=== PATIENT | female | born 1950 | race Caucasian/White ===

== ENCOUNTER 2017-09-28 08:00 | Day surgery (SDC) | payer OTHER ==
--- OUTSIDE RECORDS SUMMARY | 2017-09-28 08:06 | XMS REPORT ---
:1950 Author Organization eClinicalWorks Care Team Providers Name Role Phone Trell Stratton Provider Role Unavailable Allergies, Adverse Reactions, Alerts Substance Reaction Event Type codeine Info Not Available Drug Allergy Problems Problem Type Condition Code Onset Dates Condition Status Assessment Depression with anxiety F41.8 Active Assessment Chronic obstructive pulmonary J44.9 Active disease, unspecified COPD type Assessment Tremor of both hands R25.1 Active Problem GERD without esophagitis K21.9 Active Problem Tremor of both hands R25.1 Active Problem Depression with anxiety F41.8 Active Problem Former heavy tobacco smoker Z87.891 Active Assessment Encounter for preventative adult Z00.01 Active health care exam with abnormal findings Problem Chronic obstructive pulmonary J44.9 Active disease, unspecified COPD type Problem Migraine without aura and without G43.009 Active status migrainosus, not intractable Assessment Encounter for screening for other Z11.59 Active viral diseases Assessment Colon cancer screening Z12.11 Active Assessment Former heavy tobacco smoker Z87.891 Active Assessment Encounter for screening mammogram Z12.31 Active for breast cancer Assessment Migraine without aura and without G43.009 Active status migrainosus, not intractable Assessment Screening for osteoporosis Z13.820 Active Assessment GERD without esophagitis K21.9 Active Medications Medication Code Code Instructions Start End Status Dosage System Date Date Omeprazole [facility] 99902735863 20 MG Orally Active 1 capsule Once a day Proventil HFA [facility] 47275912382 108 (90 Base) Active 2 puffs as MCG/ACT needed Inhalation every 6 hrs Bevespi ND 11557663817 9-4.8 MCG/ACT Active 2 puffs Aerosphere Inhalation Twice a day Remeron [facility] 47697676056 30 MG Orally Active 1 tablet Once a day at bedtime Albuterol ND 97323380726 (2.5 MG/3ML) Active 3 ml as Sulfate 0.083% needed Inhalation Three times a day Results No Known Results Summary Purpose eClinicalWorks Submission
--- OUTSIDE RECORDS SUMMARY | 2017-09-28 08:07 | XMS REPORT ---
:1950 Author Organization eClinicalWorks Care Team Providers Name Role Phone Giancarlo Juan Provider Role Unavailable Allergies, Adverse Reactions, Alerts Substance Reaction Event Type codeine Info Not Available Drug Allergy Problems Problem Type Condition Code Onset Dates Condition Status Assessment LUQ abdominal pain R10.12 Active Assessment Encounter for screening colonoscopy Z12.11 Active Assessment Epigastric abdominal pain R10.13 Active Problem GERD without esophagitis K21.9 Active Problem Tremor of both hands R25.1 Active Problem Depression with anxiety F41.8 Active Problem Former heavy tobacco smoker Z87.891 Active Problem Abnormal mammogram of left breast R92.8 Active Problem Chronic obstructive pulmonary J44.9 Active disease, unspecified COPD type Problem Migraine without aura and without G43.009 Active status migrainosus, not intractable Medications Medication Code Code Instructions Start End Status Dosage System Date Date Remeron [facility] 72552580456 30 MG Orally Active 1 tablet Once a day at bedtime Omeprazole [facility] 49125933922 20 MG Orally Active 1 capsule Once a day Albuterol [facility] 27584525717 (2.5 MG/3ML) Active 3 ml as Sulfate 0.083% needed Inhalation Three times a day Proventil HFA [facility] 40705230924 108 (90 Base) Active 2 puffs as MCG/ACT needed Inhalation every 6 hrs Bevespi [facility] 30017516729 9-4.8 MCG/ACT Active 2 puffs Aerosphere Inhalation Twice a day Results No Known Results Summary Purpose eClinicalWorks Submission
[2017-09-28] MEDS ORDERED: Ringers Lactate 1,000 ML IV ONE (08:08)
[2017-09-28] MEDS ORDERED: PROPOFOL 200 MG/20 ML VIAL IV ONE ×2 (09:11)
[2017-09-28] MEDS ORDERED: LIDOCAINE 1% MPF 5 ML VIAL ONE (09:11)
[2017-09-28] MEDS ORDERED: EPINEPHRINE 1 MG/ML VIAL IV ONE (09:20)
--- NOTE | 2017-09-28 10:04 | ENDO RPT ---
[address], [address] EGD PROCEDURE REPORT EXAM DATE: 09/28/2017 PATIENT NAME: Yehuda Love MR#: [id number] BIRTHDATE: 1950 ATTENDING: Juan Mondragon DR STATUS: outpatient WAITER/WAITRESS: Leighton Correa and Mindy Hernandez RN INDICATIONS: The patient is a 66 yr old Female here for an EGD due to mid epigastric abdominal pain and GERD PROCEDURE PERFORMED: EGD with biopsy for H. pylori and EGD for control of bleeding MEDICATIONS: Per Anesthesia. TOPICAL ANESTHETIC: none CONSENT: The patient understands the risks and benefits of the procedure and understands that these risks include, but are not limited to: sedation, allergic reaction, infection, perforation and/or bleeding. Alternative means of evaluation and treatment include, among others: physical exam, x-rays, and/or surgical intervention. The patient elects to proceed with this endoscopic procedure. DESCRIPTION OF PROCEDURE: During intra-op preparation period all mechanical medical equipment was checked for proper function. Hand hygiene and appropriate measures for infection prevention was taken. Procedure, possible complications, and alternatives including but not limited to the possibility of bleeding, perforation, tear, infection, sepsis, need for surgery, need for blood transfusion, and anesthesia related complications were explained to the patient. After the risks, benefits and alternatives of the procedure were thoroughly explained, Informed consent was verified, confirmed and timeout was successfully executed by the treatment team. The patient was placed in the left lateral position. The patient was anesthetized with topical anesthesia. Through the anesthetized oropharyngeal area, the scope was passed without any difficulty. The [id number] ([id number]) endoscope was introduced through the mouth and advanced to the second portion of the duodenum. Retroflexed views revealed a moderate sized hiatal hernia. The gastroscope was then slowly withdrawn and removed. Duodenitis was found in the bulb and descending duodenum. With standard forceps, a biopsy was obtained and sent to pathology. A sessile polyp was found in the bulb of the duodenum. It is likely benign, friable appearing Polyp which was snared. Polyp was retrieved and sent to pathology. A sessile polyp was found in the gastroesophageal junction. It appeared friable, hyperemic, and round. It was removed with cold forceps and sent to pathology. After removal Epinepherine Injection 1cc was used on the polypectomy site at the GEJ. Severe gastritis was found in the body and the antrum of the stomach. Hemorrhagic streaking was noted. A biopsy for H. pylori was taken. Multiple biopsies were obtained and sent to pathology. ADVERSE EVENTS: There were no complications. IMPRESSIONS: 1. Duodenitis was found in the bulb and descending duodenum 2. A sessile polyp was found in the bulb of the duodenum 3. A sessile polyp was found in the gastroesophageal junction 4. Severe gastritis was found in the body and the antrum of the stomach RECOMMENDATIONS: 1. acid suppression therapy 2. anti-reflux regimen 3. await biopsy results 4. follow-up: office 2 week(s) 5. avoid NSAIDS 6. follow-up of helicobacter pylori status, treat if indicated REPEAT EXAM: Return in 6 month(s) for EGD. Pending Biosies Juan Mondragon DR eSigned: Juan Mondragon DR 09/28/2017 10:04 AM cc: CPT CODES: ICD9 CODES: PATIENT NAME: Yehuda Love MR#: [id number]
--- NOTE | 2017-09-28 10:07 | ENDO RPT ---
[address], [address] COLONOSCOPY PROCEDURE REPORT EXAM DATE: 09/28/2017 PATIENT NAME: Yehuda Love MR #: [id number] BIRTHDATE: 1950 ATTENDING: Juan Mondragon DR STATUS: outpatient NUCLEAR CARDIOLOGY TECHNOLOGIST: Leighton Correa and Mindy Hernandez RN INDICATIONS: The patient is a 66 yr old Female here for a colonoscopy due to colon cancer screening PROCEDURE PERFORMED: Colonoscopy with biopsy - cold polypectomy MEDICATIONS: Per Anesthesia. ESTIMATED BLOOD LOSS: None CONSENT: The patient understands the risks and benefits of the procedure and understands that these risks include, but are not limited to: sedation, allergic reaction, infection, perforation and/or bleeding. Alternative means of evaluation and treatment include, among others: physical exam, x-rays, and/or surgical intervention. The patient elects to proceed with this endoscopic procedure. DESCRIPTION OF PROCEDURE: During intra-op preparation period all mechanical medical equipment was checked for proper function. Hand hygiene and appropriate measures for infection prevention was taken. Procedure, possible complications, alternatives including, but not limited to possibility of bleeding, perforation, tear, infection, sepsis, need for surgery, need for blood transfusion, were explained to the patient. After the risks, benefits and alternatives of the procedure were thoroughly explained, Informed consent was verified, confirmed and timeout was successfully executed by the treatment team. The patient was placed in the left lateral position. A digital rectal exam was performed and revealed no abnormalities of the rectum. After appropriate level of anesthesia, the scope was passed. The [id number] ([id number]) endoscope was introduced through the anus and advanced to the cecum, which was identified by the appendix. The quality of the prep was fair. The instrument was then slowly withdrawn as the colon was fully examined. Scope withdrawal time was 12 minutes. COLON FINDINGS: A small smooth semi-pedunculated polyp with a friable surface was found at the hepatic flexure. A polypectomy was performed with cold forceps. The resection was complete, the polyp tissue was completely retrieved and sent to histology. The colon mucosa was otherwise normal. Retroflexed views revealed no abnormalities. The scope was then completely withdrawn from the patient and the procedure terminated. ADVERSE EVENTS: There were no complications. IMPRESSIONS: 1. Small semi-pedunculated polyp was found at the hepatic flexure; polypectomy was performed with cold forceps 2. The colon mucosa was otherwise normal RECOMMENDATIONS: 1. avoid NSAIDS for 2 weeks 2. await biopsy results 3. fiber rich diet 4. follow-up: office 2 week(s) 5. increase dietary water RECALL: Return in 5 year(s) for Colonoscopy, pending biopsy results. Juan Mondragon DR eSigned: Juan Mondragon DR 09/28/2017 10:07 AM cc: CPT CODES: ICD9 CODES: PATIENT NAME: Yehuda Love MR#: [id number]
[2017-09-28] MEDS ORDERED: EPINEPHRINE/PF 1 MG/ML AMP ONE (10:20)
[2017-09-28] MEDS ORDERED: PROMETHAZINE 25 MG/ML VIAL ONE (10:36)
== END 2017-09-28 11:05 | disposition home or self-care (01) ==
LOC: OR 08:00
PROVIDERS: ATTEND Surgery
PROC: 0DB68ZX Excision of Stomach, Via Natural or Artificial Opening Endoscopic, Diagnostic (ICD-10-PCS; 2017-09-28)
PROC: 0DB98ZX Excision of Duodenum, Via Natural or Artificial Opening Endoscopic, Diagnostic (ICD-10-PCS; 2017-09-28)
PROC: 0W3P8ZZ Control Bleeding in Gastrointestinal Tract, Via Natural or Artificial Opening Endoscopic (ICD-10-PCS; 2017-09-28)
PROC: 0DBL8ZX Excision of Transverse Colon, Via Natural or Artificial Opening Endoscopic, Diagnostic (ICD-10-PCS; principal; 2017-09-28 09:15)
PROC: 0DB48ZX Excision of Esophagogastric Junction, Via Natural or Artificial Opening Endoscopic, Diagnostic (ICD-10-PCS; 2017-09-28 09:15)
DX: Z12.11 Encounter for screening for malignant neoplasm of colon (principal); K63.5 Polyp of colon; K29.80 Duodenitis without bleeding; K31.7 Polyp of stomach and duodenum; K29.60 Other gastritis without bleeding; J44.9 Chronic obstructive pulmonary disease, unspecified; F41.8 Other specified anxiety disorders; Z87.891 Personal history of nicotine dependence; K21.9 Gastro-esophageal reflux disease without esophagitis
CPT/HCPCS: 88305; 88312; J0171; J2550

== ENCOUNTER 2017-10-09 13:42 | Emergency (ER) | payer OTHER ==
--- OUTSIDE RECORDS SUMMARY | 2017-10-09 13:44 | XMS REPORT ---
[...] End Status Dosage System Date Date Remeron [facility] 49643874113 30 MG Orally Active 1 tablet Once a day at bedtime Omeprazole [facility] 48584562106 20 MG Orally Active 1 capsule Once a day Albuterol [facility] 39348446080 (2.5 MG/3ML) Active 3 ml as Sulfate 0.083% needed Inhalation Three times a day Proventil HFA [facility] 72812833283 108 (90 Base) Active 2 puffs as MCG/ACT needed Inhalation every 6 hrs Bevespi [facility] 17867935730 9-4.8 MCG/ACT Active 2 puffs Aerosphere Inhalation Twice a day Results No Known Results Summary Purpose eClinicalWorks Submission
--- OUTSIDE RECORDS SUMMARY | 2017-10-09 13:44 | XMS REPORT ---
:1950 Author Organization eClinicalWorks Care Team Providers Name Role Phone Juan Mondragon Provider Role Unavailable Allergies No Known Allergies Problems Problem Type Condition Code Onset Dates Condition Status Problem GERD without esophagitis K21.9 Active Problem Tremor of both hands R25.1 Active Problem Depression with anxiety F41.8 Active Problem Former heavy tobacco smoker Z87.891 Active Problem Abnormal mammogram of left breast R92.8 Active Problem Chronic obstructive pulmonary J44.9 Active disease, unspecified COPD type Problem Migraine without aura and without G43.009 Active status migrainosus, not intractable Medications Medication Code System Code Instructions Start Date End Date Status Dosage Zofran [facility] 28335454153 4 MG Orally every October 01, Active 1 tablet 8 hrs as needed 2017 Results No Known Results Summary Purpose eClinicalWorks Submission
--- OUTSIDE RECORDS SUMMARY | 2017-10-09 13:44 | XMS REPORT ---
[...] End Status Dosage System Date Date Omeprazole [facility] 13345900014 20 MG Orally Active 1 capsule Once a day Proventil HFA [facility] 10522005975 108 (90 Base) Active 2 puffs as MCG/ACT needed Inhalation every 6 hrs Bevespi ND 04824511354 9-4.8 MCG/ACT Active 2 puffs Aerosphere Inhalation Twice a day Remeron [facility] 09551554460 30 MG Orally Active 1 tablet Once a day at bedtime Albuterol ND 60364574913 (2.5 MG/3ML) Active 3 ml as Sulfate 0.083% needed Inhalation Three times a day Results No Known Results Summary Purpose eClinicalWorks Submission
--- OUTSIDE RECORDS SUMMARY | 2017-10-09 13:44 | XMS REPORT ---
[...] Medications Medication Code System Code Instructions Start End Date Status Dosage Date Omeprazole [facility] 84010398659 20 MG Orally bid October 01, Active 1 2017 Results No Known Results Summary Purpose eClinicalWorks Submission
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
[2017-10-09] MEDS ORDERED: HYDROCODONE/APAP 5/325 MG TAB ONE (15:27)
== END 2017-10-09 15:53 | disposition home or self-care (01) ==
LOC: ER 13:42
DX: S13.4XXA Sprain of ligaments of cervical spine, initial encounter (principal); S30.1XXA Contusion of abdominal wall, initial encounter; V49.49XA Driver injured in collision with other motor vehicles in traffic accident, initial encounter; Z88.5 Allergy status to narcotic agent; Z72.0 Tobacco use
CPT/HCPCS: 70450; 71260; 72125; 74177; 99285; Q9967

== ENCOUNTER 2019-01-15 08:43 | Day surgery (SDC) | payer OTHER ==
--- OUTSIDE RECORDS SUMMARY | 2019-01-15 09:00 | XMS REPORT | Continuity of Care Document ---
:1950 Author Organization [employer] Care Team Providers Name Role Phone [employer] Unavailable Unavailable Problems Problem Status Onset Classification Date Comments Source Date Reported Pain due to 12/17/2018 Ortho internal 019 and Spine orthopedic prosthetic devices, implants and grafts, initial encounter POST-TRAUMATIC Active [facility] ARTHRITIS, RIGHT 019 [place] [facility] Appendicitis Resolved Problem 10/08/2018 [facility] AVN of femur Active Problem 10/08/2018 [facility] COPD (Confirmed) Active Problem 10/08/2018 [facility] Concussion Resolved Problem 10/08/2018 [facility] Depression Active Problem 10/08/2018 [facility] Diabetes mellitus Active Problem 10/08/2018 Automatically [facility] type 21 added by Neuro Discern Expert with order of Add Problem Diabetes Type II on January 08, 2018 16:39:11 CDT with order ID: [id number] entered by Venus Valentine. 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/2018 [facility] osteoarthritis Neuro Osteopenia after Active Problem 10/08/2018 [facility] menopause Neuro Emphysema/COPD Active Problem 10/08/2018 [facility] Ruptured spleen Resolved Problem 10/08/2018 [facility] Other 12/17/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, and Spine right femur Acute 12/17/2018 Ortho posthemorrhagic and Spine anemia Unilateral 12/17/2018 Ortho post-traumatic and Spine osteoarthritis, right hip Type 2 diabetes 12/17/2018 Ortho mellitus without and Spine complications Chronic 12/17/2018 Ortho obstructive and Spine pulmonary disease, unspecified Age-related 12/17/2018 Ortho osteoporosis and Spine without current pathological fracture Hyperlipidemia, 12/17/2018 Ortho unspecified and Spine Major depressive 12/17/2018 Ortho disorder, single and Spine episode, unspecified Gastro-esophageal 12/17/2018 Ortho reflux disease and Spine without esophagitis Essential tremor 12/17/2018 [facility] FDC 12/17/2018 Ortho (current) use of and Spine aspirin Appendicitis Resolved Problem 12/17/2018 [facility] (disorder) Neuro, Ortho and Spine Avascular necrosis Active Problem 12/17/2018 [facility] of bone (disorder) Neuro, Ortho and Spine Chronic Active Problem 12/17/2018 [facility] obstructive lung Neuro, disease (disorder) Ortho and Spine Concussion injury Resolved Problem 12/17/2018 [facility] of body structure Neuro, (disorder) Ortho and Spine Depressive Active Problem 12/17/2018 [facility] disorder Neuro, (disorder) Ortho and Spine Diabetes mellitus Active Problem 12/17/2018 Automatically [facility] type 2 (disorder) added by Neuro, Discern Expert Ortho and with order of Spine Add Problem Diabetes Type II on January 08, 2018 16:39:11 CDT with order ID: [id number] entered by Venus Valentine. Diarrhea (finding) Active Problem 12/17/2018 [facility], Ortho and Spine Essential tremor Active Problem 12/17/2018 [facility] (disorder) Neuro, Ortho and Spine Gallbladder pain Resolved Problem 12/17/2018 [facility] (finding) Neuro, Ortho and Spine Gastric ulcer Active Problem 12/17/2018 [facility] (disorder) Neuro, Ortho and Spine Gastroesophageal Active Problem 12/17/2018 [facility] reflux disease Neuro, (disorder) Ortho and Spine Hyperlipidemia Active Problem 12/17/2018 [facility] (disorder) Neuro, Ortho and Spine Migraine Active Problem 12/17/2018 [facility] (disorder) Neuro, Ortho and Spine Neck pain Active Problem 12/17/2018 [facility] (finding) Neuro, Ortho and Spine Poor short-term Active Problem 12/17/2018 [facility] memory (finding) Neuro, Ortho and Spine Post traumatic Active Problem 12/17/2018 [facility] osteoarthritis Neuro, (disorder) Ortho and Spine Postmenopausal Active Problem 12/17/2018 [facility] osteopenia Neuro, Ortho and Spine Pulmonary Active Problem 12/17/2018 [facility] emphysema Neuro, (disorder) Ortho and Spine Rupture of spleen Resolved Problem 12/17/2018 [facility] (disorder) Neuro, Ortho and Spine Medications Medication Details Route Status Patient Ordering Order Source Instructions Provider Date Alendronate 70 mg, 1 tab, No Longer Ortho Route: PO, Drug Active 2018 and form: TAB, QSun, Spine Dosing Weight 56.091, kg, Start date: 06/02/18 9:00:00 LEAD ORACLE DEVELOPER, Duration: 30 day, Stop date: 06/30/18 9:00:00 CSTNotes: Non-Formulary Drug Reserved for use in Post-Acute retirement care settings ONLY Give 30 min before breakfast w/6oz water. Sit upright for 30 min after dose. "Do Not Crush" tramadol 50 mg=1 tab, PO, No Longer Ortho hydrochloride 50 Q6H, PRN Pain, X Active 2018 and MG Oral Tablet 10 day, # 40 Spine tab, 0 Refill(s), given to patient Sulfamethoxazole 1 tab, PO, BID, No Longer Ortho 800 MG / X 14 day, # 28 Active 2019 and Trimethoprim 160 tab, 0 Spine MG Oral Tablet Refill(s), other [Bactrim] celecoxib 200 MG 200 mg=1 cap, Active Ortho Oral Capsule PO, BID, # 60 2019 and [Celebrex] cap, 0 Spine Refill(s), other Aspirin 81 MG 81 mg=1 tab, PO, Active Ortho Chewable Tablet BID, # 56 tab, 0 2019 and Refill(s), other Spine Sulfamethoxazole 1 tab, Route: No Longer Ortho 800 MG / PO, Drug Form: Active 2018 and Trimethoprim 160 TAB, Dosing Spine MG Oral Tablet Weight 56.091, [Bactrim] kg, [id number], Start date: 05/29/18 9:00:00 LEAD ORACLE DEVELOPER, Duration: 30 day, Stop date: 06/27/18 21:00:00 CSTNotes: One DS tablet=trimethop rim 160mg + sulfamethoxazole 800 mg Dose based on trimethoprim component On empty stomach with a glass of water. (Same As: Bactrim DS, Septra DS) Ondansetron 4 mg, 2 mL, No Longer Ortho Route: IVP, Drug Active 2018 and form: INJ, Q8H, Spine Dosing Weight 56.091, kg, PRN Nausea, Start date: 05/28/18 21:24:00 LEAD ORACLE DEVELOPER, Duration: 30 day, Stop date: 06/27/18 21:23:00 CSTNotes: (Same as: Zofran) MEDICATION WASTE Product Size: 4 mg Product Wasted: ___ mg 200 ACTUAT 2 puff, Route: No Longer Ortho Albuterol 0.09 INHALATION, Drug Active 2018 and MG/ACTUAT Metered Form: AERO/A, Spine Dose Inhaler Dosing Weight [Proventil] 56.091, kg, RBID, Start date: 05/28/18 20:00:00 LEAD ORACLE DEVELOPER, Duration: 30 day, Stop date: 06/27/18 8:00:00 CSTNotes: Albuterol 90 microgram/inh 8gm HFA WASTE: Aerosol - Return to Pharmacy Same as: Alexandria Lozano Dexamethasone 10 mg, 1 mL, Inactive Ortho Route: IVP, Drug 2018 and form: INJ, ONCE, Spine Dosing Weight 56.091, kg, Start date: 05/28/18 11:00:00 LEAD [employer]ACLE DEVELOPER, Stop date: 05/28/18 11:00:00 CSTNotes: MEDICATION WASTE Product Size: 10 mg Product Wasted: ___ mg Benadryl 25 mg, 1 cap, Inactive Ortho Route: PO, Drug 2018 and form: CAP, ONCE, Spine Dosing Weight 56.091, kg, PRN Nasal Congestion, Start date: 05/28/18 10:55:00 CSTNotes: (Same as: Benadryl) Zofran 4 mg, 1 tab, Inactive Ortho Route: PO, Drug 2018 and form: TABDIS, Spine Q8H, Dosing Weight 56.091, kg, Start date: 05/28/18 0:00:00 LEAD ORACLE DEVELOPER, Duration: 3 doses or times, Stop date: 05/28/18 16:00:00 CSTNotes: (Same as: Zofran ODT) Remeron 30 mg, 2 tab, No Longer Ortho Route: PO, Drug Active 2018 and form: TAB, Spine Bedtime, Dosing Weight 56.091, kg, Start date: 05/27/18 21:00:00 LEAD ORACLE DEVELOPER, Duration: 30 day, Stop date: 06/25/18 21:00:00 CSTNotes: (Same as:Remeron) Bevespi Aerosphere Bevespi No Longer Ortho 9 mcg-4.8 mcg/inh Aerosphere 9 Active 2019 and inhalation aerosol mcg-4.8 mcg/inh Spine inhalation aerosol, 2 puff, Route: INHALATION, RBID, 05/27/18 20:00:00 LEAD ORACLE DEVELOPER, Duration: 30 day, Stop date: 06/26/18 8:00:00 LEAD ORACLE DEVELOPER 200 ACTUAT 180 microgram, No Longer Ortho Albuterol 0.09 Route: Active 2019 and MG/ACTUAT Metered INHALATION, Drug Spine Dose Inhaler Form: AERO/A, [Proventil] Dosing Weight 56.091, kg, RQID, Start date: 05/27/18 19:00:00 LEAD ORACLE DEVELOPER, Duration: 30 day, Stop date: 06/26/18 15:00:00 CSTNotes: Albuterol 90 microgram/inh 8gm HFA WASTE: Aerosol - Return to Pharmacy Same as: Alexandria Lozano Tranexamic Acid 1,950 mg, 3 tab, Inactive Ortho Route: PO, Drug 2018 and form: TAB, ONCE, Spine Dosing Weight 56.091, kg, Start date: 05/27/18 18:25:00 LEAD ORACLE DEVELOPER, Stop date: 05/27/18 18:25:00 CSTNotes: (Same as: Lysteda) Omeprazole 20 mg Omeprazole 20 mg No Longer Ortho tab tab, 1 tab, Drug Active 2018 and form: MISC, Spine Route: PO, QPM, 05/27/18 18:00:00 LEAD ORACLE DEVELOPER, Duration: 30 day, Stop date: 06/25/18 18:00:00 LEAD [employer]ACLE DEVELOPER Simvastatin 20 mg, 1 tab, No Longer Ortho Route: PO, Drug Active 2018 and form: TAB, QPM, Spine Dosing Weight 56.091, kg, Start date: 05/27/18 18:00:00 LEAD ORACLE DEVELOPER, Duration: 30 day, Stop date: 06/26/18 17:00:00 CSTNotes: (Same as: Zocor) Omeprazole 10 mg, 5 mL, Inactive Ortho Route: PO, Drug 2019 and form: SUSP, QPM, Spine Dosing Weight 56.091, kg, Start date: 05/27/18 18:00:00 LEAD ORACLE DEVELOPER, Duration: 30 day, Stop date: 06/26/18 17:00:00 CSTNotes: Take 1 hour before or 2 hours after meal; Non-Formulary Drug (Same as: Prilosec) Refrigerate Compounded Product - formulation not commercially available gabapentin 400 MG 400 mg, 1 cap, Inactive Ortho Oral Capsule Route: PO, Drug 2019 and form: CAP, TID, Spine Dosing Weight 56.091, kg, Start date: 05/27/18 17:00:00 LEAD [employer]ACLE DEVELOPER, Duration: 30 day, Stop date: 06/26/18 13:00:00 CSTNotes: (Same as: Neurontin) docusate sodium 100 mg, 1 cap, No Longer Ortho Route: PO, Drug Active 2018 and form: CAP, BID, Spine Dosing Weight 56.091, kg, Start date: 05/27/18 17:00:00 LEAD [employer]ACLE DEVELOPER, Duration: 30 day, Stop date: 06/26/18 9:00:00 CSTNotes: (Same as: Colace) (Do Not Crush) Celebrex 200 mg, 1 cap, No Longer Ortho Route: PO, Drug Active 2018 and form: CAP, BID, Spine Dosing Weight 56.091, kg, Start date: 05/27/18 17:00:00 LEAD ORACLE DEVELOPER, Duration: 30 day, Stop date: 06/26/18 9:00:00 CSTNotes: NSAID. Please check indication. Not for seizure. (Same As: CeleBREX) Cefazolin 2 gm, 100 mL, No Longer Ortho Route: IVPB, Active 2019 and Drug form: INJ, Spine ABXQ6H, Dosing Weight 55.455, kg, Start date: 05/27/18 17:00:00 LEAD ORACLE DEVELOPER, Duration: 6 doses or times, Stop date: 05/28/18 23:00:00 LEAD ORACLE DEVELOPER, ABX Indication: Surgical ProphylaxisNotes : Same as: Ancef Aspirin 325 MG 325 mg, 1 tab, No Longer Ortho Enteric Coated Route: PO, Drug Active 2018 and Tablet form: ECTAB, Spine BID, Dosing Weight 56.091, kg, Start date: 05/27/18 17:00:00 LEAD ORACLE DEVELOPER, Duration: 30 day, Stop date: 06/26/18 9:00:00 CSTNotes: (Do Not Crush) Do not crush or chew. gabapentin 300 MG 300 mg, 1 cap, No Longer Ortho Oral Capsule Route: PO, Drug Active 2018 and form: CAP, Q8H, Spine Dosing Weight 55.455, kg, (CrCl > 60 ml/min), Start date: 05/27/18 16:00:00 LEAD ORACLE DEVELOPER, Duration: 30 day, Stop date: 06/26/18 8:00:00 CSTNotes: (Same as: Neurontin) glycopyrrolate Route: IV, Drug Inactive Ortho (ANES) form: INJ, ONCE, 2018 and Stop date: Spine 05/27/18 12:30:00 LEAD ORACLE DEVELOPER neostigmine (ANES) Route: IV, Drug Inactive Ortho form: INJ, ONCE, 2018 and Stop date: Spine 05/27/18 12:30:00 LEAD ORACLE DEVELOPER tramadol 100 mg, 2 tab, No Longer Ortho hydrochloride 50 Route: PO, Drug Active 2018 and MG Oral Tablet form: TAB, Q6H, Spine Dosing Weight 56.091, kg, PRN Pain Score 7-10, Start date: 05/27/18 12:25:00 LEAD ORACLE DEVELOPER, Duration: 30 day, Stop date: 06/26/18 12:24:00 CSTNotes: Not to exceed 400mg/day. (Same As: Ultram) Diphenhydramine 50 mg, 2 cap, No Longer Ortho Route: PO, Drug Active 2018 and form: CAP, TID, Spine Dosing Weight 56.091, kg, PRN Itching, Start date: 05/27/18 12:25:00 LEAD [employer]ACLE DEVELOPER, Duration: 30 day, Stop date: 06/26/18 12:24:00 CSTNotes: (Same as: Benadryl) Morphine 4 mg, 0.4 mL, No Longer Ortho Route: IVP, Drug Active 2018 and form: INJ, Q4H, Spine Dosing Weight 56.091, kg, PRN Pain Score 7-10, Start date: 05/27/18 12:25:00 LEAD ORACLE DEVELOPER, Duration: 30 day, Stop date: 06/26/18 12:24:00 CSTNotes: (Same as:MORPhine Sulfate) Melatonin 3 mg, 1 tab, No Longer Ortho Route: PO, Drug Active 2018 and form: TAB, Spine Bedtime, Dosing Weight 56.091, kg, PRN Sleep, Start date: 05/27/18 12:25:00 LEAD ORACLE DEVELOPER, Duration: 30 day, Stop date: 06/26/18 12:24:00 CSTNotes: (Same as: Melatonin) POLYETHYLENE 17 gm, 1 pkt, No Longer Ortho GLYCOL 3350 Route: PO, Drug Active 2018 and form: PWDR, Spine ONCE, Dosing Weight 56.091, kg, PRN Constipation, Start date: 05/27/18 12:25:00 CSTNotes: Dissolve in 8 oz of water or juice. (Same as: Miralax) Dulcolax Laxative 5 mg, 1 tab, No Longer Ortho Route: PO, Drug Active 2018 and form: ECTAB, Spine ONCE, Dosing Weight 56.091, kg, PRN Constipation, Start date: 05/27/18 12:25:00 CSTNotes: (Same As: Dulcolax, Correctol) (Do Not Crush) "Do Not Crush" Tylenol 650 mg, 2 tab, No Longer Ortho Route: PO, Drug Active 2018 and form: TAB, Q6H, Spine Dosing Weight 56.091, kg, PRN Pain Score 1-3, Start date: 05/27/18 12:25:00 LEAD ORACLE DEVELOPER, Duration: 30 day, Stop date: 06/26/18 12:24:00 CSTNotes: Do not exceed 4 gm/day. (Same as: Tylenol) Famotidine 20 mg, 1 tab, No Longer Ortho Route: PO, Drug Active 2018 and form: TAB, BID, Spine Dosing Weight 56.091, kg, PRN Indigestion, Start date: 05/27/18 12:25:00 LEAD ORACLE DEVELOPER, Duration: 30 day, Stop date: 06/26/18 12:24:00 CSTNotes: (Same as: Pepcid) NS 1,000 mL 1,000 mL, Rate: No Longer Ortho 85 ml/hr, Infuse Active 2019 and over: 11.8 hr, Spine Route: IV, Dosing Weight 56.091 kg, Total Volume: 1,000, Start date: 05/27/18 12:25:00 LEAD ORACLE DEVELOPER, Duration: 30 day, Stop date: 06/26/18 12:24:00 LEAD ORACLE DEVELOPER, 1.58, m2 ondansetron (ANES) Route: IV, Drug Inactive Ortho form: INJ, ONCE, 2018 and Stop date: Spine 05/27/18 12:17:00 LEAD [employer]ACLE DEVELOPER phenylephrine Route: IV, Drug Inactive Ortho (ANES) form: INJ, ONCE, 2018 and Stop date: Spine 05/27/18 11:07:00 LEAD ORACLE DEVELOPER 72 HR Scopolamine 1 patch, Route: Inactive Ortho 0.0139 MG/HR TOP, Drug Form: 2019 and Transdermal Patch ERFILM, Dosing Spine Weight 56.091, kg, PRE OP, Start date: 05/27/18 11:00:00 LEAD ORACLE DEVELOPER, Duration: 30 day, Stop date: 06/26/18 10:59:00 LEAD ORACLE DEVELOPER dexamethasone Route: IV, Drug Inactive Ortho (ANES) form: INJ, ONCE, 2018 and Stop date: Spine 05/27/18 10:57:00 LEAD ORACLE DEVELOPER rocuronium (ANES) Route: IV, Drug Inactive Ortho form: INJ, ONCE, 2018 and Stop date: Spine 05/27/18 10:52:00 LEAD ORACLE DEVELOPER fentaNYL (ANES) Route: IV, Drug Inactive 05/27/ Ortho form: INJ, ONCE, 2018 and Stop date: Spine 05/27/18 10:52:00 LEAD ORACLE DEVELOPER propofol (ANES) Route: IV, Drug Inactive 05/27/ Ortho form: INJ, ONCE, 2018 and Stop date: Spine 05/27/18 10:52:00 LEAD ORACLE DEVELOPER lidocaine (ANES) Route: IV, Drug Inactive Ortho form: INJ, ONCE, 2018 and Stop date: Spine 05/27/18 10:52:00 LEAD ORACLE DEVELOPER midazolam (ANES) Route: IV, Drug Inactive Ortho form: SOLN, 2019 and ONCE, Stop date: Spine 05/27/18 10:52:00 LEAD ORACLE DEVELOPER ceFAZolin (ANES) Route: IV, Drug Inactive Ortho form: INJ, ONCE, 2019 and Stop date: Spine 05/27/18 10:52:00 LEAD ORACLE DEVELOPER Ondansetron 4 mg, 2 mL, Inactive Ortho Route: IVP, Drug 2019 and form: INJ, ONCE, Spine Dosing Weight 56.091, kg, PRN Nausea & Vomiting, Start date: 05/27/18 10:30:00 CSTNotes: (Same as: Zofran) MEDICATION WASTE Product Size: 4 mg Product Wasted: ___ mg Hydromorphone 0.5 mg, 0.25 mL, Inactive Ortho Route: IVP, Drug 2018 and form: INJ, Spine Q5Min, Dosing Weight 56.091, kg, PRN Pain Score 7-10, Start date: 05/27/18 10:30:00 LEAD ORACLE DEVELOPER, Duration: 4 doses or times, Stop date: 05/27/18 18:29:00 CSTNotes: Same as Dilaudid Naloxone 0.4 mg, 1 mL, Inactive Ortho Route: IVP, Drug 2018 and form: INJ, Spine Q2MIN, Dosing Weight 56.091, kg, PRN Narcotic Reversal, Start date: 05/27/18 10:30:00 LEAD ORACLE DEVELOPER, Duration: 8 doses or times, Stop date: 05/27/18 18:29:00 CSTNotes: Same as Narcan Flumazenil 0.2 mg, 2 mL, Inactive Ortho Route: IVP, Drug 2018 and form: INJ, PRN, Spine Dosing Weight 56.091, kg, PRN Benzodiazepine Reversal, Initial dose, Start date: 05/27/18 10:30:00 LEAD ORACLE DEVELOPER, Duration: 8 hr, Stop date: 05/27/18 18:29:00 CSTNotes: (Same as: Romazicon) Morphine 2 mg, 0.2 mL, Inactive Ortho Route: IVP, Drug 2018 and form: INJ, Spine Q5Min, Dosing Weight 56.091, kg, PRN Pain Score 4-6, Start date: 05/27/18 10:30:00 LEAD ORACLE DEVELOPER, Duration: 5 doses or times, Stop date: 05/27/18 18:29:00 CSTNotes: (Same as:MORPhine Sulfate) Lactated Ringers Route: IV, Total Inactive Ortho Injection IV Volume: 1,000, 2019 and (ANES) 1000 mL Start date: Spine 05/27/18 10:02:00 LEAD ORACLE DEVELOPER, Stop date: 05/27/18 11:02:00 LEAD ORACLE DEVELOPER Glucagon 1 mg, Route: IM, No Longer Ortho Drug form: Active 2019 and PDR/INJ, PRN, Spine Dosing Weight 56.091, kg, PRN Blood Glucose Results, Start date: 05/27/18 8:05:00 LEAD ORACLE DEVELOPER, Duration: 30 day, Stop date: 06/26/18 8:04:00 LEAD ORACLE DEVELOPER Dextrose 50% 25 gm, 50 mL, No Longer Ortho Syringe Route: IVP, Drug Active 2018 and Form: INJ, Spine Dosing Weight 56.091, kg, PRN, PRN Blood Glucose Results, Start date: 05/27/18 8:05:00 LEAD ORACLE DEVELOPER, Duration: 30 day, Stop date: 06/26/18 8:04:00 LEAD ORACLE DEVELOPER Insulin Lispro 3 unit, 0.03 mL, No Longer Ortho Route: SUB-Q, Active 2018 and Drug form: SOLN, Spine TID-Before Meals, Dosing Weight 56.091, kg, PRN Blood Glucose Results, Start date: 05/27/18 8:05:00 LEAD ORACLE DEVELOPER, Duration: 30 day, Stop date: 06/26/18 8:04:00 CSTNotes: (Same as: Humalog ) Roll in palms of hands gently; Do not shake `vigorously. "Single Patient Use Only " WASTE: F/P - Black; E - Municipal Trash Bin Stable for 28 days at room temperature. Expires in days from Da te Cefazolin 2 gm, 50 mL, Inactive Ortho Route: IVPB, 2019 and Drug form: INJ, Spine ONCALL, Dosing Weight 56.091, kg, Start date: 05/27/18 7:00:00 LEAD ORACLE DEVELOPER, Duration: 1 doses or times, Stop date: 05/27/18 18:00:00 LEAD ORACLE DEVELOPER, ABX Indication: Surgical Prophylaxis gabapentin 300 mg, Route: Inactive Ortho PO, ONCALL, 2019 and Dosing Weight Spine 56.091, kg, Start date: 05/27/18 7:00:00 LEAD ORACLE DEVELOPER, Duration: 30 day, Stop date: 06/26/18 6:59:00 LEAD ORACLE DEVELOPER celecoxib 400 mg, 2 cap, Inactive Ortho Route: PO, Drug 2019 and form: CAP, Spine ONCALL, Dosing Weight 56.091, kg, (for CrCl > 90 mL/min), Start date: 05/27/18 7:00:00 LEAD ORACLE DEVELOPER, Stop date: 05/27/18 18:00:00 CSTNotes: NSAID. Please check indication. Not for seizure. (Same As: CeleBREX) ropivacaine 100 mL, Route: No Longer Ortho InFILtration(loc Active 2019 and al), Drug Form: Spine INJ, Dosing Weight 56.091, kg, ONCALL, Start date: 05/27/18 7:00:00 LEAD ORACLE DEVELOPER, Stop date: 05/27/18 18:00:00 CSTNotes: NOT FOR IV use Each mL contains: Ropivacaine 2.46 mg, Epinephrine 0.005 mg, Clonidine 0.0008 mg and Ketorolac 0.3 mg in Sodium Chloride Tranexamic Acid 1.95 gm, 3 tab, Inactive Ortho Route: PO, Drug 2019 and form: TAB, ONCE, Spine Dosing Weight 56.091, kg, Start date: 05/27/18 6:44:00 LEAD ORACLE DEVELOPER, Stop date: 05/27/18 6:44:00 CSTNotes: (Same as: Lysteda) Zofran ODT 4 mg, 1 tab, Inactive Ortho Route: PO, Drug 2019 and form: TABDIS, Spine ONCE, Dosing Weight 56.091, kg, Start date: 05/27/18 6:44:00 LEAD ORACLE DEVELOPER, Stop date: 05/27/18 6:44:00 CSTNotes: (Same as: Zofran ODT) Dexamethasone 10 mg, 1 mL, Inactive Ortho Route: IVP, Drug 2019 and form: SOLN, Spine ONCE, Dosing Weight 56.091, kg, Start date: 05/27/18 6:44:00 LEAD ORACLE DEVELOPER, Stop date: 05/27/18 6:44:00 CSTNotes: dexamethasone 10 mg/1 ml VL INJ PF MEDICATION WASTE Product Size: 10 mg Product Wasted: ___ mg ropivacaine 100 mL, Route: Inactive Ortho InFILtration(loc 2019 and al), Drug Form: Spine INJ, ONCALL, Start date: 05/27/18 6:00:00 LEAD ORACLE DEVELOPER, Stop date: 05/27/18 13:00:00 CSTNotes: NOT FOR IV use Each mL contains: Ropivacaine 2.46 mg, Epinephrine 0.005 mg, Clonidine 0.0008 mg and Ketorolac 0.3 mg in Sodium Chloride polymyxin B 125,000 unit, No Longer Ortho sulfate + Sodium Route: IRRIG, Active 2018 and Chloride 0.9% IV ONCALL, Start Spine 250 mL date: 05/27/18 6:00:00 LEAD ORACLE DEVELOPER, Duration: 1 doses or times, Stop date: 05/27/18 13:00:00 LEAD ORACLE DEVELOPER, ABX Indication: Surgical ProphylaxisNotes : (Same as: Polymyxin B Sulfate) vancomycin + 500 mg, Route: No Longer Ortho Sodium Chloride IRRIG, ONCALL, Active 2018 and 0.9% IV 250 mL Start date: Spine 05/27/18 6:00:00 LEAD ORACLE DEVELOPER, Duration: 1 doses or times, Stop date: 05/27/18 13:00:00 LEAD ORACLE DEVELOPER, ABX Indication: Surgical ProphylaxisNotes : TIME CRITICAL MEDICATION (Same As: Vancocin) For adult patients only: Round to nearest 250 mg per Medical Staff approval Home Medication OTC ESTROGEN & No Longer Ortho MULTIPLE Active 2019 and VITIAMN, Spine Refill(s) 0 tramadol 50 mg=1 tab, PO, No Longer Ortho hydrochloride 50 Q6H, PRN Pain, # Active 2019 and MG Oral Tablet 40 tab, 0 Spine Refill(s) Alendronic acid 70 70 mg=1 tab, PO, Active Ortho MG Oral Tablet QSun, # 4 tab, 0 2019 and Refill(s) Spine omeprazole 10 mg 10 mg=1 cap, PO, Active Ortho oral delayed QPM, TAKES AT 2019 and release capsule 1800, # 30 cap, Spine 0 Refill(s) simvastatin 20 mg 20 mg=1 tab, PO, Active Ortho oral tablet QPM, TAKES AT 2019 and 1800, # 30 tab, Spine 1 Refill(s) gabapentin 400 MG 400 mg=1 cap, Active 05/15/ [facility] Oral Capsule PO, TID, # 90 2019 Neuro cap, 4 Refill(s), Pharmacy: [facility]/pharmacy #[id number] Allergies, Adverse Reactions, Alerts Substance Category Reaction Severity Reaction Status Date Comments Source type Reported codeine Assertion Drug Active sulfate allergy Ortho and Spine Immunizations Immunization Date Given Site Status Last Updated Comments Source Hx influenza 05/17/2018 completed Jorge Admin Note: [facility] vaccine-unspecifi REC'D Neuro, ed<sup>1</sup> 03/2018 Ortho and Spine zoster vaccine, 05/17/2018 completed Jorge Admin Note: [facility]ischer inactivated<sup>2 REC'D AT AGE Neuro, </sup> 67 PER PT Ortho and Spine Results Order Name Results Value Reference Date Interpretation Comments Source Range HEMATOLOGY Hgb 10.8 12.0 - 05/29 [facility] 16.0 /2019 [facility] Spine HEMATOLOGY Hct 32.3 36.0 - 05/29 [facility] 48.0 /2019 [facility] and Spine ELECTROLYTES AGAP 12.0 10.0 - 05/28 [facility] 20.0 /2019 Ortho and Spine ELECTROLYTES eGFR 69 05/28 Result Comment: The Ortho eGFR is and calculated Spine using the CKD-EPI formula. In most young, healthy individuals the eGFR will be >90 mL/min/1.73m2 . The eGFR declines with age. An eGFR of 60-89 may be normal in some populations, particularly the elderly, for whom the CKD-EPI formula has not been extensively validated. Use of the eGFR is not recommended in the following populations:< br/>
Zuleyma viduals with unstable creatinine concentration s, including patients and those with serious co-morbid conditions.<b r/>
Patie nts with extremes in muscle mass or diet.

The data above are obtained from the National Kid[employer] Disease Education Program (NKDEP) which additionally recommends that when the eGFR is used in patients with extremes of body mass index for purposes of drug dosing, the eGFR should be multiplied by the estimated BMI. ELECTROLYTES Sodium Lvl 142 135 - 145 05/28 Ortho and Spine ELECTROLYTES Potassium Lvl 4.0 3.5 - 5.1 05/28 Ortho and Spine ELECTROLYTES Creatinine 0.88 0.50 - 05/28 [facility] Lvl 1.40 /2018 Ortho and Spine ELECTROLYTES Glucose Lvl 129 70 - 99 05/28 Ortho and Spine ELECTROLYTES BUN 17 7 - 22 05/28 Ortho and Spine ELECTROLYTES Calcium Lvl 9.0 8.5 - 10.5 05/28 Ortho and Spine ELECTROLYTES Chloride Lvl 106 95 - 109 05/28 Ortho and Spine ELECTROLYTES CO2 28 24 - 32 05/28 Ortho and Spine HEMATOLOGY Hgb 11.2 12.0 - 05/28 16.0 Ortho and Spine HEMATOLOGY Hct 33.3 36.0 - 05/28 48.0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
--- OUTSIDE RECORDS SUMMARY | 2019-01-15 09:01 | XMS REPORT ---
:1950 Author Organization [employer] Care Team Providers Name Role Phone Viral Trell Provider Role Unavailable Allergies No Known Allergies Problems Problem Type Condition Code Onset Dates Condition Status Problem GERD without esophagitis K21.9 Active Problem Chronic obstructive pulmonary J44.9 Active disease, unspecified COPD type Problem Migraine without aura and without G43.009 Active status migrainosus, not intractable Problem Abnormal mammogram of left breast R92.8 Active Problem Tremor of both hands R25.1 Active Problem Mixed hyperlipidemia E78.2 Active Problem Pulmonary nodule R91.1 Active Problem Gastro-esophageal reflux disease K21.9 Active without esophagitis Problem Former heavy tobacco smoker Z87.891 Active Problem Depression with anxiety F41.8 Active Problem Controlled type 2 diabetes mellitus E11.9 Active without complication, without long-term current use of insulin Problem Osteoporosis, unspecified M81.0 Active osteoporosis type, unspecified pathological fracture presence Medications No Known Medications Results No Known Results Summary Purpose I.PredictusinicalShoobs Submission
[2019-01-15 09:09] LABS: Absolute Lymphocytes (CBC) 1.6 K/uL (0.7-4.9); Basophils % 0.7 % (0-1.3); Hematocrit 42.6 % (36.0-45.0); Lymphocytes % 23.8 % (15.3-44.8); MPV 9.1 fL (7.6-11.3); RBC Red Blood Cell Count 4.71 M/uL (3.86-4.86)
[2019-01-15 09:28] LABS: Potassium 4.3 mmol/L (3.5-5.1)
[2019-01-15] MEDS ORDERED: NA CHLORIDE 0.9% 1,000 ML ONE ×2 (09:44→11:23)
[2019-01-15] MEDS ORDERED: CEFOXITIN 1 GM/10 ML SYR ONE (09:45)
[2019-01-15] MEDS ORDERED: PROPOFOL 200 MG/20 ML VIAL IV ONE (09:55)
[2019-01-15] MEDS ORDERED: FENTANYL CITR 100 MCG/2 ML ONE (09:55)
[2019-01-15] MEDS ORDERED: dexAMETHasone 4 MG/ML VIAL ONE (09:56)
[2019-01-15] MEDS ORDERED: ONDANSETRON 4 MG/2 ML VIAL ONE (09:56)
[2019-01-15] MEDS ORDERED: MIDAZOLAM HCL 2 MG/2 ML INJ ONE (09:56)
[2019-01-15] MEDS ORDERED: ROCURONIUM 50 MG/5 ML VIAL IV ONE (09:56)
[2019-01-15] MEDS ORDERED: LIDOCAINE 2% MPF 5 ML VIAL ONE (10:02)
--- NOTE | 2019-01-15 10:08 | EKG ---
Test Date: 2019-01-15 Test Time: 08:32:30 Personal Care Service Provider: GASPER MEASUREMENT RESULTS: Intervals: Rate: 83 OH: 140 QRSD: 78 QT: 372 QTc: 437 Gable: P: 76 OH: 140 QRS: 74 T: 73 INTERPRETIVE STATEMENTS: Normal sinus rhythm Possible Left atrial enlargement Borderline ECG Compared to ECG 02/29/2016 13:15:04 Sinus tachycardia no longer present Electronically Signed On 01-15-19 10:07:12 CDT by Sander Ruiz
[2019-01-15] MEDS ORDERED: NEOSTIGMINE 1 MG/ML -10 ML VIAL ONE (11:38)
[2019-01-15] MEDS ORDERED: GLYCOPYRROLATE 0.2 MG/ML SYR ONE (11:38)
[2019-01-15] MEDS ORDERED: SODIUM CHLORIDE 0.9% 10ML INJ IV PRN (11:42)
--- NOTE | 2019-01-15 11:43 | P.BOP ---
Preoperative diagnosis: upper abd pain Postoperative diagnosis: extensive intraabdominal adhesions Primary procedure: Diagnostic laparoscopy Secondary procedure: Laparoscopic extensive lysis of adhesions Auto Painter Helper: Rosette Monique) Estimated blood loss: <20cc Findings: see dictation Anesthesia: General Complications: None Transferred to: Recovery Room Condition: Good
[2019-01-15] MEDS: NA CHLORIDE 0.9% 1,000 ML IV SCH (12:00)
[2019-01-15] MEDS: HYDROMORPHONE HCL 2 MG/ML inj ONE ×3 (12:12→12:28)
[2019-01-15 15:16] VITALS: BMI 23.8
[2019-01-15] MEDS: CEFOXITIN/SWI 1gm 1 GM/10 ML SYR IV SCH ×2 (16:26→21:10)
[2019-01-15] MEDS: MEPERIDINE HCL 50 MG/ML IV PRN ×2 (17:35→21:59)
[2019-01-15] MEDS: ONDANSETRON 4 MG/2 ML VIAL IV PRN (18:08)
[2019-01-15] MEDS ORDERED: MIRTAZAPINE 15 MG TAB PO SCH (21:00)
[2019-01-15 22:47] VITALS: O2SAT 94
[2019-01-16] MEDS: ONDANSETRON 4 MG/2 ML VIAL IV PRN ×2 (00:30→06:21)
[2019-01-16] MEDS: MEPERIDINE HCL 50 MG/ML IV PRN ×2 (02:41→06:21)
[2019-01-16] MEDS: NA CHLORIDE 0.9% 1,000 ML IV SCH (03:35)
[2019-01-16] MEDS: CEFOXITIN/SWI 1gm 1 GM/10 ML SYR IV SCH (03:35)
[2019-01-16 04:27] LABS: Absolute Lymphocytes (CBC) 1.7 K/uL (0.7-4.9); Basophils % 0.3 % (0-1.3); Hematocrit 35.6 % (36.0-45.0); Lymphocytes % 17.9 % (15.3-44.8); MPV 9.2 fL (7.6-11.3); RBC Red Blood Cell Count 3.93 M/uL (3.86-4.86)
[2019-01-16 04:43] LABS: Potassium 4.3 mmol/L (3.5-5.1)
[2019-01-16 08:51] VITALS: BP 103/57; TEMP 98
[2019-01-16] MEDS ORDERED: PANTOPRAZOLE 40 MG INJ IVP SCH (09:00)
--- NOTE | 2019-01-16 10:19 | P.DS ---
Discharge Date: 01/16/19 Disposition: ROUTINE DISCHARGE Discharge Condition: GOOD Hospital Course: unremarkable Vital Signs/Physical Exam: Temp Pulse Resp BP Pulse Ox 98 F 78 18 103/57 L 91 01/16/19 08:00 01/16/19 08:00 01/16/19 08:00 01/16/19 08:00 01/16/19 08:00 General: Alert, In no apparent distress, Oriented x3, Cooperative HEENT: PERRLA, EOMI Neck: Supple Cardiovascular: No edema Gastrointestinal: Soft and benign Musculoskeletal: No erythema, No tenderness, No warmth Integumentary: No rashes, No breakdown, No erythema, No warmth, No cyanosis Neurological: Normal speech Laboratory Data at Discharge: WBC 9.8 K/uL (4.3-10.9) D 01/16/19 04:07 Hgb 12.0 g/dL (12.0-15.0) D 01/16/19 04:07 Hct 35.6 % (36.0-45.0) L D 01/16/19 04:07 Plt Count 176 K/uL (152-406) 01/16/19 04:07 Sodium 141 mmol/L (136-145) 01/16/19 04:07 Potassium 4.3 mmol/L (3.5-5.1) 01/16/19 04:07 BUN 11 mg/dL (7-18) 01/16/19 04:07 Creatinine 0.79 mg/dL (0.55-1.3) 01/16/19 04:07 Glucose 97 mg/dL (74-106) 01/16/19 04:07 Home Medications: Mirtazapine [Remeron] 30 mg PO DAILY 09/28/17 Albuterol Sulfate [Ventolin Hfa] 2 puff IH BID 01/15/19 Buspirone HCl 15 mg PO BID 01/15/19 Ca/D3/Mag Ox/Zinc/Product Support Representative/Homer/Bor [Calcium 600+D3 Plus Caplet] 1 each PO DAILY 08/30 Cholecalciferol (Vitamin D3) [Vitamin D3] 1,000 unit PO DAILY 01/15/19 Gabapentin [Neurontin] 400 mg PO TID 01/15/19 Glycopyrrolate/Formoterol Fum [Bevespi Aerosphere Inhaler] 2 puff IH BID Metformin HCl [Glucophage] 500 mg PO BIDWM 01/15/19 Multivitamin/Iron/Folic Acid [Centrum Adults Tablet] 1 each PO DAILY 01/15/19 Cleves-3 Fatty Acids [Cleves-3] 1,000 mg PO DAILY 01/15/19 Omeprazole 20 mg PO DAILY 01/15/19 Simvastatin 20 mg PO DAILY 01/15/19 Ondansetron HCl [Zofran] 4 mg PO Q6H PRN #10 tablet 01/16/19 Sulfamethoxazole/Trimethoprim [Bactrim Ds Tablet] 1 each PO BID #10 tablet 01/16 Tramadol HCl/Acetaminophen [Ultracet Tablet] 1 each PO Q4H PRN #30 tablet New Medications: Ondansetron HCl [Zofran] 4 mg PO Q6H PRN #10 tablet PRN Reason: Nausea / Vomiting Sulfamethoxazole/Trimethoprim [Bactrim Ds Tablet] 1 each PO BID #10 tablet Tramadol HCl/Acetaminophen [Ultracet Tablet] 1 each PO Q4H PRN #30 tablet PRN Reason: Pain Scale 5-7 (Moderate) Patient Discharge Instructions: Keep area dry for 24h then may shower. Keep sterile strips intact. Diet: AHA Activity: No lifting more than 10 lbs Followup: Felipe Borja MD [ACTIVE - CAN ADMIT] - 1 Week
== END 2019-01-16 11:44 | disposition home or self-care (01) ==
LOC: OR 08:43 → 4TH 12:15 → OR 01-16 11:44
PROVIDERS: ATTEND Surgery
PROC: 0DNW4ZZ Release Peritoneum, Percutaneous Endoscopic Approach (ICD-10-PCS; principal; 2019-01-15 12:00)
DX: K66.0 Peritoneal adhesions (postprocedural) (postinfection) (principal); E11.9 Type 2 diabetes mellitus without complications; J44.9 Chronic obstructive pulmonary disease, unspecified; K21.9 Gastro-esophageal reflux disease without esophagitis; E78.5 Hyperlipidemia, unspecified; Z88.6 Allergy status to analgesic agent; Z87.891 Personal history of nicotine dependence; Z80.3 Family history of malignant neoplasm of breast; Z80.1 Family history of malignant neoplasm of trachea, bronchus and lung; Z83.3 Family history of diabetes mellitus
CPT/HCPCS: 49329; 93005; 85025 ×2; 80048 ×2; 36415; 82962 ×2; 97116; 97161; J2704; J2710; C9113; J2250; J1170; J3010; J2175 ×4; J7030 ×4; J2405 ×4

== ENCOUNTER 2020-01-07 08:29 | Day surgery (SDC) | payer OTHER ==
[2020-01-07] MEDS ORDERED: NA CHLORIDE 0.9% 1,000 ML ONE ×2 (09:19→11:44)
--- OUTSIDE RECORDS SUMMARY | 2020-01-07 09:41 | XMS REPORT | Summary of Care ---
:1950 Author Organization [facility] [place] Address [address] [place] [address]- phone Encounter HQ Heaven_radhika(RADHA) [id number] Date(s): 11/26/19 - 11/26/19 [facility] [address] [place], [place] [address]- [phone] Discharge Disposition: Home or Self Care Attending Physician: Donald Valentine MD Referring Physician: Donald Valentine MD Vital Signs No data available for this section Problem List Condition Effective Dates Status Health Status Informant Appendicitis(Confirmed) Resolved AVN of femur(Confirmed) Active COPD (chronic obstructive pulmonary Active disease)(Confirmed) Concussion(Confirmed) Resolved Depression(Confirmed) Active Diabetes mellitus type 2(Confirmed)1 Active Diarrheal stools(Confirmed) Resolved Essential tremor(Confirmed) Active Gallbladder attack(Confirmed) Resolved Gastric ulcer(Confirmed) Active GERD (gastroesophageal reflux Active disease)(Confirmed) Hyperlipidemia(Confirmed) Active Migraines(Confirmed) Active Neck pain(Confirmed) Active Poor short-term memory(Confirmed) Active Post-traumatic Active osteoarthritis(Confirmed) Osteopenia after Active menopause(Confirmed) Emphysema/COPD(Confirmed) Active Ruptured spleen(Confirmed) Resolved 1Automatically added by Discern Expert with order of Add Problem Diabetes Type II on January 08, 2018 16:39:11 CDT with order ID: [id number] entered by Donald Valentine. Allergies, Adverse Reactions, Alerts Substance Reaction Severity Status codeine sulfate Active Medications gabapentin 600 mg oral tablet = 1 tab, PO, Daily, # 30 tab, 1 Refill(s), Pharmacy: [facility], 154.94, cm, 10/15/19 9:33:00 CDT, Height, 60, kg, 10/15/19 9:33:00 CDT, Weight Start Date: 11/26/19 Stop Date: 01/25/20 Status: Orderedprimidone 50 mg oral tablet 50 mg = 1 tab, PO, BID, # 60 tab, 3 Refill(s), Pharmacy: [facility], 154.94, cm, 10/15/19 9:33:00 CDT, Height, 60, kg, 10/15/19 9:33:00 CDT, Weight Start Date: 11/26/19 Stop Date: 03/25/20 Status: Ordered Results No data available for this section Immunizations Given and Recorded Vaccine Date Status Refusal Reason Hx influenza vaccine-unspecified1 05/17/18 Given zoster vaccine, inactivated2 05/17/18 Given 1Admin Note: REC'D [id number] Note: REC'D AT AGE 67 PER PT Procedures Procedure Date Related Diagnosis Body Site Status Tonsillectomy 1967 Completed Appendix operation Completed Gallbladder operation Comple neptali Lung operation Completed ORIF - Open reduction and internal Completed fixation of fracture Tubal ligation Completed Vaginal hysterectomy Complet ed Social History Social History Type Response Alcohol Never Exercise Exercise duration: 0. Substance Abuse Use: None. Smoking Status Current some day smoker; Typ e: Cigarettes; Previous treatment: None; Ready to change: No; Concerns about tobacco use in household: Yes; Exposure to Tobacco Smoke None; Cigarette Smoking Last 365 Days Yes; Reg Smoking Cessation Counseling Yes entered on: 11/26/19 Assessment and Plan No data available for this section
--- OUTSIDE RECORDS SUMMARY | 2020-01-07 09:41 | XMS REPORT | Summary of Care ---
:1950 Author Organization [facility] [place] Address [address] [place] [address]- phone Encounter HQ Heaven_radhika(FIN) [id number] Date(s): 11/26/19 - 11/26/19 [facility] [address] [place], [place] [address]- [phone] Attending Physician: Donald Valentine MD Referring Physician: [...] 08, 2018 16:39:11 CDT with order ID: [id number] entered by Donald Valentine. Allergies, Adverse Reactions, Alerts Substance Reaction Severity Status codeine sulfate Active Medications No data available for this section Results No data available for this section Immunizations Given and Recorded Vaccine Date Status Refusal Reason Hx influenza vaccine-unspecified1 05/17/18 Given zoster vaccine, inactivated2 05/17/18 Given 1Admin Note: REC'D [id number] Note: REC'D AT AGE 67 PER PT [...]
--- OUTSIDE RECORDS SUMMARY | 2020-01-07 09:41 | XMS REPORT | Continuity of Care Document ---
:1950 Author Organization [employer] Care Team Providers Name Role Phone [employer] Unavailable Un available Problems Problem Status Onset Classification Date Comments Sourc e Date Reported Pain due to 12/17/2018 MH Orth o internal 019 and Spine orthopedic prosthetic devices, implants and grafts, initial encounter POST-TRAUMATIC Active Memor ial ARTHRITIS, RIGHT 019 Her jensen HIP AVAS Appendicitis Resolved Problem 11/29/2019 Mische r (disorder) Neuro,[facility] Ortho and Spine Avascular necrosis Active Problem 11/29/2019 Mischer of bone (disorder) N euro,MH Ortho [facility] Spine Chronic Active Problem 11/29/2019 Mischer obstructive lung Acacia ro,MH disease (disorder) O rtho and Spine Concussion injury Resolved Problem 11/29/2019 M ischer of body structure GILMER Garcia (disorder) Ortho and Spine Depressive Active Problem 11/29/2019 Mischer disorder Neuro,MH (disorder) Ortho and Spine Diabetes mellitus Active Problem 11/29/2019 Automatical ly Mischer type 2 (disorder) added by GILMER Garcia Discern Expert Ortho and with order of Spine Add Problem Diabetes Type II on January 08, 2018 16:39:11 CDT with order ID: [id number] entered by Venus Valentine. Diarrhea (finding) Resolved Problem 11/29/2019 Mischer Neuro,[facility] Essential tremor Active Problem 11/29/2019 Mi graciela (disorder) Neuro,[facility] Gallbladder pain Resolved Problem 11/29/2019 Mi graciela (finding) Neuro,[facility] Gastric ulcer Active Problem 11/29/2019 Misch er (disorder) Neuro,MH [facility] Spine Gastroesophageal Active Problem 11/29/2019 Mi graciela reflux disease Neuro ,MH (disorder) Ortho and Spine Hyperlipidemia Active Problem 11/29/2019 Misc her (disorder) Neuro,MH [facility] Spine Migraine Active Problem 11/29/2019 Mischer (disorder) Neuro,MH [facility] Spine Neck pain Active Problem 11/29/2019 Mischer (finding) Neuro,MH [facility] Sp[facility] Poor short-term Active Problem 11/29/2019 Mis gonsalo memory (finding) Acacia ro,MH Ortho and Spine 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/29/2019 Misc her osteoarthritis Neuro ,MH (disorder) Ortho and Spine Postmenopausal Active Problem 11/29/2019 Misc her osteopenia Neuro,MH [facility] Sp[facility] Pulmonary Active Problem 11/29/2019 Mischer emphysema Neuro,MH (disorder) Ortho and Spine Rupture of spleen Resolved Problem 11/29/2019 M ischer (disorder) Neuro,MH Ortho and Spine Other 12/17/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, and S pine right femur Acute 12/17/2018 MH Ortho posthemorrhagic and Spine anemia Unilateral 12/17/2018 MH Ortho post-traumatic and S pine osteoarthritis, right hip Type 2 diabetes 12/17/2018 MH Ortho mellitus without and Spine complications Chronic 12/17/2018 MH Ortho obstructive and Spin e pulmonary disease, unspecified Age-related 12/17/2018 MH Orth o osteoporosis and Spi ne without current pathological fracture Hyperlipidemia, 12/17/2018 MH Ortho unspecified and Spin e Major depressive 12/17/2018 Ortho disorder, single and Spine episode, unspecified Gastro-esophageal 12/17/2018 M H Ortho reflux disease and S pine without esophagitis Essential tremor 12/17/2018 MH Ortho and Spine 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 12/17/2018 Ortho (current) use of and Spine aspirin Medications Medication Details Route Status Patient Ordering Order Source Instructions Provider Date gabapentin 600 MG = 1 tab, PO, Active ischer Oral Tablet Daily, # 30 tab, 2019 Acacia ro 1 Refill(s), Pharmacy: [id number], 154.94, cm, 10/15/19 9:33:00 CDT, Height, 60, kg, 10/15/19 9:33:00 CDT, Weight primidone 50 mg 50 mg = 1 tab, Active ischer oral tablet PO, BID, # 60 2019 Neuro tab, 3 Refill(s), Pharmacy: [facility], 154.94, cm, 10/15/19 9:33:00 CDT, Height, 60, kg, 10/15/19 9:33:00 CDT, Weight gabapentin 600 MG = 1 tab, PO, BID, Active 3/ Mischer Oral Tablet # 60 tab, 1 2019 Neuro Refill(s), Pharmacy: [facility] primidone 50 mg 50 mg = 1 tab, Active 10/14/ M ischer oral tablet PO, Bedtime, # 30 2019 Ne uro tab, 3 Refill(s), Pharmacy: [facility] lisinopril 2.5 mg 0 Refill(s) Active graciela oral tablet 2020 Neuro gabapentin 600 MG = 1 tab, PO, TID, No Longer / Mischer Oral Tablet # 90 tab, 1 Active 2019 Neuro Refill(s), Pharmacy: [facility] gabapentin 600 MG 600 mg = 1 tab, Active 06/11/ Mischer Oral Tablet PO, TID, # 90 2019 Neuro tab, 2 Refill(s), Pharmacy: [facility] gabapentin 600 MG 600 mg = 1 tab, Active 03/26/ Mischer Oral Tablet PO, TID, # 90 2019 Neuro tab, 2 Refill(s), Pharmacy: [facility] gabapentin 600 MG 600 mg = 1 tab, Inactive 03/26 / Mischer Oral Tablet PO, TID, X 30 2018 Neuro day, # 90 tab, 3 Refill(s), Pharmacy: [facility]/pharmacy #[id number] Alendronate Notes: No Longer Ortho Non-Formulary Active 2019 and Drug Reserved Spine for use in Post-Acute longterm care settings ONLY Give 30 min before breakfast w/6oz water. Sit upright for 30 min after dose. "Do Not Crush" tramadol 50 mg = 1 tab, No Longer Ort ho hydrochloride 50 PO, Q6H, PRN Active 2019 an d MG Oral Tablet Pain, X 10 day, # Spine 40 tab, 0 Refill(s), given to patient Sulfamethoxazole 1 tab, PO, BID, X No Longer Ortho 800 MG / 14 day, # 28 tab, Active 2019 and Trimethoprim 160 0 Refill(s), Sp ine MG Oral Tablet other [Bactrim] celecoxib 200 MG 200 mg = 1 cap, Active Ortho Oral Capsule PO, BID, # 60 2019 and [Celebrex] cap, 0 Refill(s), Spi ne other Aspirin 81 MG 81 mg = 1 tab, Active Ortho Chewable Tablet PO, BID, # 56 2019 an d tab, 0 Refill(s), Spine other Sulfamethoxazole Notes: One DS No Longer Ortho 800 MG / tablet = Active 2019 and Trimethoprim 160 trimethoprim Sp ine MG Oral Tablet 160mg + [Bactrim] sulfamethoxazole 800 mg Dose based on trimethoprim component On empty stomach with a glass of water. (Same As: Bactrim DS, Septra DS) Ondansetron Notes: (Same as: No Longer H Ortho Zofran) Active 2019 and MEDICATION WASTE Spine Product Size: 4 mg Product Wasted: ___ mg 200 ACTUAT Notes: Albuterol No Longer Ortho Albuterol 0.09 90 microgram/inh Active 2018 and MG/ACTUAT Metered 8gm HFA WASTE: Spine Dose Inhaler Aerosol - Return [Proventil] to Pharmacy Same as: Marta Proventil Dexamethasone Notes: Inactive Ort ho MEDICATION WASTE 2019 and Product Size: Spine 10 mg Product Wasted: ___ mg Benadryl Notes: (Same as: Inactive Or tho Benadryl) 2018 and Spine Zofran Notes: (Same as: Inactive Ort ho Zofran ODT) 2018 and Spine Remeron Notes: (Same No Longer Ortho as:Remeron) Active 2018 and Spine Bevespi Bevespi No Longer Ortho Aerosphere 9 Aerosphere 9 Active 2018 and mcg-4.8 mcg/inh mcg-4.8 mcg/inh Spine inhalation inhalation aerosol aerosol, 2 puff, Route: INHALATION, RBID, 05/27/18 20:00:00 ENTRY LEVEL BUSINESS ANALYST, Duration: 30 day, Stop date: 06/26/18 8:00:00 ENTRY LEVEL BUSINESS ANALYST 200 ACTUAT Notes: Albuterol No Longer Ortho Albuterol 0.09 90 microgram/inh Active 2018 and MG/ACTUAT Metered 8gm HFA WASTE: Spine Dose Inhaler Aerosol - Return [Proventil] to Pharmacy Same as: Ventbentley, Proventil Tranexamic Acid Notes: (Same as: Inactive Ortho Lysteda) 2019 and Spine Omeprazole 20 mg Omeprazole 20 mg No Longer 05/14 Ortho tab tab, 1 tab, Drug Active 2019 and form: MISC, Spine Route: PO, QPM, 05/27/18 18:00:00 ENTRY LEVEL BUSINESS ANALYST, Duration: 30 day, Stop date: 06/25/18 18:00:00 ENTRY LEVEL BUSINESS ANALYST Simvastatin Notes: (Same as: No Longer 05/28/ H Ortho Zocor) Active 2019 and Spine Omeprazole Notes: Take 1 Inactive Ort ho hour before or 2 2018 and hours after meal; Spine Non-Formulary Drug (Same as: Prilosec) Refrigerate Compounded Product - formulation not commercially available gabapentin 400 MG Notes: (Same as: Inactive 05/14 Ortho Oral Capsule Neurontin) 2019 and Spine docusate sodium Notes: (Same as: No Longer 05/27 Ortho Colace) (Do Not Active 2018 and Crush) Spine Celebrex Notes: NSAID. No Longer Orth o Please check Active 2019 and indication. Not Spine for seizure. (Same As: CeleBREX) Cefazolin Notes: Same as: No Longer O rtho Ancef Active 2018 and Spine Aspirin 325 MG Notes: (Do Not No Longer Ortho Enteric Coated Crush) Do not Active 2019 an d Tablet crush or chew. Spine gabapentin 300 MG Notes: (Same as: No Longer Ortho Oral Capsule Neurontin) Active 2018 and Spine glycopyrrolate Route: IV, Drug Inactive Ortho (ANES) form: INJ, ONCE, 2019 and Stop date: Spine 05/27/18 12:30:00 ENTRY LEVEL BUSINESS ANALYST neostigmine Route: IV, Drug Inactive Ortho (ANES) form: INJ, ONCE, 2018 and Stop date: Spine 05/27/18 12:30:00 ENTRY LEVEL BUSINESS ANALYST tramadol Notes: Not to No Longer Orth o hydrochloride 50 exceed 400mg/day. Active 2018 and MG Oral Tablet (Same As: Ultram) Spine Diphenhydramine Notes: (Same as: No Longer 05/27 Ortho Benadryl) Active 2018 and Spine Morphine Notes: (Same No Longer Ortho as:MORPhine Active 2019 and Sulfate) Spine Melatonin Notes: (Same as: No Longer Ortho Melatonin) Active 2019 and Spine POLYETHYLENE Notes: Dissolve No Longer Ortho GLYCOL 3350 in 8 oz of water Active 2018 and or juice. (Same Spine as: Miralax) Dulcolax Laxative Notes: (Same As: No Longer Ortho Dulcolax, Active 2018 and Correctol) (Do Spine Not Crush) "Do Not Crush" Tylenol Notes: Do not No Longer Ortho exceed 4 gm/day. Active 2019 and (Same as: Spine Tylenol) Famotidine Notes: (Same as: No Longer Ortho Pepcid) Active 2019 and Spine NS 1,000 mL 1,000 mL, Rate: No Longer Ortho 85 ml/hr, Infuse Active 2018 and over: 11.8 hr, Spine Route: IV, Dosing Weight 56.091 kg, Total Volume: 1,000, Start date: 05/27/18 12:25:00 ENTRY LEVEL BUSINESS ANALYST, Duration: 30 day, Stop date: 06/26/18 12:24:00 ENTRY LEVEL BUSINESS ANALYST, 1.58, m2 ondansetron Route: IV, Drug Inactive Ortho (ANES) form: INJ, ONCE, 2018 and Stop date: Spine 05/27/18 12:17:00 ENTRY LEVEL BUSINESS ANALYST phenylephrine Route: IV, Drug Inactive Ortho (ANES) form: INJ, ONCE, 2018 and Stop date: Spine 05/27/18 11:07:00 ENTRY LEVEL BUSINESS ANALYST 72 HR Scopolamine 1 patch, Route: Inactive 05/27 Ortho 0.0139 MG/HR TOP, Drug Form: 2019 and Transdermal Patch ERFILM, Dosing Spine Weight 56.091, kg, PRE OP, Start date: 05/27/18 11:00:00 ENTRY LEVEL BUSINESS ANALYST, Duration: 30 day, Stop date: 06/26/18 10:59:00 ENTRY LEVEL BUSINESS ANALYST dexamethasone Route: IV, Drug Inactive H Ortho (ANES) form: INJ, ONCE, 2018 and Stop date: Spine 05/27/18 10:57:00 ENTRY LEVEL BUSINESS ANALYST rocuronium (ANES) Route: IV, Drug Inactive 05/27 Ortho form: INJ, ONCE, 2018 and Stop date: Spine 05/27/18 10:52:00 ENTRY LEVEL BUSINESS ANALYST fentaNYL (ANES) Route: IV, Drug Inactive Ortho form: INJ, ONCE, 2019 and Stop date: Spine 05/27/18 10:52:00 ENTRY LEVEL BUSINESS ANALYST propofol (ANES) Route: IV, Drug Inactive Ortho form: INJ, ONCE, 2018 and Stop date: Spine 05/27/18 10:52:00 ENTRY LEVEL BUSINESS ANALYST lidocaine (ANES) Route: IV, Drug Inactive Ortho form: INJ, ONCE, 2018 and Stop date: Spine 05/27/18 10:52:00 ENTRY LEVEL BUSINESS ANALYST midazolam (ANES) Route: IV, Drug Inactive Ortho form: SOLN, ONCE, 2018 and Stop date: Spine 05/27/18 10:52:00 ENTRY LEVEL BUSINESS ANALYST ceFAZolin (ANES) Route: IV, Drug Inactive 05/27[facility] Ortho form: INJ, ONCE, 2018 and Stop date: Spine 05/27/18 10:52:00 ENTRY LEVEL BUSINESS ANALYST Ondansetron Notes: (Same as: Inactive Ortho Zofran) 2019 and MEDICATION WASTE Spine Product Size: 4 mg Product Wasted: ___ mg Hydromorphone Notes: Same as Inactive Ortho Dilaudid 2019 and Spine Naloxone Notes: Same as Inactive 05/27[facility] Orth o Narcan 2019 and Spine Flumazenil Notes: (Same as: Inactive Ortho Romazicon) 2019 and Spine Morphine Notes: (Same Inactive Ortho as:MORPhine 2019 and Sulfate) Spine Lactated Ringers Route: IV, Total Inactive 05/27 Ortho Injection IV Volume: 1,000, 2019 and (ANES) 1000 mL Start date: Spine 05/27/18 10:02:00 ENTRY LEVEL BUSINESS ANALYST, Stop date: 05/27/18 11:02:00 ENTRY LEVEL BUSINESS ANALYST Glucagon 1 mg, Route: IM, No Longer O rtho Drug form: Active 2019 and PDR/INJ, PRN, Spine Dosing Weight 56.091, kg, PRN Blood Glucose Results, Start date: 05/27/18 8:05:00 ENTRY LEVEL BUSINESS ANALYST, Duration: 30 day, Stop date: 06/26/18 8:04:00 ENTRY LEVEL BUSINESS ANALYST Dextrose 50% 25 gm, 50 mL, No Longer Ortho Syringe Route: IVP, Drug Active 2018 and Form: INJ, Dosing Spine Weight 56.091, kg, PRN, PRN Blood Glucose Results, Start date: 05/27/18 8:05:00 ENTRY LEVEL BUSINESS ANALYST, Duration: 30 day, Stop date: 06/26/18 8:04:00 ENTRY LEVEL BUSINESS ANALYST Insulin Lispro Notes: (Same as: No Longer Ortho Humalog ) Roll in Active 2019 and palms of hands Spine gently; Do not shake `vigorously. "Single Patient Use Only " WASTE: F/P - Black; E - Municipal Trash Bin Stable for 28 days at room temperature. Expires in days from Dat e Cefazolin 2 gm, 50 mL, Inactive Ortho Route: IVPB, Drug 2019 and form: INJ, Spine ONCALL, Dosing Weight 56.091, kg, Start date: 05/27/18 7:00:00 ENTRY LEVEL BUSINESS ANALYST, Duration: 1 doses or times, Stop date: 05/27/18 18:00:00 ENTRY LEVEL BUSINESS ANALYST, ABX Indication: Surgical Prophylaxis gabapentin 300 mg, Route: Inactive Or tho PO, ONCALL, 2019 and Dosing Weight Spine 56.091, kg, Start date: 05/27/18 7:00:00 ENTRY LEVEL BUSINESS ANALYST, Duration: 30 day, Stop date: 06/26/18 6:59:00 ENTRY LEVEL BUSINESS ANALYST celecoxib Notes: NSAID. Inactive Orth o Please check 2019 and indication. Not Spine for seizure. (Same As: CeleBREX) ropivacaine Notes: NOT FOR No Longer Ortho IV use Each mL Active 2018 and contains: Spine Ropivacaine 2.46 mg, Epinephrine 0.005 mg, Clonidine 0.0008 mg and Ketorolac 0.3 mg in Sodium Chloride Tranexamic Acid Notes: (Same as: Inactive Ortho Lysteda) 2018 and Spine Zofran ODT Notes: (Same as: Inactive Ortho Zofran ODT) 2018 and Spine Dexamethasone Notes: Inactive Ortho dexamethasone 2018 and mg/1 ml VL INJ PF Spine MEDICATION WASTE Product Size: 10 mg Product Wasted: ___ mg ropivacaine Notes: NOT FOR Inactive H Ortho IV use Each mL 2019 and contains: Spine Ropivacaine 2.46 mg, Epinephrine 0.005 mg, Clonidine 0.0008 mg and Ketorolac 0.3 mg in Sodium Chloride polymyxin B Notes: (Same as: No Longer H Ortho sulfate + Sodium Polymyxin B Active 2018 and Chloride 0.9% IV Sulfate) Spine 250 mL vancomycin + Notes: TIME No Longer Or tho Sodium Chloride CRITICAL Active 2018 and 0.9% IV 250 mL MEDICATION (Same Spine As: Vancocin) For adult patients only: Round to nearest 250 mg per Medical Staff approval Home Medication OTC ESTROGEN & No Longer Ortho MULTIPLE VITIAMN, Active 2018 and Refill(s) 0 Spine tramadol 50 mg = 1 tab, No Longer Ort ho hydrochloride 50 PO, Q6H, PRN Active 2018 an d MG Oral Tablet Pain, # 40 tab, 0 Spine Refill(s) Alendronic acid 70 mg = 1 tab, Active H Ortho 70 MG Oral Tablet PO, QSun, # 4 2019 and tab, 0 Refill(s) Spine omeprazole 10 mg 10 mg = 1 cap, Active Ortho oral delayed PO, QPM, TAKES AT 2019 a nd release capsule 1800, # 30 cap, 0 Spine Refill(s) simvastatin 20 mg 20 mg = 1 tab, Active Ortho oral tablet PO, QPM, TAKES AT 2019 an d 1800, # 30 tab, 1 Spine Refill(s) gabapentin 400 MG 400 mg = 1 cap, Active cher Oral Capsule PO, TID, # 90 2019 Neuro cap, 4 Refill(s), Pharmacy: [facility]/pharmacy #[id number] Allergies, Adverse Reactions, Alerts Substance Category Reaction Severity Reaction Status Date Comments S ource type Reported codeine Assertion Drug Active Mische r sulfate allergy Neuro Immunizations Immunization Date Given Site Status Last Updated Comments Violet rce Hx influenza 05/17/2018 completed Jorge Admin Note: [facility] [place] vaccine-unspecifi REC'D Ne uro, ed<sup>1</sup> 03/2018 Ortho and Spine zoster vaccine, 05/17/2018 completed Jorge Admin Note: M ischer inactivated<sup>2 REC'D AT AGE Neuro,MH </sup> 67 PER PT Ortho and Spine Results Order Name Results Value Reference Date Interpretation Comments Violet rce Range HEMATOLOGY Hgb 10.8 12.0 - 05/29 MH 16.0 Ortho and Spine HEMATOLOGY Hct 32.3 36.0 - 05/29 48.0 Ortho and Spine ELECTROLYTES AGAP 12.0 10.0 - 05/28 MH 20.0 Ortho and Spine ELECTROLYTES eGFR 69 05/28 [...] 0.88 0.50 - 05/28 MH Lvl 1.40 Ortho and Spine ELECTROLYTES Glucose Lvl 129 70 - 99 05/28 Ortho and Spine ELECTROLYTES BUN 17 7 - 22 05/28 Ortho and Spine ELECTROLYTES Calcium Lvl 9.0 8.5 - 10.5 05/28 Ortho and Spine ELECTROLYTES Chloride Lvl 106 95 - 109 05/28 Ortho and Spine ELECTROLYTES CO2 28 24 - 32 05/28 Ortho and Spine HEMATOLOGY Hgb 11.2 12.0 - 05/28 16. Ortho and Spine HEMATOLOGY Hct 33.3 36.0 - 05/28 48.0 Ortho and Spine Culture: No 05/27 Anaerobic Anaerobes Ortho Isolated and Spine Gram Stain No [...] UA Ketones Negative Negative 05/21 STOOL *NA* Ortho (05/21/18 9:45 AM) and Spine URINE AND UA Glucose Negative Negative 05/21 STOOL (05/21/18 9:45 AM) /2018 Ortho and Spine URINE AND UA Leuk [...] 0.2 0.1 - 1.0 05/21 STOOL Urobilinogen /2018 Ortho and Spine URINE AND UA pH 5.5 5.0 - 8.0 05/21 STOOL Ortho and Spine URINE AND UA Protein 30 mg/dL Negative 05/21 STOOL mg/dL /2018 Ortho and Spine URINE AND UA Spec Grav 1.025 <=1.030 05/21 STOOL Ortho and Spine URINE AND UA Bili Negative Negative 05/21 STOOL *NA* Ortho (05/21/18 9:45 AM) [...] BLOOD BANK ABO/Rh O POS 05/21 RESULTS /2018 Ortho and Spine CHEM PANEL eGFR 76 [...] Spine CHEM PANEL Creatinine 0.81 0.50 - 05/21 Lvl 1.40 /2018 Ortho and Spine CHEM PANEL Albumin Lvl 3.4 3.5 - 5.0 05/21 Ortho and Spine CHEM PANEL ALANINE 15 0 - 65 05/21 AMINO Ortho ASE and Spine CHEM PANEL ASPARTATE 16 0 - 37 05/21 TRANSAMINASE /2018 Ortho and Spine CHEM PANEL Sodium Lvl [...] CHEM PANEL AGAP 14.7 10.0 - 05/21 MH 20.0 /2018 Ortho and Spine CHEM PANEL [...] HEMATOLOGY Segs 69.6 45.0 - 05/21 75.0 /2018 Ortho and Spine HEMATOLOGY Lymphocytes 23.9 20.0 - 05/21 40.0 Ortho and Spine HEMATOLOGY Eosinophils 1.4 0.0 - 4.0 05/21 Ortho and Spine HEMATOLOGY Monocytes # 0.3 0.0 - 0.8 05/21 Ortho and Spine HEMATOLOGY Monocytes 4.5 2.0 - 12.0 05/21 Ortho and Spine HEMATOLOGY Hgb 14.6 12.0 - 05/21 16.0 Ortho and Spine HEMATOLOGY Hct 43.4 36.0 - 05/21 MH 48.0 /2019 Ortho and Spine HEMATOLOGY MCV 89.0 80.0 - 05/21 98.0 /2019 Ortho and Spine HEMATOLOGY WBC 7.7 3.7 - 10.4 05/21 Ortho and Spine HEMATOLOGY RBC 4.87 4.20 - 05/21 MH 5.40 /2019 Ortho and Spine HEMATOLOGY Platelet 218 133 - 450 05/21 Ortho and Spine HEMATOLOGY MPV 9.4 7.4 - 10.4 05/21 Ortho and Spine HEMATOLOGY MCH 30.0 27.0 - 05/21 31.0 Ortho and Spine HEMATOLOGY MCHC 33.7 32.0 - 05/21 36.0 Ortho and Spine HEMATOLOGY RDW 13.3 11.5 - 05/21 14.5 Ortho and Spine HEMATOLOGY aPTT 37.2 22.9 - 05/21 35.8 /2019 Ortho and Spine HEMATOLOGY PROTIME 11.6 12.0 - 05/21 Result 14.7 Comment: Ortho Repeated and and Verified. Spine HEMATOLOGY INR 0.86 0.85 - 05/21 1. Ortho and Spine HEMATOLOGY Sed Rate 20 0 - 20 05/21 Ortho and Spine IMMUNOLOGY C-REACTIVE 8.9 <=2.9 mg/L 05/21 PROTEIN Ortho and Spine SPECIAL Hgb A1C 5.5 <=5.6 % 05/21 CHEMISTRY Ortho and Spine Pathology Reports No Data Provided for This Section Diagnostic Reports Report Value Date Source Pelvis AP DX EXAM: XR PELVIS 1 VIEW 05/27/2018 [facility] DATE: 05/27/2018 12:25 ENTRY LEVEL BUSINESS ANALYST INDICATION: - to be done in PACU COMPARISON: None TECHNIQUE: A single AP supine radiograph of the pelvis FINDINGS: Completion of righ t total hip arthroplasty, which is in satisfactory alignment. No perihardware fracture. Right hip soft tissue gas. IMPRESSION: Satisfactory appearance of right to michelle hip arthroplasty. Consultation Notes No Data Provided for This Section Discharge Summaries No Data Provided for This Section History and Physicals No Data Provided for This Section Vital Signs Vital Sign Value Date Comments Source Systolic (mm Hg) 103 [place] [facility] [place] Diastolic (mm Hg) 58 10/15/2019 [facility] [place] Heart Rate 99 10/15/2019 [facility] [place] Respitory Rate 16 10/15/2019 [facility] [place] Height 154.94 cm 10/15/2019 [facility] [place] Weight 60 10/15/2019 [facility] [place] BMI Calculated 24.99 10/15/2019 [facility] [place] Systolic (mm Hg) 118 03/26/2019 [facility] [place] Diastolic (mm Hg) 73 03/26/2019 [facility] [place] Heart Rate 94 03/26/2019 [facility] [place] Height 157.48 cm 03/26/2019 [facility] [place] Weight 61.364 03/26/2019 [facility] [place] BMI Calculated 24.74 03/26/2019 [facility] [place] Systolic (mm Hg) 119 05/30/2018 Ortho an d Spine Diastolic (mm Hg) 66 05/30/2018 Ortho a nd Spine Respitory Rate 17 05/30/2018 Ortho and Spine Heart Rate 79 05/30/2018 Ortho and Spine Temperature Oral (F) 97.9 F 05/30/2018 MH Orth o and Spine Respitory Rate 17 05/30/2018 MH Ortho and Spine Temperature Oral (F) 98.0 F 05/30/2018 MH Orth o and Spine Systolic (mm Hg) 117 05/30/2018 MH Ortho an d Spine Diastolic (mm Hg) 78 05/30/2018 MH Ortho a nd Spine Heart Rate 77 05/30/2018 MH Ortho and Spine Respitory Rate 17 05/30/2018 MH Ortho and Spine Heart Rate 83 05/30/2018 MH Ortho and Spine Temperature Oral (F) 97.4 F 05/30/2018 MH Orth o and Spine Systolic (mm Hg) 124 05/30/2018 MH Ortho an d Spine Diastolic (mm Hg) 64 05/30/2018 MH Ortho a nd Spine BMI Calculated 22.62 05/27/2018 Ortho and Spine Height 157.48 cm 05/27/2018 MH Ortho and Spine Weight 56.091 05/27/2018 MH Ortho and Spine Height 154.94 cm 05/15/2018 [facility] [place] BMI Calculated 23.86 05/15/2018 [facility] [place] Weight 57.273 05/15/2018 [facility] [place] Systolic (mm Hg) 115 05/15/2018 [facility] [place] Diastolic (mm Hg) 95 05/15/2018 [facility] [place] Heart Rate 95 05/15/2018 [facility] [place] Respitory Rate 16 05/15/2018 [facility] [place] Encounters Location Location Encounter Encounter Reason Attending ADM DC Stat us Source Details Type Number For Provider Date Date Visit Outpatient [id number] VENUS 09/13 Active [facility] [place] Out[facility] [id number] VENUS 11/01 Active [facility] [id number] VENUS 01/08 Active [facility] [place] [facility] [id number] VENUS 02/19 Active [facility] Ambulatory [id number] Venus 02/19 02/19 [facility] [place] [facility] [place] [facility] [id number] VENUS 03/21 Active [facility] Ambulatory [id number] Venus 03/21 03/21 [facility] [place] [facility] [place] [facility] [id number] VENUS 05/15 Active [facility]NA Outpatient [id number] Venus 05/15 05/16 [facility] [place] [facility] [id number] [place] 05/27 05/30 [facility] /2018 [facility] [id number] Venus 08/21 Active [facility] Outpatient [id number] Venus 02/19 Active [facility] MNA Ambulatory [id number] Venus 02/19 02/19 [facility] [place] [facility] [place] [facility] [id number] Venus 03/26 Active [facility] MNA Outpatient [id number] Venus 03/26 03/27 [facility] [place] [facility] [id number] Venus 05/28 Active [facility] [id number] [place] 05/28 05/28 [facility] [place] [facility] [id number] Venus 07/21 Active [facility] [place] [facility] [id number] Venus 07/21 07/21 [facility] [place] [facility] [id number] Venus 10/14 Active [facility] [id number] Venus 10/14 10/15 [facility] [place] [facility] [id number] Venus 11/25 Active [facility] [id number] Venus 11/25 Active [facility] [id number] Venus 11/25 11/25 [facility] [place] [facility] [place] [facility] [id number] Venus 11/25 11/26 [facility] [place]rell /2019 [facility] [id number] Venus 02/25 Active [facility] [place] Procedures Procedure Code Date Perfomer Comments Source T[id number] [facility] Appendix operation [id number] [facility]bl[facility] [id number] [facility] Lung operation [id number] [facility] [place] [facility] ORIF - Open [id number] [facility] [place] and [facility], internal fixation Ortho a nd of fracture Spine Tubal ligation [id number] [facility] [place] [facility] Vaginal [id number] [facility] [place] [facility] Assessment and Plan Assessment and Plan Date Source Extracted from:Title: Discharge Summary 05/30/2018 [facility] Author: Alverto Ricketts MD Date: 05/30/18 Discharge Summary Admission date:05/27/18 Discharge date:05/30/18 Preoperative diagnosis: 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 Patient underwent the operative procedure of a Right conversion total hip r eplacement and removal of hardware. Stephanie ent was monitored by the internal medicine service and remained stable throughout the post operative course. Patient's H&H on the first postoperative day was 11.2/33.3. Patient's H&H on th e second post operative day was 10.3/32.2 Patient was seen by physical therapy twice daily and was ambulating well with a walker prior to discharge. ROM goals achieved. Patient was cleare d for discharge on 05/30/18 to rehab facility with delayed discharge d/t insurance and facility placement approval. Hospital course was uneventful. Diet: regular Meds: please see med reconciliation list Activity: WBAT, walker transition to cane, posterior hip pre cautions Follow up: follow up in [address] Ricketts Extracted from:Title: Progress Note Author: Linette Liz MD Date: 05/30/18 67 y/o F with DM type 2, HLD, [place] PD, depression, GERD, osteopenia, essential tremors, admitted s/p conversion of Rt ARLETH, with hardware removal. 1.Post-traumatic osteoarthritis of right hip(M16.51) 2.Right hip pain(M25.551) POD #3. MMP, PT/OT, management per surg keshawn. WBAT with posterior hip precautions. On 2 [...] cardiovascular exam(Z01.810) Type of surgery:Right hip hardware r emoval and conversion to right total hip arthroplasty, intermediate risk Surgery specificmedical issues:Diabetesmellitus type 2, h yperlipidemia Physical exam concerns: None Patient is able to perform >4METs Act ivity (stairs)with out cardiovascular symptoms Baseline EKG shows sinus rhythm with premature atrial con tractions Outpatient apparel designer:None Revised cardiac risk index scoreis 0 consistent with 0.4% risk ofmajor perioperativecardiac event Patient is considered a lowperioperat iveCardiovascular risk for intermediate risk surgery and may proceed without further preoperativeworkup. Risks and benefits of surgery discussed with patient 2.Right hip pain(M25.551) Scheduled for right hip hardware remova l andconversion to right total hip arthroplasty with Dr. Ricketts on 05/27/2018 3.Diabetes mellitus type 2(E11.9) On metforminwhich patient instructed to hold preoperatively on the morning of surgery 4.Hyperlipidemia(E78.5) On simvastatin which patient takes in the evenings 5.COPD (chronic obstructive pulmonary disease)(J44.9) On Bevespi aerosphere inhaler and as ne eded Proventil. Patient instructed to take both her [...] and decrease chanceofsurgical site infections. Have instructed stephanie ent to increase protein intakethrough di etas well as supplementwitheither boost or Ensurenutritional supplement dailyto optimize protein levels prior to surgery. Patient expressed understandingall questions answered [facility] Hospitalist Consult Please [phone] any questions Plan of Care No Data Provided for This Section Social History Social History Date Source Social History TypeResponse 05/17/2018 [facility] Substance Abuse Use: None. Exercise Exercise duration: 0. Alcohol Never Smoking Status Current some day smoker; Type: Cigarette s; Previous treatment: None; Ready to change: No; Concerns about tobacco use in household: Yes; Exposure to Tobacco Smoke None; Cigarette Smoking Last 365 Days Yes; Reg Smoking Cessation Counseling Yes entered on: 08/21/18 Social History TypeResponse 05/17/2018 [facility] Alcohol Never Exercise Exercise duration: 0. Substance Abuse Use: None. Smoking Status Current some day smoker; Type: Cigarette s; Previous treatment: None; Ready to change: No; Concerns about tobacco use in household: Yes; Exposure to Tobacco Smoke None; Cigarette Smoking Last 365 Days Yes; Reg Smoking Cessation Counseling Yes entered on: 11/26/19 Family History No Data Provided for This Section Advance Directives No Data Provided for This Section Functional Status No Data Provided for This Section
--- OUTSIDE RECORDS SUMMARY | 2020-01-07 09:43 | XMS REPORT ---
:1950 Author Organization [employer] Care Team Providers Name Role Phone Trell Stratton Provider Role Unavailable Allergies No Known Allergies Problems Problem Type Condition Code Onset Dates Condition Statu s Problem Migraine without aura and without G43.009 Active status migrainosus, not intractable Problem Former heavy tobacco smoker Z87.891 Active Problem Chronic obstructive pulmonary J44.9 Active disease, unspecified COPD type Problem Type 2 diabetes mellitus with E11.22 Active diabetic chronic kidney disease Problem Chronic kidney disease, stage 3 N18.3 Active (moderate) Problem Current moderate episode of major F32.1 Active depressive disorder without prior episode Problem Pulmonary nodule R91.1 Active Problem Osteoporosis, unspecified M81.0 Ac tive osteoporosis type, unspecified pathological fracture presence Problem Gastro-esophageal reflux disease K21.9 Active without esophagitis Problem Mixed hyperlipidemia E78.2 Active Problem Abnormal mammogram of left breast R92.8 Active Problem Tremor of both hands R25.1 Active Assessment Screening mammogram, encounter for Z12.31 Active Problem GERD without esophagitis K21.9 Act darryl Problem Depression with anxiety F41.8 Acti ve Medications No Known Medications Results No Known Results Summary Purpose eClinicalWorks Submission
--- OUTSIDE RECORDS SUMMARY | 2020-01-07 09:43 | XMS REPORT | Continuity of Care Document ---
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, RIGHT HIP AVAS Active 05/15/2018 [facility] Depression Depression Problem Active [facility] anxiety anxiety [facility] Out[facility] ent Clinics Chronic Chronic Problem Active [facility] obstructiv obstructiv Debbie kes - e e Memoria pulmonary pulmonary l disease, disease, Outpat i unspecifie unspecifie en t d COPD d COPD Clinics type type Tremor of Tremor of Problem Active [facility] both hands both hands Debbie kes - [facility] Outpati ent Clinics Gastro-eso Gastro-eso Problem Active [facility] phageal phageal [facility] - reflux reflux Memoria disease disease l without without Outpati esophagiti esophagiti en t s s Clinics Former Former Problem Active [facility] heavy heavy [facility] - tobacco tobacco [facility]oria smoker smoker l Outpati ent Clinics Migraine Migraine Problem Active [facility] without without [facility] - aura and aura and Memori a without without l status status Outpati migrainosu migrainosu en t s, not s, not Clinics intractabl intractabl e e Abnormal Abnormal Problem [facility] - of left of left Memoria breast breast l Outpati ent Clinics Pulmonary Pulmonary Problem Active [facility] nodule nodule [facility] Mixed Mixed Diagnosis Active [facility] hyperlipid hyperlipid Debbie kes - emia emia [facility] ent Clinics Osteoporos Osteoporos Problem Active [facility] is, is, [facility] - unspecifie unspecifie Me moria d d l osteoporos osteoporos Ou tpati is type, is type, ent unspecifie unspecifie Cl inics d d pathologic pathologic al al fracture fracture presence presence Chronic Chronic Diagnosis Active [facility] kidney kidney [facility] - disease, disease, Memori a stage 3 stage 3 l (moderate) (moderate) Ou tpati ent Clinics Type 2 Type [address] [facility] diabetes diabetes [facility] - mellitus mellitus Memori a with with l diabetic diabetic Outpat i chronic chronic ent kidney kidney Clinics disease disease Current Current Diagnosis Active [facility] moderate moderate [facility] - episode of episode of Me moria major major l depressive depressive Ou tpati disorder disorder ent without without Clinics prior prior episode episode Non-compli Non-compli Diagnosis Active [facility] - behavior behavior Memori a l Outpati ent Clinics Chronic Chronic Diagnosis Active [facility] nausea nausea [facility] 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, a, [facility] - unspecifie unspecifie Me moria d type d type l Outpati ent Clinics Diaphragma Diaphragma Diagnosis Active [facility] tic hernia tic hernia Debbie kes - without without Memoria obstructio obstructio l n or n or Outpati gangrene gangrene ent Clinics Other Problem 2018-12-17 Memor ia osteonecro 14:20:25 l sis, right Other Bianca nn femur osteonecro sis, right femur 12/17/2018 [facility] Acute Problem 2018-12-17 Memor ia posthemorr 14:20:25 l hagic Acute [place] anemia posthemorr hagic anemia 12/17/2018 [facility] Unilateral Problem 2018-12-17 M emoria post-traum 14:20:25 l atic Kristopher osteoarthr Unilateral itis, post-traum right hip atic osteoarthr itis, right hip 12/17/2018 [facility] Type 2 Problem 2018-12-17 Memor ia diabetes 14:20:25 l mellitus Type 2 Nabeel n without diabetes complicati mellitus ons without complicati ons 12/17/2018 [facility] Chronic Problem 2018-12-17 Cornelius marivel obstructiv 14:20:25 l e Chronic Kristopher pulmonary obstructiv disease, e unspecifie pulmonary d disease, unspecifie d 12/17/2018 [facility] Age-relate Problem 2018-12-17 M emoria d 14:20:25 l osteoporos Nabeel n is without Age-relate current d pathologic osteoporos al is without fracture current pathologic al fracture 12/17/2018 [facility] Hyperlipid Problem 2018-12-17 M emoria emia, 14:20:25 l unspecifie Nabeel n d Hyperlipid emia, unspecifie d 12/17/2018 [facility] Major Problem 2018-12-17 Memor ia depressive 14:20:25 l disorder, Major Nabeel n single depressive episode, disorder, unspecifie single d episode, unspecifie d 12/17/2018 [facility] Gastro-eso Problem 2018-12-17 M emoria phageal 14:20:25 l reflux [place] disease Gastro-eso without phageal esophagiti reflux s disease without esophagiti s 12/17/2018 [facility] Essential Problem 2018-12-17 Ia moria tremor 14:20:25 l [place] Essential tremor 12/17/2018 [facility] 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 terminal Problem 2018-12-17 Me moria (current) 14:20:25 l use of Long [place] aspirin term (current) use of aspirin 12/17/2018 [facility] Appendicit Problem Resolve 2019-11-29 Memoria is d 00:42:06 l (disorder) Nabeel n Appendicit is (disorder) Resolved Problem 11/29/2019 [facility] Concussion Problem Resolve 2019-11-29 Memoria injury of d 00:42:06 l body Kristopher structure Concussion (disorder) injury of body structure (disorder) Resolved Problem 11/29/2019 [facility] Diarrhea Problem Resolve 2019-11-29 Me moria (finding) d 00:42:06 l Diarrhea Nabeel n (finding) Resolved Problem 11/29/2019 [facility] Gallbladde Problem Resolve 2019-11-29 Memoria r pain d 00:42:06 l (finding) [place] Gallbladde r pain (finding) Resolved Problem 11/29/2019 [facility] Rupture of Problem Resolve 2019-11-29 Memoria spleen d 00:42:06 l (disorder) Rupture Her jensen of spleen (disorder) Resolved Problem 11/29/2019 [facility] Avascular Problem Active 2019-11-29 Me moria necrosis 00:42:06 l of bone [place] (disorder) Avascular necrosis of bone (disorder) Active Problem 11/29/2019 [facility] Chronic Problem Active 2019-11-29 Cornelius marivel obstructiv 00:42:06 l e lung Chronic Kristopher disease obstructiv (disorder) e lung disease (disorder) Active Problem 11/29/2019 [facility] Depressive Problem Active 2019-11-29 M emoria disorder 00:42:06 l (disorder) Nabeel n Depressive disorder (disorder) [facility] Diabetes Problem Active 2019-11-29 Mem oria mellitus 00:42:06 l type 2 Diabetes Nabeel n (disorder) mellitus type 2 (disorder) Active Problem 11/29/2019 Automatic ally added by Discern Expert with order of Add Problem Diabetes Type II on January 08, 2018 16:39:11 CDT with order ID: [id number] 5.0 entered by Donald Valentine. [facility] Essential Problem Active 2019-11-29 Me moria tremor 00:42:06 l (disorder) Nabeel n Essential tremor (disorder) Active [facility] Gastric Problem Active 2019-11-29 Cornelius marivel ulcer 00:42:06 l (disorder) Gastric Her jensen ulcer (disorder) Active [facility] Gastroesop Problem Active 2019-11-29 M emoria hageal 00:42:06 l reflux [place] disease Gastroesop (disorder) hageal reflux disease (disorder) Active Problem 11/29/2019 [facility] Hyperlipid Problem Active 2019-11-29 M emoria emia 00:42:06 l (disorder) Nabeel n Hyperlipid emia (disorder) Active [facility] Migraine Problem Active 2019-11-29 Mem oria (disorder) 00:42:06 l Migraine Nabeel n (disorder) Active Problem 11/29/2019 [facility] Neck pain Problem Active 2019-11-29 Me moria (finding) 00:42:06 l Neck Kristopher pain (finding) Active Problem 11/29/2019 [facility] Poor Problem Active 2019-11-29 Memor ia short-term 00:42:06 l memory Poor [place] (finding) short-term memory (finding) Active Problem 11/29/2019 [facility] Post Problem Active 2019-11-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 Post Nabeel n itis traumatic (disorder) osteoarthr itis (disorder) Active Problem 11/29/2019 [facility] Postmenopa Problem Active 2019-11-29 M emoria usal 00:42:06 l osteopenia Nabeel n Postmenopa usal osteopenia Active Problem 11/29/2019 [facility] Pulmonary Problem Active 2019-11-29 Me moria emphysema 00:42:06 l (disorder) Nabeel n Pulmonary emphysema (disorder) Active Problem 11/29/2019 [facility] Pain due Problem 2018-12-17 2018-12-17 Memoria to 2-21 14:20:25 14:20:25 l internal Pain due 04:52: Herm marybeth orthopedic to 13 prosthetic internal devices, orthopedic implants prosthetic and devices, grafts, implants initial and encounter grafts, initial encounter 07/04/2018 12/17/2018 [facility] Allergies, Adverse Reactions, Alerts Allergy Allergy Status Severity Reaction(s) Onset Inactive Treating Comm ents Source Name Type Date Date Clinician codeine Adverse Active Info Not [facility] Reaction Available [facility] codeine codeine Active Memoria sulfate sulfate mat Sum[facility] Social History Social Habit Start Date Stop Date Quantity Comments Source Social History 2018-05-17 2018-05-17 Ankur piedra 17:12:12 17:12:12 Medications Ordered Filled Start Stop Current Ordering Indication Dosage Frequency Signature Comments Components Source Medication Medication Date Date Medication? Clinician (SIG) Name Name gabapentin Yes = 1 tab, Mem oria 600 MG Oral 7-15 PO, Daily, l Tablet 14:46: # 30 tab, Nabeel n 00 1 Refill(s), Pharmacy: [facility], 154.94, cm, 10/15/19 9:33:00 CDT, Height, 60, kg, 10/15/19 9:33:00 CDT, Weight primidone 2020-0 Yes 50 mg = 1 Mem oria 50 mg oral 7-15 tab, PO, l tablet 14:46: BID, # 60 Nabeel n 00 tab, 3 Refill(s), Pharmacy: [facility], 154.94, cm, 10/15/19 9:33:00 CDT, Height, 60, kg, 10/15/19 9:33:00 CDT, Weight gabapentin 2020-0 Yes = 1 tab, Mem oria 600 MG Oral 6-03 PO, BID, # l Tablet 14:48: 60 tab, 1 Nabeel n 00 Refill(s), Pharmacy: [place] [id number] primidone 2020-0 Yes 50 mg = 1 Mem oria 50 mg oral 6-03 tab, PO, l tablet 14:48: Bedtime, # Bianca nn 00 30 tab, 3 Refill(s), Pharmacy: [place] [id number] lisinopril 2020-0 Yes 0 Memoria 2.5 mg oral 6-03 Refill(s) l tablet 14:42: Kristopher 00 gabapentin 2020-0 No = 1 tab, Mem oria 600 MG Oral 5-18 PO, TID, # l Tablet 20:08: 90 tab, 1 Nabeel n 00 Refill(s), Pharmacy: [place] [id number] gabapentin 2020-0 Yes 600 mg = 1 M emoria 600 MG Oral 1-29 tab, PO, l Tablet 19:35: TID, # 90 Nabeel n 00 tab, 2 Refill(s), Pharmacy: [place] [id number] gabapentin 2018- Yes 600 mg = 1 M emoria 600 MG Oral 1-13 tab, PO, l Tablet 15:49: TID, # 90 Nabeel n 01 tab, 2 Refill(s), Pharmacy: [place] [id number] gabapentin 2019- No 600 mg = 1 M emoria 600 MG Oral 1-13 tab, PO, l Tablet 15:45: TID, X 30 Nabeel n 00 day, # 90 tab, 3 Refill(s), Pharmacy: [facility] #[id number] Alendronate No Notes: Cornelius marivel 1-20 Non-Formul l 15:00: [facility] [place] 00 Reserved for use in Post-Acute halfway care settings ONLY Give 30 min before breakfast w/6oz water. Sit upright for 30 min after dose. "Do Not Crush" tramadol No 50 mg = 1 Cornelius marivel hydrochlori 1-17 tab, PO, l de 50 MG 17:19: Q6H, PRN Bianca nn Oral Tablet 00 Pain, X 10 day, # 40 tab, 0 Refill(s), given to patient Sulfamethox No 1 tab, PO, Memoria azole 800 1-17 BID, X 14 l MG / 17:19: day, # 28 [place] Trimethopri 00 tab, 0 m 160 MG Refill(s), Oral Tablet other [Bactrim] celecoxib Yes 200 mg = 1 Me moria 200 MG Oral 1-17 cap, PO, l Capsule 17:19: BID, # 60 Bianca nn [Celebrex] 00 cap, 0 Refill(s), other Aspirin 81 Yes 81 mg = 1 Me moria MG Chewable 1-17 tab, PO, l Tablet 17:19: BID, # 56 Nabeel n 00 tab, 0 Refill(s), other Sulfamethox No Notes: One Memoria azole 800 1-16 DS tablet l MG / 15:00: = [place] Trimethopri 00 trimethopr m 160 MG im 160mg + Oral Tablet sulfametho [Bactrim] xazole 800 mg Dose based on trimethopr im component On empty stomach with a glass of water. (Same As: Bactrim DS, Septra DS) Ondansetron No Notes: Cornelius marivel 1-16 (Same as: l 03:24: Zofran) [place] 00 MEDICATION WASTE Product Size: 4 mg Product Wasted: ___ mg 200 ACTUAT No Notes: Memor ia Albuterol 1-16 Albuterol l 0.09 02:00: 90 Kristopher MG/ACTUAT 00 microgram/ Metered inh 8gm Dose HFA Inhaler WASTE: [Proventil] Aerosol - Return to Pharmacy Same as: Ventolin, Proventil Dexamethaso No Notes: Memoria ne 1-15 MEDICATION l 17:00: WASTE Product Size: 10 mg Product Wasted: ___ mg Benadryl No Notes: Memoria 1-15 (Same as: l 16:55: Benadryl) Zofran No Notes: Memoria 1-15 (Same as: l 06:00: Zofran ODT) Remeron No Notes: Memoria 1-15 (Same l 03:00: as:Remeron ) Bevespi No Bevespi Memoria Aerosphere 1-15 Aerosphere l 9 mcg-4.8 02:00: 9 mcg-4.8 Her jensen mcg/inh 00 mcg/inh inhalation inhalation aerosol aerosol, 2 puff, Route: INHALATION , RBID, 05/27/18 20:00:00 COMBINE INSPECTOR, Duration: 30 day, Stop date: 06/26/18 8:00:00 COMBINE INSPECTOR 200 ACTUAT No Notes: Memor ia Albuterol 1-15 Albuterol l 0.09 01:00: 90 Kristopher MG/ACTUAT 00 microgram/ Metered inh 8gm Dose HFA Inhaler WASTE: [Proventil] Aerosol - Return to Pharmacy Same as: Ventolin, Proventil Tranexamic No Notes: Memor ia Acid 1-15 (Same as: l 00:25: Lysteda) Omeprazole No Omeprazole M emoria 20 mg tab 1-15 20 mg tab, l 00:00: 1 tab, Drug form: MISC, Route: PO, QPM, 05/27/18 18:00:00 COMBINE INSPECTOR, Duration: 30 day, Stop date: 06/25/18 18:00:00 COMBINE INSPECTOR Simvastatin No Notes: Cornelius marivel 1-15 (Same as: l 00:00: Zocor) Omeprazole No Notes: Memor ia 1-15 Take 1 l 00:00: hour before or 2 hours after meal; Non-Formul mary Drug (Same as: Prilosec) Refrigerat e Compound ed Product - formulatio n not commercial ly available* * gabapentin No Notes: Memor ia 400 MG Oral 1-14 (Same as: l Capsule 23:00: Neurontin) Herm marybeth docusate No Notes: Memoria sodium 1-14 (Same as: l 23:00: Colace) [place] 00 (Do Not Crush) Celebrex No Notes: Memoria 1-14 NSAID. l 23:00: Please Kristopher check indication . Not for seizure. (Same As: CeleBREX) Cefazolin No Notes: Memori a 1-14 Same as: l 23:00: Ancef [place] 00 Aspirin 325 No Notes: (Do Memoria MG Enteric -14 Not Crush) l Coated 23:00: Do not [place] Tablet 00 crush or chew. gabapentin No Notes: Memor ia 300 MG Oral -14 (Same as: l Capsule 22:00: Neurontin) glycopyrrol No Route: IV, Memoria ate (ANES) 05-27 Drug form: l 18:30: INJ, ONCE, Stop date: 05/27/18 12:30:00 COMBINE INSPECTOR neostigmine No Route: IV, Memoria (ANES) -14 Drug form: l 18:30: INJ, ONCE, Stop date: 05/27/18 12:30:00 COMBINE INSPECTOR tramadol No Notes: Not Mem oria hydrochlori -14 to exceed l de 50 MG 18:25: 400mg/day. Her jensen Oral Tablet 00 (Same As: Ultram) Diphenhydra No Notes: Cornelius marivel mine 1-14 (Same as: l 18:25: Benadryl) Morphine No Notes: Memoria 1-14 (Same l 18:25: as:MORPhin e Sulfate) Melatonin No Notes: Memori a 1-14 (Same as: l 18:25: Melatonin) POLYETHYLEN No Notes: Cornelius marivel E GLYCOL 1-14 Dissolve l 3350 18:25: in 8 oz of water or juice. (Same as: Miralax) Dulcolax No Notes: Memoria Laxative 1-14 (Same As: l 18:25: Dulcolax, Correctol) (Do Not Crush) "Do Not Crush" Tylenol No Notes: Do Memor ia 1-14 not exceed l 18:25: 4 gm/day. (Same as: Tylenol) Famotidine No Notes: Memor ia 1-14 (Same as: l 18:25: Pepcid) NS 1,000 mL No 1,000 mL, M emoria -14 Rate: 85 l 18:25: ml/hr, Infuse over: 11.8 hr, Route: IV, Dosing Weight 56.091 kg, Total Volume: 1,000, Start date: 05/27/18 12:25:00 COMBINE INSPECTOR, Duration: 30 day, Stop date: 06/26/18 12:24:00 COMBINE INSPECTOR, 1.58, m2 ondansetron No Route: IV, Memoria (ANES) 05-27 Drug form: l 18:17: INJ, ONCE, Stop date: 05/27/18 12:17:00 COMBINE INSPECTOR phenylephri No Route: IV, Memoria ne (ANES) - Drug form: l 17:07: INJ, ONCE, Stop date: 05/27/18 11:07:00 COMBINE INSPECTOR 72 HR No 1 patch, Memoria Scopolamine 05-27 Route: l 0.0139 17:00: TOP, Drug Nabeel n MG/HR 00 Form: Transdermal ERFILM, Patch Dosing Weight 56.091, kg, PRE OP, Start date: 05/27/18 11:00:00 COMBINE INSPECTOR, Duration: 30 day, Stop date: 06/26/18 10:59:00 COMBINE INSPECTOR dexamethaso No Route: IV, Memoria ne (ANES) -14 Drug form: l 16:57: INJ, ONCE, Stop date: 05/27/18 10:57:00 COMBINE INSPECTOR rocuronium No Route: IV, M emoria (ANES) - Drug form: l 16:52: INJ, ONCE, Stop date: 05/27/18 10:52:00 COMBINE INSPECTOR fentaNYL 2018- No Route: IV, Mem oria (ANES) 1-14 Drug form: l 16:52: INJ, ONCE, Kristopher Stop date: 05/27/18 10:52:00 COMBINE INSPECTOR propofol No Route: IV, Mem oria (ANES) 1-14 Drug form: l 16:52: INJ, ONCE, [place] 00 Stop date: 05/27/18 10:52:00 COMBINE INSPECTOR lidocaine 2018- No Route: IV, Me moria (ANES) 1-14 Drug form: l 16:52: INJ, ONCE, [place] 00 Stop date: 05/27/18 10:52:00 COMBINE INSPECTOR midazolam No Route: IV, Me moria (ANES) 1-14 Drug form: l 16:52: SOLN, [place] 00 ONCE, Stop date: 05/27/18 10:52:00 COMBINE INSPECTOR ceFAZolin No Route: IV, Me moria (ANES) 1-14 Drug form: l 16:52: INJ, ONCE, Kristopher 00 Stop date: 05/27/18 10:52:00 COMBINE INSPECTOR Ondansetron No Notes: Cornelius marivel 1-14 (Same as: l 16:30: Zofran) MEDICATION WASTE Product Size: 4 mg Product Wasted: ___ mg Hydromorpho No Notes: Cornelius marivel ne 1-14 Same as l 16:30: Dilaudid Naloxone No Notes: Memoria 1-14 Same as l 16:30: Narcan Flumazenil No Notes: Memor ia 1-14 (Same as: l 16:30: Romazicon) Morphine No Notes: Memoria 1-14 (Same l 16:30: as:MORPhin e Sulfate) Lactated No Route: IV, Mem oria Ringers 1-14 Total l Injection 16:02: Volume: Bianca nn IV (ANES) 00 1,000, 1000 mL Start date: 05/27/18 10:02:00 COMBINE INSPECTOR, Stop date: 05/27/18 11:02:00 COMBINE INSPECTOR Glucagon 2019-0 No 1 mg, Memoria 1-14 Route: IM, l 14:05: Drug form: [place] 00 PDR/INJ, PRN, Dosing Weight 56.091, kg, PRN Blood Glucose Results, Start date: 05/27/18 8:05:00 COMBINE INSPECTOR, Duration: 30 day, Stop date: 06/26/18 8:04:00 COMBINE INSPECTOR Dextrose 2019-0 No 25 gm, 50 Cornelius marivel 50% Syringe 1-14 mL, Route: l 14:05: IVP, Drug Form: INJ, Dosing Weight 56.091, kg, PRN, PRN Blood Glucose Results, Start date: 05/27/18 8:05:00 COMBINE INSPECTOR, Duration: 30 day, Stop date: 06/26/18 8:04:00 COMBINE INSPECTOR Insulin 2018-0 No Notes: Memoria Lispro 1-14 (Same as: l 14:05: Humalog ) Roll in palms of hands gently; Do not shake `vigorousl y. "Single Patient Use Only " WASTE: F/P - Black; E - EBIQUOUS Trash Bin Stable for 28 days at room temperatur e. Expires in days from ____Date Cefazolin 2019-0 No 2 gm, 50 Cornelius marivel 1-14 mL, Route: l 13:00: IVPB, Drug form: INJ, ONCALL, Dosing Weight 56.091, kg, Start date: 05/27/18 7:00:00 COMBINE INSPECTOR, Duration: 1 doses or times, Stop date: 05/27/18 18:00:00 COMBINE INSPECTOR, ABX Indication : Surgical Prophylaxi s gabapentin 2019-0 No 300 mg, Cornelius marivel 1-14 Route: PO, l 13:00: ONCALL, [place] 00 Dosing Weight 56.091, kg, Start date: 05/27/18 7:00:00 COMBINE INSPECTOR, Duration: 30 day, Stop date: 06/26/18 6:59:00 COMBINE INSPECTOR celecoxib 2018-0 No Notes: Memori a 1-14 NSAID. l 13:00: Please Kristopher 00 check indication . Not for seizure. (Same As: CeleBREX) ropivacaine 2018-0 No Notes: Cornelius marivel 1-14 NOT FOR l 13:00: IV use Kristopher 00 Each mL contains: Ropivacain e 2.46 mg, Epinephrin e 0.005 mg, Clonidine 0.0008 mg and Ketorolac 0.3 mg in Sodium Chloride Tranexamic No Notes: Memor ia Acid 1-14 (Same as: l 12:44: Lysteda) Kristopher 00 Zofran ODT No Notes: Memor ia 1-14 (Same as: l 12:44: Zofran [place] 00 ODT) Dexamethaso No Notes: Cornelius marivel ne -14 dexamethas l 12:44: one 10 [place] 00 mg/1 ml VL INJ PF MEDICATION WASTE Product Size: 10 mg Product Wasted: ___ mg ropivacaine No Notes: Cornelius marivel 1-14 NOT FOR l 12:00: IV use [place] Each mL contains: Ropivacain e 2.46 mg, Epinephrin e 0.005 mg, Clonidine 0.0008 mg and Ketorolac 0.3 mg in Sodium Chloride polymyxin B No Notes: Cornelius marivel sulfate + 1-14 (Same as: l Sodium 12:00: Polymyxin Nabeel n Chloride 00 B Sulfate) 0.9% IV 250 mL vancomycin No Notes: Memor ia + Sodium 1-14 TIME l Chloride 12:00: CRITICAL Bianca nn 0.9% IV 250 00 MEDICATION mL (Same As: Vancocin) For adult patients only: Round to nearest 250 mg per Medical Staff approval Home No OTC Memoria Medication -04 ESTROGEN & l 17:30: MULTIPLE Kristopher 00 VITIAMN, Refill(s) 0 tramadol No 50 mg = 1 Cornelius marivel hydrochlori 1-04 tab, PO, l de 50 MG 17:29: Q6H, PRN Bianca nn Oral Tablet 00 Pain, # 40 tab, 0 Refill(s) Alendronic Yes 70 mg = 1 Me moria acid 70 MG 1-04 tab, PO, l Oral Tablet 17:29: QSun, # 4 H ermann 00 tab, 0 Refill(s) omeprazole Yes 10 mg = 1 Me moria 10 mg oral 1-04 cap, PO, l delayed 17:27: QPM, TAKES Herm marybeth release 00 AT 1800, # capsule 30 cap, 0 Refill(s) simvastatin 2018- Yes 20 mg = 1 M emoria 20 mg oral 1-04 tab, PO, l tablet 17:22: QPM, TAKES Bianca nn 00 AT 1800, # 30 tab, 1 Refill(s) gabapentin Yes 400 mg = 1 M emoria 400 MG Oral 1-02 cap, PO, l Capsule 17:40: TID, # 90 Bianca nn 00 cap, 4 Refill(s), Pharmacy: [facility] #[id number] Zofran Zofran Yes Trell [address] [facility] 5-21 [facility] - 00:[facility]: Memoria 00 l [facility] ent Clinics BusPIRone BusPIRone Yes Trell [address] [facility] HCl HCl [facility] Primidone Primidone Yes Trell [address] [facility] [facility] l [facility] ent [facility] Alendronate Alendronate Yes Trell TAKE [address] [facility] Sodium Sodium [place] TABLET BY [facility] - MOUTH ONCE Memoria A WEEK l [facility] ent Clinics Bevespi Bevespi Yes Trell [address] [facility] Aerosphere Aerosphere [place] Debbie s - [facility] l [facility] ent [facility] Metformin Metformin Yes Trell [address] [facility] HCl HCl [place] with a [facility] - meal Memoria l [facility] ent [facility] Albuterol Albuterol Yes Trell [address] [facility] Sulfate Sulfate [place] needed [facility] Proventil Proventil Yes Trell [address] [facility] HFA HFA [place] needed [facility] Simvastatin Simvastatin Yes Trell [address] [facility] [place] in the [facility] - evening Memoria l [facility] ent Clinics Remeron Remeron Yes Trell [address] [facility] [place] [facility] Omeprazole Omeprazole Yes Trell [address] [facility] [place] [facility] l [facility] Ondansetron Ondansetron Yes Trell TAKE [address] [facility] HCl HCl [place] TABLET BY [facility] - MOUTH Memoria EVERY 8 l HOURS Outpati NEEDED FOR ent NAUSEA FOR Clinics 30 DAYS Ventolin Ventolin Yes Trell [address] [facility]FA [facility] Lisinopril Lisinopril Yes Trell [address] [facility] Clinics Gabapentin Gabapentin Yes Trell [address] [facility] ent Clinics Vital Signs Vital Name Observation Time Observation Value Comments Source Systolic (mm Hg) 2019-10-15 14:33:00 Cornelius rial [place] Diastolic (mm Hg) 2019-10-15 14:33:00 Mem orial Kristopher Heart Rate 2019-10-15 14:33:00 [facility] Respitory Rate 2019-10-15 14:33:00 [facility] [place] Height 2019-10-15 14:33:00 154.94 cm [facility] Weight 2019-10-15 14:33:00 [facility] BMI Calculated 2019-10-15 14:33:00 [facility] [place] Systolic (mm Hg) 2019-03-26 15:26:00 Cornelius rial [place] Diastolic (mm Hg) 2019-03-26 15:26:00 Mem o[facility] [place] Heart Rate 2019-03-26 15:26:00 [facility] Height 2019-03-26 15:26:00 157.48 cm [facility] Weight 2019-03-26 15:26:00 [facility] BMI Calculated 2019-03-26 15:26:00 [facility] [place] Systolic (mm Hg) 2018-05-30 17:30:00 Cornelius rial [place] Diastolic (mm Hg) 2018-05-30 17:30:00 [facility] Respitory Rate 2018-05-30 17:30:00 [facility] [place] Heart Rate 2018-05-30 17:30:00 [facility] [place] Temperature Oral (F) 2018-05-30 17:30:00 97.9 F [facility] Respitory Rate 2018-05-30 13:23:00 [facility] [place] Temperature Oral (F) 2018-05-30 13:23:00 98.0 F [facility] [place] Systolic (mm Hg) 2018-05-30 13:23:00 Cornelius rial [place] Diastolic (mm Hg) 2018-05-30 13:23:00 Mem orial [place] Heart Rate 2018-05-30 13:23:00 [facility] [place] Respitory Rate 2018-05-30 09:24:00 [facility] Heart Rate 2018-05-30 09:24:00 [facility] Temperature Oral (F) 2018-05-30 09:24:00 97.4 F [facility] Systolic (mm Hg) 2018-05-30 09:24:00 Cornelius [facility] [place] Diastolic (mm Hg) 2018-05-30 09:24:00 [facility] [place] BMI Calculated 2018-05-27 12:36:00 [facility] [place] Height 2018-05-27 12:36:00 157.48 cm [facility] [place] Weight 2018-05-27 12:36:00 [facility] [place] Height 2018-05-15 16:53:00 154.94 cm [facility] BMI Calculated 2018-05-15 16:53:00 [facility] [place] Weight 2018-05-15 16:53:00 [facility] [place] Systolic (mm Hg) 2018-05-15 16:53:00 Cornelius [facility] Diastolic (mm Hg) 2018-05-15 16:53:00 Mem o[facility] [place] Heart Rate 2018-05-15 16:53:00 [facility] [place] Respitory Rate 2018-05-15 16:53:00 [facility] Procedures Procedure Date / Time Performed Performing Clinician Haley rodriguez Tonsillectomy 1964-05-14 00:00:00 [facility] jensen Appendix operation [facility] Herm marybeth Gallbladder operation [facility] ermann Lung operation [facility] [place] ORIF - Open reduction and [facility] internal fixation of fracture Tubal ligation [facility] Kristopher Vaginal hysterectomy [facility] rmann Encounters Start End Encounter Admission Attending Care Care Encounter Source Date/Time Date/Time Type Type Clinicians Facility Department ID 2019-12-10 2019-12-10 [facility] [id number] [facility] 10:30[facility]00 10[facility]30[facility] 2019-11-26 2019-11-26 Outpatient RIZWANA Valentine [id number] 09:30:00 23:59:59 Donald Bustamante 2019-11-26 2019-11-26 Outpatient RIZWANA Valentine [id number] 09:30:00 09:30:00 Donald 12 Robby 2019-11-03 2019-11-03 [facility] [id number] [facility] 08:59:00 08:59:00 t Edmond Edmond [employer] LuEdventory s - Drive [facility] Medicine Outpati ent Clinics 2019-10-20 2019-10-20 [facility] [id number] [address] 11:46:00 11:46:00 t Edmond Worlize s - Drive [facility] Medicine Outpati ent Clinics 2019-10-17 2019-10-17 [facility] [id number] [address] 15:27:00 15:27:00 t Edmond Worlize s - [employer] [facility] Medicine Outpati ent Clinics 2019-10-15 2019-10-15 Outpatient [facility] [id number] 09:30:00 23:59:59 Donald 11 Robby 2019-10-14 2019-10-14 [facility] [id number] [facility] 11:54:00 11:54:00 t Edmond Worlize s - [employer] [facility] Medicine Outpati ent Clinics 2019-09-10 2019-09-10 [facility] [id number] 10:15:00 10:15:00 t Edmond Worlize s - [employer] [facility] Medicine Outpati ent Clinics 2019-07-22 2019-07-22 Outpatient RIZWANA Valentine [facility] [id number] 11:15:00 11:15:00 Donald 10 Robby 2019-06-16 2019-06-16 [facility] [id number] [facility] 09:51:00 09:51:00 t Edmond Worlize s - [employer] [facility] Medicine Outpati ent Clinics 2019-06-11 2019-06-11 [facility] [id number] [address] 09:30:00 09:30:00 t Edmond Worlize s - [employer] [facility] Medicine Outpati ent Clinics 2019-05-28 2019-05-28 Outpatient RIZWANA Valentine [facility] [id number] 09:45:00 09:45:00 Donald 09 Robby 2019-03-26 2019-03-26 Outpatient DANIELA ValentineSCHMINISTERIO TXSCH [id number] 10:00:00 23:59:59 Donald 08 Robby 2019-03-12 2019-03-12 [facility] [id number] 10:15:00 10:15:[address] Luke s - Drive [facility] Medicine Outpati ent Clinics 2019-02-19 2019-02-19 Outpatient RIZWANA Valentine [facility] [id number] 10:15:00 10:15:00 Donald 07 Robby 2019-01-06 2019-01-06 [facility] [id number] [address] 09:23:00 09:23:[address] Luke s - Drive [facility] Medicine Outpati ent Clinics 2019-01-03 2019-01-03 [facility] [id number] [address] 10:18:00 10:18:[address] Luke s - Drive [facility] Medicine Outpati ent Clinics 2018-12-09 2018-12-09 [facility] [id number] [address] 09:30:00 09:30:[address] Luke s - Drive [facility] Medicine Outpati ent Clinics 2018-09-04 2018-09-04 [facility] [id number] 15:00:00 15:00:[address] Luke s - Drive [facility] Medicine Outpati ent Clinics 2018-08-23 2018-08-23 [facility] [id number] 13:36:00 13:36:[address] Luke s - Drive [facility] Medicine Outpati ent Clinics 2018-08-05 2018-08-05 [facility] [id number] [address] 11:27:00 11:27:[address] Luke s - Drive [facility] Medicine Outpati ent Clinics 2018-05-27 2018-05-30 Outpatient SHAWN Ricketts [facility] [id number] 06:13:00 12:57:00 Alverto Cardona 2018-05-15 2018-05-15 Outpatient RIZWANA Valentine MATTEO [id number] 11:00:00 23:59:59 Donald 05 Robby 2018-03-21 2018-03-21 Outpatient [facility] [id number] 09:45:00 09:45:00 Donald Beto Bustamante 2018-02-19 2018-02-19 Outpatient [facility] Valentine [facility] [id number] 11:00:00 11:00:00 Donald Jamel Bustamante 2017-12-11 2017-12-11 [facility] [id number] [address] 11:15:00 11:15:[address] [facility] 2017-10-15 2017-10-15 [facility] [id number] 14:30:00 14:30:00 t [facility] 2017-10-01 2017-10-01 [facility] [id number] 14:52:00 14:52:00 t Specialty/U Debbie kes - Specialty rology [facility] 2017-10-01 2017-10-01 [facility] [id number] 10:12:00 10:12:00 t Specialty/U Debbie kes - Specialty rology [facility] /[facility]rology [facility] l [facility] 2017-09-18 2017-09-18 [facility] [id number] 14:00:00 14:00:00 t Specialty/U Debbie kes - Special[facility] 2017-08-13 2017-08-13 [facility] [id number] 14:15:00 14:15:00 t [facility] ent Clinics Results Test Description Test Time Test Comments Results Result Sourc e Comments HEMATOLOGY 2018-05-29 10.8 [facility] 10:52:00 [place] HEMATOLOGY 2018-05-29 32.3 [facility] 10:52:00 [facility] ELECTROLYTES 2018-05-28 12.0 [facility] 10:22:00 [facility] ELECTROLYTES 2018-05-28 69 [facility] 10:22:00 [facility] ELECTROLYTES 2018-05-28 142 [facility] 10:22:00 [facility] ELECTROLYTES 2018-05-28 4.0 [facility] 10:22:00 [place] ELECTROLYTES 2018-05-28 0.88 [facility] 10:22:00 [place] ELECTROLYTES 2018-05-28 129 [facility] 10:22:00 [place] ELECTROLYTES 2018-05-28 17 [facility] 10:22:00 [place] ELECTROLYTES 2018-05-28 9.0 [facility] 10:22:00 [place] ELECTROLYTES 2018-05-28 106 [facility] 10:22:00 [place] ELECTROLYTES 2018-05-28 28 [facility] 10:22:00 [place] HEMATOLOGY 2018-05-28 11.2 [facility] 10:22:00 [place] HEMATOLOGY 2018-05-28 33.3 [facility] 10:22:00 [facility] URINE AND STOOL 2018-05-21 Negative [facility] 15:45:00 *NA*(05/21/18 Kristopher 9:45 AM) URINE AND STOOL 2018-05-21 Negative [facility] 15:45:00 (05/21/18 9:45 [place] AM) URINE AND STOOL 2018-05-21 Negative [facility] 15:45:00 (05/21/18 9:45 [place] AM) URINE AND STOOL 2018-05-21 Negative [facility] 15:45:00 (05/21/18 9:45 [facility] AM) URINE AND STOOL 2018-05-21 Negative [facility] 15:45:00 (05/21/18 9:45 [place] AM) URINE AND STOOL 2018-05-21 0.2 [facility] 15:45:00 [facility] URINE AND STOOL 2018-05-21 15:45:00 Test Item Value Reference Range Interpretation Comme nts UA pH (test code = UA pH) 5.5 1 5.0-8.0 [facility] [id number] 15:45:00 Test Item Value Reference Range Interpretation Comments UA Spec Grav (test code = UA Spec 1.025 1 Grav) [facility] [id number] 15:45:00Negative *NA*(05/21/18 9:45 AM) [facility] [id number] 15:45:00Clear (05/21/18 9:45 AM)[facility] [id number] 15:45:00Yellow *NA*(05/21/18 9:45 AM)[facility] [id number] 15:45:00Positive *ABN*(05/21/18 9:45 AM)[facility] HermannBLOOD BANK [id number] 15:04:00Negative (05/21/18 9:04 AM)[facility] [id number] 15:04:0076[facility]annCHE[facility] [id number] 15:04:003.6[facility]ann[facility] [id number] 15:04:06379Geengovg HermannCHEM [id number] 15:04:0017[facility]annCHE[facility] [id number] 15:04:000.81 [facility] [id number] 15:04:003.4[facility]ann[facility] PANEL 2018-05-21 15:04:0015[facility]annCHE[facility] [id number] 15:04:0016[facility]annCHE[facility] [id number] 15:04:07825Ejsmxrwh HermannCHEM [id number] 15:04:003.7[facility]annCHEM [id number] 15:04:44205Wnbkpgsn HermannCHEM [id number] 15:04:0027[facility]annCHE[facility] [id number] 15:04:00 Test Item Value Reference Range Interpretation Comments A/G Ratio (test code = A/G Ratio) 0.9 1 0.7-1.6 [facility] [id number] 15:04:0065[facility]ann[facility] PANEL 2018-05-21 15:04:000.4[facility] [id number] 15:04:00 Test Item Value Reference Range Interpretation Comments B/C Ratio (test code = B/C Ratio) 21 1 6-25 [facility] [id number] 15:04:0014.7[facility]annCHEM PANEL 2018-05-21 15:04:008.8[facility]annCHE[facility] [id number] 15:04:007.0[facility] NdiozsxWGYFTSHYTP6504-15-64 15:04:000.6[facility] WkdeeuhHMVNHYICGE0645-58-09 15:04:000.1[facility] EynahqnCXCGEFSHZT4733-65-15 15:04:001.8[facility] BQSFKOHWRP6262-31-12 15:04:005.4[facility] OhxngzcPMBSDZHMUC2208-01-78 15:04:00 69.6Memorial PofxxcwJYBWHRXTLV6325-43-89 15:04:0023.9[facility]annHEMATOLOGY 2018-05-21 15:04:001.4[facility] NthxbwlASQXENACWW6875-82-10 15:04:000.3[facility] NnqranyOAXQQSJRLU5812-82-52 15:04:004.5[facility] DihkmheMSSPHVEEBM5951-02-65 15:04:0014.6[facility] DghfqpiMVJOJCDMOT1063-43-17 15:04:0043.4[facility] QZFEQGQJZY0738-83-88 15:04:0089.0[facility] RmbppcxIXIUEUXACG3572-76-97 15:04:00 7.7Memorial EjmybzjRIGVRCVSUH3279-00-61 15:04:004.87[facility]annHEMATOLOGY 2018-05-21 15:04:00114Xpittvbj AuvlfkrBQIRQPRTGI8728-14-60 15:04:009.4[facility] YbibborPISUMFBFHA8329-85-86 15:04:00 Test Item Value Reference Range Interpretation Comments MCH (test code = MCH) 30.0 pg 27.0-31.0 [facility]NF4351-99-20 15:04:0033.7[facility]annHEMATOLOGY 2018-05-21 15:04:0013.3[facility] WhklksrJPXGLNNJBH8772-02-56 15:04:00 Test Item Value Reference Range Interpretation Comments aPTT (test code = aPTT) 37.2 s 22.9-35.8 [facility]DhqwgriBGUCKBHZPL0925-43-82 15:04:00 Test Item Value Reference Range Interpretation Comments PROTIME (test code = PROTIME) 11.6 s 12.0-14.7 [facility]KepcttjKCMXYFSODB4381-06-61 15:04:00 Test Item Value Reference Range Interpretation Comments INR (test code = INR) 0.86 1 0.85-1.17 [facility]DB[facility]PM8441[facility]48-66 15:04:0020[facility]annIMMUNOLOGY 2018-05-21 15:04:008.9[facility] HermannSPECIAL RRYSCPPOM4474-67-09 15:04:005.5 [facility]
--- OUTSIDE RECORDS SUMMARY | 2020-01-07 09:43 | XMS REPORT ---
[...] Tremor of both hands R25.1 Active Assessment Chronic nausea R11.0 Active Problem GERD without esophagitis K21.9 Act darryl Problem Depression with anxiety F41.8 Acti ve Medications Medication Code System Code Instructions Start End Date Status Dos age Date Sheila [facility] 08946799779 4 MG Orally every Active 1 tablet 8 hours as needed for nausea Results No Known Results Summary Purpose eClinicalWorks Submission
--- OUTSIDE RECORDS SUMMARY | 2020-01-07 09:44 | XMS REPORT ---
[...] Tremor of both hands R25.1 Active Assessment Abnormal mammogram of left breast R92.8 Active Problem GERD without esophagitis K21.9 Act darryl Problem Depression with anxiety F41.8 Acti ve Medications No Known Medications Results No Known Results Summary Purpose eClinicalWorks Submission
--- OUTSIDE RECORDS SUMMARY | 2020-01-07 09:44 | XMS REPORT ---
:1950 Author Organization eClinicalWorks Care Team Providers Name Role Phone Viral Trell Provider Role Unavailable Allergies, Adverse Reactions, Alerts Substance Reaction Event Type codeine Info Not Available Drug Allergy Problems Problem Type Condition Code Onset Dates Condition Statu s Assessment Non-compliant behavior R46.89 Activ e Assessment Former heavy tobacco smoker Z87.891 Active Assessment Chronic nausea R11.0 Active Assessment Depression with anxiety F41.8 Acti ve Assessment Abnormal mammogram of left breast R92.8 Active Assessment GERD without esophagitis K21.9 Act darryl Assessment Migraine without aura and without G43.009 Active status migrainosus, not intractable Problem GERD without esophagitis K21.9 Act darryl Assessment Tremor of both hands R25.1 Active Problem Depression with anxiety F41.8 Acti ve Assessment Chronic obstructive pulmonary J44.9 Active disease, unspecified COPD type Problem Migraine without aura and without G43.009 Active status migrainosus, not intractable Problem Former heavy tobacco smoker Z87.891 Active Problem Chronic obstructive pulmonary J44.9 Active disease, unspecified COPD type Problem Type 2 diabetes mellitus with E11.22 Active diabetic chronic kidney disease Problem Chronic kidney disease, stage 3 N18.3 Active (moderate) Assessment Proteinuria, unspecified type R80.9 Active Assessment Osteoporosis, unspecified M81.0 Ac tive osteoporosis type, unspecified pathological fracture presence Problem Current moderate episode of major F32.1 Active depressive disorder without prior episode Assessment Pulmonary nodule R91.1 Active Problem Pulmonary nodule R91.1 Active Problem Osteoporosis, unspecified M81.0 Ac tive osteoporosis type, unspecified pathological fracture presence Problem Gastro-esophageal reflux disease K21.9 Active without esophagitis Problem Mixed hyperlipidemia E78.2 Active Assessment Current moderate episode of major F32.1 Active depressive disorder without prior episode Assessment Chronic kidney disease, stage 3 N18.3 Active (moderate) Assessment Diaphragmatic hernia without K44.9 Active obstruction or gangrene Assessment Mixed hyperlipidemia E78.2 Active Problem Abnormal mammogram of left breast R92.8 Active Problem Tremor of both hands R25.1 Active Assessment Type 2 diabetes mellitus with E11.22 Active diabetic chronic kidney disease Medications Medication Code Code Instructions Start End Status Dosage System Date Date BusPIRone HCl [facility] 21271939251 15 MG Active TAKE 1 TABLET BY MOUTH TWICE DAILY FOR 30 DAYS Primidone [facility] 59404629426 50 MG Orally Active 1 tab let Once a day Alendronate [place] 62217137796 70 MG Orally Active 1 t ablet Sodium Once a week Bevespi [facility] 08150572082 9-4.8 MCG/ACT Active 2 puff s Aerosphere Inhalation Twice a day BusPIRone HCl [facility] 58640084060 15 MG Orally Active 1 tablet Twice a day Zofran [facility] 34441378985 4 MG Orally Active 1 tablet every 8 hrs as needed NAUSEA Alendronate [facility] 39471758234 70 MG Active TAKE 1 Sodium TABLET BY MOUTH ONCE A WEEK Metformin HCl [facility] 29806477494 500 MG Orally Active 1 tablet Twice a day with a meal Albuterol [facility] 01016445039 (2.5 MG/3ML) Active 3 ml as Sulfate 0.083% needed Inhalation Three times a day Proventil HFA [facility] 25352109627 108 (90 Base) Active 2 puffs as MCG/ACT needed Inhalation every 6 hrs Simvastatin ND 91156753907 20 MG Orally Active 1 t ablet Once a day in the evening Remeron [facility] 56041320181 30 MG Orally Active 1 table t Once a day at bedtime Omeprazole ND 01002427323 20 MG Orally Active 1 ca psule Once a day Ondansetron HCl [facility] 79523593567 4 MG Active TAKE 1 TABLET BY MOUTH EVERY 8 HOURS NEEDED FOR NAUSEA FOR 30 DAYS Ventolin HFA [facility] 38832697754 108 (90 Base) Active 2 puffs MCG/ACT Inhalation Twice a day Lisinopril ND 12381865676 2.5 MG Orally Active 1 t ablet Once a day Gabapentin ND 70153717274 600 MG Orally Active 1 c apsule Once a day Results No Known Results Summary Purpose eClinicalWorks Submission
[2020-01-07] MEDS ORDERED: FENTANYL CITR 100 MCG/2 ML ONE ×2 (09:48→11:01)
[2020-01-07] MEDS ORDERED: propofoL 200 MG/20 ML VIAL IV ONE (09:48)
[2020-01-07] MEDS ORDERED: dexAMETHasone 10 MG/ML VIAL ONE (09:49)
[2020-01-07] MEDS ORDERED: BUPIVACA 0.25%/EPI 0.0005%/PF 30 ML VIAL ONE (09:49)
[2020-01-07] MEDS ORDERED: LIDOCAINE 2% MPF 5 ML VIAL ONE (09:49)
[2020-01-07] MEDS ORDERED: MIDAZOLAM HCL 2 MG/2 ML INJ ONE (09:49)
[2020-01-07] MEDS ORDERED: ONDANSETRON 4 MG/2 ML VIAL ONE ×2 (09:49→12:53)
[2020-01-07] MEDS ORDERED: ROCURONIUM 50 MG/5 ML VIAL IV ONE (09:49)
[2020-01-07] MEDS ORDERED: CEFAZOLIN/SWI 1gm 1 GM/10 ML SYR ONE (09:52)
[2020-01-07] MEDS ORDERED: ALBUTEROL INHALER 60 PUFF/8 GM IH ONE (10:17)
[2020-01-07] MEDS ORDERED: EPHEDRINE SULF 50 MG/ML VIAL ONE (10:22)
[2020-01-07] MEDS ORDERED: MORPHINE 4 MG/ML SYR ONE (11:45)
--- NOTE | 2020-01-07 11:54 | P.OP ---
Diploma Pharmacy Technician: NONE,NONE Preoperative diagnosis: Ventral Abdominal Hernia Postoperative diagnosis: Ventral Abdominal Hernia Primary procedure: Laparoscopic Ventral Hernia Repair with mesh Secondary procedure: Laparoscopic Adhesiolysis >1 hour Other procedure(s): Laparoscopic primary hernia repair Anesthesia: GETA + Local Estimated blood loss: <10cc Specimen: None Findings: Dense scar, transverse colon in hernia, 3wqx5ac Complications: None Implants: Round Bard Ventralite Mesh wtih echo positoin Transferred to: Recovery Room Condition: Good
[2020-01-07] MEDS ORDERED: KETOROLAC 30 MG/ML INJ ONE (12:03)
[2020-01-07] MEDS ORDERED: GLYCOPYRROLATE 0.2 MG/ML SYR ONE (12:03)
[2020-01-07] MEDS ORDERED: NEOSTIGMINE 1 MG/ML -5 ML ONE (12:03)
[2020-01-07] MEDS: MORPHINE 4 MG/ML SYR ONE ×2 (12:44→13:10)
[2020-01-07] MEDS ORDERED: ALBUTEROL 2.5 MG/3 ML NEB SOL ONE (13:07)
[2020-01-07 13:17] VITALS: TEMP 97.2
[2020-01-07] MEDS ORDERED: TRAMADOL HCL 50 MG TAB ONE (14:02)
[2020-01-07 15:05] VITALS: BP 118/52; O2SAT 94
--- NOTE | 2020-01-07 21:57 | OP ---
Date of Procedure: 01/07/2020 Surgeon: Juan Mondragon MD, Preoperative Diagnosis: Ventral abdominal wall hernia. Postoperative Diagnosis: Ventral abdominal wall hernia. Procedures Performed: 1.Laparoscopic ventral hernia repair with mesh. 2.Laparoscopic adhesiolysis for greater than 1 hour approaching 2 hours in fact. 3.Laparoscopic primary hernia repair. Anesthesia: General endotracheal plus local with 0.25% Marcaine and epinephrine. Estimated Blood Loss: Less than 2 mL. Specimen: None. Findings: 1.Dense scar tissue throughout the abdomen with a significant amount of small bowel, colon, and omen donal firmly plastered to the anterior abdominal wall requiring an extensive adhesiolysis. 2.Transverse colon was entrapped within the hernia defect and was taken down with meticulous dissect ion using a combination of sharp and blunt dissection and no electrocautery and hernia defect was fou nd to be approximately 4 x 4 cm. Complications: None. Implants: Bard 6-Azerbaijani round Ventralight mesh with echo positioning system. The patient was transf erred to recovery room in good condition. All counts were correct at the end the case. Procedure In Detail: After informed consent was obtained, the patient was brought to the operating r oom, prepped and draped in the usual sterile fashion. After adequate anesthesia was achieved, an are a of the left upper quadrant was anesthetized appropriately, sharply incised and a 5 mm 0-degree opti catarino trocar was introduced in the abdomen without complication. Omentum was encountered immediately a nd insufflation was obtained to 15 mmHg at this time. The area was inspected and found to have a waylon y small window of opportunity to enter the abdomen safely. Therefore, another trocar was placed in t he left lower quadrant after appropriately finding a safe landing spot. At this point, an additional 5 mm trocar was placed in the abdomen without complication through a clean field. At this point, a use of LigaSure device to clamp, clean up the abdominal wall between the 2 tracts and there was small bowel in close apposition to the entry site initially, however, there was no obvious bowel injury an d there appeared to be a good tissue plane between the insertion site and of the initial trocar and t he bowel. At this point, adhesiolysis was performed to allow for placement of 2 additional trocars, 1 in the right lower quadrant, and additional in the left upper quadrant. These were similarly anest hetized sharply, incised with a 5 mm trocar, was introduced in the abdomen without complication. The insertion site was then up-sized to a 12 mm under direct visualization without evidence of complicat ion. An extensive adhesiolysis was performed for approximately 90 minutes taking down omentum, small bowel and colon from the anterior abdominal wall as well as transverse colon from the hernia defect, was found to be approximately 4 cm x 4 cm. After this was completely cleaned up, an appropriate gayle ding site was skeletonized to the anterior abdominal wall. The hernia defect was sized appropriately and the mesh was decided to be a 6-Azerbaijani round Ventralight Bard mesh with Echo Positioning System. This was prepared on the back table. At this point, I used the V-Loc suture with an Endo stitch to sew the defect closed in a running fashion with the V-Loc suture with good apposition of the tissues. At this point, the area was inspected and found to be in good apposition. At this point, the mesh was then brought in, centered in the central portion of the defect and a small stab incision was made through the central portion of the defect in the periumbilical region. The Ramón-Hardik suture p asser was used to grasp the inflation device, pulled up and the mesh was then deployed using a balloo n inflation system. I then used an absorbable fixation tacks circumferentially around the mesh. I carlos davidson removed the balloon deployment system and brought out through the trocar, found to be intact. I then secured the mesh circumferentially in a double crown type fashion using approximately 60 absorba ble fixation tacks to the anterior abdominal wall with good apposition tissues. I then desufflated t he abdomen and inspected. Good hemostasis was achieved without any additional hemostatic maneuvers. The area was copiously irrigated and then suctioned out dry. I turned my attention to the 12 mm tro car. 12 mm trocar site was then inspected. The 12 mm trocar was removed and the site was closed usi ng a Ramón-Hardik suture passer with 0 Vicryl in an interrupted fashion. All remaining trocars we re then removed under direct visualization without evidence of complication after the abdomen was com pletely desufflated. All trocars were removed. All skin was copiously irrigated and closed with int errupted avinash. Sterile dressing was placed over top and abdominal binder was placed. The patient tolerated the procedure well without evidence of complication and transferred to PACU in good condit ion. All counts were correct at the end of the case. GONZALEZ/NIKKI Voice ID: [id number] Report ID: [id number]
== END 2020-01-07 15:00 | disposition home or self-care (01) ==
LOC: OR 08:29
PROVIDERS: ATTEND Surgery
PROC: 0WUF4JZ Supplement Abdominal Wall with Synthetic Substitute, Percutaneous Endoscopic Approach (ICD-10-PCS; principal; 2020-01-07 12:00)
DX: K43.6 Other and unspecified ventral hernia with obstruction, without gangrene (principal); Z20.828 Contact with and (suspected) exposure to other viral communicable diseases; J44.9 Chronic obstructive pulmonary disease, unspecified; K21.9 Gastro-esophageal reflux disease without esophagitis; F17.210 Nicotine dependence, cigarettes, uncomplicated; Z79.899 Other long term (current) drug therapy
CPT/HCPCS: 49653; 82947 ×2; U0002; J2704; J2250; J3010 ×2; J1100; J2710; J0690; J7030 ×2; J2405 ×2

== ENCOUNTER 2020-01-08 06:28 | Observation (INO) | payer OTHER ==
--- OUTSIDE RECORDS SUMMARY | 2020-01-08 06:32 | XMS REPORT | Continuity of Care Document ---
:1950 Author Organization [facility] Care Team Providers Name Role Phone [facility] Unavailable Un available Problems Problem Status Onset [...] 08, 2018 16:39:11 CDT with order ID: [id number] entered by Venus Valentine. Diarrhea (finding) Resolved [...] Essential tremor 12/17/2018 [facility] intermediate designer 12/17/2018 Ortho (current) use of and Spine aspirin Medications Medication Details Route Status Patient Ordering Order Source Instructions Provider Date gabapentin 600 MG = 1 tab, PO, Active ischer Oral Tablet Daily, # 30 tab, 2019 [place] ro 1 Refill(s), Pharmacy: [facility], 154.94, cm, 10/15/19 9:33:00 CDT, Height, 60, kg, 10/15/19 9:33:00 CDT, Weight primidone 50 mg 50 mg = 1 tab, Active ischer oral tablet PO, BID, # 60 2019 Neuro tab, 3 Refill(s), Pharmacy: [facility], 154.94, cm, 10/15/19 9:33:00 CDT, Height, 60, kg, 10/15/19 9:33:00 CDT, Weight gabapentin 600 MG = 1 tab, PO, BID, Active 3/ Mischer Oral Tablet # 60 tab, 1 2019 Neuro Refill(s), Pharmacy: [facility] primidone 50 mg 50 mg = 1 tab, Active 10/14/ M ischer oral tablet PO, Bedtime, # 30 2019 Ne uro tab, 3 Refill(s), Pharmacy: [facility] lisinopril 2.5 mg 0 Refill(s) Active graciela oral tablet 2020 Neuro gabapentin 600 MG = 1 tab, PO, TID, No Longer / Mischer Oral Tablet # 90 tab, 1 Active 2019 Neuro Refill(s), Pharmacy: [facility] gabapentin 600 MG 600 mg = 1 tab, Active 06/11/ Mischer Oral Tablet PO, TID, # 90 2019 Neuro tab, 2 Refill(s), Pharmacy: [facility] gabapentin 600 MG 600 mg = 1 tab, Active 03/26/ Mischer Oral Tablet PO, TID, # 90 2019 Neuro tab, 2 Refill(s), Pharmacy: [facility] gabapentin 600 MG 600 mg = 1 tab, Inactive 03/26 / Mischer Oral Tablet PO, TID, X 30 2018 Neuro day, # 90 tab, 3 Refill(s), Pharmacy: [facility]/pharmacy #[id number] Alendronate Notes: No Longer Ortho Non-Formulary Active 2019 and Drug Reserved Spine for use in Post-Acute halfway care settings [...] 2 puff, Route: INHALATION, RBID, 05/27/18 20:00:00 BAR GAUGER AND LUBRICATOR TENDER, Duration: 30 day, Stop date: 06/26/18 8:00:00 BAR GAUGER AND LUBRICATOR TENDER 200 ACTUAT Notes: Albuterol No Longer Ortho [...] MISC, Spine Route: PO, QPM, 05/27/18 18:00:00 BAR GAUGER AND LUBRICATOR TENDER, Duration: 30 day, Stop date: 06/25/18 18:00:00 BAR GAUGER AND LUBRICATOR TENDER Simvastatin Notes: (Same as: No Longer 05/28/ [...] 2019 and Stop date: Spine 05/27/18 12:30:00 BAR GAUGER AND LUBRICATOR TENDER neostigmine Route: IV, Drug Inactive Ortho (ANES) form: INJ, ONCE, 2018 and Stop date: Spine 05/27/18 12:30:00 BAR GAUGER AND LUBRICATOR TENDER tramadol Notes: Not to No Longer Orth [...] Total Volume: 1,000, Start date: 05/27/18 12:25:00 BAR GAUGER AND LUBRICATOR TENDER, Duration: 30 day, Stop date: 06/26/18 12:24:00 BAR GAUGER AND LUBRICATOR TENDER, 1.58, m2 ondansetron Route: IV, Drug Inactive Ortho (ANES) form: INJ, ONCE, 2018 and Stop date: Spine 05/27/18 12:17:00 BAR GAUGER AND LUBRICATOR TENDER phenylephrine Route: IV, Drug Inactive Ortho (ANES) form: INJ, ONCE, 2018 and Stop date: Spine 05/27/18 11:07:00 BAR G[employer]GER AND LUBRICATOR TENDER 72 HR Scopolamine 1 patch, Route: Inactive 05/27 Ortho 0.0139 MG/HR TOP, Drug Form: 2019 and Transdermal Patch ERFILM, Dosing Spine Weight 56.091, kg, PRE OP, Start date: 05/27/18 11:00:00 BAR GAUGER AND LUBRICATOR TENDER, Duration: 30 day, Stop date: 06/26/18 10:59:00 BAR GAUGER AND LUBRICATOR TENDER dexamethasone Route: IV, Drug Inactive H Ortho (ANES) form: INJ, ONCE, 2018 and Stop date: Spine 05/27/18 10:57:00 BAR GAUGER AND LUBRICATOR TENDER rocuronium (ANES) Route: IV, Drug Inactive 05/27 Ortho form: INJ, ONCE, 2018 and Stop date: Spine 05/27/18 10:52:00 BAR GAUGER AND LUBRICATOR TENDER fentaNYL (ANES) Route: IV, Drug Inactive Ortho form: INJ, ONCE, 2019 and Stop date: Spine 05/27/18 10:52:00 BAR GAUGER AND LUBRICATOR TENDER propofol (ANES) Route: IV, Drug Inactive Ortho form: INJ, ONCE, 2018 and Stop date: Spine 05/27/18 10:52:00 BAR GAUGER AND LUBRICATOR TENDER lidocaine (ANES) Route: IV, Drug Inactive Ortho form: INJ, ONCE, 2018 and Stop date: Spine 05/27/18 10:52:00 BAR GAUGER AND LUBRICATOR TENDER midazolam (ANES) Route: IV, Drug Inactive Ortho form: SOLN, ONCE, 2018 and Stop date: Spine 05/27/18 10:52:00 BAR GAUGER AND LUBRICATOR TENDER ceFAZolin (ANES) Route: IV, Drug Inactive 05/27[facility] Ortho form: INJ, ONCE, 2018 and Stop date: Spine 05/27/18 10:52:00 BAR GAUGER AND LUBRICATOR TENDER Ondansetron Notes: (Same as: Inactive Ortho Zofran) 2019 and MEDICATION WASTE Spine Product Size: 4 mg Product Wasted: ___ mg Hydromorphone Notes: Same as Inactive Ortho Dilaudid 2019 and Spine Naloxone Notes: Same as Inactive 05/27[facility] Orth o Narcan 2019 and Spine Flumazenil Notes: (Same as: Inactive Ortho Romazicon) 2019 and Spine Morphine Notes: (Same Inactive Ortho as:MORPhine 2019 and Sulfate) Spine Lactated Ringers Route: IV, Total Inactive 05/27 Ortho Injection IV Volume: 1,000, 2019 and (ANES) 1000 mL Start date: Spine 05/27/18 10:02:00 BAR GAUGER AND LUBRICATOR TENDER, Stop date: 05/27/18 11:02:00 BAR GAUGER AND LUBRICATOR TENDER Glucagon 1 mg, Route: IM, No Longer O rtho Drug form: Active 2019 and PDR/INJ, PRN, Spine Dosing Weight 56.091, kg, PRN Blood Glucose Results, Start date: 05/27/18 8:05:00 BAR GAUGER AND LUBRICATOR TENDER, Duration: 30 day, Stop date: 06/26/18 8:04:00 BAR GAUGER AND LUBRICATOR TENDER Dextrose 50% 25 gm, 50 mL, No Longer Ortho Syringe Route: IVP, Drug Active 2018 and Form: INJ, Dosing Spine Weight 56.091, kg, PRN, PRN Blood Glucose Results, Start date: 05/27/18 8:05:00 BAR GAUGER AND LUBRICATOR TENDER, Duration: 30 day, Stop date: 06/26/18 8:04:00 BAR GAUGER AND LUBRICATOR TENDER Insulin Lispro Notes: (Same as: No Longer [...] Weight 56.091, kg, Start date: 05/27/18 7:00:00 BAR GAUGER AND LUBRICATOR TENDER, Duration: 1 doses or times, Stop date: 05/27/18 18:00:00 BAR GAUGER AND LUBRICATOR TENDER, ABX Indication: Surgical Prophylaxis gabapentin 300 mg, Route: Inactive Or tho PO, ONCALL, 2019 and Dosing Weight Spine 56.091, kg, Start date: 05/27/18 7:00:00 BAR GAUGER AND LUBRICATOR TENDER, Duration: 30 day, Stop date: 06/26/18 6:59:00 BAR GAUGER AND LUBRICATOR TENDER celecoxib Notes: NSAID. Inactive Orth o Please [...] 90 2019 Neuro cap, 4 Refill(s), Pharmacy: [facility]/pharmacy #[id number] Allergies, Adverse Reactions, Alerts Substance Category Reaction Severity Reaction Status Date Comments S ource type Reported codeine Assertion Drug Active Mische r sulfate allergy Neuro Immunizations Immunization Date Given Site Status Last Updated Comments Violet rce Hx influenza 05/17/2018 completed Jorge Admin Note: [facility] [place]'D Ne uro, ed<sup>1</sup> 03/2018 [...] DX EXAM: XR PELVIS 1 VIEW 05/27/2018 [facility] DATE: 05/27/2018 12:25 BAR GAUGER AND LUBRICATOR TENDER INDICATION: - to be done in PACU [...] Comments Source Systolic (mm Hg) 103 10/15/2019 [facility] [place] Diastolic (mm Hg) 58 10/15/2019 [facility] [place] Heart Rate 99 10/15/2019 [facility] [place] Respitory Rate 16 10/15/2019 [facility] Height 154.94 cm 10/15/2019 [facility] Weight 60 10/15/2019 [facility] BMI Calculated 24.99 10/15/2019 [facility] Systolic (mm Hg) 118 03/26/2019 [facility] [place] Diastolic (mm Hg) 73 03/26/2019 [facility] Ne uro Heart Rate 94 03/26/2019 [facility] Height 157.48 cm 03/26/2019 [facility] Weight 61.364 03/26/2019 [facility] BMI Calculated 24.74 03/26/2019 [facility] Systolic (mm Hg) 119 05/30/2018 Ortho [...] Ortho and Spine Height 154.94 cm 05/15/2018 [facility] Neuro BMI Calculated 23.86 05/15/2018 [facility] Weight 57.273 05/15/2018 [facility] Neuro Systolic (mm Hg) 115 05/15/2018 [facility] [place] Diastolic (mm Hg) 95 05/15/2018 [facility] Ne uro Heart Rate 95 05/15/2018 [facility] Neuro Respitory Rate 16 05/15/2018 [facility] Encounters Location Location Encounter Encounter Reason Attending ADM DC Stat us Source Details Type Number For Provider Date Date Visit Outpatient [id number] VENUS 09/13 Active [facility] [place] Out[place] [id number] VENUS 11/01 Active [facility] [place] Outpatient [id number] VENUS 01/08 Active [facility] [place] Outpatient [id number] VENUS 02/19 Active [facility] [place] MNA Ambulatory [id number] Venus 02/19 02/19 [facility] [place] Out[place] [id number] VENUS 03/21 Active [facility] [place] [facility] Ambulatory [id number] Venus 03/21 03/21 [facility] [place] Outpatient [id number] VENUS 05/15 Active [facility] [place] MNA Outpatient [id number] Venus 05/15 05/16 [facility] [place] [facility] [id number] [place] 05/27 05/30 Ortho [facility] /2018 [facility] Outpatient [id number] Venus 08/21 Active [facility] [place] Outpatient [id number] Venus 02/19 Active [facility] [place] MNA Ambulatory [id number] Venus 02/19 02/19 [facility] [place] Outpatient [id number] Venus 03/26 Active [facility] [place] MNA Outpatient [id number] Venus 03/26 03/27 [facility] [place] [facility] [place] Outpatient [id number] Venus 05/28 Active [facility] [place] MNA Ambulatory [id number] Venus 05/28 05/28 [facility] Pre[place]Reg [facility] [place] Outpatient [id number] Venus 07/21 Active [facility] [place] [facility] Ambulatory [id number] Venus 07/21 07/21 [facility] Pre[place]Reg [facility] [place] Outpatient [id number] Venus 10/14 Active [facility] [place] MNA Outpatient [id number] Venus 10/14 10/15 [facility] [place] [facility] [place] Outpatient [id number] Venus 11/25 Active [facility] [place] Outpatient [id number] Venus 11/25 Active [facility] [place] MNA Ambulatory [id number] Venus 11/25 11/25 [facility] Pre[place]Reg [place] [place] [facility] Outpatient [id number] Venus 11/25 11/26 [facility] [place] /2019 [place] Outpatient [id number] Venus 02/25 Active [facility] [place] Procedures Procedure Code Date Perfomer Comments Source Tonsillectomy [id number] 05/14/1966 [facility] Appendix operation [id number] [facility] Gallbladder [id number] [facility] Lung operation [id number] [facility] ORIF - Open [id number] [facility] reduction and [facility], internal fixation Ortho a nd of fracture Spine Tubal ligation [id number] [facility] Vaginal [id number] [facility] hysterectomy Neuro, [facility] Assessment and [...] rhythm with premature atrial con tractions Outpatient office clinician:None Revised cardiac risk index scoreis 0 consistent [...] understandingall questions answered [facility] Hospitalist Consult Please [phone] any questions Plan of Care No Data [...]
--- OUTSIDE RECORDS SUMMARY | 2020-01-08 06:33 | XMS REPORT ---
[...] Status Dosage System Date Date BusPIRone HCl [facility] 43995260464 15 MG Active TAKE 1 TABLET BY MOUTH TWICE DAILY FOR 30 DAYS Primidone [facility] 63355811224 50 MG Orally Active 1 tab let Once a day Alendronate ND 10289776383 70 MG Orally Active 1 t ablet Sodium Once a week Bevespi [facility] 30803764557 9-4.8 MCG/ACT Active 2 puff s Aerosphere Inhalation Twice a day BusPIRone HCl [facility] 94025809598 15 MG Orally Active 1 tablet Twice a day Zofran [facility] 85719531138 4 MG Orally Active 1 tablet every 8 hrs as needed NAUSEA Alendronate [facility] 78480242445 70 MG Active TAKE 1 Sodium TABLET BY MOUTH ONCE A WEEK Metformin HCl [facility] 88912634273 500 MG Orally Active 1 tablet Twice a day with a meal Albuterol [facility] 41459577448 (2.5 MG/3ML) Active 3 ml as Sulfate 0.083% needed Inhalation Three times a day Proventil HFA [facility] 40115790576 108 (90 Base) Active 2 puffs as MCG/ACT needed Inhalation every 6 hrs Simvastatin ND 97098990890 20 MG Orally Active 1 t ablet Once a day in the evening Remeron [facility] 36363137667 30 MG Orally Active 1 table t Once a day at bedtime Omeprazole ND 56074322374 20 MG Orally Active 1 ca psule Once a day Ondansetron HCl [facility] 78490331826 4 MG Active TAKE 1 TABLET BY MOUTH EVERY 8 HOURS NEEDED FOR NAUSEA FOR 30 DAYS Ventolin HFA [facility] 72874111129 108 (90 Base) Active 2 puffs MCG/ACT Inhalation Twice a day Lisinopril ND 25805083570 2.5 MG Orally Active 1 t ablet Once a day Gabapentin ND 38531904280 600 MG Orally Active 1 c apsule Once a day Results No Known Results Summary Purpose eClinicalWorks Submission
--- OUTSIDE RECORDS SUMMARY | 2020-01-08 06:33 | XMS REPORT | Continuity of Care Document ---
:[address] 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, RIGHT HIP AVAS Active 05/15/2018 [facility] Depression Depression Problem Active C HI [facility] [...] Memor ia posthemorr 14:20:25 l hagic Acute Kristopher anemia posthemorr hagic anemia 12/17/2018 Ortho and [...] 2018-12-17 M emoria phageal 14:20:25 l reflux Kristopher disease Gastro-eso without phageal esophagiti reflux s disease without esophagiti s 12/17/2018 [facility] Essential Problem 2018-12-17 [place] moria tremor 14:20:25 l Kristopher Essential tremor 12/17/2018 [facility] FDC Problem 2018-12-17 Me moria (current) 14:20:25 l use of Long [place] aspirin term (current) use of aspirin 12/17/2018 [facility] Appendicit Problem Resolve 2019-11-29 Memoria is d 00:42:06 l (disorder) Nabeel n Appendicit is (disorder) Resolved Problem 11/29/2019 [facility] Concussion Problem Resolve 2019-11-29 Memoria injury of d 00:42:06 l body Kristopher structure Concussion (disorder) injury of body structure (disorder) Resolved Problem 11/29/2019 [facility] Diarrhea Problem Resolve 2019-11-29 Me moria (finding) d 00:42:06 l Diarrhea Nabeel n (finding) Resolved Problem 11/29/2019 [facility] Gallbladde Problem Resolve 2019-11-29 Memoria r pain d 00:42:06 l (finding) [place] Gallbladde r pain (finding) Resolved Problem 11/29/2019 [facility] Rupture of Problem Resolve 2019-11-29 Memoria spleen d 00:42:06 l (disorder) Rupture Her jensen of spleen (disorder) Resolved Problem 11/29/2019 [facility] Avascular Problem Active 2019-11-29 Me moria necrosis 00:42:06 l of bone Kristopher (disorder) Avascular necrosis of bone (disorder) Active Problem 11/29/2019 [facility] Chronic Problem Active 2019-11-29 Cornelius marivel obstructiv 00:42:06 l e lung Chronic Kristopher disease obstructiv (disorder) e lung disease (disorder) Active Problem 11/29/2019 [facility] Depressive Problem Active 2019-11-29 M emoria disorder 00:42:06 l (disorder) Nabeel n Depressive disorder (disorder) [facility] Diabetes Problem Active 2019-11-29 Mem oria mellitus 00:42:06 l type 2 Diabetes Nabeel n (disorder) mellitus type 2 (disorder) Active Problem 11/29/2019 Automatic ally added by Discern Expert with order of Add Problem Diabetes Type II on January 08, 2018 16:39:11 CDT with order ID: [id number] 5.0 entered by Donald Valentine. [facility] Essential Problem Active 2019-11-29 Me moria tremor 00:42:06 l (disorder) Nabeel n Essential tremor (disorder) Active Problem [facility]/29/2019 [facility] Gastric Problem Active 2019-11-29 Cornelius marivel ulcer 00:42:06 l (disorder) Gastric Her jensen ulcer (disorder) Active Problem [facility]/29/[facility] Gastroesop Problem Active 2019-11-29 M emoria hageal 00:42:06 l reflux [place] disease Gastroesop (disorder) hageal reflux disease (disorder) Active Problem 11/29/2019 [facility] Hyperlipid Problem Active 2019-11-29 M emoria emia 00:42:06 l (disorder) Nabeel n Hyperlipid emia (disorder) Active Problem [facility]/29/2019 [facility] Migraine Problem Active 2019-11-29 Mem oria (disorder) 00:42:06 l Migraine Nabeel n (disorder) Active Problem 11/29/2019 [facility] Neck pain Problem Active 2019-11-29 Me moria (finding) 00:42:06 l Neck [place] pain (finding) Active Problem 11/29/2019 [facility] Poor Problem Active 2019-11-29 Memor ia short-term 00:42:06 l memory Poor Kristopher (finding) short-term memory (finding) Active Problem 11/29/2019 [facility] Post Problem Active 2019-11-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 Post Nabeel n itis traumatic (disorder) osteoarthr itis (disorder) Active Problem 11/29/2019 [facility] Postmenopa Problem Active 2019-11-29 M emoria usal 00:42:06 l osteopenia Nabeel n Postmenopa usal osteopenia Active Problem 11/29/2019 [facility] Pulmonary Problem Active 2019-11-29 Me moria emphysema 00:42:06 l (disorder) Nabeel n Pulmonary emphysema (disorder) Active Problem 11/29/2019 [facility] Pain due Problem [...] tab, Nabeel n 00 1 Refill(s), Pharmacy: [facility], 154.94, cm, 10/15/19 9:33:00 CDT, Height, 60, kg, 10/15/19 9:33:00 CDT, Weight primidone 2020-0 Yes 50 mg = 1 Mem oria 50 mg oral 7-15 tab, PO, l tablet 14:46: BID, # 60 Nabeel n 00 tab, 3 Refill(s), Pharmacy: [facility], 154.94, cm, 10/15/19 9:33:00 CDT, Height, 60, kg, 10/15/19 9:33:00 CDT, Weight gabapentin 2020-0 Yes = 1 tab, Mem oria 600 MG Oral 6-03 PO, BID, # l Tablet 14:48: 60 tab, 1 Nabeel n 00 Refill(s), Pharmacy: [place] [id number] primidone 2020-0 Yes 50 mg = 1 Mem oria 50 mg oral 6-03 tab, PO, l tablet 14:48: Bedtime, # Bianca nn 00 30 tab, 3 Refill(s), Pharmacy: [place] [id number] lisinopril 2020-0 Yes 0 Memoria 2.5 mg oral 6-03 Refill(s) l tablet 14:42: Kristopher 00 gabapentin 2020-0 No = 1 tab, Mem oria 600 MG Oral 5-18 PO, TID, # l Tablet 20:08: 90 tab, 1 Nabeel n 00 Refill(s), Pharmacy: [place] [id number] gabapentin 2020-0 Yes 600 mg = 1 M emoria 600 MG Oral 1-29 tab, PO, l Tablet 19:35: TID, # 90 Nabeel n 00 tab, 2 Refill(s), Pharmacy: [place] [id number] gabapentin 2018- Yes 600 mg = 1 M emoria 600 MG Oral 1-13 tab, PO, l Tablet 15:49: TID, # 90 Nabeel n 01 tab, 2 Refill(s), Pharmacy: [place] [id number] gabapentin 2019- No 600 mg = 1 M emoria 600 MG Oral 1-13 tab, PO, l Tablet 15:45: TID, X 30 Nabeel n 00 day, # 90 tab, 3 Refill(s), Pharmacy: [id number] Alendronate No Notes: Cornelius marivel 1-20 Non-Formul l 15:00: mary Drug Kristopher 00 Reserved for use in Post-Acute custodial care settings ONLY Give 30 min before [...] l MG / 17:19: day, # 28 Kristopher Trimethopri 00 tab, 0 m 160 MG [...] DS tablet l MG / 15:00: = [place] Trimethopri 00 trimethopr m 160 MG im 160mg + Oral Tablet sulfametho [Bactrim] xazole 800 mg Dose based on trimethopr im component On empty stomach with a glass of water. (Same As: Bactrim DS, Septra DS) Ondansetron No Notes: Cornelius marivel 1-16 (Same as: l 03:24: Zofran) Kristopher 00 MEDICATION WASTE Product Size: 4 mg Product Wasted: ___ mg 200 ACTUAT No Notes: Memor ia Albuterol 1-16 Albuterol l 0.09 02:00: 90 [place] MG/ACTUAT 00 microgram/ Metered inh 8gm Dose [...] puff, Route: INHALATION , RBID, 05/27/18 20:00:00 BUDGET TECHNICIAN, Duration: 30 day, Stop date: 06/26/18 8:00:00 BUDGET TECHNICIAN 200 ACTUAT No Notes: Memor ia Albuterol 1-15 Albuterol l 0.09 01:00: 90 [place] MG/ACTUAT 00 microgram/ Metered inh 8gm Dose HFA Inhaler WASTE: [Proventil] Aerosol - Return to Pharmacy Same as: Ventolin, Proventil Tranexamic No Notes: Memor ia Acid 1-15 (Same as: l 00:25: Lysteda) Omeprazole No Omeprazole M emoria 20 mg tab 1-15 20 mg tab, l 00:00: 1 tab, Drug form: MISC, Route: PO, QPM, 05/27/18 18:00:00 BUDGET TECHNICIAN, Duration: 30 day, Stop date: 06/25/18 18:00:00 BUDGET TECHNICIAN Simvastatin No Notes: Cornelius marivel 1-15 (Same [...] sodium 1-14 (Same as: l 23:00: Colace) [place] 00 (Do Not Crush) Celebrex No Notes: Memoria 1-14 NSAID. l 23:00: Please [place] check indication . Not for seizure. (Same As: CeleBREX) Cefazolin No Notes: Memori a 1-14 Same as: l 23:00: Ancef [place] 00 Aspirin 325 No Notes: (Do Memoria MG Enteric -14 Not Crush) l Coated 23:00: Do not Kristopher Tablet 00 crush or chew. gabapentin No Notes: Memor ia 300 MG Oral -14 (Same as: l Capsule 22:00: Neurontin) glycopyrrol No Route: IV, Memoria ate (ANES) 05-27 Drug form: l 18:30: INJ, ONCE, Stop date: 05/27/18 12:30:00 BUDGET TECHNICIAN neostigmine No Route: IV, Memoria (ANES) -14 Drug form: l 18:30: INJ, ONCE, Stop date: 05/27/18 12:30:00 BUDGET TECHNICIAN tramadol No Notes: Not Mem oria hydrochlori [...] Total Volume: 1,000, Start date: 05/27/18 12:25:00 BUDGET TECHNICIAN, Duration: 30 day, Stop date: 06/26/18 12:24:00 BUDGET TECHNICIAN, 1.58, m2 ondansetron No Route: IV, Memoria (ANES) 05-27 Drug form: l 18:17: INJ, ONCE, Stop date: 05/27/18 12:17:00 BUDGET TECHNICIAN phenylephri No Route: IV, Memoria ne (ANES) - Drug form: l 17:07: INJ, ONCE, Stop date: 05/27/18 11:07:00 BUDGET TECHNICIAN 72 HR No 1 patch, Memoria Scopolamine 05-27 Route: l 0.0139 17:00: TOP, Drug Nabeel n MG/HR 00 Form: Transdermal ERFILM, Patch Dosing Weight 56.091, kg, PRE OP, Start date: 05/27/18 11:00:00 BUDGET TECHNICIAN, Duration: 30 day, Stop date: 06/26/18 10:59:00 BUDGET TECHNICIAN dexamethaso No Route: IV, Memoria ne (ANES) -14 Drug form: l 16:57: INJ, ONCE, Stop date: 05/27/18 10:57:00 BUDGET TECHNICIAN rocuronium No Route: IV, M emoria (ANES) - Drug form: l 16:52: INJ, ONCE, Stop date: 05/27/18 10:52:00 BUDGET TECHNICIAN fentaNYL 2018- No Route: IV, Mem oria (ANES) 1-14 Drug form: l 16:52: INJ, ONCE, Kristopher Stop date: 05/27/18 10:52:00 BUDGET TECHNICIAN propofol No Route: IV, Mem oria (ANES) 1-14 Drug form: l 16:52: INJ, ONCE, Kristopher 00 Stop date: 05/27/18 10:52:00 BUDGET TECHNICIAN lidocaine 2018- No Route: IV, Me moria (ANES) 1-14 Drug form: l 16:52: INJ, ONCE, [place] 00 Stop date: 05/27/18 10:52:00 BUDGET TECHNICIAN midazolam No Route: IV, Me moria (ANES) 1-14 Drug form: l 16:52: SOLN, Kristopher 00 ONCE, Stop date: 05/27/18 10:52:00 BUDGET TECHNICIAN ceFAZolin No Route: IV, Me moria (ANES) 1-14 Drug form: l 16:52: INJ, ONCE, Kristopher 00 Stop date: 05/27/18 10:52:00 BUDGET TECHNICIAN Ondansetron No Notes: Cornelius marivel 1-14 (Same [...] 1,000, 1000 mL Start date: 05/27/18 10:02:00 BUDGET TECHNICIAN, Stop date: 05/27/18 11:02:00 BUDGET TECHNICIAN Glucagon 2019-0 No 1 mg, Memoria 1-14 Route: IM, l 14:05: Drug form: Kristopher 00 PDR/INJ, PRN, Dosing Weight 56.091, kg, PRN Blood Glucose Results, Start date: 05/27/18 8:05:00 BUDGET TECHNICIAN, Duration: 30 day, Stop date: 06/26/18 8:04:00 BUDGET TECHNICIAN Dextrose 2019-0 No 25 gm, 50 Cornelius marivel 50% Syringe 1-14 mL, Route: l 14:05: IVP, Drug Form: INJ, Dosing Weight 56.091, kg, PRN, PRN Blood Glucose Results, Start date: 05/27/18 8:05:00 BUDGET TECHNICIAN, Duration: 30 day, Stop date: 06/26/18 8:04:00 BUDGET TECHNICIAN Insulin 2018-0 No Notes: Memoria Lispro 1-14 (Same as: l 14:05: Humalog ) Roll in palms of hands gently; Do not shake `vigorousl y. "Single Patient Use Only " WASTE: F/P - Black; E - Qustodian Trash Bin Stable for 28 days at room temperatur e. Expires in days from ____Date Cefazolin 2019-0 No 2 gm, 50 Cornelius marivel 1-14 mL, Route: l 13:00: IVPB, Drug form: INJ, ONCALL, Dosing Weight 56.091, kg, Start date: 05/27/18 7:00:00 BUDGET TECHNICIAN, Duration: 1 doses or times, Stop date: 05/27/18 18:00:00 BUDGET TECHNICIAN, ABX Indication : Surgical Prophylaxi s gabapentin 2019-0 No 300 mg, Cornelius marivel 1-14 Route: PO, l 13:00: ONCALL, [place] 00 Dosing Weight 56.091, kg, Start date: 05/27/18 7:00:00 BUDGET TECHNICIAN, Duration: 30 day, Stop date: 06/26/18 6:59:00 BUDGET TECHNICIAN celecoxib 2018-0 No Notes: Memori a 1-14 [...] Acid 1-14 (Same as: l 12:44: Lysteda) [place] 00 Zofran ODT No Notes: Memor ia 1-14 (Same as: l 12:44: Zofran Kristopher 00 ODT) Dexamethaso No Notes: Cornelius marivel ne -14 dexamethas l 12:44: one 10 Kristopher 00 mg/1 ml VL INJ PF MEDICATION WASTE Product Size: 10 mg Product Wasted: ___ mg ropivacaine No Notes: Cornelius marivel 1-14 NOT FOR l 12:00: IV use [place] Each mL contains: Ropivacain e 2.46 mg, [...] Bianca nn 00 cap, 4 Refill(s), Pharmacy: [id number] Zofran Zofran Yes Trell [address] [facility] 00:[facility]: Memoria 00 l [facility] BusPIRone BusPIRone Yes Trell [address] [facility] [address] HCl HCl [facility] Primidone Primidone Yes Trell [address] [facility] Memoria l [facility] Alendronate Alendronate Yes Trell TAKE [address] [facility] Sodium Sodium [place] TABLET BY [facility] - MOUTH ONCE Memoria A WEEK l [facility] Bevespi Bevespi Yes Trell [address] Aerosphere Aerosphere [place] Debbie [facility] - [facility] l [facility] Metformin Metformin Yes Trell [address] HCl HCl [place] with a [facility] - meal Memoria l [facility] Albuterol Albuterol Yes Trell [address] [facility] Sulfate Sulfate [place] needed [facility] Proventil Proventil Yes Trell [address] HFA HFA [place] needed [facility] Simvastatin Simvastatin Yes Trell [address] [facility] [address] [place] in the [facility] - evening Memoria l [facility] Remeron Remeron Yes Trell [address] [facility] [place] [facility] Omeprazole Omeprazole Yes Trell [address] [facility] Ondansetron Ondansetron Yes Trell TAKE [address] [facility] HCl HCl [place] TABLET BY [facility] - MOUTH Memoria EVERY 8 l HOURS Outpati NEEDED FOR ent NAUSEA FOR Clinics 30 DAYS Ventolin Ventolin Yes Trell [address] [facility] Lisinopril Lisinopril Yes Trell [address] [facility] Gabapentin Gabapentin Yes Trell [address] [facility] Vital Signs Vital Name Observation Time Observation Value Comments Source Systolic (mm Hg) 2019-10-15 14:33:00 Cornelius rial [place] Diastolic (mm Hg) 2019-10-15 14:33:00 Mem orial [place] Heart Rate 2019-10-15 14:33:00 [facility] [place] Respitory Rate 2019-10-15 14:33:00 Memori al [place] Height 2019-10-15 14:33:00 154.94 cm [facility] [place] Weight 2019-10-15 14:33:00 [facility] [place] BMI Calculated 2019-10-15 14:33:00 Memori al [place] Systolic (mm Hg) 2019-03-26 15:26:00 Cornelius rial [place] Diastolic (mm Hg) 2019-03-26 15:26:00 Mem orial [place] Heart Rate 2019-03-26 15:26:00 Memorial Kristopher Height 2019-03-26 15:26:00 157.48 cm [facility] [place] Weight 2019-03-26 15:26:00 [facility] Kristopher BMI Calculated 2019-03-26 15:26:00 Memori al [place] Systolic (mm Hg) 2018-05-30 17:30:00 Cornelius rial [place] Diastolic (mm Hg) 2018-05-30 17:30:00 Mem orial [place] Respitory Rate 2018-05-30 17:30:00 Memori al [place] Heart Rate 2018-05-30 17:30:00 [facility] [place] Temperature Oral (F) 2018-05-30 17:30:00 97.9 F [facility] Kristopher Respitory Rate 2018-05-30 13:23:00 Memori al [place] Temperature Oral (F) 2018-05-30 13:23:00 98.0 F [facility] [place] Systolic (mm Hg) 2018-05-30 13:23:00 Cornelius rial [place] Diastolic (mm Hg) 2018-05-30 13:23:00 Mem orial [place] Heart Rate 2018-05-30 13:23:00 Memorial Kristopher Respitory Rate 2018-05-30 09:24:00 Memori al [place] Heart Rate 2018-05-30 09:24:00 [facility] [place] Temperature Oral (F) 2018-05-30 09:24:00 97.4 F [facility] [place] Systolic (mm Hg) 2018-05-30 09:24:00 Cornelius rial [place] Diastolic (mm Hg) 2018-05-30 09:24:00 Mem orial [place] BMI Calculated 2018-05-27 12:36:00 Memori al [place] Height 2018-05-27 12:36:00 157.48 cm [facility] [place] Weight 2018-05-27 12:36:00 [facility] [place] Height 2018-05-15 16:53:00 154.94 cm [facility] [place] BMI Calculated 2018-05-15 16:53:00 Memori al [place] Weight 2018-05-15 16:53:00 Memorial Kristopher Systolic (mm Hg) 2018-05-15 16:53:00 Cornelius rial [place] Diastolic (mm Hg) 2018-05-15 16:53:00 Mem orial [place] Heart Rate 2018-05-15 16:53:00 [facility] Kristopher Respitory Rate 2018-05-15 16:53:00 Memori al [place] Procedures Procedure Date / Time Performed Performing Clinician Haley rodriguez Tonsillectomy 1964-05-14 00:00:00 [facility] jensen Appendix [facility] Herm marybeth Gallbladder operation [facility] ermann Lung operation [facility] [place] ORIF - Open reduction and Memori al Kirstopher internal fixation of fracture Tubal ligation [facility] Kristopher Vaginal hysterectomy [facility] rmann Encounters Start End Encounter Admission Attending Care Care Encounter Source Date/Time Date/Time Type Type Clinicians Facility Department ID 2019-12-10 2019-12-10 [facility] [id number] [address] 10:30:00 10:30:00 [facility] 2019-11-26 2019-11-26 Outpatient RIZWANA Valentine [id number] 09:30:00 23:59:59 Donald Bustamante 2019-11-26 2019-11-26 Outpatient RIZWANA Valentine [id number] 09:30:00 09:30:00 Donald 12 Robby 2019-11-03 2019-11-03 [facility] [id number] 08:59:00 08:59:00 t Fortuna Fortuna [employer]Life Lum[facility]adi s - Drive [facility] Medicine Outpati ent Clinics 2019-10-20 2019-10-20 [facility] [id number] 11:46:00 11:46:00 t Fortuna Firstmonie s - Drive [facility] Medicine Outpati ent Clinics 2019-10-17 2019-10-17 [facility] [id number] 15:27:00 15:27:00 t Fortuna Firstmonie s - [facility]Life [facility] Medicine Outpati ent Clinics 2019-10-15 2019-10-15 [facility] [id number] 09:30:00 23:59:59 Donald 11 Robby 2019-10-14 2019-10-14 [facility] [id number] 11:54:00 11:54:00 t Fortuna Firstmonie s - [facility]Life [facility] Medicine Outpati ent Clinics 2019-09-10 2019-09-10 [facility] [id number] 10:15:00 10:15:00 t Fortuna Firstmonie s - [employer]Life [facility] Medicine Outpati ent Clinics 2019-07-22 2019-07-22 Outpatient RIZWANA Valentine [facility] [id number] 11:15:00 11:15:00 Donald 10 Robby 2019-06-16 2019-06-16 [facility] [id number] 09:51:00 09:51:00 t Fortuna Firstmonie s - [facility]Life [facility] Medicine Outpati ent Clinics 2019-06-11 2019-06-11 [facility] [id number] 09:30:00 09:30:00 t Fortuna Firstmonie s - [employer]Life [facility] Medicine Outpati ent Clinics 2019-05-28 2019-05-28 Outpatient RIZWANA Valentine [facility] [id number] 09:45:00 09:45:00 Donald 09 Robby 2019-03-26 2019-03-26 Outpatient DANIELA ValentineSCHMINISTERIO [facility] [id number] 10:00:00 23:59:59 Donald 08 Robby 2019-03-12 2019-03-12 [facility] [id number] 10:15:00 10:15:[address] Luke s - Drive [facility] Medicine Outpati ent Clinics 2019-02-19 2019-02-19 Outpatient RIZWANA Valentine [facility] [id number] 10:15:00 10:15:00 Donald 07 Robby 2019-01-06 2019-01-06 [facility] [id number] 09:23:00 09:23:[address] Luke s - Drive [facility] Medicine Outpati ent Clinics 2019-01-03 2019-01-03 [facility] [id number] 10:18:00 10:18:[address] Luke s - Drive [facility] Medicine Outpati ent Clinics 2018-12-09 2018-12-09 [facility] [id number] 09:30:00 09:30:[address] Luke s - Drive [facility] Medicine Outpati ent Clinics 2018-09-04 2018-09-04 [facility] [id number] 15:00:00 15:00:[address] Luke s - Drive [facility] Medicine Outpati ent Clinics 2018-08-23 2018-08-23 [facility] [id number] 13:36:00 13:36:[address] Luke s - Drive [facility] Medicine Outpati ent Clinics 2018-08-05 2018-08-05 [facility] [id number] 11:27:00 11:27:[address] Luke s - Drive [facility] Medicine Outpati ent Clinics 2018-05-27 2018-05-30 Outpatient SHAWN Ricketts [facility] [id number] 06:13:00 12:57:00 Alverto Cardona 2018-05-15 2018-05-15 Outpatient RIZWANA Valentine MATTEO [id number] 11:00:00 23:59:59 Donald 05 Robby 2018-03-21 2018-03-21 [facility] [id number] 09:45:00 09:45:00 Donald Beto Bustamante 2018-02-19 2018-02-19 [facility] [id number] 11:00:00 11:00:00 Donald Jamel Bustamante 2017-12-11 2017-12-11 [facility] [id number] 11:15:00 11:15:00 t Wish Days [facility] 2017-10-15 2017-10-15 [facility] [id number] 14:30:00 14:30:00 t Wish Days [facility] ent [facility] 2017-10-01 2017-10-01 [facility] [id number] 14:52:00 14:52:00 t Specialty/U Debbie kes - Specialty rology Memori a /Urology Clinic l [facility] 2017-10-01 2017-10-01 [facility] [id number] 10:12:00 10:12:00 t Specialty/U Debbie kes - Specialty rology Memori a /Urology Clinic l [facility] 2017-09-18 2017-09-18 [facility] [id number] 14:00:00 14:00:00 t Specialty/U Debbie kes - [facility] 2017-08-13 2017-08-13 [facility] [id number] 14:15:00 14:15:00 t Wish Days [facility] ent Clinics Results Test Description Test Time Test Comments Results Result Sourc e Comments HEMATOLOGY 2018-05-29 10.8 [facility] 10:52:00 Kristopher HEMATOLOGY 2018-05-29 32.3 [facility] 10:52:00 [place] ELECTROLYTES 2018-05-28 12.0 [facility] 10:22:00 [place] ELECTROLYTES 2018-05-28 69 [facility] 10:22:00 [place] ELECTROLYTES 2018-05-28 142 [facility] 10:22:00 [place] ELECTROLYTES 2018-05-28 4.0 [facility] 10:22:00 [place] ELECTROLYTES 2018-05-28 0.88 [facility] 10:22:00 Kristopher ELECTROLYTES 2018-05-28 129 [facility] 10:22:00 [place] ELECTROLYTES 2018-05-28 17 [facility] 10:22:00 Kristopher ELECTROLYTES 2018-05-28 9.0 [facility] 10:22:00 [place] ELECTROLYTES 2018-05-28 106 [facility] 10:22:00 Kristopher ELECTROLYTES 2018-05-28 28 [facility] 10:22:00 Kristopher HEMATOLOGY 2018-05-28 11.2 [facility] 10:22:00 Kristopher HEMATOLOGY 2018-05-28 33.3 [facility] 10:22:00 [place] URINE AND STOOL 2018-05-21 Negative [facility] 15:45:00 *NA*(05/21/18 [place] 9:45 AM) URINE AND STOOL 2018-05-21 Negative [facility] 15:[facility]:00 (05/21/18 9:45 [place] AM) URINE AND STOOL 2018-05-21 [facility] 15:45:00 (05/21/18 9:45 [place] AM) URINE AND STOOL 2018-05-21 Negative [facility] 15:45:00 (05/21/18 9:45 [place] AM) URINE AND STOOL 2018-05-21 [facility] 15:45:00 (05/21/18 9:45 [place] AM) URINE AND STOOL 2018-05-21 0.2 [facility] 15:45:00 [place] URINE AND STOOL 2018-05-21 15:45:00 Test Item Value Reference Range Interpretation Comme nts UA pH (test code = UA pH) 5.5 1 5.0-8.0 [facility] [id number] 15:45:00 Test Item Value Reference Range Interpretation Comments UA Spec Grav (test code = UA Spec 1.025 1 Grav) [facility] [id number] 15:45:00Negative *NA*(05/21/18 9:45 AM) [facility] [id number] 15:45:00Clear (05/21/18 9:45 AM)[facility] [id number] 15:45:00Yellow *NA*(05/21/18 9:45 AM)[facility] [id number] 15:45:00Positive *ABN*(05/21/18 9:45 AM)[facility] [id number] 15:04:00Negative (05/21/18 9:04 AM)[facility] [id number] 15:04:0076[facility] [id number] 15:04:003.6[facility] [id number] 15:04:28085Ndxrgvma [facility]annCHEM [id number] 15:04:0017[facility] [id number] 15:04:000.81 [facility] [id number] 15:04:003.4[facility] PANEL 2018-05-21 15:04:0015[facility] [id number] 15:04:0016[facility] [id number] 15:04:18369Xjkdopiw [facility]annCHE[facility] [id number] 15:04:003.7[facility] [id number] 15:04:60506Fpvukpkq [facility]annCHE[facility] [id number] 15:04:0027[facility] [id number] 15:04:00 Test Item Value Reference Range Interpretation Comments A/G Ratio (test code = A/G Ratio) 0.9 1 0.7-1.6 [facility] [id number] 15:04:0065[facility] PANEL 2018-05-21 15:04:000.4[facility] [id number] 15:04:00 Test Item Value Reference Range Interpretation Comments B/C Ratio (test code = B/C Ratio) 21 1 6-25 [facility] [id number] 15:04:0014.7[facility]ann[facility] PANEL 2018-05-21 15:04:008.8[facility] [id number] 15:04:007.0[facility] ImdhksyDHGJKBHJMJ6875-59-36 15:04:000.6[facility] ZckvhibBMRFPBEWSN6306-15-50 15:04:000.1[facility] DiwuempOUVXRXQEXX0662-85-69 15:04:001.8[facility] [place] CUBDJMZUCJ2515-70-50 15:04:005.4[facility] XhefdvdHULAINXFKD3987-46-04 15:04:00 69.6[facility] VdtzmlmETONSNKABE7615-50-91 15:04:0023.9[facility]annHEMATOLOGY 2018-05-21 15:04:001.4[facility] LitbqjfVCAWVUAYJD8599-53-11 15:04:000.3[facility] MvijawkMFEZYGJIEA5492-32-54 15:04:004.5[facility] OsvvvzjLJZBNIBJLJ6423-73-21 15:04:0014.6[facility] KwzsevcUBFAHLVLUK3124-22-72 15:04:0043.4[facility] [place] MPCAVJVJNI9167-76-98 15:04:0089.0[facility] JxtflwtVRRHFNPBMM3555-54-88 15:04:00 7.7[facility] IgwvbcuJEQIXKCSMD5510-68-77 15:04:004.87[facility]ann[facility]MATOLOGY 2018-05-21 15:04:59467Vbizplpb ZxmfoydZLIOYBHSRG0264-41-80 15:04:009.4[facility] DtpbpckFJORVEEBHH4552-58-84 15:04:00 Test Item Value Reference Range Interpretation Comments MCH (test code = MCH) 30.[address] 27[address]0-31.[address] [facility]FI[facility]OVHJHX8909-41-66 15:04:0033.7[facility]OLOGY 2018-05-21 15:04:0013.3[facility] GydzgusQYIJYCDGEK2643-58-53 15:04:00 Test Item Value Reference Range Interpretation Comments aPTT (test code = aPTT) 37.[address] [facility]YfrdhnpZTSSLVJHEC3355-74-94 15:04:00 Test Item Value Reference Range Interpretation Comments PROTIME (test code = PROTIME) 11.6 s 12.0-14.[address] [facility]DnawxigIENRGCXBKS3081-46-28 15:04:00 Test Item Value Reference Range Interpretation Comments INR (test code = INR) 0.86 1 0.85-1.17 [facility]DizhxezBMUYVRQPGX4154-09-08 15:04:0020[facility]annIMMUNOLOGY 2018-05-21 15:04:008.9[facility]annSPECIAL UAJYRWQQX7336-02-72 15:04:005.5 [facility]
--- OUTSIDE RECORDS SUMMARY | 2020-01-08 06:33 | XMS REPORT ---
[...] End Date Status Dos age Date Sheila [facility] [id number] 4 MG Orally every Active 1 tablet 8 hours as needed for nausea Results No Known Results Summary Purpose eClinicalWorks Submission
[2020-01-08 07:07] LABS: Absolute Lymphocytes (CBC) 1.8 K/uL (0.7-4.9); Basophils % 0.6 % (0-1.3); Hematocrit 43.1 % (36.0-45.0); Lymphocytes % 18.8 % (15.3-44.8); MPV 9.1 fL (7.6-11.3); RBC Red Blood Cell Count 4.76 M/uL (3.86-4.86)
[2020-01-08] MEDS ORDERED: ONDANSETRON 4 MG/2 ML VIAL ONE (07:12)
[2020-01-08] MEDS ORDERED: FENTANYL CITR 100 MCG/2 ML ONE ×3 (07:12→12:06)
[2020-01-08 07:23] LABS: Albumin 3.3 g/dL (3.4-5.0); Bilirubin Direct 0.2 mg/dL (0-0.2); Bilirubin Total 0.5 mg/dL (0.2-1.0); Potassium 4.7 mmol/L (3.5-5.1); Protein, Total 7.2 g/dL (6.4-8.2)
--- NOTE | 2020-01-08 08:23 | RAD REPORT ---
EXAM DESCRIPTION: RAD - Abdomen Single View - 01/08/2020 7:07 am CLINICAL HISTORY: Abdominal pain FINDINGS: The bowel gas pattern is unremarkable. No abnormal calcification is displayed. Subcutaneous emphysema is present along the right lateral abdominal wall. The patient is status post recent abdominal surgery
--- NOTE | 2020-01-08 08:25 | RAD REPORT ---
EXAM DESCRIPTION: Brendan Single View01/08/2020 7:07 am CLINICAL HISTORY: Shortness breath COMPARISON: 2015 FINDINGS: Postsurgical changes involve the left lung The lungs appear clear of acute infiltrate. The heart is normal size IMPRESSION: No acute abnormalities displayed
--- NOTE | 2020-01-08 08:35 | RAD REPORT ---
EXAM DESCRIPTION: CT - Abdomen Pelvis W Contrast - 01/08/2020 8:04 am CLINICAL HISTORY: Abdominal pain COMPARISON: none. TECHNIQUE: Computed axial tomography of the abdomen pelvis was obtained. 100 cc Isovue-300 was admin istered intravenously. Oral contrast was not requested which limits evaluation of bowel. All CT scans are performed using dose optimization technique as appropriate and may include automated exposure control or mA/KV adjustment according to patient size. FINDINGS: Small amount of pneumoperitoneum. Recent periumbilical hernia repair. 4.5 x 1.8 centimeter fluid collection within the anterior subcutaneous fat at the site of umbilical hernia repair. It con tains an air bubble. Small amount of ill-defined fluid is present between the transverse colon and anterior abdominal wall near the site of hernia repair. Couple of tiny low-density hepatic lesions nonspecific but probably benign Spleen, pancreas, adrenals and right kidney unremarkable Small left renal cyst. Mild diminished concentration of contrast within the left kidney when compared to the right No evidence diverticulitis. Subcutaneous emphysema along the anterior and lateral abdomen extending into the pelvis. IMPRESSION: 4.5 x 1.8 centimeter fluid collection within the anterior subcutaneous fat at the site o f periumbilical hernia repair. This may represent a hematoma. Abscess has similar appearance. This sh ould be correlated clinically and can be monitored with a subsequent ultrasound. Subcutaneous emphysema Delayed concentration of contrast within the left kidney may indicate inflammation
--- NOTE | 2020-01-08 09:39 | EDPHYS ---
Physician Documentation [facility] Name: Yehuda Love Age: 69 yrs Sex: Female : 1950 Arrival Date: 01/08/2020 Time: 06:30 Bed 20 Private MD: Trell Stratton ED Physician Ulisses Kaur HPI: 01/07 06:51 This 69 yrs old Female presents to ER via Wheelchair with complaints of Post jr8 surgical pain. 06:51 Onset: The symptoms/episode began/occurred acutely, this morning. Associated signs and jr8 symptoms: Pertinent positives: shortness of breath. Modifying factors: The patient symptoms are alleviated by nothing, the patient symptoms are aggravated by movement. The patient has not experienced similar symptoms in the past. The patient has been recently seen by a physician:. Patient stated that she had laproscopic hernia repair yesterday. Now having severe abdominal pain diffusely with shortness of breath . Historical: - Allergies: 06:52 Codeine; iw - PMHx: 06:52 COPD; Migraines; splenomegaly; iw 07:08 Diabetes - NIDDM; High Cholesterol; rv - PSHx: 06:52 Cholecystectomy; Appendectomy; Hysterectomy; JENNA lobectomy; iw 07:08 Hernia repair; rv - Immunization history:: Adult Immunizations up to date. - Social history:: Smoking status: Patient reports the use of cigarette tobacco products, smokes one-half pack cigarettes per day. ROS: 06:51 Eyes: Negative for injury, pain, redness, and discharge, ENT: Negative for injury, jr8 pain, and discharge, Neck: Negative for injury, pain, and swelling, Cardiovascular: Negative for chest pain, palpitations, and edema, Back: Negative for injury and pain, MS/Extremity: Negative for injury and deformity, Skin: Negative for injury, rash, and discoloration, Neuro: Negative for headache, weakness, numbness, tingling, and seizure. 06:51 Respiratory: Positive for shortness of breath. 06:51 Abdomen/GI: Positive for abdominal pain, Negative for nausea, vomiting, and diarrhea. Exam: 06:51 Eyes: Pupils equal round and reactive to light, extra-ocular motions intact. Lids and jr8 lashes normal. Conjunctiva and sclera are non-icteric and not injected. Cornea within normal limits. Periorbital areas with no swelling, redness, or edema. ENT: Nares patent. No nasal discharge, no septal abnormalities noted. Tympanic membranes are normal and external auditory canals are clear. Oropharynx with no redness, swelling, or masses, exudates, or evidence of obstruction, uvula midline. Mucous membranes moist. Neck: Trachea midline, no thyromegaly or masses palpated, and no cervical lymphadenopathy. Supple, full range of motion without nuchal rigidity, or vertebral point tenderness. No Meningismus. Back: No spinal tenderness. No costovertebral tenderness. Full range of motion. Skin: Warm, dry with normal turgor. Normal color with no rashes, no lesions, and no evidence of cellulitis. MS/ Extremity: Pulses equal, no cyanosis. Neurovascular intact. Full, normal range of motion. Neuro: Awake and alert, GCS 15, oriented to person, place, time, and situation. Cranial nerves II-XII grossly intact. Motor strength 5/5 in all extremities. Sensory grossly intact. Cerebellar exam normal. Normal gait. 06:51 Constitutional: The patient appears alert, awake, in obvious distress, moderately distressed, in obvious pain. 06:51 Cardiovascular: Rate: tachycardic, Rhythm: regular, Pulses: Pulses are 2+ in right radial artery and left radial artery. Heart sounds: normal, Edema: is not appreciated. 06:51 Respiratory: mild respiratory distress is noted, Respirations: tachypnea, that is mild, Breath sounds: wheezing: expiratory that is mild, is heard diffusely. 06:51 Abdomen/GI: Inspection: laproscopic incision sites noted without acute bleeding or discharge , Bowel sounds: diminished, in all quadrants, Palpation: soft, in all quadrants, moderate abdominal tenderness, in the abdomen diffusely, mass, is not appreciated, rebound tenderness, is appreciated in the mid left abdomen, voluntary guarding, is not appreciated, involuntary guarding, is not appreciated, no appreciated organomegaly, Indicators: McBurney's point is not tender, Purcell's sign is negative, Liver: tenderness, is not appreciated. Vital Signs: 07:08 BP 128 / 76; Pulse 95; Resp 19; Pulse Ox 88% on R/A; Weight 56.7 kg; Height 5 ft. 2 in. rv (157.48 cm); Pain 10/10; 07:11 BP 137 / 81; Pulse 86; Resp 26; Pulse Ox 92% on 2 lpm NC; sv 07:11 Temp 97.6; sv 07:30 Pain 3/10; sv 08:22 BP 129 / 71; Pulse 83; Resp 22; Pulse Ox 97% on 3 lpm NC; sv 08:40 Pain 3/10; sv 08:56 Pulse 92; Resp 18; Pulse Ox 99% 3 lpm ; sv 09:03 BP 127 / 68; sv 09:48 BP 122 / 92; Pulse 85; Resp 16; Pulse Ox 97% on 3 lpm NC; sv 10:40 BP 149 / 80; Pulse 85; Resp 20; Pulse Ox 99% on 3 lpm NC; sv 12:00 BP 138 / 68; Pulse 71; Resp 15 S; Pulse Ox 95% on R/A; ca1 13:00 BP 122 / 72; Pulse 82; Resp 15 S; Pulse Ox 95% on R/A; ca1 14:00 BP 127 / 72; Pulse 82; Resp 15 S; Pulse Ox 95% on R/A; ca1 14:57 BP 132 / 73; Pulse 85; Resp 16 S; Pulse Ox 94% on R/A; ca1 07:08 Body Mass Index 22.86 (56.70 kg, 157.48 cm) rv 07:11 O2 increased to 3L per NC. O2 sat up to 95%. sv MDM: 06:39 Patient medically screened. jr8 09:35 Data reviewed: vital signs, nurses notes, lab test result(s), radiologic studies, CT jr8 scan, plain films. Data interpreted: Pulse oximetry: on room air is 99 %. Interpretation: normal. Counseling: I had a detailed discussion with the patient and/or guardian regarding: the historical points, exam findings, and any diagnostic results supporting the discharge/admit diagnosis, lab results, radiology results, the need for further work-up and treatment in the hospital. ED course: Spoke with Dr. Mondragon about patient as he was the surgeon who did the procedure yesterday. Wants to admit patient for obs for pain control as patient has no family around and no supportive care at home. Still having pain as well refractory pain medicine here . 01/07 06:44 Order name: Basic Metabolic Panel; Complete Time: 07:30 8 01/07 06:44 Order name: CBC with Diff; Complete Time: 07:12 jr8 01/07 06:44 Order name: Hepatic Function; Complete Time: 07:30 jr8 01/07 06:44 Order name: Lipase; Complete Time: 07:30 jr8 01/07 06:44 Order name: TS; Complete Time: 07:49 8 01/07 08:56 Order name: ABO/RH no charge; Complete Time: 09:06 EDMS 01/07 06:44 Order name: XRAY Chest (1 view); Complete Time: 08:35 jr8 01/07 06:51 Order name: XRAY Abdomen 1 View; Complete Time: 08:35 jr8 01/07 07:31 Order name: CT Abd/Pelvis - IV Contrast Only; Complete Time: 08:42 jr8 01/07 11:32 Order name: CBC with Automated Diff EDMS 01/07 11:32 Order name: CBC with Automated Diff EDMS 01/07 11:32 Order name: Comprehensive Metabolic Panel EDMS 01/07 11:32 Order name: Comprehensive Metabolic Panel EDMS 01/07 06:44 Order name: IV Saline Lock; Complete Time: 07:17 jr8 01/07 06:44 Order name: Labs collected and sent; Complete Time: 07:17 8 01/07 06:44 Order name: EKG - Nurse/Tech; Complete Time: 07:00 jr8 01/07 07:00 Order name: EKG; Complete Time: 07:01 sv 01/07 11:26 Order name: CONS Physician Consult EDMS 01/07 11:32 Order name: Clear Liquid EDMS Administered Medications: 07:07 Drug: Zofran (Ondansetron) 4 mg Route: IVP; Site: left antecubital; sv 08:21 Follow up: Response: No adverse reaction sv 07:09 Drug: fentaNYL (PF) 50 mcg {Note: rass3.} Route: IVP; Site: left antecubital; sv 07:30 Follow up: Pain 3/10 Adult; Response: No adverse reaction; Marked relief of symptoms; sv Pain is decreased; RASS: Restless (+1) 08:20 Drug: fentaNYL (PF) 50 mcg {Note: rass3.} Route: IVP; Site: left antecubital; sv 08:40 Follow up: Pain 3/10 Adult; Response: No adverse reaction; Marked relief of symptoms; sv Pain is decreased; RASS: Alert and Calm (0) 12:00 Drug: fentaNYL (PF) 50 mcg {Note: rass2.} Route: IVP; Site: left antecubital; sv 14:24 Follow up: Response: No adverse reaction; Pain is decreased; RASS: Alert and Calm (0) ca1 15:22 Drug: [place] (7.5 mg-325 mg) 2 tabs {Note: rass 0.} Route: PO; ca1 15:30 Follow up: Response: No adverse reaction; RASS: Alert and Calm (0) ca1 Disposition: 01/08/20 09:38 Hospitalization ordered by Robert Madrigal for Observation. Preliminary diagnosis is Intractable Abdominal pain post surgery . - Bed requested for Telemetry/MedSurg (observation). - Status is Observation. aa5 - Condition is Stable. - Problem is new. - Symptoms have improved. Addendum: 01/11/2020 06:13 Co-signature as Attending Physician, Ulisses Kaur MD. m Signatures: Dispatcher [employer] EDRafia Zavala RN Triny Nickerson RN RN dw Williams, Irene, RN RN iw Calderon, Audri, RN RN aa5 Ben [place], PA PA jr8 Chris Mosquera, RN FER rv Molly Le RN RN ca1 Ulisses Kaur MD MD [id number] Corrections: (The following items were deleted from the chart) 01/07 09:38 09:38 Hospitalization Ordered by Liz Boykin MD for Observation. Preliminary jr8 diagnosis is Intractable Abdominal pain post surgery . Bed requested for Telemetry/MedSurg (observation). Status is Observation. Condition is Stable. Problem is new. Symptoms have improved. jr8 14:37 09:38 01/08/2020 09:38 Hospitalization Ordered by Robert Madrigal MD for Observation. dw Preliminary diagnosis is Intractable Abdominal pain post surgery . Bed requested for Telemetry/MedSurg (observation). Status is Observation. Condition is Stable. Problem is new. Symptoms have improved. jr8 15:35 14:37 01/08/2020 09:38 Hospitalization Ordered by Robert Madrigal MD for Observation. aa5 Preliminary diagnosis is Intractable Abdominal pain post surgery . Bed requested for Telemetry/MedSurg (observation). Status is Observation. Condition is Stable. Problem is new. Symptoms have improved. dw
--- NOTE | 2020-01-08 09:39 | ER ---
Nurse's Notes [facility] Name: Yehuda Love Age: 69 yrs Sex: Female : 1950 Arrival Date: 01/08/2020 Time: 06:30 Bed 20 Private MD: Trell Stratton Diagnosis: Intractable Abdominal pain post surgery Presentation: 01/07 06:43 Chief complaint: Patient states: hernia repair with Dr. Mondragon yesterday, has had iw severe abd pain all night, +nausea, no vomiting. 06:43 Method Of Arrival: Wheelchair iw 06:44 Risk Assessment: Do you want to hurt yourself or someone else? Patient reports no iw desire to harm self or others. 06:44 Acuity: SWETA 2 iw 06:44 Coronavirus screen: At this time, the client does not indicate any symptoms associated iw with coronavirus-19. Ebola Screen: Patient negative for fever greater than or equal to 101.5 degrees Fahrenheit, and additional compatible Ebola Virus Disease symptoms Patient denies exposure to infectious person. Patient denies travel to an Ebola-affected area in the 21 days before illness onset. No symptoms or risks identified at this time. Onset of symptoms was January 08, 2020. 07:08 Initial Sepsis Screen: Does the patient meet any 2 criteria? No. Patient's initial rv sepsis screen is negative. Does the patient have a suspected source of infection? Yes: Acute abdominal pain. Triage Assessment: 07:06 General: Appears uncomfortable, Behavior is restless. Pain: Complains of pain in rv abdomen. Neuro: Level of Consciousness is awake, alert, obeys commands, Oriented to person, place, time, situation. Cardiovascular: Patient's skin is warm and dry. Respiratory: Airway is patent Respiratory effort is even. GI: Abdomen is tender to palpation in right upper quadrant and left upper quadrant Reports lower abdominal pain, upper abdominal pain. Historical: - Allergies: 06:52 Codeine; iw - PMHx: 06:52 COPD; Migraines; splenomegaly; iw 07:08 Diabetes - NIDDM; High Cholesterol; rv - PSHx: 06:52 Cholecystectomy; Appendectomy; Hysterectomy; JENNA lobectomy; iw 07:08 Hernia repair; rv - Immunization history:: Adult Immunizations up to date. - Social history:: Smoking status: Patient reports the use of cigarette tobacco products, smokes one-half pack cigarettes per day. Screenin:07 Abuse screen: Denies threats or abuse. Denies injuries from another. Nutritional sv screening: No deficits noted. Tuberculosis screening: No symptoms or risk factors identified. Fall Risk None identified. Assessment: 07:07 General: Appears in no apparent distress. uncomfortable, well developed, Behavior is sv cooperative, appropriate for age, restless. Pain: Complains of pain in abdomen Pain currently is 10 out of 10 on a pain scale. Is continuous, Aggravated by increased activity, repositioning. Neuro: Level of Consciousness is awake, alert, obeys commands, Oriented to person, place, time, situation, Moves all extremities. Full function. Respiratory: Respiratory effort is even, unlabored, Respiratory pattern is regular, symmetrical. GI: Abdomen is round pt has dressings to abd from her surgery yesterday dry and intact. Derm: Skin is pink, warm \T\ dry. 08:03 Reassessment: Pt in CT at this time. sv 08:15 Reassessment: Patient appears in no apparent distress at this time. Patient and/or sv family updated on plan of care and expected duration. Pain level reassessed. Patient is alert, oriented x 3, equal unlabored respirations, skin warm/dry/pink. Pt back from CT and stated the pain started again after they moved her for CT. 08:56 Reassessment: Patient appears in no apparent distress at this time. Patient and/or sv family updated on plan of care and expected duration. Pain level reassessed. Patient is alert, oriented x 3, equal unlabored respirations, skin warm/dry/pink. Ben LAY at bedside speaking to pt regarding results Patient states feeling better. Patient states symptoms have improved. 10:23 Reassessment: Waiting on admission orders. sv 10:25 Reassessment: Dr Madrigal at the bedside to assess the pt. sv 11:00 Reassessment: Patient appears in no apparent distress at this time. Patient and/or sv family updated on plan of care and expected duration. Pain level reassessed. Patient is alert, oriented x 3, equal unlabored respirations, skin warm/dry/pink. 11:55 Reassessment: Patient appears in no apparent distress at this time. Patient and/or sv family updated on plan of care and expected duration. Pain level reassessed. Patient is alert, oriented x 3, equal unlabored respirations, skin warm/dry/pink. Pt stated that her pain is back. Informed Ben LAY, medication order received. 12:20 Reassessment: Pt cleaned of urinary incontinence. sv 12:26 Reassessment: Patient appears in no apparent distress at this time. Patient is alert, ca1 oriented x 3, equal unlabored respirations, skin warm/dry/pink. 13:30 Reassessment: Patient appears in no apparent distress at this time. Patient and/or ca1 family updated on plan of care and expected duration. Pain level reassessed. Patient is alert, oriented x 3, equal unlabored respirations, skin warm/dry/pink. 14:23 Reassessment: Patient appears in no apparent distress at this time. Patient and/or ca1 family updated on plan of care and expected duration. Pain level reassessed. Patient is alert, oriented x 3, equal unlabored respirations, skin warm/dry/pink. 14:53 Reassessment: Spoke with Dr. Moody on the phone re pt status, VS and pain management. ca1 Reassessment: Patient appears in no apparent distress at this time. Patient is alert, oriented x 3, equal unlabored respirations, skin warm/dry/pink. Pt eating eating at this time. reports feeling better Patient states feeling better. 14:57 Reassessment: Called for report. Nurse will call back. ca1 15:16 Reassessment: VO Dr. Giancarlo Boles 7.5mg 1-2 tabs PO q6, start first dose now at 2 ca1 tabs. Notified FER Albarran at the floor. Vital Signs: 07:08 BP 128 / 76; Pulse 95; Resp 19; Pulse Ox 88% on R/A; Weight 56.7 kg; Height 5 ft. 2 in. rv (157.48 cm); Pain 10/10; 07:11 BP 137 / 81; Pulse 86; Resp 26; Pulse Ox 92% on 2 lpm NC; sv 07:11 Temp 97.6; sv 07:30 Pain 3/10; sv 08:22 BP 129 / 71; Pulse 83; Resp 22; Pulse Ox 97% on 3 lpm NC; sv 08:40 Pain 3/10; sv 08:56 Pulse 92; Resp 18; Pulse Ox 99% 3 lpm ; sv 09:03 BP 127 / 68; sv 09:48 BP 122 / 92; Pulse 85; Resp 16; Pulse Ox 97% on 3 lpm NC; sv 10:40 BP 149 / 80; Pulse 85; Resp 20; Pulse Ox 99% on 3 lpm NC; sv 12:00 BP 138 / 68; Pulse 71; Resp 15 S; Pulse Ox 95% on R/A; ca1 13:00 BP 122 / 72; Pulse 82; Resp 15 S; Pulse Ox 95% on R/A; ca1 14:00 BP 127 / 72; Pulse 82; Resp 15 S; Pulse Ox 95% on R/A; ca1 14:57 BP 132 / 73; Pulse 85; Resp 16 S; Pulse Ox 94% on R/A; ca1 07:08 Body Mass Index 22.86 (56.70 kg, 157.48 cm) rv 07:11 O2 increased to 3L per NC. O2 sat up to 95%. sv ED Course: 06:30 Patient arrived in ED. es 06:30 Trell Stratton DO is Private Physician. es 06:37 Ben Houston PA is PHCP. jr8 06:37 Ulisses Kaur MD is Attending Physician. jr8 06:44 Triage completed. iw 06:50 Inserted saline lock: 20 gauge in left antecubital area, using aseptic technique. Blood rv collected. 06:50 Initial lab(s) drawn, by me, sent to lab. rv 07:00 Rafia Garcia, RN is Primary Nurse. sv 07:07 XRAY Chest (1 view) In Process Unspecified. EDMS 07:07 XRAY Abdomen 1 View In Process Unspecified. EDMS 07:07 Arm band placed on Patient placed in the treatment room, on a stretcher, Patient rv notified of wait time. 07:07 Patient has correct armband on for positive identification. Placed in gown. Bed in low sv position. Call light in reach. Side rails up X2. Pulse ox on. NIBP on. Door closed. Warm blanket given. Head of bed elevated. 08:04 CT Abd/Pelvis - IV Contrast Only In Process Unspecified. EDMS 09:37 Liz Boykin MD is Hospitalizing Provider. jr8 09:38 Hospitalizing Provider role handed off by Liz Boykin MD jr8 09:38 Robert Madrigal MD is Hospitalizing Provider. jr8 09:38 Robert Madrigal MD is Hospitalizing Provider. jr8 10:49 No provider procedures requiring assistance completed. Patient admitted, IV remains in sv place. intact. 14:22 Molly Le RN is Primary Nurse. ca1 Administered Medications: 07:07 Drug: Zofran (Ondansetron) 4 mg Route: IVP; Site: left antecubital; sv 08:21 Follow up: Response: No adverse reaction sv 07:09 Drug: fentaNYL (PF) 50 mcg {Note: rass3.} Route: IVP; Site: left antecubital; sv 07:30 Follow up: Pain 3/10 Adult; Response: No adverse reaction; Marked relief of symptoms; sv Pain is decreased; RASS: Restless (+1) 08:20 Drug: fentaNYL (PF) 50 mcg {Note: rass3.} Route: IVP; Site: left antecubital; sv 08:40 Follow up: Pain 3/10 Adult; Response: No adverse reaction; Marked relief of symptoms; sv Pain is decreased; RASS: Alert and Calm (0) 12:00 Drug: fentaNYL (PF) 50 mcg {Note: rass2.} Route: IVP; Site: left antecubital; sv 14:24 Follow up: Response: No adverse reaction; Pain is decreased; RASS: Alert and Calm (0) ca1 15:22 Drug: [place] (7.5 mg-325 mg) 2 tabs {Note: rass 0.} Route: PO; ca1 15:30 Follow up: Response: No adverse reaction; RASS: Alert and Calm (0) ca1 Outcome: 09:38 Decision to Hospitalize by Provider. jr8 15:17 Admitted to Med/surg accompanied by nurse, via stretcher, room 213, with chart, Report ca1 called to FER Albarran 15:17 Condition: stable 15:17 Instructed on the need for admit. 15:35 Patient left the ED. aa5 Signatures: Dispatcher [employer] Rafia Marin RN RN sv Salyer, Edna es Williams, Irene, RN RN iw Calderon, Audri, RN RN aa5 Ben Houston, PA PA jr8 Chris Mosquera RN RN rv Molly Le RN RN ca1 Corrections: (The following items were deleted from the chart) 06:51 06:44 Acuity: SWETA 3 iw iw 10:40 08:56 Pulse 92bpm; Resp 18bpm; Pulse Ox 99%; sv sv 10:40 09:48 BP 122 / 92; Pulse 85bpm; Resp 16bpm; Pulse Ox 97%; sv sv
[2020-01-08] MEDS ORDERED: ALBUTEROL 2.5 MG/3 ML NEB SOL NEB PRN ×2 (11:26→16:47)
[2020-01-08] MEDS ORDERED: ONDANSETRON 4 MG/2 ML VIAL IV PRN (11:26)
[2020-01-08] MEDS ORDERED: MORPHINE 2 MG/ML SYR IV PRN (11:26)
[2020-01-08] MEDS ORDERED: HYDROCODONE/APAP 5/325 MG TAB PO PRN (11:26)
[2020-01-08] MEDS ORDERED: INSULIN -REGULAR HUMAN 50 UNIT/0.5 ML ML SQ SCH (11:30)
[2020-01-08] MEDS ORDERED: NA CHLORIDE 0.9% 1,000 ML IV SCH (12:00)
--- NOTE | 2020-01-08 14:25 | P.HP ---
Certification for Inpatient Patient admitted to: Observation With expected LOS: <2 Midnights Patient will require the following post-hospital care: None Practitioner: I am a practitioner with admitting privileges, knowledge of patient current condition, hospital course, and medical plan of care. Services: Services provided to patient in accordance with Admission requirements found in Title 42 Section 412.3 of the Code of Federal Regulations Patient History Date of Service: 01/08/20 Reason for admission: severe pain s/p ventral hernia repair History of Present Illness: 69yo female presents to ED with severe pain since surgery yesterday. Patient had ventral hernia repair with extensive lysis of adhesions. She reports 8-10/10 sharp pain, as though a antonia was going through her left abdomen. It was not relieved by the tramadol she had at home. It is worsened by any movement / cough, deep breath. It does not radiate. Otherwise, reports no chest pain, no fever/chills, no n/v, no breathing difficulty, no lesions/rashes. Allergies codeine Allergy (Verified 01/02/20 10:17) Itching Home medications list reviewed: Yes Home Medications: Mirtazapine [Remeron] 30 mg PO BEDTIME 09/28/17 Buspirone HCl 15 mg PO BID 01/15/19 Metformin HCl [Glucophage] 500 mg PO BIDWM 01/15/19 Simvastatin 20 mg PO SEECOM 01/15/19 Ondansetron HCl [Zofran] 4 mg PO Q6H PRN #10 tablet 01/16/19 Albuterol Sulfate [Albuterol Sulfate 0.083% Neb Soln] 1 vial.neb NEB BID 01/08/20 Albuterol Sulfate [Proventil Hfa] 2 puff IH BID PRN 01/08/20 Alendronate Sodium 1 tab PO SEECOM 01/08/20 Gabapentin 1 tab PO DAILY 01/08/20 Glycopyrrolate/Formoterol Fum [Bevespi Aerosphere Inhaler] 2 puff IH BID 01/08/20 Lisinopril [Zestril] 1 tab PO DAILY 01/08/20 Omeprazole [Prilosec] 1 tab PO DAILY 01/08/20 Primidone [Mysoline *] 1 tab PO BID 01/08/20 - Past Medical/Surgical History Diabetic: Yes -: COPD -: Essential tremors -: DM 2 -: PArtial hysterectomy -: Nyla -: Appy -: HIp replacement -: Tonsillectomy -: Lung Sx-Top lobe of Left lung - Family History Family History: Reviewed- Non-Contributory - Social History Alcohol use: No CD- Drugs: No Caffeine use: Yes Review of Systems 10-point ROS is otherwise unremarkable Physical Examination - Physical Exam General: Moderate distress HEENT: EOMI, Sclerae nonicteric Neck: Supple, No LAD Respiratory: Clear to auscultation bilaterally, Normal air movement Cardiovascular: No edema, Regular rate/rhythm, Normal S1 S2 Gastrointestinal: Normal bowel sounds, Non-distended, Tenderness (most significant in left abdomen), Guarding (voluntary) Musculoskeletal: No erythema, No tenderness Integumentary: No rashes Neurological: Normal speech, Normal affect, Other (+essential tremor) - Studies Laboratory Data (last 24 hrs) 01/08/20 06:50: WBC 9.5, Hgb 14.5, Hct 43.1, Plt Count 220 01/08/20 06:50: Sodium 136, Potassium 4.7, BUN 18, Creatinine 0.97, Glucose 94, Total Bilirubin 0.5, AST 21, ALT 20, Alkaline Phosphatase 77, Lipase 74 Assessment and Plan Discharge Plan: Home Plan to discharge in: 24 Hours - Advance Directives Does patient have a Living Will: No Does patient have a Durable POA for Healthcare: No - Code Status/Comfort Care Code Status Assessed: Yes Physician Review Additional Text: severe pain s/p ventral hernia repair COPD Osteoporosis Essential Tremor DM2 severe pain s/p ventral hernia repair -will bring pt into hospital for obs, pain control -norco PRN + Morphine IV for breakthrough - pt has codeine allergy however states has taken these medications without issue -will monitor for adverse reactions -CLD, advance diet as tolerated -gentle mIVF at 100ml/hr - pt has not eaten much of anything in ~24hrs COPD -continue home meds (buvespi, albuterol) Osteoporosis - continue home alendronate Essential Tremor - continue home primidone, continue home gabapentin (undergoing cross titration to primidone) DM2 - hold home metformin, SSI, accucheks, continue home lisinopril Anxiety/Sleep - continue home buspirone, mirtazapine Time Spent Managing Pts Care (In Minutes): 45
[2020-01-08] MEDS ORDERED: HYDROCODONE/APAP 7.5/325 MG TAB ONE (15:30)
[2020-01-08] MEDS ORDERED: D50W 25 GM/50 ML SYRINGE/VIAL IV PRN (16:32)
[2020-01-08] MEDS ORDERED: GLUCAGON 1 MG/VIAL IM PRN (16:32)
[2020-01-08] MEDS: NA CHLORIDE 0.9% 1,000 ML IV SCH (17:16)
[2020-01-08] MEDS: ONDANSETRON 4 MG/2 ML VIAL IV PRN (18:14)
[2020-01-08] MEDS: ALBUTEROL 2.5 MG/3 ML NEB SOL NEB SCH (20:25)
[2020-01-08] MEDS: HOME MED 1 EA UNK (Glycopyrrolate/Formoterol Fum [Bevespi Aerosphere Inhaler] 2 PUFF) IH SCH (21:00)
[2020-01-08] MEDS ORDERED: MIRTAZAPINE 30 MG PO SCH (21:00)
[2020-01-08] MEDS: BUSPIRONE HCL 15 MG TABLET PO SCH (21:00)
[2020-01-08] MEDS: INSULIN -REGULAR HUMAN 50 UNIT/0.5 ML ML SQ SCH (21:00)
[2020-01-08] MEDS: MORPHINE 2 MG/ML SYR IV PRN (21:23)
[2020-01-08] MEDS: PRIMIDONE 50 MG TAB PO SCH (21:26)
[2020-01-08] MEDS ORDERED: ONDANSETRON 4 MG (ODT) TAB PO PRN (22:17)
[2020-01-08] MEDS: MIRTAZAPINE 15 MG TAB PO SCH (22:22)
[2020-01-09] MEDS: HYDROCODONE/APAP 5/325 MG TAB PO PRN ×3 (01:40→17:18)
[2020-01-09] MEDS: NA CHLORIDE 0.9% 1,000 ML IV SCH ×2 (01:40→17:10)
[2020-01-09 04:15] LABS: Basophils % 0.3 % (0-1.3); Hematocrit 38.2 % (36.0-45.0); Lymphocytes % 14.7 % (15.3-44.8); MPV 9.2 fL (7.6-11.3); RBC Red Blood Cell Count 4.26 M/uL (3.86-4.86)
[2020-01-09 04:37] LABS: ALT/SGPT 17 U/L (12-78); AST/SGOT 19 U/L (15-37); Albumin 2.8 g/dL (3.4-5.0); Alkaline Phosphatase 64 U/L (45-117); BUN Blood Urea Nitrogen 7 mg/dL (7-18); Bicarbonate 27 mmol/L (21-32); Bilirubin Total 0.4 mg/dL (0.2-1.0); Glucose Level 101 mg/dL (74-106); Potassium 4.4 mmol/L (3.5-5.1); Protein, Total 6.2 g/dL (6.4-8.2); Sodium Level 138 mmol/L (136-145)
[2020-01-09] MEDS: PANTOPRAZOLE 40MG TABLET PO SCH (05:46)
[2020-01-09] MEDS: MORPHINE 2 MG/ML SYR IV PRN ×3 (06:14→22:02)
[2020-01-09] MEDS: ONDANSETRON 4 MG/2 ML VIAL IV PRN ×3 (06:16→22:03)
[2020-01-09] MEDS: INSULIN -REGULAR HUMAN 50 UNIT/0.5 ML ML SQ SCH ×4 (07:30→21:00)
--- NOTE | 2020-01-09 07:55 | EKG ---
Test Date: 2020-01-08 Test Time: 07:04:49 Hydraulic Jack Adjuster: NINO MEASUREMENT RESULTS: Intervals: Rate: 93 UT: 128 QRSD: 74 QT: 364 QTc: 452 [place]: P: 79 UT: 128 QRS: 79 T: 81 INTERPRETIVE STATEMENTS: Normal sinus rhythm Normal ECG Compared to ECG 01/15/2019 08:32:30 No significant changes Electronically Signed On 01-09-20 07:53:26 CDT by José Luis Hinkle
[2020-01-09] MEDS: ALBUTEROL 2.5 MG/3 ML NEB SOL NEB SCH ×2 (08:13→20:10)
[2020-01-09] MEDS: HOME MED 1 EA UNK (Glycopyrrolate/Formoterol Fum [Bevespi Aerosphere Inhaler] 2 PUFF) IH SCH ×2 (09:00→21:00)
[2020-01-09] MEDS: lisinopriL 5 MG TAB PO SCH (09:00)
[2020-01-09] MEDS: GABAPENTIN 300 MG CAP PO SCH ×3 (09:00→13:43)
[2020-01-09] MEDS: BUSPIRONE HCL 15 MG TABLET PO SCH ×2 (09:28→21:15)
[2020-01-09] MEDS: PRIMIDONE 50 MG TAB PO SCH ×2 (09:36→21:15)
[2020-01-09] MEDS: MIRTAZAPINE 15 MG TAB PO SCH (21:15)
[2020-01-09] MEDS: ATORVASTATIN 10 MG TAB PO SCH (21:15)
--- NOTE | 2020-01-09 21:27 | P.PN ---
Subjective Date of Service: 01/09/20 Chief Complaint: severe pain s/p ventral hernia repair Subjective: Improving (pain more controlled on PO meds, concerned she can't care for self at home, reports son has disabilities and can't help her) Review of Systems 10-point ROS is otherwise unremarkable Physical Examination - Vital Signs Temperature: 99.4 F Blood Pressure: 129/71 Pulse: 99 Respirations: 20 Pulse Ox (%): 94 - Physical Exam General: Alert, In no apparent distress, Oriented x3 HEENT: Mucous membr. moist/pink Neck: Supple, No LAD Respiratory: Clear to auscultation bilaterally, Normal air movement Cardiovascular: No edema, Regular rate/rhythm, Normal S1 S2 Gastrointestinal: Soft and benign, No guarding, Tenderness (mild, diffuse) Musculoskeletal: No tenderness Integumentary: No rashes Neurological: Other (essential tremor) Assessment & Plan Physician Review Additional Text: severe pain s/p ventral hernia repair COPD Osteoporosis Essential Tremor DM2 severe pain s/p ventral hernia repair -pain better controlled on [place], hasn't needed many ovenright -PT/OT evaluated patient today, needs home health or lots of support at home, unfortunately patient doesn't have support at home -will arrange for home health, patient's mobility limited by pain control -advance diet, can dc IVF once eating more COPD -continue home meds (buvespi, albuterol) Osteoporosis - continue home alendronate Essential Tremor - continue home primidone, continue home gabapentin (undergoing cross titration to primidone) DM2 - hold home metformin, SSI, accucheks, continue home lisinopril Anxiety/Sleep - continue home buspirone, mirtazapine Time Spent Managing Pts Care (In Minutes): 35
[2020-01-10] MEDS: HYDROCODONE/APAP 5/325 MG TAB PO PRN ×4 (00:12→21:20)
[2020-01-10] MEDS: NA CHLORIDE 0.9% 1,000 ML IV SCH ×3 (04:42→13:51)
[2020-01-10] MEDS: PANTOPRAZOLE 40MG TABLET PO SCH (05:29)
[2020-01-10] MEDS: INSULIN -REGULAR HUMAN 50 UNIT/0.5 ML ML SQ SCH ×4 (07:30→20:38)
[2020-01-10] MEDS: ALBUTEROL 2.5 MG/3 ML NEB SOL NEB SCH ×2 (08:45→20:15)
[2020-01-10] MEDS: HOME MED 1 EA UNK (Glycopyrrolate/Formoterol Fum [Bevespi Aerosphere Inhaler] 2 PUFF) IH SCH ×2 (09:00→19:47)
[2020-01-10] MEDS: lisinopriL 5 MG TAB PO SCH (09:07)
[2020-01-10] MEDS: PRIMIDONE 50 MG TAB PO SCH ×2 (09:07→21:20)
[2020-01-10] MEDS: BUSPIRONE HCL 15 MG TABLET PO SCH ×2 (09:11→19:47)
--- NOTE | 2020-01-10 10:04 | P.PN ---
Subjective Date of Service: 01/10/20 Chief Complaint: severe pain s/p ventral hernia repair Subjective: No new changes Review of Systems 10-point ROS is otherwise unremarkable Physical Examination - Vital Signs Temperature: 98.1 F Blood Pressure: 124/60 Pulse: 79 Respirations: 19 Pulse Ox (%): 96 - Physical Exam General: Alert, In no apparent distress HEENT: Atraumatic, Normocephalic Neck: Supple, 2+ carotid pulse no bruit Respiratory: Clear to auscultation bilaterally Cardiovascular: Regular rate/rhythm, Normal S1 S2 Capillary refill: <2 Seconds Gastrointestinal: Soft and benign, Tenderness Musculoskeletal: No clubbing, No swelling Integumentary: No rashes Neurological: Normal speech, Normal strength at 5/5 x4 extr Lymphatics: No axilla or inguinal lymphadenopathy Assessment & Plan Physician Review Additional Text: severe pain s/p ventral hernia repair COPD Osteoporosis Essential Tremor DM2 severe pain s/p ventral hernia repair pain better controlled on [place] PT/OT evaluation needs home health or lots of support at home, unfortunately patient doesn't have support at home will arrange for home health, patient's mobility limited by pain control advance diet, can dc IVF once eating more COPD -continue home meds Osteoporosis - continue home alendronate Essential Tremor - continue home primidone, continue home gabapentin DM2 - hold home metformin, SSI, accucheks, continue home lisinopril Anxiety/Sleep - continue home buspirone, mirtazapine Time Spent Managing Pts Care (In Minutes): 42
[2020-01-10] MEDS: GABAPENTIN 300 MG CAP PO SCH (13:51)
[2020-01-10] MEDS ORDERED: ALPRAZOLAM 0.5 MG TABLET PO PRN (16:21)
[2020-01-10 17:25] VITALS: BMI 22.3
[2020-01-10] MEDS: ATORVASTATIN 10 MG TAB PO SCH (19:46)
[2020-01-10] MEDS: MIRTAZAPINE 15 MG TAB PO SCH (21:20)
[2020-01-11] MEDS: NA CHLORIDE 0.9% 1,000 ML IV SCH ×2 (00:06→09:18)
[2020-01-11] MEDS: MORPHINE 2 MG/ML SYR IV PRN (00:06)
[2020-01-11] MEDS: ONDANSETRON 4 MG/2 ML VIAL IV PRN (00:06)
[2020-01-11] MEDS ORDERED: ALENDRONATE 70 MG TAB PO SCH (06:00)
[2020-01-11] MEDS: PANTOPRAZOLE 40MG TABLET PO SCH (06:03)
[2020-01-11] MEDS: HYDROCODONE/APAP 5/325 MG TAB PO PRN ×4 (06:05→23:59)
[2020-01-11] MEDS: INSULIN -REGULAR HUMAN 50 UNIT/0.5 ML ML SQ SCH ×4 (07:30→21:00)
[2020-01-11] MEDS: HOME MED 1 EA UNK (Glycopyrrolate/Formoterol Fum [Bevespi Aerosphere Inhaler] 2 PUFF) IH SCH ×2 (09:00→21:00)
[2020-01-11] MEDS: lisinopriL 5 MG TAB PO SCH (09:19)
[2020-01-11] MEDS: PRIMIDONE 50 MG TAB PO SCH ×2 (09:19→20:45)
[2020-01-11] MEDS: BUSPIRONE HCL 15 MG TABLET PO SCH ×2 (09:19→20:45)
[2020-01-11] MEDS: ALBUTEROL 2.5 MG/3 ML NEB SOL NEB SCH ×2 (09:57→20:20)
--- NOTE | 2020-01-11 10:03 | P.PN ---
Subjective Date of Service: 01/11/20 Chief Complaint: severe pain s/p ventral hernia repair Subjective: No new changes, Improving, Other (Pain is slightly better) Review of Systems 10-point ROS is otherwise unremarkable Physical Examination - Vital Signs Temperature: 98.4 F Blood Pressure: 125/56 Pulse: 71 Respirations: 16 Pulse Ox (%): 93 - Physical Exam General: Alert, In no apparent distress, Oriented x3 HEENT: Atraumatic, Normocephalic Neck: Supple Respiratory: Clear to auscultation bilaterally, Normal air movement Cardiovascular: Regular rate/rhythm, Normal S1 S2 Capillary refill: <2 Seconds Gastrointestinal: Soft and benign, W/out hepatosplenomegaly, Tenderness Musculoskeletal: No clubbing, No swelling Integumentary: No breakdown Neurological: Normal speech, Normal strength at 5/5 x4 extr Lymphatics: No axilla or inguinal lymphadenopathy Assessment & Plan Physician Review Additional Text: severe pain s/p ventral hernia repair COPD Osteoporosis Essential Tremor DM2 severe pain s/p ventral hernia repair pain better controlled on [place] PT/OT evaluation needs home health or lots of support at home, unfortunately patient doesn't have support at home will arrange for home health, patient's mobility limited by pain control advance diet advice ambulation COPD -continue home meds Osteoporosis - continue home alendronate Essential Tremor - continue home primidone, continue home gabapentin DM2 - hold home metformin, SSI, accucheks, continue home lisinopril Anxiety/Sleep - continue home buspirone, mirtazapine disposition : Possible Dc if in a.m. with pain control and home health Time Spent Managing Pts Care (In Minutes): 42
[2020-01-11] MEDS: GABAPENTIN 300 MG CAP PO SCH (14:46)
[2020-01-11] MEDS: MIRTAZAPINE 15 MG TAB PO SCH (20:45)
[2020-01-11] MEDS: ATORVASTATIN 10 MG TAB PO SCH (20:45)
[2020-01-12] MEDS: PANTOPRAZOLE 40MG TABLET PO SCH (05:33)
[2020-01-12] MEDS: HYDROCODONE/APAP 5/325 MG TAB PO PRN ×2 (06:36→13:50)
[2020-01-12] MEDS: INSULIN -REGULAR HUMAN 50 UNIT/0.5 ML ML SQ SCH ×2 (07:30→11:30)
[2020-01-12] MEDS: ALBUTEROL 2.5 MG/3 ML NEB SOL NEB SCH (07:50)
[2020-01-12] MEDS: HOME MED 1 EA UNK (Glycopyrrolate/Formoterol Fum [Bevespi Aerosphere Inhaler] 2 PUFF) IH SCH (09:00)
[2020-01-12] MEDS: PRIMIDONE 50 MG TAB PO SCH (09:43)
[2020-01-12] MEDS: BUSPIRONE HCL 15 MG TABLET PO SCH (09:43)
[2020-01-12] MEDS: lisinopriL 5 MG TAB PO SCH (09:44)
[2020-01-12 10:48] VITALS: O2SAT 97
[2020-01-12 13:10] VITALS: BP 121/57; TEMP 97.6
[2020-01-12] MEDS: GABAPENTIN 300 MG CAP PO SCH (13:50)
--- NOTE | 2020-01-12 18:22 | P.DS ---
Admission Date: 01/08/20 Discharge Date: 01/12/20 Disposition: ROUTINE DISCHARGE Discharge Condition: GOOD Reason for Admission: severe pain s/p ventral hernia repair Consultations: General Surgery Procedures: CT - Abdomen Pelvis W Contrast - 01/08/2020 8:04 am IMPRESSION: 4.5 x 1.8 centimeter fluid collection within the anterior subcutaneous fat at the site of periumbilical hernia repair. This may represent a hematoma. Abscess has similar appearance. This should be correlated clinically and can be monitored with a subsequent ultrasound. Subcutaneous emphysema Delayed concentration of contrast within the left kidney may indicate inflammation Problem List severe pain s/p ventral hernia repair COPD Osteoporosis Essential Tremor DM2 Brief History of Present Illness: 69yo female presents to ED with severe pain since surgery yesterday. Patient had ventral hernia repair with extensive lysis of adhesions. She reports 8-10/10 sharp pain, as though a antonia was going through her left abdomen. It was not relieved by the tramadol she had at home. It is worsened by any movement / cough, deep breath. It does not radiate. Otherwise, reports no chest pain, no fever/chills, no n/v, no breathing difficulty, no lesions/rashes. Hospital Course: Patient was admitted for further evaluation of cause of pain. Fortunately patient did not appear to be acutely infected or septic. Her pain was initially difficult to control. PT evaluated patient and she was in too much pain to fully participate and recommended home health / PT. Patient lives with her son, and he refused to allow anyone else in his home due to risk of COVID-19 exposure. On day of discharge, patient was feeling better, pain was well managed, and she was able to ambulate much better. She was discharged home with a written prescription for pain medication from Dr. Gallardo Vital Signs/Physical Exam: Temp Pulse Resp BP Pulse Ox 97.6 F 76 16 121/57 L 93 01/12/20 12:00 01/12/20 12:00 01/12/20 12:00 01/12/20 12:01/12/20 12:00 General: Alert, In no apparent distress HEENT: Atraumatic, PERRLA, EOMI Neck: Supple, JVD not distended Respiratory: Clear to auscultation bilaterally, Normal air movement Cardiovascular: Regular rate/rhythm, Normal S1 S2 Gastrointestinal: Normal bowel sounds, No tenderness Musculoskeletal: No tenderness Integumentary: No rashes Neurological: Normal speech, Normal affect, Other (+essential tremor) Laboratory Data at Discharge: WBC 7.0 K/uL (4.3-10.9) D 01/09/20 03:34 Hgb 13.0 g/dL (12.0-15.0) 01/09/20 03:34 Hct 38.2 % (36.0-45.0) 01/09/20 03:34 Plt Count 152 K/uL (152-406) D 01/09/20 03:34 Sodium 138 mmol/L (136-145) 01/09/20 03:34 Potassium 4.4 mmol/L (3.5-5.1) 01/09/20 03:34 BUN 7 mg/dL (7-18) 01/09/20 03:34 Creatinine 0.58 mg/dL (0.55-1.3) 01/09/20 03:34 Glucose 101 mg/dL (74-106) 01/09/20 03:34 Total Bilirubin 0.4 mg/dL (0.2-1.0) 01/09/20 03:34 AST 19 U/L (15-37) 01/09/20 03:34 ALT 17 U/L (12-78) 01/09/20 03:34 Alkaline Phosphatase 64 U/L (45-117) 01/09/20 03:34 Lipase 74 U/L (73-393) 01/08/20 06:50 Home Medications: Mirtazapine [Remeron] 30 mg PO BEDTIME 09/28/17 Buspirone HCl 15 mg PO BID 01/15/19 Metformin HCl [Glucophage*] 500 mg PO BIDWM 01/15/19 Simvastatin 20 mg PO SEECOM 01/15/19 Ondansetron HCl [Zofran] 4 mg PO Q6H PRN #10 tablet 01/16/19 Albuterol Sulfate [Albuterol Sulfate 0.083% Neb Soln] 1 vial.neb NEB BID 01/08/20 Albuterol Sulfate [Proventil Hfa] 2 puff IH BID PRN 01/08/20 Alendronate Sodium 1 tab PO SEECOM 01/08/20 Gabapentin 1 tab PO DAILY 01/08/20 Glycopyrrolate/Formoterol Fum [Bevespi Aerosphere Inhaler] 2 puff IH BID 01/08/20 Lisinopril [Zestril] 1 tab PO DAILY 01/08/20 Omeprazole [Prilosec] 1 tab PO DAILY 01/08/20 Primidone [Mysoline *] 1 tab PO BID 01/08/20 Patient Discharge Instructions: Follow up with Dr. Gallardo next week. Follow up with PCP within 1 week Diet: Regular Activity: No lifting more than 10 lbs Followup: Juan Mondragon MD [ACTIVE - CAN ADMIT] - 1 Week (Call to make an appointment. ) Time spent managing pt's care (in minutes): 45
== END 2020-01-12 14:44 | disposition home or self-care (01) ==
LOC: ER 06:28 → ERHOLD 11:24 → 2ND 15:18
PROVIDERS: ADMIT Hospitalist; ATTEND Hospitalist
DX: G89.18 Other acute postprocedural pain (principal); T81.82XA Emphysema (subcutaneous) resulting from a procedure, initial encounter; Y83.8 Other surgical procedures as the cause of abnormal reaction of the patient, or of later complication, without mention of misadventure at the time of the procedure; J44.9 Chronic obstructive pulmonary disease, unspecified; M81.0 Age-related osteoporosis without current pathological fracture; G25.0 Essential tremor; E11.9 Type 2 diabetes mellitus without complications; F41.9 Anxiety disorder, unspecified; E78.00 Pure hypercholesterolemia, unspecified; F17.210 Nicotine dependence, cigarettes, uncomplicated; Z79.84 Long term (current) use of oral hypoglycemic drugs; Z79.83 Long term (current) use of bisphosphonates; Z79.899 Other long term (current) drug therapy
CPT/HCPCS: 93005; 85025 ×2; 80048; 36415; 86900; 86850; 86901; 82947 ×9; 80076; 83690; 80053; 74177; 74018; 71045; 97162; 94640; 94760; 96375; 96374; 99285; J3010 ×3; J2270 ×5; G0378 ×7; J7030 ×8; J2405 ×6

== ENCOUNTER 2020-03-02 08:56 | Emergency (ER) | payer OTHER ==
--- OUTSIDE RECORDS SUMMARY | 2020-03-02 09:11 | XMS REPORT | Continuity of Care Document ---
:1950 Author Organization [facility] Care Team Providers Name Role Phone [facility] Unavailable Un available Problems Problem Status Onset Classification Date Comments Sourc e Date Reported Pain due to 12/17/2018 [facility] o internal 019 and Spine orthopedic prosthetic devices, implants and grafts, initial encounter POST-TRAUMATIC Active Memor ial ARTHRITIS, RIGHT 019 Her jensen HIP AVAS Appendicitis Resolved Problem 03/01/2020 Mische r (disorder) Neuro,[facility] Avascular necrosis Active Problem 03/01/2020 Mischer of bone (disorder) N euro,[facility] Chronic Active Problem 03/01/2020 Mischer obstructive lung Acacia ro,MH disease (disorder) O rtho and Spine Concussion injury Resolved Problem 03/01/2020 M ischer of body structure GILMER Garcia (disorder) Ortho and Spine Depressive Active Problem 03/01/2020 Mischer disorder Neuro,MH (disorder) Ortho and Spine Diabetes mellitus Active Problem 03/01/2020 Automatical ly Mischer type 2 (disorder) added by GILMER Garcia Discern Expert Ortho and with order of Spine Add Problem Diabetes Type II on January 08, 2018 16:39:11 CDT with order ID: [id number] entered by Venus Valentine. Diarrhea (finding) Resolved Problem 03/01/2020 [facility]ischer Neuro,[facility] Essential tremor Active Problem 03/01/2020 Mi graciela (disorder) Neuro,[facility] Gallbladder pain Resolved Problem 03/01/2020 Mi graciela (finding) Neuro,[facility] Gastric ulcer Active Problem 03/01/2020 Misch er (disorder) Neuro,[facility] Gastroesophageal Active Problem 03/01/2020 Mi graciela reflux disease Neuro ,MH (disorder) Ortho and Spine Hyperlipidemia Active Problem 03/01/2020 Misc her (disorder) Neuro,[facility] Migraine Active Problem 03/01/2020 Mischer (disorder) Neuro,[facility] Neck pain Active Problem 03/01/2020 Mischer (finding) Neuro,[facility] Poor short-term Active Problem 03/01/2020 Mis gonsalo memory (finding) Acacia ro,[facility] 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 osteoarthritis Neuro ,MH (disorder) Ortho and Spine Postmenopausal Active Problem 03/01/2020 Misc her osteopenia Neuro,[facility] Pulmonary Active Problem 03/01/2020 Mischer emphysema Neuro,MH (disorder) Ortho and Spine Rupture of spleen Resolved Problem 03/01/2020 M ischer (disorder) Neuro,[facility] Other 12/17/2018 [facility] Ortho osteonecrosis, and [place] right femur [...] Essential tremor 12/17/2018 [facility] buttermaker continuous churn 12/17/2018 Ortho (current) use of and Spine aspirin Medications Medication Details Route Status Patient Ordering Order Source Instructions Provider Date primidone 50 mg 50 mg = 1 tab, Active ischer oral tablet PO, BID, # 60 2019 Neuro tab, 3 Refill(s), Pharmacy: [facility], 154.94, cm, 10/15/19 9:33:00 CDT, Height, 60, kg, 10/15/19 9:33:00 CDT, Weight gabapentin 600 MG = 1 tab, PO, Active ischer Oral Tablet Daily, # 30 tab, 2019 Acacia ro 1 Refill(s), Pharmacy: [facility], 154.94, cm, 10/15/19 9:33:00 CDT, Height, 60, kg, 10/15/19 9:33:00 CDT, Weight primidone 50 mg 50 mg = 1 tab, Active ischer oral tablet PO, BID, # 60 2020 Neuro tab, 3 Refill(s), Pharmacy: [facility], 154.94, cm, 10/15/19 9:33:00 CDT, Height, 60, kg, 10/15/19 9:33:00 CDT, Weight gabapentin 600 MG = 1 tab, PO, BID, Active 3/ Mischer Oral Tablet # 60 tab, 1 2020 Neuro Refill(s), Pharmacy: [facility] primidone 50 mg 50 mg = 1 tab, Active ischer oral tablet PO, Bedtime, # 30 2020 Ne uro tab, 3 Refill(s), Pharmacy: [facility] lisinopril 2.5 mg 0 Refill(s) Active graciela oral tablet 2020 Neuro gabapentin 600 MG = 1 tab, PO, TID, No Longer / Mischer Oral Tablet # 90 tab, 1 Active 2020 Neuro Refill(s), [facility] gabapentin 600 MG 600 mg = 1 tab, Active 06/11/ Mischer Oral Tablet PO, TID, # 90 2020 Neuro tab, 2 Refill(s), Pharmacy: [facility] gabapentin 600 MG 600 mg = 1 tab, Active 03/26/ Mischer Oral Tablet PO, TID, # 90 2019 Neuro tab, 2 Refill(s), Pharmacy: [facility] gabapentin 600 MG 600 mg = 1 tab, Inactive 03/26 / Mischer Oral Tablet PO, TID, X 30 2019 Neuro day, # 90 tab, 3 Refill(s), Pharmacy: [facility]/pharmacy #[id number] Alendronate Notes: No Longer Ortho Non-Formulary Active 2018 and Drug Reserved Spine for use in Post-Acute intermodal dispatcher care settings ONLY Give 30 min before breakfast w/6oz water. Sit upright for 30 min after dose. "Do Not Crush" tramadol 50 mg = 1 tab, No Longer Ort ho hydrochloride 50 PO, Q6H, PRN Active 2018 an d MG Oral Tablet Pain, X [...] Ortho 800 MG / tablet = Active 2018 and Trimethoprim 160 trimethoprim Sp ine MG Oral Tablet 160mg + [Bactrim] sulfamethoxazole 800 mg Dose based on trimethoprim component On empty stomach with a glass of water. (Same As: Bactrim DS, Septra DS) Ondansetron Notes: (Same as: No Longer H Ortho Zofran) Active 2018 and MEDICATION WASTE Spine Product Size: 4 mg Product Wasted: ___ mg 200 ACTUAT Notes: Albuterol No Longer Ortho Albuterol 0.09 90 microgram/inh Active 2018 and MG/ACTUAT Metered 8gm HFA WASTE: Spine Dose Inhaler Aerosol - Return [Proventil] to Pharmacy Same as: Alexandria Lozano Dexamethasone Notes: Inactive Ort ho MEDICATION WASTE 2018 and Product Size: Spine 10 mg Product [...] 2 puff, Route: INHALATION, RBID, 05/27/18 20:00:00 RETAIL DEPARTMENT SUPERVISOR, Duration: 30 day, Stop date: 06/26/18 8:00:00 RETAIL DEPARTMENT SUPERVISOR 200 ACTUAT Notes: Albuterol No Longer Ortho Albuterol 0.09 90 microgram/inh Active 2019 and MG/ACTUAT Metered 8gm HFA WASTE: Spine Dose Inhaler Aerosol - Return [Proventil] to Pharmacy Same as: Homero Lozanotil Tranexamic Acid Notes: (Same as: Inactive Ortho Lysteda) 2019 and Spine Omeprazole 20 mg Omeprazole 20 mg No Longer 05/14 Ortho tab tab, 1 tab, Drug Active 2019 and form: MISC, Spine Route: PO, QPM, 05/27/18 18:00:00 RETAIL DEPARTMENT SUPERVISOR, Duration: 30 day, Stop date: 06/25/18 18:00:00 RETAIL DEPARTMENT SUPERVISOR Simvastatin Notes: (Same as: No Longer H Ortho Zocor) Active 2018 and Spine Omeprazole Notes: Take 1 Inactive [...] No Longer Orth o Please check Active 2018 and indication. Not Spine for seizure. (Same As: CeleBREX) Cefazolin Notes: Same as: No Longer O rtho Ancef Active 2018 and Spine Aspirin 325 MG Notes: (Do Not No Longer Ortho Enteric Coated Crush) Do not Active 2019 an d Tablet crush or chew. Spine gabapentin 300 MG Notes: (Same as: No Longer Ortho Oral Capsule Neurontin) Active 2019 and Spine glycopyrrolate Route: IV, Drug Inactive Ortho (ANES) form: INJ, ONCE, 2019 and Stop date: Spine 05/27/18 12:30:00 RETAIL DEPARTMENT SUPERVISOR neostigmine Route: IV, Drug Inactive Ortho (ANES) form: INJ, ONCE, 2019 and Stop date: Spine 05/27/18 12:30:00 RETAIL DEPARTMENT SUPERVISOR tramadol Notes: Not to No Longer Orth o hydrochloride 50 exceed 400mg/day. Active 2019 and MG Oral Tablet (Same As: Ultram) Spine Diphenhydramine Notes: (Same as: No Longer 05/27 Ortho Benadryl) Active 2019 and Spine Morphine Notes: (Same No Longer [...] Total Volume: 1,000, Start date: 05/27/18 12:25:00 RETAIL DEPARTMENT SUPERVISOR, Duration: 30 day, Stop date: 06/26/18 12:24:00 RETAIL DEPARTMENT SUPERVISOR, 1.58, m2 ondansetron Route: IV, Drug Inactive Ortho (ANES) form: INJ, ONCE, 2019 and Stop date: Spine 05/27/18 12:17:00 RETAIL DEPARTMENT SUPERVISOR phenylephrine Route: IV, Drug Inactive Ortho (ANES) form: INJ, ONCE, 2019 and Stop date: Spine 05/27/18 11:07:00 RETAIL DEPARTMENT SUPERVISOR 72 HR Scopolamine 1 patch, Route: Inactive 05/27 Ortho 0.0139 MG/HR TOP, Drug Form: 2019 and Transdermal Patch ERFILM, Dosing Spine Weight 56.091, kg, PRE OP, Start date: 05/27/18 11:00:00 RETAIL DEPARTMENT SUPERVISOR, Duration: 30 day, Stop date: 06/26/18 10:59:00 RETAIL DEPARTMENT SUPERVISOR dexamethasone Route: IV, Drug Inactive H Ortho (ANES) form: INJ, ONCE, 2018 and Stop date: Spine 05/27/18 10:57:00 RETAIL DEPARTMENT SUPERVISOR rocuronium (ANES) Route: IV, Drug Inactive 05/27 [facility] Ortho form: INJ, ONCE, 2018 and Stop date: Spine 05/27/18 10:52:00 RETAIL DEPARTMENT SUPERVISOR fentaNYL (ANES) Route: IV, Drug Inactive 05/27[facility] Ortho form: INJ, ONCE, 2018 and Stop date: Spine 05/27/18 10:52:00 RETAIL DEPARTMENT SUPERVISOR propofol (ANES) Route: IV, Drug Inactive 05/27[facility] Ortho form: INJ, ONCE, 2018 and Stop date: Spine 05/27/18 10:52:00 RETAIL DEPARTMENT SUPERVISOR lidocaine (ANES) Route: IV, Drug Inactive 05/27[facility] Ortho form: INJ, ONCE, 2018 and Stop date: Spine 05/27/18 10:52:00 RETAIL DEPARTMENT SUPERVISOR midazolam (ANES) Route: IV, Drug Inactive 05/27[facility] Ortho form: SOLN, ONCE, 2018 and Stop date: Spine 05/27/18 10:52:00 RETAIL DEPARTMENT SUPERVISOR ceFAZolin (ANES) Route: IV, Drug Inactive 05/27[facility] Ortho form: INJ, ONCE, 2018 and Stop date: Spine 05/27/18 10:52:00 RETAIL DEPARTMENT SUPERVISOR Ondansetron Notes: (Same as: Inactive Ortho Zofran) 2019 and MEDICATION WASTE Spine Product Size: 4 mg Product Wasted: ___ mg Hydromorphone Notes: Same as Inactive 05/27[facility] Ortho Dilaudid 2019 and Spine Naloxone Notes: Same as Inactive 05/27[facility] Orth o Narcan 2019 and Spine Flumazenil Notes: (Same as: Inactive Ortho Romazicon) 2019 and Spine Morphine Notes: (Same Inactive 05/27[facility] Ortho as:MORPhine 2019 and Sulfate) Spine Lactated Ringers Route: IV, Total Inactive 05/27 Ortho Injection IV Volume: 1,000, 2019 and (ANES) 1000 mL Start date: Spine 05/27/18 10:02:00 RETAIL DEPARTMENT SUPERVISOR, Stop date: 05/27/18 11:02:00 RETAIL DEPARTMENT SUPERVISOR Glucagon 1 mg, Route: IM, No Longer O rtho Drug form: Active 2019 and PDR/INJ, PRN, Spine Dosing Weight 56.091, kg, PRN Blood Glucose Results, Start date: 05/27/18 8:05:00 RETAIL DEPARTMENT SUPERVISOR, Duration: 30 day, Stop date: 06/26/18 8:04:00 RETAIL DEPARTMENT SUPERVISOR Dextrose 50% 25 gm, 50 mL, No Longer Ortho Syringe Route: IVP, Drug Active 2019 and Form: INJ, Dosing Spine Weight 56.091, kg, PRN, PRN Blood Glucose Results, Start date: 05/27/18 8:05:00 RETAIL DEPARTMENT SUPERVISOR, Duration: 30 day, Stop date: 06/26/18 8:04:00 RETAIL DEPARTMENT SUPERVISOR Insulin Lispro Notes: (Same as: No Longer [...] Weight 56.091, kg, Start date: 05/27/18 7:00:00 RETAIL DEPARTMENT SUPERVISOR, Duration: 1 doses or times, Stop date: 05/27/18 18:00:00 RETAIL DEPARTMENT SUPERVISOR, ABX Indication: Surgical Prophylaxis gabapentin 300 mg, Route: Inactive Or tho PO, ONCALL, 2019 and Dosing Weight Spine 56.091, kg, Start date: 05/27/18 7:00:00 RETAIL DEPARTMENT SUPERVISOR, Duration: 30 day, Stop date: 06/26/18 6:59:00 RETAIL DEPARTMENT SUPERVISOR celecoxib Notes: NSAID. Inactive Orth o Please check 2019 and indication. Not Spine for seizure. (Same As: CeleBREX) ropivacaine Notes: NOT FOR No Longer Ortho IV use Each mL Active 2018 and contains: Spine Ropivacaine 2.46 mg, Epinephrine 0.005 mg, Clonidine 0.0008 mg and Ketorolac 0.3 mg in Sodium Chloride Tranexamic Acid Notes: (Same as: Inactive Ortho Lysteda) 2019 and Spine Zofran ODT Notes: (Same as: Inactive Ortho Zofran ODT) 2019 and Spine Dexamethasone Notes: Inactive Ortho dexamethasone 10 2018 and mg/1 ml VL INJ PF Spine MEDICATION WASTE Product Size: 10 mg Product Wasted: ___ mg ropivacaine Notes: NOT FOR Inactive Ortho IV use Each mL 2018 and contains: Spine Ropivacaine 2.46 mg, Epinephrine 0.005 mg, Clonidine 0.0008 mg and Ketorolac 0.3 mg in Sodium Chloride polymyxin B Notes: (Same as: No Longer Ortho sulfate + Sodium Polymyxin B Active [...] acid 70 mg = 1 tab, Active Ortho 70 MG Oral Tablet PO, QSun, [...] 90 2019 Neuro cap, 4 Refill(s), Pharmacy: [facility]/pharmacy #[id number] Allergies, Adverse Reactions, Alerts Substance Category Reaction Severity Reaction Status Date Comments S ource type Reported codeine Assertion Drug Active Mische r sulfate allergy Neuro Immunizations Immunization Date Given Site Status Last Updated Comments Violet rce Hx influenza 05/17/2018 completed Jorge Admin Note: Misc her vaccine-unspecifi REC'D Ne uro,MH ed<sup>1</sup> 03/2018 Ortho and Spine zoster vaccine, 05/17/2018 completed Jorge Admin Note: Carlie desai inactivated<sup>2 REC'D AT AGE Neuro,MH </sup> 67 PER PT Ortho and Spine Results Order Name Results Value Reference Date Interpretation Comments Violet rce Range HEMATOLOGY Hgb 10.8 12.0 - 05/29 MH 16.0 /2018 Ortho and Spine HEMATOLOGY Hct 32.3 36.0 - 05/29 MH 48.0 2019 Ortho and Spine ELECTROLYTES AGAP 12.0 10.0 [...] 0-2 /HPF None Seen 05/21 STOOL /HPF Ortho and Spine URINE AND UA Ketones Negative Negative 05/21 STOOL *NA* Ortho (05/21/18 9:45 AM) and Spine URINE AND UA Glucose Negative Negative 05/21 STOOL (05/21/18 9:45 AM) Ortho and Spine URINE AND UA Leuk Est Negative Negative 05/21 STOOL (05/21/18 9:45 AM) Ortho and Spine URINE AND UA Sq Epi Moderate Few /LPF 05/21 STOOL /LPF Ortho and Spine URINE AND UA Blood [...] PANEL ALANINE 15 0 - 65 05/21 AMINOTRANSFER /2018 Ortho ASE and Spine CHEM PANEL ASPARTATE [...] AGAP 14.7 10.0 - 05/21 MH 20.0 Ortho and Spine CHEM PANEL Calcium Lvl [...] HEMATOLOGY Lymphocytes 23.9 20.0 - 05/21 40.0 2019 Ortho and Spine HEMATOLOGY Eosinophils 1.4 0.0 - 4.0 05/21 Ortho and Spine HEMATOLOGY Monocytes # 0.3 0.0 - 0.8 05/21 Ortho and Spine HEMATOLOGY Monocytes 4.5 2.0 - 12.0 05/21 Ortho and Spine HEMATOLOGY Hgb 14.6 12.0 - 05/21 16.0 /2019 Ortho and Spine HEMATOLOGY Hct 43.4 36.0 - 05/21 48.0 2019 Ortho and Spine HEMATOLOGY MCV 89.0 80.0 - 05/21 98.0 /2019 Ortho and Spine HEMATOLOGY WBC 7.7 3.7 - 10.4 05/21 Ortho and Spine HEMATOLOGY RBC 4.87 4.20 - 05/21 5.40 /2019 Ortho and Spine HEMATOLOGY Platelet [...] DX EXAM: XR PELVIS 1 VIEW 05/27/2018 [facility] DATE: 05/27/2018 12:25 RETAIL DEPARTMENT SUPERVISOR INDICATION: - to be done in PACU [...] Comments Source Systolic (mm Hg) 103 10/15/2019 [facility] Acacia ro Diastolic (mm Hg) 58 10/15/2019 [facility] Ne uro Heart Rate 99 10/15/2019 [facility] Neuro Respitory Rate 16 10/15/2019 [facility] Neuro Height 154.94 cm 10/15/2019 [facility] Neuro Weight 60 10/15/2019 [facility] Neuro BMI Calculated 24.99 10/15/2019 [facility] Neuro Systolic (mm Hg) 118 03/26/[facility] [place] [facility] Diastolic (mm Hg) 73 03/26/2019 [facility] Ne uro Heart Rate 94 03/26/2019 [facility] Neuro Height 157.48 cm 03/26/2019 [facility] Neuro Weight 61.364 03/26/2019 [facility] Neuro BMI Calculated 24.74 03/26/2019 [facility] Neuro Systolic (mm Hg) 119 05/30/2018 MH Ortho an d Spine Diastolic (mm Hg) 66 05/30/2018 [facility] Ortho a nd Spine Respitory Rate 17 05/30/2018 [facility] and Spine Heart Rate 79 05/30/2018 [facility] Spine Temperature Oral (F) 97.9 [...] d Spine Diastolic (mm Hg) 64 05/30/2018 Ortho a nd Spine BMI Calculated 22.62 05/27/2018 Ortho and Spine Height 157.48 cm 05/27/2018 [facility] and Spine Weight 56.091 05/27/2018 Ortho and Spine Height 154.94 cm 05/15/2018 [facility] Neuro BMI Calculated 23.86 05/15/2018 [facility] Neuro Weight 57.273 05/15/2018 [facility] Neuro Systolic (mm Hg) 115 05/15/2018 [facility] Acacia ro Diastolic (mm Hg) 95 05/15/2018 [facility] Ne uro Heart Rate 95 05/15/2018 [facility] Neuro Respitory Rate 16 05/15/2018 [facility] Neuro Encounters Location Location Encounter Encounter Reason Attending ADM DC Stat us Source Details Type Number For Provider Date Date Visit Outpatient [id number] VENUS 09/13 Active [facility] Outpatient [id number] VENUS 11/01 Active [facility] Outpatient [id number] VENUS 01/08 [facility] Outpatient [id number] VENUS 02/19 Active [facility] Rentz MNA Ambulatory [id number] Venus 02/19 02/19 [facility] [place] [facility] [id number] VENUS 03/21 [facility] [id number] Venus 03/21 03/21 [facility] [place] [facility] [id number] VENUS 05/15 Active [facility] Kirst[facility] MNA Outpatient [id number] Venus 05/15 05/16 [facility] [place] [facility] [id number] Al[place] 05/27 05/30 Ortho [facility] [id number] Venus 08/21 Active [facility] Outpatient [id number] Venus 02/19 Active [facility]z MNA Ambulatory [id number] Venus 02/19 02/19 [facility] [place] Outpatient [id number] Venus 03/26 Active [facility] Kristopher MNA Outpatient [id number] Venus 03/26 03/27 [facility] [place] [facility] [id number] Venus 05/28 [facility] [id number] Venus 05/28 05/28 [facility] [place] [facility] [id number] Venus 07/21 [facility] MNA Ambulatory [id number] Venus 07/21 07/21 [facility] [place] [facility] [id number] Venus 10/14 [facility] MNA Outpatient [id number] Venus 10/14 10/15 [facility] /2019 [facility] [place] Outpatient [id number] Venus 11/25 [facility] Outpatient [id number] Venus 11/25 [facility] MNA Ambulatory [id number] Venus 11/25 11/25 [facility] /2019 [facility] [place] MNA Outpatient [id number] Venus 11/25 11/26 [facility] /2019 [facility] [place] Outpatient [id number] Venus 02/25 [facility] Rentz MNA Ambulatory [id number] Venus 02/25 02/25 [facility] Neurology Pre[facility]Reg [facility] [place] Outpatient [id number] Venus 02/26 [facility] Kristopher MNA Outpatient [id number] Venus 02/26 02/27 [facility] [place] Outpatient [id number] Moose 08/27 [facility] Rentz Procedures Procedure Code Date Perfomer Comments Source Tonsillectomy [id number] 05/14/1966 [facility] Appendix operation [id number] Mische r Neuro,[facility] Gallbladder [id number] [facility] operation Neuro,[id number]IF - Open [id number] [facility] reduction and Neuro,MH internal fixation Ortho a nd of fracture Spine [facility]al [facility] [id number] [facility]inal [id number] [facility] Assessment and [...] rhythm with premature atrial con tractions Outpatient instructor physical education:None Revised cardiac risk index scoreis 0 consistent [...] to surgery. Patient expressed understandingall questions answered [facility] Hospitalist Consult Please [phone] any questions Plan of Care No Data [...] Reg Smoking Cessation Counseling Yes entered on: 02/27/20 Family History No Data Provided for This Section Advance Directives No Data Provided for This Section Functional Status No Data Provided for This Section
--- OUTSIDE RECORDS SUMMARY | 2020-03-02 09:11 | XMS REPORT | Summary of Care ---
:1950 Author Organization [facility] [place] [place] Address [address] [place] [address]- phone Encounter HQ Heaven_radhika(RADHA) [id number] Date(s): 02/27/20 - 02/27/20 [facility] [address] [place], [place] [address]- [phone] Discharge Disposition: Home or Self Care Attending [...] 08, 2018 16:39:11 CDT with order ID: [id number] entered by Donald Valentine. Allergies, Adverse Reactions, Alerts Substance Reaction Severity Status codeine sulfate Active Medications primidone 50 mg oral tablet 50 mg = 1 tab, PO, BID, # 60 tab, 3 Refill(s), Pharmacy: [facility], 154.94, cm, 10/15/19 9:33:00 CDT, Height, 60, kg, 10/15/19 9:33:00 CDT, Weight Start Date: 02/27/20 Stop Date: 06/26/20 Status: Ordered Results No data available for this section Immunizations Given and Recorded Vaccine Date Status Refusal Reason Hx influenza vaccine-unspecified1 05/17/18 Given zoster vaccine, inactivated2 05/17/18 Given 1Admin Note: REC'D [id number] Note: REC'D AT AGE 67 PER PT [...] Smoking Cessation Counseling Yes entered on: 02/27/20 Assessment and Plan No data available for this section
--- OUTSIDE RECORDS SUMMARY | 2020-03-02 09:12 | XMS REPORT | Summary of Care ---
:1950 Author Organization [facility] [place] Address [address] [place] [address]- phone Encounter HQ Heaven_radhika(FIN) [id number] Date(s): 02/26/20 - 02/26/20 [facility] [address] [place], [place] [address]- [phone] Attending Physician: Donald Valentine MD Referring Physician: [...] 08, 2018 16:39:11 CDT with order ID: [id number] entered by Donald Valentine. Allergies, Adverse Reactions, Alerts Substance Reaction Severity Status codeine sulfate Active Medications No data available for this section Results No data available for this section Immunizations Given and Recorded Vaccine Date Status Refusal Reason Hx influenza vaccine-unspecified1 05/17/18 Given zoster vaccine, inactivated2 05/17/18 Given 1Admin Note: REC'D [id number] Note: REC'D AT AGE 67 PER PT [...]
--- OUTSIDE RECORDS SUMMARY | 2020-03-02 09:13 | XMS REPORT ---
[...] Status Dosage System Date Date BusPIRone HCl [facility] 32222304187 15 MG Active TAKE 1 TABLET BY MOUTH TWICE DAILY FOR 30 DAYS Primidone [facility] 56326910046 50 MG Orally Active 1 tab let Once a day Alendronate ND 86772415879 70 MG Orally Active 1 t ablet Sodium Once a week Bevespi [facility] 49508277363 9-4.8 MCG/ACT Active 2 puff s Aerosphere Inhalation Twice a day BusPIRone HCl [facility] 02401831582 15 MG Orally Active 1 tablet Twice a day Zofran [facility] 53273769057 4 MG Orally Active 1 tablet every 8 hrs as needed NAUSEA Alendronate [facility] 83204210699 70 MG Active TAKE 1 Sodium TABLET BY MOUTH ONCE A WEEK Metformin HCl [facility] 80897718292 500 MG Orally Active 1 tablet Twice a day with a meal Albuterol [facility] 21923311756 (2.5 MG/3ML) Active 3 ml as Sulfate 0.083% needed Inhalation Three times a day Proventil HFA [facility] 39686797419 108 (90 Base) Active 2 puffs as MCG/ACT needed Inhalation every 6 hrs Simvastatin ND 06236613161 20 MG Orally Active 1 t ablet Once a day in the evening Remeron [facility] 40987638805 30 MG Orally Active 1 table t Once a day at bedtime Omeprazole ND 02661815957 20 MG Orally Active 1 ca psule Once a day Ondansetron HCl [facility] 21708020246 4 MG Active TAKE 1 TABLET BY MOUTH EVERY 8 HOURS NEEDED FOR NAUSEA FOR 30 DAYS Ventolin HFA [facility] 10788385433 108 (90 Base) Active 2 puffs MCG/ACT Inhalation Twice a day Lisinopril ND 75635570340 2.5 MG Orally Active 1 t ablet Once a day Gabapentin ND 29584273767 600 MG Orally Active 1 c apsule Once a day Results No Known Results Summary Purpose eClinicalWorks Submission
--- OUTSIDE RECORDS SUMMARY | 2020-03-02 09:13 | XMS REPORT ---
[...] J44.9 Active disease, unspecified COPD type Problem Abnormal mammogram of left breast R92.8 Active Problem Tremor of both hands R25.1 Active Problem GERD without esophagitis K21.9 Act darryl Problem Depression with anxiety F41.8 Acti ve Problem Type 2 diabetes mellitus with E11.22 [...] without esophagitis Problem Mixed hyperlipidemia E78.2 Active Medications Medication Code Code Instructions Start End Date Status Dosage System Date Ondansetron HCl [facility] 12040659944 4 MG Orally Active TAKE 1 TABLET BY MOUTH EVERY 8 HOURS NEEDED FOR NAUSEA FOR 30 DAYS Results No Known Results Summary Purpose eClinicalWorks Submission
--- OUTSIDE RECORDS SUMMARY | 2020-03-02 09:13 | XMS REPORT | Continuity of Care Document ---
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, RIGHT HIP AVAS Active 05/15/2018 [facility] Other Problem 2018-12-17 Mem[facility] ia osteonecro 14:20:25 l sis, right Other Bianca nn femur osteonecro sis, right femur 12/17/2018 [facility] Acute Problem 2018-12-17 Mem[facility] ia posthemorr 14:20:25 l hagic Acute Kristopher anemia posthemorr hagic anemia 12/17/2018 [facility] Unilateral Problem 2018-12-17 M emoria post-traum 14:20:25 l atic [place] osteoarthr Unilateral itis, post-traum right hip atic osteoarthr itis, right hip 12/17/2018 [facility] Type 2 Problem 2018-12-17 Mem[facility] ia diabetes 14:20:25 l mellitus Type 2 Nabeel n without diabetes complicati mellitus ons without complicati ons 12/17/2018 [facility] Chronic Problem 2018-12-17 Cornelius marivel obstructiv 14:20:25 l e Chronic Kristopher pulmonary obstructiv disease, e unspecifie pulmonary d disease, unspecifie d 12/17/2018 [facility] Age-relate Problem 2018-12-17 M emoria d 14:20:25 l osteoporos Nabeel n is without Age-relate current d pathologic osteoporos al is without fracture current pathologic al fracture 12/17/2018 [facility] Hyperlipid Problem 2018-12-17 M emoria emia, 14:20:25 l unspecifie Nabeel n d Hyperlipid emia, unspecifie d 12/17/2018 [facility] Major Problem 2018-12-17 Mem[facility] ia depressive 14:20:25 l disorder, Major Nabeel n single depressive episode, disorder, unspecifie single d episode, unspecifie d 12/17/2018 [facility] Gastro-eso Problem 2018-12-17 M emoria phageal 14:20:25 l reflux [place] disease Gastro-eso without phageal esophagiti reflux s disease without esophagiti s 12/17/2018 [facility] Essential Problem 2018-12-17 Ne moria tremor 14:20:25 l Kristopher Essential tremor 12/17/2018 [facility] 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) 14:20:25 l use of Long [place] aspirin term (current) use of aspirin 12/17/2018 [facility] Appendicit Problem Resolve 2020-03-01 Memoria is d 00:18:20 l (disorder) Nabeel n Appendicit is (disorder) Resolved Problem 03/01/2020 [facility] Concussion Problem Resolve 2020-03-01 Memoria injury of d 00:18:20 l body Kristopher structure Concussion (disorder) injury of body structure (disorder) Resolved Problem 03/01/2020 [facility] Diarrhea Problem Resolve 2020-03-01 Me moria (finding) d 00:18:20 l Diarrhea Nabeel n (finding) Resolved Problem 03/01/2020 [facility] Gallbladde Problem Resolve 2020-03-01 Memoria r pain d 00:18:20 l (finding) Kristopher Gallbladde r pain (finding) Resolved Problem 03/01/2020 [facility] Rupture of Problem Resolve 2020-03-01 Memoria spleen d 00:18:20 l (disorder) Rupture Her jensen of spleen (disorder) Resolved Problem 03/01/2020 [facility] Avascular Problem Active 2020-03-01 Me moria necrosis 00:18:20 l of bone Kristopher (disorder) Avascular necrosis of bone (disorder) Active Problem 03/01/2020 [facility] Chronic Problem Active 2020-03-01 Cornelius marivel obstructiv 00:18:20 l e lung Chronic Kristopher disease obstructiv (disorder) e lung disease (disorder) [facility] Depressive Problem Active 2020-03-01 M emoria disorder 00:18:20 l (disorder) Nabeel n Depressive disorder (disorder) Active Problem 03/01/2020 [facility] Diabetes Problem Active 2020-03-01 Mem oria mellitus 00:18:20 l type 2 Diabetes Nabeel n (disorder) mellitus type 2 (disorder) Active Problem 03/01/2020 Automatic ally added by Discern Expert with order of Add Problem Diabetes Type II on January 08, 2018 16:39:11 CDT with order ID: [id number] 5.0 entered by Donald Valentine. [facility] Essential Problem Active 2020-03-01 Me moria tremor 00:18:20 l (disorder) Nabeel n Essential tremor (disorder) Active Problem 03/01/2020 [facility] Gastric Problem Active 2020-03-01 Cornelius marivel ulcer 00:18:20 l (disorder) Gastric Her jensen ulcer (disorder) Active Problem 03/01/2020 [facility] Gastroesop Problem Active 2020-03-01 M emoria hageal 00:18:20 l reflux Kristopher disease Gastroesop (disorder) hageal reflux disease (disorder) Active Problem 03/01/2020 [facility] Hyperlipid Problem Active 2020-03-01 M emoria emia 00:18:20 l (disorder) Nabeel n Hyperlipid emia (disorder) Active Problem 03/01/2020 [facility] Migraine Problem Active 2020-03-01 Mem oria (disorder) 00:18:20 l Migraine Nabeel n (disorder) Active Problem 03/01/2020 [facility] Neck pain Problem Active 2020-03-01 Me moria (finding) 00:18:20 l Neck [place] pain (finding) Active Problem 03/01/2020 [facility] Poor Problem Active 2020-03-01 Memor ia short-term 00:18:20 l memory Poor Kristopher (finding) short-term memory (finding) Active Problem 03/01/2020 [facility] Post Problem Active 2020-03-01 Memor ia traumatic 00:18:20 l osteoarthr Post Nabeel n itis traumatic (disorder) osteoarthr itis (disorder) Active Problem 03/01/2020 [facility] Postmenopa Problem Active 2020-03-01 M emoria usal 00:18:20 l osteopenia Nabeel n Postmenopa usal osteopenia Active Problem 03/01/2020 [facility] Pulmonary Problem Active 2020-03-01 Me moria emphysema 00:18:20 l (disorder) Nabeel n Pulmonary emphysema (disorder) Active Problem 03/01/2020 [facility] Pain due Problem 2019-0 2018-12-17 2018-12-17 Memoria to 2-21 14:20:25 14:20:25 [...] Clinics codeine codeine Active Memoria sulfate sulfate l Kristopher Social History Social Habit Start Date Stop Date Quantity Comments Source Social History 2018-05-17 2018-05-17 Ankur piedra 17:12:12 17:12:12 Medications Ordered Filled Start Stop Current Ordering Indication Dosage Frequency Signature Comments Components Source Medication Medication Date Date Medication? Clinician (SIG) Name Name primidone 2019-05 Yes 50 mg = 1 Mem oria 50 mg oral 0-16 tab, PO, l tablet 15:06: BID, # 60 Nabeel n 00 tab, 3 Refill(s), Pharmacy: [facility], 154.94, cm, 10/15/19 9:33:00 CDT, Height, 60, kg, 10/15/19 9:33:00 CDT, Weight gabapentin 2020-0 Yes = 1 tab, Mem oria 600 MG Oral 7-15 PO, Daily, l Tablet 14:46: # 30 tab, Nabeel n 00 1 Refill(s), Pharmacy: [facility], 154.94, cm, 10/15/19 9:33:00 CDT, Height, 60, kg, 10/15/19 9:33:00 CDT, Weight primidone 2020-0 Yes 50 mg = 1 Mem oria 50 mg oral 7-15 tab, PO, l tablet 14:46: BID, # 60 Nabeel n 00 tab, 3 Refill(s), Pharmacy: [facility], 154.94, cm, 10/15/19 9:33:00 CDT, Height, 60, kg, 10/15/19 9:33:00 CDT, Weight gabapentin 2020-0 Yes = 1 tab, Mem oria 600 MG Oral 6-03 PO, BID, # l Tablet 14:48: 60 tab, 1 Nabeel n 00 Refill(s), Pharmacy: [place] [id number] primidone 2020-0 Yes 50 mg = 1 Mem oria 50 mg oral 6-03 tab, PO, l tablet 14:48: Bedtime, # Bianca nn 00 30 tab, 3 Refill(s), Pharmacy: [place] [id number] lisinopril 2020-0 Yes 0 Memoria 2.5 mg oral 6-03 Refill(s) l tablet 14:42: [place] 00 gabapentin 2020-0 No = 1 tab, Mem oria 600 MG Oral 5-18 PO, TID, # l Tablet 20:08: 90 tab, 1 Nabeel n 00 Refill(s), Pharmacy: [place] [id number] gabapentin 2020-0 Yes 600 mg = 1 M emoria 600 MG Oral 1-29 tab, PO, l Tablet 19:35: TID, # 90 Nabeel n 00 tab, 2 Refill(s), Pharmacy: [place] [id number] gabapentin 2019- Yes 600 mg = 1 M emoria 600 MG Oral 1-13 tab, PO, l Tablet 15:49: TID, # 90 Nabeel n 01 tab, 2 Refill(s), Pharmacy: [facility] gabapentin 2018-05 No 600 mg = 1 M emoria 600 MG Oral 1-13 tab, PO, l Tablet 15:45: TID, X 30 Nabeel n 00 day, # 90 tab, 3 Refill(s), Pharmacy: [id number] Alendronate No Notes: Cornelius marivel 1-20 Non-Formul l 15:00: [facility] [place] 00 Reserved for use in Post-Acute lobsterman care settings ONLY Give 30 min before [...] DS tablet l MG / 15:00: = [place] Trimethopri 00 trimethopr m 160 MG im [...] puff, Route: INHALATION , RBID, 05/27/18 20:00:00 MOVERS, Duration: 30 day, Stop date: 06/26/18 8:00:00 MOVERS 200 ACTUAT No Notes: Memor ia Albuterol [...] form: MISC, Route: PO, QPM, 05/27/18 18:00:00 MOVERS, Duration: 30 day, Stop date: 02/12/19 18:00:00 MOVERS Simvastatin No Notes: Cornelius marivel 1-15 (Same as: l 00:00: Zocor) Omeprazole No Notes: Memor ia 1-15 Take 1 l 00:00: hour before or 2 hours after meal; Non-Formul mary Drug (Same as: Prilosec) Refrigerat e Compound ed Product - formulatio n not commercial ly available* * gabapentin No Notes: Memor ia 400 MG Oral 1-14 (Same as: l Capsule 23:00: Neurontin) docusate No Notes: Memoria sodium 1-14 (Same as: l 23:00: Colace) (Do Not Crush) Celebrex No Notes: Memoria 1-14 NSAID. l 23:00: Please check indication . Not for seizure. (Same As: CeleBREX) Cefazolin No Notes: Memori a 1-14 Same as: l 23:00: Ancef Aspirin 325 No Notes: (Do Memoria MG Enteric 1-14 Not Crush) l Coated 23:00: Do not Kristopher Tablet 00 crush or chew. gabapentin No Notes: Memor ia 300 MG Oral 1-14 (Same as: l Capsule 22:00: Neurontin) glycopyrrol No Route: IV, Memoria ate (ANES) 1-14 Drug form: l 18:30: INJ, ONCE, Stop date: 05/27/18 12:30:00 MOVERS neostigmine No Route: IV, Memoria (ANES) 1-14 Drug form: l 18:30: INJ, ONCE, Stop date: 05/27/18 12:30:00 MOVERS tramadol No Notes: Not Mem oria hydrochlori 1-14 to exceed l de 50 MG 18:25: [...] 1,000 mL No 1,000 mL, M emoria 05-27 Rate: 85 l 18:25: ml/hr, Infuse over: 11.8 hr, Route: IV, Dosing Weight 56.091 kg, Total Volume: 1,000, Start date: 05/27/18 12:25:00 MOVERS, Duration: 30 day, Stop date: 06/26/18 12:24:00 MOVERS, 1.58, m2 ondansetron No Route: IV, Memoria (ANES) 05-27 Drug form: l 18:17: INJ, ONCE, Stop date: 05/27/18 12:17:00 MOVERS phenylephri No Route: IV, Memoria ne (ANES) 05-27 Drug form: l 17:07: INJ, ONCE, Stop date: 05/27/18 11:07:00 MOVERS 72 HR No 1 patch, Memoria Scopolamine 05-27 Route: l 0.0139 17:00: TOP, Drug Nabeel n MG/HR 00 Form: Transdermal ERFILM, Patch Dosing Weight 56.091, kg, PRE OP, Start date: 05/27/18 11:00:00 MOVERS, Duration: 30 day, Stop date: 06/26/18 10:59:00 MOVERS dexamethaso No Route: IV, Memoria ne (ANES) 1- Drug form: l 16:57: INJ, ONCE, Stop date: 05/27/18 10:57:00 MOVERS rocuronium 2018-0 No Route: IV, M emoria (ANES) 1-14 Drug form: l 16:52: INJ, ONCE, Stop date: 05/27/18 10:52:00 MOVERS fentaNYL 2019-0 No Route: IV, Mem oria (ANES) 1-14 Drug form: l 16:52: INJ, ONCE, Stop date: 05/27/18 10:52:00 MOVERS propofol 2018- No Route: IV, Mem oria (ANES) 1- Drug form: l 16:52: INJ, ONCE, Stop date: 05/27/18 10:52:00 MOVERS lidocaine 2018- No Route: IV, Me moria (ANES) 1-14 Drug form: l 16:52: INJ, ONCE, Stop date: 05/27/18 10:52:00 MOVERS midazolam 2018-0 No Route: IV, Me moria (ANES) -14 Drug form: l 16:52: SOLN, ONCE, Stop date: 05/27/18 10:52:00 MOVERS ceFAZolin No Route: IV, Me moria (ANES) -14 Drug form: l 16:52: INJ, ONCE, Stop date: 05/27/18 10:52:00 MOVERS Ondansetron 2018- No Notes: Cornelius marivel -14 (Same as: l 16:30: Zofran) MEDICATION WASTE Product Size: 4 mg Product Wasted: ___ mg Hydromorpho No Notes: Cornelius marivel ne -14 Same as l 16:30: Dilaudid Naloxone 2018- No Notes: Memoria 1-14 Same as l 16:30: Narcan Flumazenil No Notes: Memor ia -14 (Same as: l 16:30: Romazicon) Morphine No Notes: Memoria -14 (Same l 16:30: as:MORPhin e Sulfate) Lactated 2019-0 No Route: IV, Mem oria Ringers 1-14 Total l Injection 16:02: Volume: Bianca nn IV (ANES) 00 1,000, 1000 mL Start date: 05/27/18 10:02:00 MOVERS, Stop date: 05/27/18 11:02:00 MOVERS Glucagon 2019-0 No 1 mg, Memoria 1-14 Route: IM, l 14:05: Drug form: [place] 00 PDR/INJ, PRN, Dosing Weight 56.091, kg, PRN Blood Glucose Results, Start date: 05/27/18 8:05:00 MOVERS, Duration: 30 day, Stop date: 06/26/18 8:04:00 MOVERS Dextrose 2019-0 No 25 gm, 50 Cornelius marivel 50% Syringe 1-14 mL, Route: l 14:05: IVP, Drug Form: INJ, Dosing Weight 56.091, kg, PRN, PRN Blood Glucose Results, Start date: 05/27/18 8:05:00 MOVERS, Duration: 30 day, Stop date: 06/26/18 8:04:00 MOVERS Insulin 2019-0 No Notes: Memoria Lispro 1-14 (Same as: [...] Weight 56.091, kg, Start date: 05/27/18 7:00:00 MOVERS, Duration: 1 doses or times, Stop date: 05/27/18 18:00:00 MOVERS, ABX Indication : Surgical Prophylaxi s gabapentin 2019-0 No 300 mg, Cornelius marivel 1-14 Route: PO, l 13:00: ONCALL, [place] 00 Dosing Weight 56.091, kg, Start date: 05/27/18 7:00:00 MOVERS, Duration: 30 day, Stop date: 06/26/18 6:59:00 MOVERS celecoxib No Notes: Memori a 1-14 NSAID. l 13:00: Please [place] 00 check indication . Not for seizure. (Same As: CeleBREX) ropivacaine No Notes: Cornelius marivel 1-14 NOT [...] ODT) Dexamethaso No Notes: Cornelius marivel ne 1-14 dexamethas l 12:44: one 10 [place] 00 mg/1 ml VL INJ PF MEDICATION WASTE Product Size: 10 mg Product Wasted: ___ mg ropivacaine No Notes: Cornelius marivel 1-14 NOT FOR l 12:00: IV use [place] Each mL contains: Ropivacain e 2.46 mg, [...] Staff approval Home No OTC Memoria Medication 1-04 ESTROGEN & l 17:30: MULTIPLE Kristopher 00 [...] # capsule 30 cap, 0 Refill(s) simvastatin Yes 20 mg = 1 M emoria 20 mg oral 1-04 tab, PO, l tablet 17:22: QPM, TAKES Bianca nn 00 AT 1800, # 30 tab, 1 Refill(s) gabapentin Yes 400 mg = 1 M emoria 400 MG Oral 1-02 cap, PO, l Capsule 17:40: TID, # 90 Bianca nn 00 cap, 4 Refill(s), Pharmacy: [id number] Ondansetron Ondansetron Yes Trell TAKE [address] [facility] HCl HCl [place] TABLET BY [facility] Memoria EVERY 8 l HOURS Outpati NEEDED FOR ent NAUSEA FOR Clinics 30 DAYS Vital Signs Vital Name Observation Time Observation Value Comments Source Systolic (mm Hg) 2019-10-15 14:33:00 Cornelius rial [place] Diastolic (mm Hg) 2019-10-15 14:33:00 Mem orial [place] Heart Rate 2019-10-15 14:33:00 [facility] [place] Respitory Rate 2019-10-15 14:33:00 Memori al Kristopher Height 2019-10-15 14:33:00 154.94 cm [facility] [place] Weight 2019-10-15 14:33:00 [facility] Kristopher BMI Calculated 2019-10-15 14:33:00 Memori al [place]opher Systolic (mm Hg) 2019-03-26 15:26:00 Cornelius rial [place] Diastolic (mm Hg) 2019-03-26 15:26:00 Mem orial [place]opher Heart Rate 2019-03-26 15:26:00 [facility] [place] Height 2019-03-26 15:26:00 157.48 cm [facility] [place] Weight 2019-03-26 15:26:00 [facility] [place] BMI Calculated 2019-03-26 15:26:00 Memori al [place] Systolic (mm Hg) 2018-05-30 17:30:00 Cornelius rial [place] Diastolic (mm Hg) 2018-05-30 17:30:00 Mem orial Kristopher Respitory Rate 2018-05-30 17:30:00 Memori al [place]opher Heart Rate 2018-05-30 17:30:00 [facility] [place] Temperature Oral (F) 2018-05-30 17:30:00 97.9 F [facility] Kristopher Respitory Rate 2018-05-30 13:23:00 Memori al Kristopher Temperature Oral (F) 2018-05-30 13:23:00 98.0 F [facility] [place] Systolic (mm Hg) 2018-05-30 13:23:00 Cornelius rial [place] Diastolic (mm Hg) 2018-05-30 13:23:00 Mem orial Kristopher Heart Rate 2018-05-30 13:23:00 [facility] Kristopher Respitory Rate 2018-05-30 09:24:00 Memori al [place] Heart Rate 2018-05-30 09:24:00 [facility] Kristopher Temperature Oral (F) 2018-05-30 09:24:00 97.4 F [facility] Kristopher Systolic (mm Hg) 2018-05-30 09:24:00 Cornelius rial [place] Diastolic (mm Hg) 2018-05-30 09:24:00 Mem orial [place] BMI Calculated 2018-05-27 12:36:00 Memori al Kristopher Height 2018-05-27 12:36:00 157.48 cm [facility] [place] Weight 2018-05-27 12:36:00 [facility] [place] Height 2018-05-15 16:53:00 154.94 cm [facility] Kristopher BMI Calculated 2018-05-15 16:53:00 Memori al [place] Weight 2018-05-15 16:53:00 [facility] Kristopher Systolic (mm Hg) 2018-05-15 16:53:00 Cornelius rial [place] Diastolic (mm Hg) 2018-05-15 16:53:00 Mem orial [place] Heart Rate 2018-05-15 16:53:00 [facility] [place] Respitory Rate 2018-05-15 16:53:00 Memori al Kristopher Procedures Procedure Date / Time Performed Performing Clinician [facility] e Tonsillectomy 1964-05-14 00:00:00 [facility] jensen Appendix operation [facility] Herm marybeth Gallbladder operation [facility] ermann Lung operation [facility] ORIF - Open reduction and Memori al Kristopher internal fixation of fracture Tubal ligation [facility] Vaginal hysterectomy [facility] Encounters Start End Encounter Admission Attending Care Care Encounter Source Date/Time Date/Time Type Type Clinicians Facility Department ID 2020-02-27 2020-02-27 [id number] 09:45:00 23:59:59 Donald 15 Robby 2020-02-26 2020-02-26 [id number] 09:30:00 09:30:00 Donald 14 Robby 2020-02-26 2020-02-26 Outpatient [facility] [id number] [facility] 2020-02-26 2020-02-26 [facility] [id number] 2020-01-28 2020-01-28 [facility] [id number] [facility] 15[facility]10:00 15:10:00 [facility] [place] [facility] Medicine Outpati ent Clinics 2019-12-10 2019-12-10 [facility] [id number] [facility] 10:30:00 10:30:00 t [place] [facility] Medicine Medicine Outpati ent Clinics 2019-11-26 2019-11-26 [facility] [id number] 09:30:00 23:59:59 Donald 13 Robby 2019-11-26 2019-11-26 [id number] 09:30:00 09:30:00 Donald 12 Robby 2019-11-03 2019-11-03 [facility] [id number] [facility] 08:59:00 08:59:00 t [place] [facility] Medicine Medicine Outpati ent Clinics 2019-10-20 2019-10-20 [facility] [id number] [address] 11:46:00 11:46:00 t [place] [facility] Medicine Medicine Outpati ent Clinics 2019-10-17 2019-10-17 [facility] [id number] 15:27:00 15:27:00 t [employer] [facility] Medicine Outpati ent Clinics 2019-10-15 2019-10-15 Outpatient RIZWANA Valentine [facility]ANS[facility] [id number] 09:30:00 23:59:59 Donald 11 Robby 2019-10-14 2019-10-14 [facility] [id number] [facility] 11:54:00 11:54:00 t [employer] [facility] Medicine Outpati ent Clinics 2019-09-10 2019-09-10 [facility] [id number] 10:15:00 10:15:00 t [place] [facility] Medicine Outpati ent Clinics 2019-07-22 2019-07-22 [facility] [id number] 11:15:00 11:15:00 Donald 10 Robby 2019-06-16 2019-06-16 [facility] [id number] 09:51:00 09:51:00 t [employer] [facility] Medicine Outpati ent Clinics 2019-06-11 2019-06-11 [facility] [id number] [facility] 09:30:00 09:30:00 t [employer] [facility] Medicine Outpati ent Clinics 2019-05-28 2019-05-28 [id number] 09:45:00 09:45:00 Donald 09 Robby 2019-03-26 2019-03-26 [facility] [id number] 10:00:00 23:59:59 Donald 08 Robby 2019-03-12 2019-03-12 [facility] [id number] 10:15:00 10:15:00 t [employer] [facility] Medicine Outpati ent Clinics 2019-02-19 2019-02-19 Outpatient RIZWANA Valentine MISCH [id number] 10:15:00 10:15:00 Donald 07 Robby 2019-01-06 2019-01-06 [facility] [id number] 09:23:00 09:23:00 [place] [address] [facility] - [facility] Medicine Outpati ent Clinics 2019-01-03 2019-01-03 [facility] [id number] [facility] 10:18:00 10:18:00 [place] [address] [facility] - Drive [facility] Medicine Outpati ent Clinics 2018-12-09 2018-12-09 [facility] [id number] 09:30:00 09:30:00 [place] [address] [facility] - Drive [facility] Medicine Outpati ent Clinics 2018-09-04 2018-09-04 [facility] [id number] [facility] 15:00:00 15:00:00 [place] [address] [facility] - Drive [facility] Medicine Outpati ent Clinics 2018-08-23 2018-08-23 [facility] [id number] 13:36:00 13:36:00 [place] [address] [facility] - Drive [facility] Medicine Outpati ent Clinics 2018-08-05 2018-08-05 [facility] [id number] 11:27:00 11:27:00 [place] [address] [facility] - Drive [facility] Medicine Outpati ent Clinics 2018-05-27 2018-05-30 Outpatient Liliam [facility] [id number] 06:13:00 12:57:00 Alverto Cardona 2018-05-15 2018-05-15 Outpatient DANIELA ValentineSCHER MISCHER [id number] 11:00:00 23:59:59 Donald 05 Robby 2018-03-21 2018-03-21 Outpatient DANIELA ValentineSCHMINISTERIO SCHERERMISCHER [id number] 09:45:00 09:45:00 Donald 04 Robby 2018-02-19 2018-02-19 Outpatient DANIELA ValentineSCHER MHMISCHER [id number] 11:00:00 11:00:00 Donald 03 Robby 2017-12-11 2017-12-11 [facility] [id number] 11:15:00 11:15:00 [place] [address] [facility] - Drive [facility]ics 2017-10-15 2017-10-15 [facility] [id number] 14:30:00 14:30:00 [place] [address] [facility] - Drive [facility] Clinics 2017-10-01 2017-10-01 [facility] [id number] [facility] 14:52:00 14:52:00 t Specialty/U Debbie kes - Specialty rology Memori a /Urology Clinic l Clinic Outpati ent Clinics 2017-10-01 2017-10-01 [facility] [id number] 10:12:00 10:12:00 t Specialty/U Debbie kes - Specialty rology Mem[facility] a /Urology Clinic l Clinic [facility] Clinics 2017-09-18 2017-09-18 [facility] [id number] [address] 14:00:00 14:00:00 t Specialty/U Debbie kes - Specialty rology Mem[facility] a /Urology Clinic l Clinic Outpati ent Clinics 2017-08-13 2017-08-13 [facility] [id number] 14:15:00 14:15:00 [place] [employer] [facility] Out[facility] elizabeth florence ent [facility] Results Test Description Test Time Test Comments Results Result Sour e Comments HEMATOLOGY 2018-05-29 10.8 [facility] 10:52:00 Kristopher HEMATOLOGY 2018-05-29 32.3 [facility] 10:52:00 [place] ELECTROLYTES 2018-05-28 12.0 [facility] 10:22:00 Kristopher ELECTROLYTES 2018-05-28 69 [facility] 10:22:00 Kristopher ELECTROLYTES 2018-05-28 142 [facility] 10:22:00 [place] ELECTROLYTES 2018-05-28 4.0 [facility] 10:22:00 Kristopher ELECTROLYTES 2018-05-28 0.88 [facility] 10:22:00 [place] ELECTROLYTES 2018-05-28 129 [facility] 10:22:00 Kristopher ELECTROLYTES 2018-05-28 17 [facility] 10:22:00 [place] ELECTROLYTES 2018-05-28 9.0 [facility] 10:22:00 Kristopher ELECTROLYTES 2018-05-28 106 [facility] 10:22:00 Kristopher ELECTROLYTES 2018-05-28 28 [facility] 10:22:00 [place] HEMATOLOGY 2018-05-28 11.2 [facility] 10:22:00 [place] HEMATOLOGY 2018-05-28 33.3 [facility] 10:22:00 [place] URINE AND STOOL 2018-05-21 Negative [facility] 15:45:00 *NA*(05/21/18 [place] 9:45 AM) URINE AND STOOL 2018-05-21 Negative [facility] 15:45:00 (05/21/18 9:45 [place] AM) URINE AND STOOL 2018-05-21 Negative [facility] 15:45:00 (05/21/18 9:45 [place] AM) URINE AND STOOL 2018-05-21 Negative [facility] 15:45:00 (05/21/18 9:45 [place] AM) URINE AND STOOL 2018-05-21 Negative [facility] 15:45:00 (05/21/18 9:45 [place] AM) URINE AND STOOL 2018-05-21 0.2 [facility] 15:45:00 [place] URINE AND STOOL 2018-05-21 15:45:00 Test Item Value Reference Range Interpretation Comme nts UA pH (test code = UA pH) 5.5 1 5.0-8.0 [facility] [id number] 15:45:00 Test Item Value Reference Range Interpretation Comments UA Spec Grav (test code = UA Spec 1.025 1 Grav) [facility] [id number] 15:45:00Negative *NA*(05/21/18 9:45 AM) [facility] [id number] 15:45:00Clear (05/21/18 9:45 AM)[facility] [id number] 15:45:00Yellow *NA*(05/21/18 9:45 AM)[facility] [id number] 15:45:00Positive *ABN*(05/21/18 9:45 AM)[facility] HermannBLOOD BANK [id number] 15:04:00Negative (05/21/18 9:04 AM)[facility] [id number] 15:04:0076[facility]ann[facility] [id number] 15:04:003.6[facility]ann[facility] [id number] 15:04:20228Nryppgam HermannCHEM [id number] 15:04:0017[facility]ann[facility] [id number] 15:04:000.81 [facility] [id number] 15:04:003.4[facility] PANEL 2018-05-21 15:04:0015[facility]ann[facility] [id number] 15:04:0016[facility]ann[facility] [id number] 15:04:95457Bykgajbs [facility]annCHEM [id number] 15:04:003.7[facility] [id number] 15:04:63955Nfieukun [facility]annCHEM [id number] 15:04:0027[facility]ann[facility] [id number] 15:04:00 Test Item Value Reference Range Interpretation Comments A/G Ratio (test code = A/G Ratio) 0.9 1 0.7-1.6 [facility] [id number] 15:04:0065[facility]ann[facility] PANEL 2018-05-21 15:04:000.4[facility] [id number] 15:04:00 Test Item Value Reference Range Interpretation Comments B/C Ratio (test code = B/C Ratio) 21 1 6-25 [facility] [id number] 15:04:0014.7[facility]annCHE[facility] PANEL 2018-05-21 15:04:008.8[facility]ann[facility] [id number] 15:04:007.0[facility] CtmqosrJRWLVBHOCE0709-61-01 15:04:000.6[facility] BvwxigoORHYWPKMAA1704-87-90 15:04:000.1[facility] PfyzgxoSNIMHQYXTE1642-10-84 15:04:001.8[facility] [place]opher [id number] 15:04:005.4[facility] GhzyxjaOBRJTIDUTP5277-13-26 15:04:00 69.6[facility] [id number] 15:04:0023.9[facility]annHEMATOLOGY 2018-05-21 15:04:001.4[facility] PcmsnghLGXRQJWUIB5554-81-49 15:04:000.3[facility] DvzszgrDBKNQRBKNF5257-25-12 15:04:004.5[facility] LieizrjYQUAJHDNJN0193-61-80 15:04:0014.6[facility] WwqhebgCKWXRIBFHE0401-97-22 15:04:0043.4[facility] Kristopher WXEQKSZDYK3754-80-86 15:04:0089.0[facility] FgijcojYSEQUETDOX0197-40-46 15:04:00 7.7[facility] YszsnxqYOFMEOGPGC3973-83-22 15:04:004.87[facility] HermannHEMATOLOGY 2018-05-21 15:04:45615Cxdpsywq NyrhtczZJTELSPIIT4172-74-04 15:04:009.4[facility] FphpkliEZKMJSXPNQ3265-64-20 15:04:00 Test Item Value Reference Range Interpretation Comments MCH (test code = MCH) 30.0 pg 27.0-31.0 [facility] QqiymtdHRHXRNANTO7231-51-62 15:04:0033.7[facility] HermannHEMATOLOGY 2018-05-21 15:04:0013.3[facility] OyibunnURUIJWLHBG1202-31-88 15:04:00 Test Item Value Reference Range Interpretation Comments aPTT (test code = aPTT) 37.2 s 22.9-35.8 [facility] NfwcoqoJCJLXHDFMF4024-78-26 15:04:00 Test Item Value Reference Range Interpretation Comments PROTIME (test code = PROTIME) 11.6 s 12.0-14.7 [facility] NgrloqxWGXUUQDMQD7907-27-89 15:04:00 Test Item Value Reference Range Interpretation Comments INR (test code = INR) 0.86 1 0.85-1.17 [facility] XncamekJONMHNHZPR5964-70-13 15:04:0020[facility] HermannIMMUNOLOGY 2018-05-21 15:04:008.9[facility] HermannSPECIAL SRBJVCALT9613-52-27 15:04:005.5 [facility]
--- OUTSIDE RECORDS SUMMARY | 2020-03-02 09:14 | XMS REPORT ---
:1950 Author Organization [facility] Address [address] [place], [address] [place] [address] Care Team Providers Name Role Phone Trell Stratton Unavailable [phone] PROBLEMS Type Condition ICD9-CM [id number] Onset Condition SNOMED Code Notes Code Code Dates Status Problem Abnormal R92.8 Active 631387751 mammogram of left breast Problem GERD without K21.9 Active 861829037 esophagitis Problem Tremor of both R25.1 Active 171802580 hands Problem Chronic J44.9 Active 25919175 obstructive pulmonary disease, unspecified COPD type Problem Former heavy Z87.891 Active 706515006378583 tobacco smoker Problem Osteoporosis, M81.0 Active 36408035 unspecified osteoporosis type, unspecified pathological fracture presence Problem Type 2 diabetes E11.22 Active 12371666 mellitus with diabetic chronic kidney disease Problem Migraine without G43.009 Active 323108388 aura and without status migrainosus, not intractable Problem Current moderate F32.1 Active 28854493 episode of major depressive disorder without prior episode Problem Depression with F41.8 Active 890911835 anxiety Problem Pulmonary nodule R91.1 Active 585789317 Problem Mixed E78.2 Active 592025668 hyperlipidemia Problem Gastro-esophageal K21.9 Active 076777486 reflux disease without esophagitis Problem Chronic kidney N18.3 Active 548473129 disease, stage 3 (moderate) ALLERGIES Allergen (clinical drug Drug/Non Drug Allergy Reaction Allergy Type Onset Date Status ingredient) documented on EMR codeine codeine Unknown Drug Allergy Active ENCOUNTERS from 1950 to 2020-02-26 Encounter [facility] Date [facility] [address] [facility] [address] [place] Feb, [facility] annual Family Medicine [address], [place] [address] subsequent Z00 .00 and Asymptomatic menopausal stat e Z78.0 IMMUNIZATIONS Vaccine Route Administration Date Status Prevnar 13 -Pneumonia Vaccine IM Intramuscular Dec 13, 2018 A dministered FLUZONE HIGH DOSE OVER 65 IM Intramuscular Jul 08, 2019 Admin istered SOCIAL HISTORY Tobacco Use: Social History Observation Description Date Details (start date - stop date) Former Smoker Sex Assigned At : Social History Observation Description Sex Assigned At Unknown PHQ9 Question Answer Notes Little interest or pleasure in doing things More than half t he days Feeling down, depressed, or hopeless More than half the days Trouble falling or staying asleep or sleeping too much More than half the days Feeling tired or having little energy Not at all Poor appetite or overeating Not at all Feeling bad about yourself, or that you are a failure, Not a t all or have let yourself or your family down Trouble concentrating on things, such as reading the Not at all newspaper or watching television Moving or speaking so slowly that other people could Not at all have noticed; or the opposite, being so fidgety or restless that you have been moving around a lot more than usual Total Score 6 Interpretation Mild Depression Thoughts that you would be better off or of Not at all hurting yourself in some way Alcohol Screen Question Answer Notes Did you have a drink containing alcohol in the past year? No Points 0 Interpretation Negative Tobacco Use/Smoking Question Answer Notes Are you a former smoker Additional Findings: Tobacco Non-User Ex-moderate cigarette smoker (10-19/day) REASON FOR REFERRAL No Information VITAL SIGNS Height 62.50 in Feb, Weight 122.4 lbs Feb, Temperature 97.9 degrees Fahrenheit Feb, BMI 22.03 kg/m2 Feb, Oximetry 91 % Feb, Blood pressure systolic 127 mm Hg Feb, Blood pressure diastolic 52 mm Hg Feb, MEDICATIONS Medication SIG (Take, Route, Frequency, Start Date End Date Status Duration) Proventil HFA 108 (90 Base) 2 puffs as needed Inhalation Active MCG/ACT every 6 hrs for 90 days Gabapentin 600 MG 1 capsule Orally Once a day Active BusPIRone HCl 15 MG TAKE 1 TABLET BY MOUTH TWICE Active DAILY FOR 30 DAYS for 30 Primidone 50 MG 1 tablet Orally Once a day Active Bevespi Aerosphere 9-4.8 2 puffs Inhalation Twice a Active MCG/ACT day for 90 days BusPIRone HCl 15 MG 1 tablet Orally Twice a day Active for 30 days Zofran 4 MG 1 tablet Orally every 8 hrs Active as needed NAUSEA for 30 days Ventolin HFA 108 (90 Base) 2 puffs Inhalation Twice a Active MCG/ACT day Ondansetron HCl 4 MG TAKE 1 TABLET BY MOUTH EVERY Active 8 HOURS NEEDED FOR NAUSEA FOR 30 DAYS Orally Alendronate Sodium 70 MG 1 tablet Orally Once a week Active for 90 day(s) Alendronate Sodium 70 MG TAKE 1 TABLET BY MOUTH ONCE Active A WEEK for 28 Lisinopril 2.5 MG 1 tablet Orally Once a day Active for 90 days Simvastatin 20 MG 1 tablet in the evening Active Orally Once a day for 90 day(s) Metformin HCl 500 MG 1 tablet with a meal Orally Active Twice a day for 90 days Remeron 30 MG 1 tablet at bedtime Orally Active Once a day Omeprazole 20 MG 1 capsule Orally Once a day Active Albuterol Sulfate (2.5 MG/3ML) 3 ml as needed Inhalation Active 0.083% Three times a day PROCEDURES No Information RESULTS No Results REASON FOR VISIT AMW. In office. MEDICAL (GENERAL) HISTORY Type Description Date Medical History Chronic obstructive pulmonary disease, u nspecified COPD type Medical History Depression with anxiety Medical History Former heavy tobacco smoker Medical History GERD without esophagitis Medical History Migraine without aura and without status migrainosus, not intractable Medical History Abnormal mammogram of left breast Medical History Splenomegaly Surgical History Tonsillectomy 1965 Surgical History Partial hysterectomy 1977 Surgical History Lung surgery - JENNA Lobectomy 1992 Surgical History Exploratory Lap 1993 Surgical History Cholecytecomy and Appendectomy Surgical History Right Hip Replacement 08/2017 Goals Section No Information Health Concerns No Information MEDICAL EQUIPMENT No Information MENTAL STATUS No Information FUNCTIONAL STATUS No Information ASSESSMENTS Encounter Date Diagnosis Notes Feb, Asymptomatic menopausal state (ICD-10 - Z78.0) Feb, Medicare annual wellness visit, stalin nt (ICD-10 - Z00.00) PLAN OF TREATMENT Medication Medication Name Sig Start Date Stop Date BusPIRone HCl 15 MG 1 tablet Orally Twice a day for 30 days Remeron 30 MG 1 tablet at bedtime Orally Once a day Bevespi Aerosphere 9-4.8 MCG/ACT 2 puffs Inhalation Twice a day for 90 days Zofran 4 MG 1 tablet Orally every 8 hrs as needed NAUSEA for 30 days Albuterol Sulfate (2.5 MG/3ML) 3 ml as needed Inhalation Three 0.083% times a day Lisinopril 2.5 MG 1 tablet Orally Once a day for 90 days Simvastatin 20 MG 1 tablet in the evening Orally Once a day for 90 day(s) Omeprazole 20 MG 1 capsule Orally Once a day Metformin HCl 500 MG 1 tablet with a meal Orally Twice a day for 90 days Alendronate Sodium 70 MG 1 tablet Orally Once a week for 90 day(s) Gabapentin 600 MG 1 capsule Orally Once a day Primidone 50 MG 1 tablet Orally Once a day Proventil HFA 108 (90 Base) 2 puffs as needed Inhalation MCG/ACT every 6 hrs for 90 days Treatment Notes Test Name Order Date DEXA, BONE DENSITY AXIAL SKELE 2020-02-26 Next Appt Details SUBSEQUENT ANNUAL WELLNESS VISIT 1 YEAR Reason: Provider Name:[facility] Viral, 2020-05-27 1 0:10:00 AM, [address], [place], [address], Insurance Providers Payer Name Payer Address Payer Insured Patient Coverage Cover age Phone Name Relationship to Start Date End Date Insured [place] [address] [phone] Topher Loev 2017 [facility] [address] [place] [address] MEDICARE Attn Part B [id number] Topher Love 2017 [employer] Claims [address] [place] [address] [facility] [address]
--- OUTSIDE RECORDS SUMMARY | 2020-03-02 09:14 | XMS REPORT ---
:1950 Author Organization [facility] Address [address] [place], [place] [place] [address] Care Team Providers Name Role Phone Trell Stratton Unavailable [phone] PROBLEMS Type Condition ICD9-CM [id number] Onset Condition SNOMED Code Notes Code Code Dates Status Problem Abnormal R92.8 Active 116701748 mammogram of left breast Problem GERD without K21.9 Active 740772213 esophagitis Problem Tremor of both R25.1 Active 991826573 hands Problem Chronic J44.9 Active 08726753 obstructive pulmonary disease, unspecified COPD type Problem Former heavy Z87.891 Active 961034883070542 tobacco smoker Problem Osteoporosis, M81.0 Active 26158377 unspecified osteoporosis type, unspecified pathological fracture presence Problem Type 2 diabetes E11.22 Active 07262729 mellitus with diabetic chronic kidney disease Problem Migraine without G43.009 Active 772675254 aura and without status migrainosus, not intractable Problem Current moderate F32.1 Active 87819078 episode of major depressive disorder without prior episode Problem Depression with F41.8 Active 373972247 anxiety Problem Pulmonary nodule R91.1 Active 589340051 Problem Mixed E78.2 Active 186048500 hyperlipidemia Problem Gastro-esophageal K21.9 Active 359222897 reflux disease without esophagitis Problem Chronic kidney N18.3 Active 549584782 disease, stage 3 (moderate) ALLERGIES Allergen (clinical drug Drug/Non Drug Allergy Reaction Allergy Type Onset Date Status ingredient) documented on EMR codeine codeine Unknown Drug Allergy Active ENCOUNTERS from 1950 to 2020-02-26 Encounter Location Date Provider Diagnosis [facility] [place] [address] [place] [facility] Feb, Trell Stratton Type [address] Family [address], mellitus [place] [facility] [place] [place] [address] chronic kidney disease E11.22 ; Chroni c kidney disease, stage 3 (moderate) N18. 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 In office. MEDICAL (GENERAL) HISTORY Type [...] Information ASSESSMENTS Encounter Date Diagnosis Notes Feb, Migraine without aura and without status migrainosus, not intractable (ICD-10 - G43.009) Feb, Tremor of both hands (ICD-10 - R25.1) Feb, Chronic kidney disease, stage 3 (moderat e) (ICD-10 - N18.3) Feb, Abnormal mammogram of left breast (ICD-1 0 - R92.8) Feb, Type 2 diabetes mellitus with diabetic c hronic kidney disease (ICD-10 - E11.22) Feb, GERD without esophagitis (ICD-10 - K21.9 ) Feb, Osteoporosis, unspecified osteoporosis t ype, unspecified pathological fracture presence (ICD-10 - M81.0) Feb, Former heavy tobacco smoker (ICD-10 - Z8 7.891) Feb, Chronic obstructive pulmonary disease, u nspecified COPD type (ICD-10 - J44.9) Feb, Pulmonary nodule (ICD-10 - R91.1) Feb, Mixed hyperlipidemia (ICD-10 - E78.2) Feb, Chronic nausea (ICD-10 - R11.0) Feb, Current moderate episode of major depres sive disorder without prior episode (ICD-10 - F32.1) Feb, Depression with anxiety (ICD-10 - F41.8) Feb, Proteinuria, unspecified type (ICD-10 - R80.9) Feb, Diaphragmatic hernia without obstruction or gangrene (ICD-10 - K44.9) Feb, Non-compliant behavior (ICD-10 - R46.89) PLAN OF TREATMENT Medication Medication Name Sig [...] 6 hrs for 90 days Treatment Notes Assessment Notes Clinical Notes Chronic nausea Likely due to hiatal hernia. Education given. Side effect discussed. Type 2 diabetes mellitus with Controlled. Education given. C ont diabetic chronic kidney disease current regimen. , Diabetes Education Diabetes is a disorder that disrupts the way your body uses glucose (sugar). It is a chronic medication condition that requires regular monitoring and treatment throughout your life. Treatment includes: lifestyle modification, self-care measures, and medication. Fortunately, these treatments can keep the blood sugar levels close to normal and minimize the risk of developing complications. The primary blood test to measure the progress of diabetes is the Hemoglobin A1c. Normal levels is less than 7.0 but less than 6.5 is considered excellent control. Fasting blood sugars should be in the range of 80-120 while random blood sugars should range below 200 especially after meals. Carbohydrate (sugar) intake for diabetics should be below 45 grams per meal and 15 grams per snack. Diabetic preventive care is vital to prevent complications, so it is important to have yearly diabetic eye and foot exams with specialists. If your diabetes is not controlled, then contact your doctor to further address.Medication may need to be adjusted and/or added. Abnormal mammogram of left breast Repeat. Ordered. [facility] ed patient to schedule mammogram Chronic kidney disease, stage 3 Will monitor. Education giv en. (moderate) Avoid nephrotoxic medications. If unchanged or worsen will refer to nephrology Current moderate episode of major Using Remeron. INCREASED B uspar 15 depressive disorder without prior mg BID and titrate as tole rated. episode Denies SI/HI. Increased stress due to son's health._ _ Depression Education: Depression is a brain disease that makes you sad, but it is different than normal sadness. Depressed people feel down most of the time for at least 2 weeks. They also have at least one of these 2 symptoms: 1. They no longer enjoy or care about doing the things they used to like to do. 2. They feel sad, down, hopeless, or cranky most of the day, almost every day. It can also make you: lose or gain weight; sleep too much or too little; fell tired or like you have no energy; feel guilty or like you are worth nothing; forget things or feel confused; and think about or suicide. Medication and/or seeing a counselor (such as a psychiatrist, psychologist, nurse or clinical social worker) may be necessary to treat depression. Both treatments take time to work. If you ever feel like you might hurt yourself or some else, then call your doctor or call 911 or go to the ER. Former heavy tobacco smoker Commended on cessation. Educatio n given. Mixed hyperlipidemia Continue Zocor. Side effect discussed. Education given. Diaphragmatic hernia without Education given. Discussed DDX. obstruction or gangrene Will refer to Surgery for futher evaluation at [facility] Proteinuria, unspecified type Discussed differential diagnos is. Complication of diabetes. Will start low-dose lisinopril 2.5 mg for renal protection. Side effect panel discussed. Education given. Will monitor. Osteoporosis, unspecified Continue Fosamax once weekly. Side osteoporosis type, unspecified effect and instructiosn given . pathological fracture presence Education given. Start taking Calcium + Vit D supplements. GERD without esophagitis Patient is aware of nursing home impact. Education given. Migraine without aura and without Stable. status migrainosus, not intractable Pulmonary nodule Managed by . Chronic obstructive pulmonary Managed by . CT ord ered disease, unspecified COPD type by Pulm: Nodules. Education g iven. Tremor of both hands Education given. Managed by . Encouraged to make appointment. Next Appt Details 3 Months TV Reason: Provider Name:Trell Stratton, 2020-05-27 1 0:10:00 AM, [address] [place], [place], [address], Insurance Providers Payer Name Payer Address Payer Insured Patient Coverage Cover age Phone Name Relationship to Start Date End Date Insured MEDICARE Attn Part B [id number] Topher Love self 2017 [facility] Claims [address] [place] [address] [facility] [address] [place] [address] [phone] Topher Love self 2017 [facility] [address] [place] [address]
--- NOTE | 2020-03-02 09:38 | RAD REPORT ---
EXAM DESCRIPTION: RAD - Chest Single View - 03/02/2020 9:28 am CLINICAL HISTORY: ABDOMINAL DISTENTION Chest pain. COMPARISON: Chest Single View dated 01/08/2020; Chest Pa And Lat (2 Views) dated 02/29/2016 FINDINGS: Portable technique limits examination quality. The lungs are emphysematous but grossly clear. The heart is normal in size. No displaced fractures. IMPRESSION: Prominent COPD.
[2020-03-02] MEDS ORDERED: PROMETHAZINE INJ 25 MG/ML AMP ONE (09:53)
[2020-03-02] MEDS ORDERED: NA CHLORIDE 0.9% 1,000 ML ONE (09:54)
[2020-03-02] MEDS ORDERED: FENTANYL CITR 100 MCG/2 ML ONE (09:54)
[2020-03-02 10:19] LABS: Absolute Lymphocytes (CBC) 1.8 K/uL (0.7-4.9); Basophils % 0.5 % (0-1.3); Hematocrit 46.1 % (36.0-45.0); Lymphocytes % 24.1 % (15.3-44.8); RBC Red Blood Cell Count 5.19 M/uL (3.86-4.86)
[2020-03-02 10:20] LABS: Protime INR 0.89
[2020-03-02 10:40] LABS: ALT/SGPT 21 U/L (12-78); AST/SGOT 16 U/L (15-37); Albumin 3.8 g/dL (3.4-5.0); Alkaline Phosphatase 79 U/L (45-117); BUN Blood Urea Nitrogen 14 mg/dL (7-18); Bicarbonate 25 mmol/L (21-32); Bilirubin Direct 0.2 mg/dL (0-0.2); Bilirubin Total 0.4 mg/dL (0.2-1.0); Glucose Level 98 mg/dL (74-106); Lipase 111 U/L (73-393); Magnesium 1.8 mg/dL (1.8-2.4); NT PRO-BNP 97 pg/mL (<125); Potassium 4.1 mmol/L (3.5-5.1); Protein, Total 7.7 g/dL (6.4-8.2); Sodium Level 139 mmol/L (136-145); Troponin (Emerg Dept Use Only) < 0.02 ng/mL (0.0-0.045)
--- NOTE | 2020-03-02 11:14 | RAD REPORT ---
EXAM DESCRIPTION: CTAbdomen Pelvis W Contrast - 03/02/2020 10:52 am CLINICAL HISTORY: Abdominal pain. Abd pain;Nausea / vomiting COMPARISON: Abdomen Pelvis W Contrast dated 01/08/2020 TECHNIQUE: Biphasic CT imaging of the abdomen and pelvis was performed with 100 ml non-ionic IV cont rast. All CT scans are performed using dose optimization technique as appropriate and may include automated exposure control or mA/KV adjustment according to patient size. FINDINGS: Linear atelectasis in both lung bases. Small cyst is present in right lobe of the liver. No aggressive liver lesion or biliary dilatation. T he spleen adrenal glands and pancreas are within normal limits. Small cysts are present left kidney. No solid renal mass or hydronephrosis on either side. Cholecystectomy. No bowel obstruction, free air, free fluid or abscess. Appendectomy. No evidence of significant lym phadenopathy. Right total hip arthroplasty noted. IMPRESSION: No acute intra-abdominal or pelvic finding.
--- NOTE | 2020-03-02 11:31 | ER ---
Nurse's Notes [facility] Name: Yehuda Love Age: 69 yrs Sex: Female : 1950 Arrival Date: 03/02/2020 Time: 08:59 Bed 8 Private MD: Diagnosis: Generalized abdominal pain;Nausea and vomiting;Volume depletion, unspecified Presentation: 03/02 09:06 Chief complaint: N/V/D and upper abdominal pain x 1 month, worse over the last week. hb Coronavirus screen: Client presents with at least one sign or symptom that may indicate coronavirus-19. Standard/surgical mask placed on the client. Provider contacted for isolation considerations. Ebola Screen: No symptoms or risks identified at this time. Initial Sepsis Screen: Does the patient meet any 2 criteria? RR > 20 per min. HR > 90 bpm. Yes Does the patient have a suspected source of infection? No. Patient's initial sepsis screen is negative. Risk Assessment: Do you want to hurt yourself or someone else? Patient reports no desire to harm self or others. Onset of symptoms was January 2020. 09:06 Method Of Arrival: Ambulatory hb 09:06 Acuity: SWETA 2 hb Historical: - Allergies: 09:08 Codeine; hb - PMHx: 09:08 COPD; Diabetes - NIDDM; High Cholesterol; Migraines; splenomegaly; hb - PSHx: 09:08 Cholecystectomy; Appendectomy; Hysterectomy; JENNA lobectomy; Hernia repair; hb - Immunization history:: Adult Immunizations up to date. - Social history:: Smoking status: Patient denies any tobacco usage or history of. Screenin:00 Abuse screen: Denies threats or abuse. Nutritional screening: On. Tuberculosis vg1 screening: No symptoms or risk factors identified. Fall Risk Fall in past 12 months (25 points). IV access (20 points). Ambulatory Aid- Crutches/Cane/Walker (15 pts). Gait- Impaired (20 pts.). Mental Status- Oriented to own ability (0 pts). Total Osorio Fall Scale indicates High Risk Score (45 or more points). Fall prevention measures have been instituted. Side Rails Up X 2. Assessment: 10:00 General: Appears distressed, well groomed, Behavior is cooperative, anxious, Patient vg1 states 'just tired of feeling sick'. States has been having abd pain for about a month with N/V/D. States hasnt been able to keep anything down and has lost weight; when able to eat she ends up with diarrhea. . Pain: Complains of pain in abdomen Pain currently is 0 out of 10 on a pain scale. Noted to be grimacing, guarding, moaning, Also complains of nausea. Neuro: Level of Consciousness is awake, alert, obeys commands, Oriented to person, place, time, situation. Cardiovascular: Capillary refill < 3 seconds Patient's skin is warm and dry. Respiratory: Airway is patent Respiratory effort is even, unlabored, Respiratory pattern is regular, symmetrical. GI: Reports upper abdominal pain, diarrhea, intolerance of food, nausea, vomiting. : No signs and/or symptoms were reported regarding the genitourinary system. EENT: No signs and/or symptoms were reported regarding the EENT system. Derm: Skin is intact, Skin is pink, warm \\T\\ dry. 10:00 Musculoskeletal: Range of motion: limited in right hip Patient states had Right Hip vg1 replacement in November. 11:00 General: Patient states that the nausea has subsided and is "happy" that for once its vg1 gone away. Patient is in bed resting with eyes closed. Notified Tanna WASH WORKER. 11:00 Reassessment: Patient appears in no apparent distress at this time. Patient and/or vg1 family updated on plan of care and expected duration. Pain level reassessed. Patient is alert, oriented x 3, equal unlabored respirations, skin warm/dry/pink. Vital Signs: 09:06 BP 132 / 85; Pulse 98; Resp 28; Temp 97.4(TE); Pulse Ox 94% on R/A; Weight 53.52 kg; hb Height 5 ft. 2 in. (157.48 cm); Pain 5/10; 09:30 BP 111 / 65; Pulse 92; Resp 18; Pulse Ox 92% on R/A; vg1 11:00 BP 132 / 74; Pulse 92; Resp 18; Pulse Ox 96% on R/A; vg1 11:30 BP 136 / 78; Pulse 85; Resp 20; Pulse Ox 93% on R/A; vg1 09:06 Body Mass Index 21.58 (53.52 kg, 157.48 cm) hb Vitals: 11:00 Cardiac Rhythm Assessment Regular Sinus rhythm. vg1 ED Course: 08:59 Patient arrived in ED. ds1 09:03 Tanna Cook FNP-C is [facility]. snw 09:03 Gilberto Alexander MD is Attending Physician. snw 09:07 Triage completed. hb 09:08 Arm band placed on. hb 09:16 Imelda Mitchell, RN is Primary Nurse. vg1 09:27 XRAY Chest (1 view) In Process Unspecified. EDMS 10:00 Inserted saline lock: 20 gauge in left antecubital area, using aseptic technique. Blood vg1 collected. IV Flushed left antecubital with 2 ml normal saline. 10:15 Patient has correct armband on for positive identification. counter intelligence on. Pulse vg1 ox on. NIBP on. Door closed. Warm blanket given. Pillow given. Head of bed elevated. 10:37 EKG done, by ED staff, reviewed by Tanna KHAN. sv 10:[address] via stretcher. vg1 10:53 CT Abd/Pelvis - IV Contrast Only In Process Unspecified. EDMS 11:45 No provider procedures requiring assistance completed. IV discontinued, intact, vg1 bleeding controlled, No redness/swelling at site. Pressure dressing applied. Administered Medications: 10:05 Drug: NS 0.9% 500 ml Route: IV; Rate: bolus; Site: left antecubital; vg1 11:17 Follow up: Response: No adverse reaction vg1 10:05 Drug: Phenergan 6.25 mg Route: IVP; Site: left antecubital; vg1 11:16 Follow up: Response: No adverse reaction; Nausea is decreased vg1 10:05 Drug: NS 0.9% 1000 ml Route: IV; Rate: 125 ml/hr; Site: left antecubital; vg1 10:05 Drug: fentaNYL (PF) 25 mcg {Note: rass 1.} Route: IVP; Site: left antecubital; vg1 11:16 Follow up: Response: No adverse reaction vg1 11:16 Follow up: Response: RASS: Alert and Calm (0) vg1 Outcome: 11:31 Discharge ordered by . snw 11:45 Discharged to home via wheelchair. vg1 11:45 Condition: good 11:45 Discharge instructions given to patient, Instructed on discharge instructions, follow up and referral plans. medication usage, Demonstrated understanding of instructions, follow-up care, medications, Prescriptions given X 3. 12:03 Patient left the ED. vg1 Addendum: 03/04/2020 11:45 Addendum: COVID-19 Result: Negative result given to RN to notify pt. Other: Pt a a5 currently hospitalized (In room 220) FER Giles notified of negative result. Signatures: Dispatcher [employer] EDMS Rafia Garcia RN RN Tanna Rose, TOP DISTRIBUTION EXECUTIVE-C TOP DISTRIBUTION EXECUTIVE-Csnw Kiana Espinoza ds1 Elly Dixon RN RN aa5 Malia Esquivel RN RN Imelda Chow RN RN vg1 Corrections: (The following items were deleted from the chart) 03/02 10:45 10:00 Pain: Complains of pain in abdomen Pain currently is 8 out of 10 on a pain scale. vg1 Noted to be grimacing, guarding, moaning, Also complains of nausea, vg1 11: 11:00 BP 132 / 74; Pulse 92bpm; Resp 18bpm; Pulse Ox 96% RA; vg1 vg1 11:30 11:00 General: Patient states that the nausea has subsided and is "happy" that for once vg1 its gone away. Patient is in bed resting with eyes closed.. vg1
--- NOTE | 2020-03-02 11:32 | EDPHYS ---
Physician Documentation [facility] Name: Yehuda Love Age: 69 yrs Sex: Female : 1950 Arrival Date: 03/02/2020 Time: 08:59 Bed 8 Private MD: ED Physician Gilberto Alexander HPI: 03/02 11:37 This 69 yrs old Female presents to ER via Ambulatory with complaints of snw Abdominal Pain, Nausea. 11:36 The patient presents with abdominal pain in the epigastric area. Onset: The snw symptoms/episode began/occurred gradually, 1 week(s) ago, and became persistent. The symptoms do not radiate. Associated signs and symptoms: Pertinent positives: nausea and vomiting, diarrhea. The symptoms are described as crampy. Severity of pain: At its worst the pain was mild. The patient has not experienced similar symptoms in the past. It is unknown whether or not the patient has recently seen a physician. unable to hold down food/fluids, things that stay down go straight thru. Historical: - Allergies: 09:08 Codeine; hb - PMHx: 09:08 COPD; Diabetes - NIDDM; High Cholesterol; Migraines; splenomegaly; hb - PSHx: 09:08 Cholecystectomy; Appendectomy; Hysterectomy; JENNA lobectomy; Hernia repair; hb - Immunization history:: Adult Immunizations up to date. - Social history:: Smoking status: Patient denies any tobacco usage or history of. ROS: 11:35 Eyes: Negative for injury, pain, redness, and discharge, ENT: Negative for injury, snw pain, and discharge, Neck: Negative for injury, pain, and swelling, Cardiovascular: Negative for chest pain, palpitations, and edema, Respiratory: Negative for shortness of breath, cough, wheezing, and pleuritic chest pain, Back: Negative for injury and pain, : Negative for injury, bleeding, discharge, and swelling, MS/Extremity: Negative for injury and deformity, Skin: Negative for injury, rash, and discoloration, Neuro: Negative for headache, weakness, numbness, tingling, and seizure. 11:35 Constitutional: Positive for malaise, poor PO intake. 11:35 Abdomen/GI: Positive for nausea, vomiting, and diarrhea. Exam: 09:44 Head/Face: Normocephalic, atraumatic. Eyes: Pupils equal round and reactive to light, snw extra-ocular motions intact. Lids and lashes normal. Conjunctiva and sclera are non-icteric and not injected. Cornea within normal limits. Periorbital areas with no swelling, redness, or edema. ENT: Nares patent. No nasal discharge, no septal abnormalities noted. Tympanic membranes are normal and external auditory canals are clear. Oropharynx with no redness, swelling, or masses, exudates, or evidence of obstruction, uvula midline. Mucous membranes moist. Neck: Trachea midline, no thyromegaly or masses palpated, and no cervical lymphadenopathy. Supple, full range of motion without nuchal rigidity, or vertebral point tenderness. No Meningismus. Chest/axilla: Normal chest wall appearance and motion. Nontender with no deformity. No lesions are appreciated. Cardiovascular: Regular rate and rhythm with a normal S1 and S2. No gallops, murmurs, or rubs. Normal PMI, no JVD. No pulse deficits. 09:44 Back: No spinal tenderness. No costovertebral tenderness. Full range of motion. Skin: Warm, dry with normal turgor. Normal color with no rashes, no lesions, and no evidence of cellulitis. MS/ Extremity: Pulses equal, no cyanosis. Neurovascular intact. Full, normal range of motion. Neuro: Awake and alert, GCS 15, oriented to person, place, time, and situation. Cranial nerves II-XII grossly intact. Motor strength 5/5 in all extremities. Sensory grossly intact. Cerebellar exam normal. Normal gait. Psych: Awake, alert, with orientation to person, place and time. Behavior, mood, and affect are within normal limits. 09:44 Constitutional: The patient appears awake, anxious, frail, tremulous 09:44 Respiratory: moderate respiratory distress is noted, Respirations: accessory muscle usage, pursed lip breathing, intercostal retractions, shallow respirations, tachypnea, Breath sounds: wheezing: expiratory that is moderate, is heard diffusely. 09:44 Abdomen/GI: Inspection: abdomen appears normal, Bowel sounds: diminished, in the right lower quadrant and left lower quadrant, Palpation: moderate abdominal tenderness, in the right upper quadrant and left upper quadrant. Vital Signs: 09:06 BP 132 / 85; Pulse 98; Resp 28; Temp 97.4(TE); Pulse Ox 94% on R/A; Weight 53.52 kg; hb Height 5 ft. 2 in. (157.48 cm); Pain 5/10; 09:30 BP 111 / 65; Pulse 92; Resp 18; Pulse Ox 92% on R/A; vg1 11:00 BP 132 / 74; Pulse 92; Resp 18; Pulse Ox 96% on R/A; vg1 11:30 BP 136 / 78; Pulse 85; Resp 20; Pulse Ox 93% on R/A; vg1 09:06 Body Mass Index 21.58 (53.52 kg, 157.48 cm) hb MDM: 09:44 Patient medically screened. snw 11:36 Data reviewed: vital signs, nurses notes. Data interpreted: Pulse oximetry: on room air snw is 96 %. Interpretation: acceptable. Counseling: I had a detailed discussion with the patient and/or guardian regarding: the historical points, exam findings, and any diagnostic results supporting the discharge/admit diagnosis, lab results, radiology results, the need for outpatient follow up, to return to the emergency department if symptoms worsen or persist or if there are any questions or concerns that arise at home. Response to treatment: the patient's symptoms have markedly improved after treatment. Special discussion: Based on the patient's Hx, exam, and Dx evaluation, there is no indication for emergent surgery or inpatient Tx. It is understood by the patient/guardian that if the Sx's persist or worsen they need to return immediately for re-evaluation. Based on the history and exam findings, there is no indication for further emergent testing or inpatient evaluation. I discussed with the patient/guardian the need to see the primary care provider for further evaluation of the symptoms. 03/02 09:04 Order name: Basic Metabolic Panel; Complete Time: 10:49 snw 03/02 09:04 Order name: CBC with Diff; Complete Time: 10:21 snw 03/02 09:04 Order name: LFT's; Complete Time: 10:49 snw 03/02 09:04 Order name: Magnesium; Complete Time: 10:49 snw 03/02 09:04 Order name: NT PRO-BNP; Complete Time: 10:49 snw 03/02 09:04 Order name: PT-INR; Complete Time: 10:26 snw 03/02 09:04 Order name: Troponin (emerg Dept Use Only); Complete Time: 10:49 snw 03/02 09:04 Order name: XRAY Chest (1 view); Complete Time: 09:44 snw 03/02 09:04 Order name: Lipase; Complete Time: 10:49 snw 03/02 09:04 Order name: Procalcitonin; Complete Time: 11:06 snw 03/02 09:19 Order name: CT Abd/Pelvis - IV Contrast Only; Complete Time: 11:23 snw 03/02 09:20 Order name: COVID-19 snw 03/02 09:04 Order name: EKG; Complete Time: 09:05 snw 03/02 09:04 Order name: Cardiac monitoring; Complete Time: 10:37 snw 03/02 09:04 Order name: EKG - Nurse/Tech; Complete Time: 10:37 snw 03/02 09:04 Order name: IV Saline Lock; Complete Time: 10:30 snw 03/02 09:04 Order name: Labs collected and sent; Complete Time: 10:30 snw 03/02 09:04 Order name: O2 Per Protocol; Complete Time: 10:37 snw 03/02 09:04 Order name: O2 Sat Monitoring; Complete Time: 10:37 snw EC:40 Rate is 85 beats/min. Rhythm is regular. QRS [place] is Normal. [place] interval is normal. QRS snw interval is normal. Q waves are Present in leads II, III, aVF. T waves are Normal. No ST changes noted. Clinical impression: NSR w/ Non-specific ST/T Changes. Administered Medications: 10:05 Drug: NS 0.9% 500 ml Route: IV; Rate: bolus; Site: left antecubital; vg1 11:17 Follow up: Response: No adverse reaction vg1 10:05 Drug: Phenergan 6.25 mg Route: IVP; Site: left antecubital; vg1 11:16 Follow up: Response: No adverse reaction; Nausea is decreased vg1 10:05 Drug: NS 0.9% 1000 ml Route: IV; Rate: 125 ml/hr; Site: left antecubital; vg1 10:05 Drug: fentaNYL (PF) 25 mcg {Note: rass 1.} Route: IVP; Site: left antecubital; vg1 11:16 Follow up: Response: No adverse reaction vg1 11:16 Follow up: Response: RASS: Alert and Calm (0) vg1 Disposition: 03/03 06:22 Co-signature as Attending Physician, Gilberto Alexander MD I agree with the assessment and kdr plan of care. Disposition: 03/02/20 11:31 Discharged to Home. Impression: Generalized abdominal pain, Nausea and vomiting, Volume depletion, unspecified. - Condition is Stable. - Discharge Instructions: Food Choices to Help Relieve Diarrhea, Adult, Dehydration, Elderly, Clear Liquid Diet, Adult, Rehydration, Elderly, [place] Diet. - Prescriptions for Bentyl 20 mg Oral Tablet - take 1 tablet by ORAL route every 6 hours As needed; 20 tablet. Phenergan 25 mg Rectal Suppository - insert 1 suppository by RECTAL route every 6 hours As needed; 12 suppository. promethazine 25 mg Oral Tablet - take 1 tablet by ORAL route every 6 hours As needed; 20 tablet. - Medication Reconciliation Form, Thank You Letter, Antibiotic Education, Prescription Opioid Use form. - Follow up: Emergency Department; When: As needed; Reason: Worsening of condition. Follow up: Private Physician; When: 1 - 2 days; Reason: Recheck today's complaints, Continuance of care, Re-evaluation by your physician. Signatures: Dispatcher [employer] EDMS Gilberto Alexander MD MD kdr Waters, Shelly, FNP-Mimi SENIOR TAX SPECIALIST-Malia Lazcano, FER RN Imelda Mitchell RN RN vg1 Corrections: (The following items were deleted from the chart) 03/02 12:03 11:31 03/02/2020 11:31 Discharged to Home. Impression: Generalized abdominal pain; vg1 Nausea and vomiting; Volume depletion, unspecified. Condition is Stable. Forms are Medication Reconciliation Form, Thank You Letter, Antibiotic Education, Prescription Opioid Use. Follow up: Emergency Department; When: As needed; Reason: Worsening of condition. Follow up: Private Physician; When: 1 - 2 days; Reason: Recheck today's complaints, Continuance of care, Re-evaluation by your physician. snw
[2020-03-02 12:08] VITALS: TEMP 97.4
[2020-03-02 12:12] VITALS: BP 132/74; O2SAT 96
--- NOTE | 2020-03-03 11:31 | EKG ---
Test Date: 2020-03-02 Test Time: 10:37:36 Soaker Hides: LING MEASUREMENT RESULTS: Intervals: Rate: 85 ME: 134 QRSD: 74 QT: 374 QTc: 445 Wilson: P: 77 ME: 134 QRS: 86 T: 81 INTERPRETIVE STATEMENTS: Normal sinus rhythm Right atrial enlargement Borderline ECG Compared to ECG 01/08/2020 07:04:49 Atrial abnormality now present Electronically Signed On 03-03-20 11:27:22 CDT by José Luis Hinkle
== END 2020-03-02 12:03 | disposition home or self-care (01) ==
LOC: ER 08:56
DX: E86.9 Volume depletion, unspecified (principal); Z20.828 Contact with and (suspected) exposure to other viral communicable diseases; R11.2 Nausea with vomiting, unspecified; J44.9 Chronic obstructive pulmonary disease, unspecified; Z88.5 Allergy status to narcotic agent
CPT/HCPCS: 36415; 71045; 74177; 80048; 80076; 83690; 83735; 83880; 84145; 84484; 85025; 85610; 93005; 96374; 96375; 99285; J2550; J3010; J7030; Q9967; U0002

== ENCOUNTER 2020-03-02 21:59 | Inpatient (IN) | payer OTHER ==
--- OUTSIDE RECORDS SUMMARY | 2020-03-02 22:05 | XMS REPORT | Summary of Care ---
:1950 Author Organization [facility] [place] Address [address] [place] [address]- phone Encounter HQ Heaven_radhika(RADHA) [id number] Date(s): 02/27/20 - 02/27/20 [facility] [address] [place], [place] [address]- [phone] Discharge Disposition: Home or Self Care Attending [...] 08, 2018 16:39:11 CDT with order ID: [id number] entered by Donald Valentine. Allergies, Adverse Reactions, Alerts Substance Reaction Severity Status codeine sulfate Active Medications primidone 50 mg oral tablet 50 mg = 1 tab, PO, BID, # 60 tab, 3 Refill(s), Pharmacy: [id number], 154.94, cm, 10/15/19 9:33:00 CDT, Height, 60, kg, 10/15/19 9:33:00 CDT, Weight Start Date: 02/27/20 Stop Date: 06/26/20 Status: Ordered Results No data available for this section Immunizations Given and Recorded Vaccine Date Status Refusal Reason Hx influenza vaccine-unspecified1 05/17/18 Given zoster vaccine, inactivated2 05/17/18 Given 1Admin Note: REC'D [id number] Note: REC'D AT AGE 67 PER PT [...]
--- OUTSIDE RECORDS SUMMARY | 2020-03-02 22:05 | XMS REPORT | Summary of Care ---
:1950 Author Organization [facility] [place] Address [address] [place] [address]- phone Encounter HQ Heaven_radhika(FIN) [id number] Date(s): 02/26/20 - 02/26/20 [facility] [address] [place], [place] [address]- [phone] Attending Physician: Donald Valentine MD Referring Physician: [...] 08, 2018 16:39:11 CDT with order ID: [id number] entered by Donald Valentine. Allergies, Adverse Reactions, Alerts Substance Reaction Severity Status codeine sulfate Active Medications No data available for this section Results No data available for this section Immunizations Given and Recorded Vaccine Date Status Refusal Reason Hx influenza vaccine-unspecified1 05/17/18 Given zoster vaccine, inactivated2 05/17/18 Given 1Admin Note: REC'D [id number] Note: REC'D AT AGE 67 PER PT [...]
--- OUTSIDE RECORDS SUMMARY | 2020-03-02 22:05 | XMS REPORT | Continuity of Care Document ---
:1950 Author Organization Phase III Development Care Team Providers Name Role Phone Phase III Development Unavailable Un available Problems Problem Status Onset [...] 08, 2018 16:39:11 CDT with order ID: [id number] entered by Venus Valentine. Diarrhea (finding) Resolved [...] Essential tremor 12/17/2018 [facility] manager intermediate 12/17/2018 Ortho (current) use of and Spine aspirin Medications Medication Details Route Status Patient Ordering Order Source Instructions Provider Date primidone 50 mg 50 mg = 1 tab, Active ischer oral tablet PO, BID, # 60 2019 Neuro tab, 3 Refill(s), Pharmacy: [facility], 154.94, cm, 10/15/19 9:33:00 CDT, Height, 60, kg, 10/15/19 9:33:00 CDT, Weight gabapentin 600 MG = 1 tab, PO, Active ischer Oral Tablet Daily, # 30 tab, 2019 [place] 1 Refill(s), Pharmacy: [facility], 154.94, cm, 10/15/19 9:33:00 CDT, Height, 60, kg, 10/15/19 9:33:00 CDT, Weight primidone 50 mg 50 mg = 1 tab, Active ischer oral tablet PO, BID, # 60 2020 Neuro tab, 3 Refill(s), Pharmacy: [facility], 154.94, cm, 10/15/19 9:33:00 CDT, Height, 60, kg, 10/15/19 9:33:00 CDT, Weight gabapentin 600 MG = 1 tab, PO, BID, Active 3/ [facility] Oral Tablet # 60 tab, 1 2020 Neuro Refill(s), Pharmacy: [facility] primidone 50 mg 50 mg = 1 tab, Active ischer oral tablet PO, Bedtime, # 30 2020 Ne uro tab, 3 Refill(s), Pharmacy: [facility] lisinopril 2.5 mg 0 Refill(s) Active graciela oral tablet 2020 Neuro gabapentin 600 MG = 1 tab, PO, TID, No Longer / [facility] Oral Tablet # 90 tab, 1 Active 2020 Neuro Refill(s), Pharmacy: [facility] gabapentin 600 MG 600 mg = 1 tab, Active 06/11/ [facility] Oral Tablet PO, TID, # 90 2020 Neuro tab, 2 Refill(s), Pharmacy: [facility] gabapentin 600 MG 600 mg = 1 tab, Active 03/26/ [facility] Oral Tablet PO, TID, # 90 2019 Neuro tab, 2 Refill(s), Pharmacy: [facility] gabapentin 600 MG 600 mg = 1 tab, Inactive 03/26 / [facility] Oral Tablet PO, TID, X 30 2019 Neuro day, # 90 tab, 3 Refill(s), Pharmacy: [facility]/pharmacy #[id number] Alendronate Notes: No Longer Ortho Non-Formulary Active 2018 and Drug Reserved Spine 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 ONLY Give 30 min before [...] 2 puff, Route: INHALATION, RBID, 05/27/18 20:00:00 PLASTERER ROUGH, Duration: 30 day, Stop date: 06/26/18 8:00:00 PLASTERER ROUGH 200 ACTUAT Notes: Albuterol No Longer Ortho [...] MISC, Spine Route: PO, QPM, 05/27/18 18:00:00 PLASTERER ROUGH, Duration: 30 day, Stop date: 06/25/18 18:00:00 PLASTERER ROUGH Simvastatin Notes: (Same as: No Longer H [...] 2019 and Stop date: Spine 05/27/18 12:30:00 PLASTERER ROUGH neostigmine Route: IV, Drug Inactive Ortho (ANES) form: INJ, ONCE, 2019 and Stop date: Spine 05/27/18 12:30:00 PLASTERER ROUGH tramadol Notes: Not to No Longer Orth [...] Total Volume: 1,000, Start date: 05/27/18 12:25:00 PLASTERER ROUGH, Duration: 30 day, Stop date: 06/26/18 12:24:00 PLASTERER ROUGH, 1.58, m2 ondansetron Route: IV, Drug Inactive Ortho (ANES) form: INJ, ONCE, 2019 and Stop date: Spine 05/27/18 12:17:00 PLASTERER ROUGH phenylephrine Route: IV, Drug Inactive Ortho (ANES) form: INJ, ONCE, 2019 and Stop date: Spine 05/27/18 11:07:00 PLASTERER ROUGH 72 HR Scopolamine 1 patch, Route: Inactive 05/27 Ortho 0.0139 MG/HR TOP, Drug Form: 2019 and Transdermal Patch ERFILM, Dosing Spine Weight 56.091, kg, PRE OP, Start date: 05/27/18 11:00:00 PLASTERER ROUGH, Duration: 30 day, Stop date: 06/26/18 10:59:00 PLASTERER ROUGH dexamethasone Route: IV, Drug Inactive H Ortho (ANES) form: INJ, ONCE, 2018 and Stop date: Spine 05/27/18 10:57:00 PLASTERER ROUGH rocuronium (ANES) Route: IV, Drug Inactive 05/27 [facility] Ortho form: INJ, ONCE, 2018 and Stop date: Spine 05/27/18 10:52:00 PLASTERER ROUGH fentaNYL (ANES) Route: IV, Drug Inactive 05/27[facility] Ortho form: INJ, ONCE, 2018 and Stop date: Spine 05/27/18 10:52:00 PLASTERER ROUGH propofol (ANES) Route: IV, Drug Inactive 05/27[facility] Ortho form: INJ, ONCE, 2018 and Stop date: Spine 05/27/18 10:52:00 PLASTERER ROUGH lidocaine (ANES) Route: IV, Drug Inactive 05/27[facility] Ortho form: INJ, ONCE, 2018 and Stop date: Spine 05/27/18 10:52:00 PLASTERER ROUGH midazolam (ANES) Route: IV, Drug Inactive 05/27[facility] Ortho form: SOLN, ONCE, 2018 and Stop date: Spine 05/27/18 10:52:00 PLASTERER ROUGH ceFAZolin (ANES) Route: IV, Drug Inactive 05/27[facility] Ortho form: INJ, ONCE, 2018 and Stop date: Spine 05/27/18 10:52:00 PLASTERER ROUGH Ondansetron Notes: (Same as: Inactive Ortho Zofran) 2019 and MEDICATION WASTE Spine Product Size: 4 mg Product Wasted: ___ mg Hydromorphone Notes: Same as Inactive 05/27[facility] Ortho Dilaudid 2019 and Spine Naloxone Notes: Same as Inactive 05/27[facility] Orth o Narcan 2019 and Spine Flumazenil Notes: (Same as: Inactive Ortho Romazicon) 2019 and Spine Morphine Notes: (Same Inactive 05/27[facility] Ortho as:MORPhine 2019 and Sulfate) Spine Lactated Ringers Route: IV, Total Inactive 05/27 Ortho Injection IV Volume: 1,000, 2019 and (ANES) 1000 mL Start date: Spine 05/27/18 10:02:00 PLASTERER ROUGH, Stop date: 05/27/18 11:02:00 PLASTERER ROUGH Glucagon 1 mg, Route: IM, No Longer O rtho Drug form: Active 2019 and PDR/INJ, PRN, Spine Dosing Weight 56.091, kg, PRN Blood Glucose Results, Start date: 05/27/18 8:05:00 PLASTERER ROUGH, Duration: 30 day, Stop date: 06/26/18 8:04:00 PLASTERER ROUGH Dextrose 50% 25 gm, 50 mL, No Longer Ortho Syringe Route: IVP, Drug Active 2019 and Form: INJ, Dosing Spine Weight 56.091, kg, PRN, PRN Blood Glucose Results, Start date: 05/27/18 8:05:00 PLASTERER ROUGH, Duration: 30 day, Stop date: 06/26/18 8:04:00 PLASTERER ROUGH Insulin Lispro Notes: (Same as: No Longer [...] Weight 56.091, kg, Start date: 05/27/18 7:00:00 PLASTERER ROUGH, Duration: 1 doses or times, Stop date: 05/27/18 18:00:00 PLASTERER ROUGH, ABX Indication: Surgical Prophylaxis gabapentin 300 mg, Route: Inactive Or tho PO, ONCALL, 2019 and Dosing Weight Spine 56.091, kg, Start date: 05/27/18 7:00:00 PLASTERER ROUGH, Duration: 30 day, Stop date: 06/26/18 6:59:00 PLASTERER ROUGH celecoxib Notes: NSAID. Inactive Orth o Please [...] 90 2019 Neuro cap, 4 Refill(s), Pharmacy: [facility]/pharmacy #[id number] Allergies, Adverse Reactions, Alerts Substance Category Reaction [...] EXAM: XR PELVIS 1 VIEW 05/27/2018 [facility] DATE: 05/27/2018 12:25 PLASTERER ROUGH INDICATION: - to be done in PACU [...] Comments Source Systolic (mm Hg) 103 10/15/2019 [facility] [place] Diastolic (mm Hg) 58 10/15/2019 [facility] Ne uro Heart Rate 99 10/15/2019 [facility] Neuro Respitory Rate 16 10/15/2019 [facility] Neuro Height 154.94 cm 10/15/2019 [facility] Neuro Weight 60 10/15/2019 [facility] Neuro BMI Calculated 24.99 10/15/2019 [facility] Neuro Systolic (mm Hg) 118 03/26/2019 [facility] [place] Diastolic (mm Hg) 73 03/26/2019 [facility] Ne uro Heart Rate 94 03/26/2019 [facility] Neuro Height 157.48 cm 03/26/2019 [facility] Weight 61.364 03/26/2019 [facility] Neuro BMI Calculated 24.74 03/26/2019 [facility] Neuro Systolic (mm Hg) 119 05/30/2018 MH [...] Ortho and Spine Height 154.94 cm 05/15/2018 [facility] Neuro BMI Calculated 23.86 05/15/2018 [facility] Neuro Weight 57.273 05/15/2018 [facility] Neuro Systolic (mm Hg) 115 05/15/2018 [facility] [place] Diastolic (mm Hg) 95 05/15/2018 [facility] Ne uro Heart Rate 95 05/15/2018 [facility] Neuro Respitory Rate 16 05/15/2018 [facility] Neuro Encounters Location Location Encounter Encounter Reason Attending ADM DC Stat us Source Details Type Number For Provider Date Date Visit Outpatient [id number] VENUS 09/13 Active [facility] [place] Outpatient [id number] VENUS 11/01 Active [facility] [place] Outpatient [id number] VENUS 01/08 [facility] [place] Outpatient [id number] VENUS 02/19 Active [facility] [place] [facility] Ambulatory [id number] Venus 02/19 02/19 [facility] [id number] [facility]ENUS 03/21 [facility] [place] [facility] [id number] Venus 03/21 03/21 [facility] [place] [facility] [id number] VENUS 05/15 Active [facility] M[facility] Outpatient [id number] Venus 05/15 05/16 [facility] [id number] [place] 05/27 05/30 [facility] [id number] Venus 08/21 Active [facility] [place] Outpatient [id number] Venus 02/19 Active [facility] [place] MNA Ambulatory [id number] Venus 02/19 02/19 [facility] [place] [facility] [id number] Venus 03/26 Active [facility] Outpatient [id number] Venus 03/26 03/27 [facility] [place] [facility] [id number] Venus 05/28 [facility] [place] [facility] [id number] Venus 05/28 05/28 [facility] [place] [facility] [id number] Venus 07/21 [facility] [id number] Venus 07/21 07/21 [facility] [place] [facility] [id number] Venus 10/14 [facility] [id number] Venus 10/14 10/15 [facility] /2019 [facility] [place] [facility] [id number] Venus 11/25 [facility] Out[facility] [id number] Venus 11/25 [facility] [place] [facility] [id number] Venus 11/25 11/25 [facility] /2019 [facility] [place] [facility] Outpatient [id number] Venus 11/25 11/26 [facility] /2019 [facility] [place] [facility] [id number] Venus 02/25 [facility] [place] [facility] Ambulatory [id number] Venus 02/25 02/25 [facility] Neurology Pre-Reg [facility] [place] Out[facility] [id number] Venus 02/26 [facility] MNA Outpatient [id number] Venus 02/26 02/27 [facility] [place] Outpatient [id number] Mitchell 08/27 [facility] [place] Procedures Procedure Code Date Perfomer Comments Source Tonsillectomy 514810088 05/14/1966 [facility] Appendix operation [id number] [facility] Gallbladder [id number] [id number]IF - Open [id number] [facility] reduction and Neuro,[facility] internal fixation Ortho a nd of fracture Spine Tubal [id number] [facility]inal [id number] [facility] Assessment and [...] rhythm with premature atrial con tractions 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
--- OUTSIDE RECORDS SUMMARY | 2020-03-02 22:07 | XMS REPORT ---
[...] Status Dosage System Date Date BusPIRone HCl [facility] 49451643308 15 MG Active TAKE 1 TABLET BY MOUTH TWICE DAILY FOR 30 DAYS Primidone [facility] 23157034725 50 MG Orally Active 1 tab let Once a day Alendronate ND 59931480154 70 MG Orally Active 1 t ablet Sodium Once a week Bevespi [facility] 49185976922 9-4.8 MCG/ACT Active 2 puff s Aerosphere Inhalation Twice a day BusPIRone HCl [facility] 94021573921 15 MG Orally Active 1 tablet Twice a day Zofran [facility] 64301053381 4 MG Orally Active 1 tablet every 8 hrs as needed NAUSEA Alendronate [facility] 25230047667 70 MG Active TAKE 1 Sodium TABLET BY MOUTH ONCE A WEEK Metformin HCl [facility] 49278342174 500 MG Orally Active 1 tablet Twice a day with a meal Albuterol [facility] 30647310457 (2.5 MG/3ML) Active 3 ml as Sulfate 0.083% needed Inhalation Three times a day Proventil HFA [facility] 80479143165 108 (90 Base) Active 2 puffs as MCG/ACT needed Inhalation every 6 hrs Simvastatin ND 66316075560 20 MG Orally Active 1 t ablet Once a day in the evening Remeron [facility] 39798580100 30 MG Orally Active 1 table t Once a day at bedtime Omeprazole ND 76872925432 20 MG Orally Active 1 ca psule Once a day Ondansetron HCl [facility] 32119111524 4 MG Active TAKE 1 TABLET BY MOUTH EVERY 8 HOURS NEEDED FOR NAUSEA FOR 30 DAYS Ventolin HFA [facility] 78907279145 108 (90 Base) Active 2 puffs MCG/ACT Inhalation Twice a day Lisinopril ND 41444614226 2.5 MG Orally Active 1 t ablet Once a day Gabapentin ND 13176770076 600 MG Orally Active 1 c apsule Once a day Results No Known Results Summary Purpose eClinicalWorks Submission
--- OUTSIDE RECORDS SUMMARY | 2020-03-02 22:07 | XMS REPORT | Continuity of Care Document ---
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:20:25 l atic Ronda osteoarthr Unilateral itis, post-traum right hip atic [...] 2018-12-17 M emoria phageal 14:20:25 l reflux Ronda disease Gastro-eso without phageal esophagiti reflux s disease without esophagiti s 12/17/2018 [facility] Essential Problem 2018-12-17 Ia moria tremor 14:20:25 l Kristopher Essential tremor 12/17/2018 [facility] intermediate card tender Problem 2018-12-17 Me moria (current) 14:20:25 l use of Long Ronda aspirin term (current) use of aspirin 12/17/2018 [facility] Appendicit Problem Resolve 2020-03-01 Memoria is d 00:18:20 l (disorder) Nabeel n Appendicit is (disorder) Resolved Problem 03/01/2020 [facility] Concussion Problem Resolve 2020-03-01 Memoria injury of d 00:18:20 l body Kristopher structure Concussion (disorder) injury of body structure (disorder) Resolved Problem 03/01/2020 [facility] Diarrhea Problem Resolve 2020-03-01 Me moria (finding) d 00:18:20 l Diarrhea Nabeel n (finding) Resolved Problem 03/01/2020 [facility] Gallbladde Problem Resolve 2020-03-01 Memoria r pain d 00:18:20 l (finding) Kristopher Gallbladde r pain (finding) Resolved Problem 03/01/2020 [facility] Rupture of Problem [...] e lung disease (disorder) Active Problem 03/01/2020 [facility] Depressive Problem Active 2020-03-01 M emoria disorder 00:18:20 l (disorder) Nabeel n Depressive disorder (disorder) Active Problem 03/01/2020 [facility] Diabetes Problem Active 2020-03-01 Mem oria mellitus 00:18:20 l type 2 Diabetes Nabeel n (disorder) mellitus type 2 (disorder) Active Problem 03/01/2020 Automatic ally added by Discern Expert with order of Add Problem Diabetes Type II on January 08, 2018 16:39:11 CDT with order ID: [id number] 5.0 entered by Donald Valentine. [facility] Essential Problem Active 2020-03-01 Me moria tremor 00:18:20 l (disorder) Nabeel n Essential tremor (disorder) Active Problem 03/01/2020 [facility] Gastric Problem Active 2020-03-01 Cornelius marivel ulcer 00:18:20 l (disorder) Gastric Her jensen ulcer (disorder) Active Problem 03/01/2020 [facility] Gastroesop Problem Active 2020-03-01 M emoria hageal 00:18:20 l reflux Kristopher disease Gastroesop (disorder) hageal reflux disease (disorder) Active Problem 03/01/2020 [facility] Hyperlipid Problem Active 2020-03-01 M emoria emia 00:18:20 l (disorder) Nabeel n Hyperlipid emia (disorder) Active Problem 03/01/2020 [facility] Migraine Problem Active 2020-03-01 Mem oria (disorder) 00:18:20 l Migraine Nabeel n (disorder) Active Problem 03/01/2020 [facility] Neck pain Problem Active 2020-03-01 Me moria (finding) 00:18:20 l Neck Ronda pain (finding) Active Problem 03/01/2020 [facility] [...] n Postmenopa usal osteopenia Active Problem 03/01/2020 [facility] Pulmonary Problem Active 2020-03-01 Me moria emphysema 00:18:20 l (disorder) Nabeel n Pulmonary emphysema (disorder) Active Problem 03/01/2020 [facility] Pain [...] Nabeel n 00 tab, 3 Refill(s), Pharmacy: [facility], 154.94, cm, 10/15/19 9:33:00 CDT, Height, 60, kg, 10/15/19 9:33:00 CDT, Weight gabapentin 2020-0 Yes = 1 tab, Mem oria 600 MG Oral 7-15 PO, Daily, l Tablet 14:46: # 30 tab, Nabeel n 00 1 Refill(s), Pharmacy: [facility], 154.94, cm, 10/15/19 9:33:00 CDT, Height, 60, kg, 10/15/19 9:33:00 CDT, Weight primidone 2020-0 Yes 50 mg = 1 Mem oria 50 mg oral 7-15 tab, PO, l tablet 14:46: BID, # 60 Nabeel n 00 tab, 3 Refill(s), Pharmacy: [facility], 154.94, cm, 10/15/19 9:33:00 CDT, Height, 60, kg, 10/15/19 9:33:00 CDT, Weight gabapentin 2020-0 Yes = 1 tab, Mem oria 600 MG Oral 6-03 PO, BID, # l Tablet 14:48: 60 tab, 1 Nabeel n 00 Refill(s), Pharmacy: [place] [id number] primidone 2020-0 Yes 50 mg = 1 Mem oria 50 mg oral 6-03 tab, PO, l tablet 14:48: Bedtime, # Bianca nn 00 30 tab, 3 Refill(s), Pharmacy: [place] [address] lisinopril 2020-0 Yes 0 Memoria 2.5 mg oral 6-03 Refill(s) l tablet 14:42: Ronda 00 gabapentin 2020-0 No = 1 tab, Mem oria 600 MG Oral 5-18 PO, TID, # l Tablet 20:08: 90 tab, 1 Nabeel n 00 Refill(s), Pharmacy: [place] [address] gabapentin 2020-0 Yes 600 mg = 1 M emoria 600 MG Oral 1-29 tab, PO, l Tablet 19:35: TID, # 90 Nabeel n 00 tab, 2 Refill(s), Pharmacy: [place] [address] gabapentin 2019- Yes 600 mg = 1 M emoria 600 MG Oral 1-13 tab, PO, l Tablet 15:49: TID, # 90 Nabeel n 01 tab, 2 Refill(s), Pharmacy: [facility] gabapentin 2018-05 No 600 mg = 1 M emoria 600 MG Oral 1-13 tab, PO, l Tablet 15:45: TID, X 30 Nabeel n 00 day, # 90 tab, 3 Refill(s), Pharmacy: [id number] Alendronate No Notes: Cornelius marivel 1-20 Non-Formul l 15:00: mary Drug Ronda 00 Reserved for use in Post-Acute termite treater care settings ONLY Give 30 min before [...] DS tablet l MG / 15:00: = Ronda Trimethopri 00 trimethopr m 160 MG im [...] puff, Route: INHALATION , RBID, 05/27/18 20:00:00 [employer], Duration: 30 day, Stop date: 06/26/18 8:00:00 [employer] 200 ACTUAT No Notes: Memor ia Albuterol [...] form: MISC, Route: PO, QPM, 05/27/18 18:00:00 [employer], Duration: 30 day, Stop date: 02/12/19 18:00:00 [employer] Simvastatin No Notes: Cornelius marivel 1-15 (Same [...] 18:30: INJ, ONCE, Stop date: 05/27/18 12:30:00 [employer] neostigmine No Route: IV, Memoria (ANES) 1-14 Drug form: l 18:30: INJ, ONCE, Stop date: 05/27/18 12:30:00 [employer] tramadol No Notes: Not Mem oria hydrochlori [...] Total Volume: 1,000, Start date: 05/27/18 12:25:00 [employer], Duration: 30 day, Stop date: 06/26/18 12:24:00 [employer], 1.58, m2 ondansetron No Route: IV, Memoria (ANES) 05-27 Drug form: l 18:17: INJ, ONCE, Stop date: 05/27/18 12:17:00 [employer] phenylephri No Route: IV, Memoria ne (ANES) 05-27 Drug form: l 17:07: INJ, ONCE, Stop date: 05/27/18 11:07:00 [employer] 72 HR No 1 patch, Memoria Scopolamine 05-27 Route: l 0.0139 17:00: TOP, Drug Nabeel n MG/HR 00 Form: Transdermal ERFILM, Patch Dosing Weight 56.091, kg, PRE OP, Start date: 05/27/18 11:00:00 [employer], Duration: 30 day, Stop date: 06/26/18 10:59:00 [employer] dexamethaso No Route: IV, Memoria ne (ANES) 1- Drug form: l 16:57: INJ, ONCE, Stop date: 05/27/18 10:57:00 [employer] rocuronium 2018-0 No Route: IV, M emoria (ANES) 1-14 Drug form: l 16:52: INJ, ONCE, Stop date: 05/27/18 10:52:00 [employer] fentaNYL 2019-0 No Route: IV, Mem oria (ANES) 1-14 Drug form: l 16:52: INJ, ONCE, Stop date: 05/27/18 10:52:00 [employer] propofol 2018- No Route: IV, Mem oria (ANES) 1- Drug form: l 16:52: INJ, ONCE, Stop date: 05/27/18 10:52:00 [employer] lidocaine 2018- No Route: IV, Me moria (ANES) 1-14 Drug form: l 16:52: INJ, ONCE, Stop date: 05/27/18 10:52:00 [employer] midazolam 2018-0 No Route: IV, Me moria (ANES) -14 Drug form: l 16:52: SOLN, ONCE, Stop date: 05/27/18 10:52:00 [employer] ceFAZolin No Route: IV, Me moria (ANES) -14 Drug form: l 16:52: INJ, ONCE, Stop date: 05/27/18 10:52:00 [employer] Ondansetron 2018- No Notes: Cornelius marivel -14 [...] 1,000, 1000 mL Start date: 05/27/18 10:02:00 [employer], Stop date: 05/27/18 11:02:00 [employer] Glucagon 2019-0 No 1 mg, Memoria 1-14 Route: IM, l 14:05: Drug form: Ronda 00 PDR/INJ, PRN, Dosing Weight 56.091, kg, PRN Blood Glucose Results, Start date: 05/27/18 8:05:00 [employer], Duration: 30 day, Stop date: 06/26/18 8:04:00 [employer] Dextrose 2019-0 No 25 gm, 50 Cornelius marivel 50% Syringe 1-14 mL, Route: l 14:05: IVP, Drug Form: INJ, Dosing Weight 56.091, kg, PRN, PRN Blood Glucose Results, Start date: 05/27/18 8:05:00 [employer], Duration: 30 day, Stop date: 06/26/18 8:04:00 [employer] Insulin 2019-0 No Notes: Memoria Lispro 1-14 [...] Weight 56.091, kg, Start date: 05/27/18 7:00:00 [employer], Duration: 1 doses or times, Stop date: 05/27/18 18:00:00 [employer], ABX Indication : Surgical Prophylaxi s gabapentin 2019-0 No 300 mg, Cornelius marivel 1-14 Route: PO, l 13:00: ONCALL, Ronda 00 Dosing Weight 56.091, kg, Start date: 05/27/18 7:00:00 [employer], Duration: 30 day, Stop date: 06/26/18 6:59:00 [employer] celecoxib No Notes: Memori a 1-14 NSAID. l 13:00: Please Ronda 00 check indication . Not for seizure. [...] ne 1-14 dexamethas l 12:44: one 10 Ronda 00 mg/1 ml VL INJ PF MEDICATION WASTE Product Size: 10 mg Product Wasted: ___ mg ropivacaine No Notes: Corenlius marivel 1-14 NOT FOR l 12:00: IV use Ronda Each mL contains: Ropivacain e 2.46 mg, [...] Bianca nn 00 cap, 4 Refill(s), Pharmacy: [id number] Ondansetron Ondansetron Yes Trell TAKE [address] [facility] HCl HCl [place] TABLET BY [facility] Memoria EVERY 8 l HOURS Outpati NEEDED FOR ent NAUSEA FOR Clinics 30 DAYS Vital Signs Vital Name Observation Time Observation Value Comments Source Systolic (mm Hg) 2019-10-15 14:33:00 Cornelius rial Ronda Diastolic (mm Hg) 2019-10-15 14:33:00 Mem orial Ronda Heart Rate 2019-10-15 14:33:00 [facility] Ronda Respitory Rate 2019-10-15 14:33:00 Memori al Kristopher Height 2019-10-15 14:33:00 154.94 cm [facility] Ronda Weight 2019-10-15 14:33:00 [facility] Kristopher BMI Calculated 2019-10-15 14:33:00 Memori al Kristopher Systolic (mm Hg) 2019-03-26 15:26:00 Cornelius rial Ronda Diastolic (mm Hg) 2019-03-26 15:26:00 Mem orial Kristopher Heart Rate 2019-03-26 15:26:00 [facility] Ronda Height 2019-03-26 15:26:00 157.48 cm [facility] Ronda Weight 2019-03-26 15:26:00 [facility] Ronda BMI Calculated 2019-03-26 15:26:00 Memori al Ronda Systolic (mm Hg) 2018-05-30 17:30:00 Cornelius rial Ronda Diastolic (mm Hg) 2018-05-30 17:30:00 Mem orial Kristopher Respitory Rate 2018-05-30 17:30:00 Memori al Kristopher Heart Rate 2018-05-30 17:30:00 [facility] Ronda Temperature Oral (F) 2018-05-30 17:30:00 97.9 F [facility] Kristopher Respitory Rate 2018-05-30 13:23:00 Memori al Kristopher Temperature Oral (F) 2018-05-30 13:23:00 98.0 F [facility] Ronda Systolic (mm Hg) 2018-05-30 13:23:00 Cornelius rial Ronda Diastolic (mm Hg) 2018-05-30 13:23:00 Mem orial Kristopher Heart Rate 2018-05-30 13:23:00 [facility] Kristopher Respitory Rate 2018-05-30 09:24:00 Memori al Ronda Heart Rate 2018-05-30 09:24:00 [facility] Kristopher Temperature Oral (F) 2018-05-30 09:24:00 97.4 F [facility] Kristopher Systolic (mm Hg) 2018-05-30 09:24:00 Cornelius rial Kristopher Diastolic (mm Hg) 2018-05-30 09:24:00 Mem orial Ronda BMI Calculated 2018-05-27 12:36:00 Memori al Kristopher Height 2018-05-27 12:36:00 157.48 cm [facility] Ronda Weight 2018-05-27 12:36:00 [facility] Ronda Height 2018-05-15 16:53:00 154.94 cm [facility] Kristopher BMI Calculated 2018-05-15 16:53:00 Memori al Ronda Weight 2018-05-15 16:53:00 [facility] Kristopher Systolic (mm Hg) 2018-05-15 16:53:00 Cornelius rial Ronda Diastolic (mm Hg) 2018-05-15 16:53:00 Mem orial Ronda Heart Rate 2018-05-15 16:53:00 [facility] Ronda Respitory Rate 2018-05-15 16:53:00 Memori al Kristopher Procedures Procedure Date / Time Performed Performing Clinician [facility] e Tonsillectomy 1964-05-14 00:00:00 [facility] jensen Appendix operation [facility] Herm marybeth Gallbladder operation [facility] ermann Lung operation [facility] ORIF - Open reduction and Memori al Kristopher internal fixation of fracture Tubal ligation [facility] Vaginal hysterectomy [facility] Encounters Start End Encounter Admission Attending Care Care Encounter Source Date/Time Date/Time Type Type Clinicians Facility Department ID 2020-02-27 2020-02-27 [id number] 09:45:00 23:59:59 Donald 15 Robby 2020-02-26 2020-02-26 [facility] [id number] 09:30:00 09:30:00 Donald 14 Robby 2020-02-26 2020-02-26 Outpatient [facility] [id number] [facility] 2020-02-26 2020-02-26 Outpatient [facility] [id number] [facility] 2020-01-28 2020-01-28 [facility] [id number] [facility] 15:10:00 15:10:00 t TLM Com [facility] Medicine Outpati ent Clinics 2019-12-10 2019-12-10 [facility] [id number] [facility] 10:30:00 10:30:00 t TLM Com [facility] Medicine Medicine Outpati ent Clinics 2019-11-26 2019-11-26 [facility] [id number] 09:30:00 23:59:59 Donald 13 Robby 2019-11-26 2019-11-26 [facility] [id number] 09:30:00 09:30:00 Donald 12 Robby 2019-11-03 2019-11-03 [facility] [id number] [facility] 08:59:00 08:59:00 t TLM Com [facility] Medicine Medicine Outpati ent Clinics 2019-10-20 2019-10-20 [facility] [id number] [facility] 11:46:00 11:46:00 t TLM Com [facility] Medicine Medicine Outpati ent Clinics 2019-10-17 2019-10-17 [facility] [id number] [facility] 15:27:00 15:27:00 t [employer] [facility] Medicine Outpati ent Clinics 2019-10-15 2019-10-15 Outpatient RIZWANA Valentine [facility] [id number] 09:30:00 23:59:59 Donald 11 Robby 2019-10-14 2019-10-14 [facility] [id number] [facility] 11:54:00 11:54:00 t [employer] [place] [facility] Medicine Outpati ent Clinics 2019-09-10 2019-09-10 [facility] [id number] [facility] 10:15:00 10:15:00 t TLM Com [facility] Medicine Outpati ent Clinics 2019-07-22 2019-07-22 [facility] [id number] 11:15:00 11:15:00 Donald 10 Robby 2019-06-16 2019-06-16 [facility] [id number] [facility] 09:51:00 09:51:00 t TLM Com [facility] Medicine Outpati ent Clinics 2019-06-11 2019-06-11 [facility] [id number] [facility] 09:30:00 09:30:00 t [employer] [place] [facility] Medicine Outpati ent Clinics 2019-05-28 2019-05-28 [id number] 09:45:00 09:45:00 Donald 09 Robby 2019-03-26 2019-03-26 [facility] [id number] 10:00:00 23:59:59 Donald 08 Robby 2019-03-12 2019-03-12 [facility] [id number] [facility] 10:15:00 10:15:00 t [employer] [place] [facility] Medicine Outpati ent Clinics 2019-02-19 2019-02-19 Outpatient RIZWANA Valentine MISCH [id number] 10:15:00 10:15:00 Donald 07 Robby 2019-01-06 2019-01-06 [facility] [id number] [facility] 09:23:00 09:23:[address] Luke [address] - Drive [facility] Medicine Outpati ent Clinics 2019-01-03 2019-01-03 [facility] [id number] 10:18:00 10:18:[address] Luke s - Drive [facility] Medicine Outpati ent Clinics 2018-12-09 2018-12-09 [facility] [id number] [facility] 09:30:00 09:30:[address] Luke s - Drive [facility] Medicine Outpati ent Clinics 2018-09-04 2018-09-04 [facility] [id number] 15:00:00 15:00:[address] Luke s - Drive [facility] Medicine Outpati ent Clinics 2018-08-23 2018-08-23 [facility] [id number] [address] 13:36:00 13:36:[address] Luke s - Drive [facility] Medicine Outpati ent Clinics 2018-08-05 2018-08-05 [facility] [id number] 11:27:00 11:27:[address] Luke s - Drive [facility] Medicine Outpati ent Clinics 2018-05-27 2018-05-30 Outpatient Liliam ANDRIY [facility] [id number] 06:13:00 12:57:00 Alverto Cardona 2018-05-15 2018-05-15 Outpatient DANIELA ValentineSCHER MISCHER [id number] 11:00:00 23:59:59 Donald 05 Robby 2018-03-21 2018-03-21 Outpatient DANIELA ValentineSCHMINISTERIO SCHERERMISCHER [id number] 09:45:00 09:45:00 Donald 04 Robby 2018-02-19 2018-02-19 Outpatient DANIELA ValentineSCHER MHMISCHER [id number] 11:00:00 11:00:00 Donald 03 Robby 2017-12-11 2017-12-11 [facility] [id number] 11:15:00 11:15:[address] Luke s - Drive [facility] 2017-10-15 2017-10-15 [facility] [id number] 14:30:00 14:30:[address] Luke s - Drive [facility] 2017-10-01 2017-10-01 [facility] [id number] 14:52:00 14:52:00 t Specialty/U Debbie kes - Specialty rology Memori a /Urology Clinic l Clinic Outpati ent Clinics 2017-10-01 2017-10-01 [facility] [id number] 10:12:00 10:12:00 t Specialty/U Debbie kes - Specialty rology Memori a /Urology Clinic l [facility] 2017-09-18 2017-09-18 [facility] [id number] 14:00:00 14:00:00 t Specialty/U Debbie kes - Specialty rology Memori a /Urology Clinic l Clinic Outpati ent Clinics 2017-08-13 2017-08-13 [facility] [id number] 14:15:00 14:15:00 t [employer] [facility] Results Test Description Test Time Test Comments Results Result Sour e Comments HEMATOLOGY 2018-05-29 10.8 [facility] 10:52:00 Kristopher HEMATOLOGY 2018-05-29 32.3 [facility] 10:52:00 Ronda ELECTROLYTES 2018-05-28 12.0 [facility] 10:22:00 Kristopher ELECTROLYTES 2018-05-28 69 [facility] 10:22:00 Kristopher ELECTROLYTES 2018-05-28 142 [facility] 10:22:00 Ronda ELECTROLYTES 2018-05-28 4.0 [facility] 10:22:00 Kristopher ELECTROLYTES 2018-05-28 0.88 [facility] 10:22:00 Ronda ELECTROLYTES 2018-05-28 129 [facility] 10:22:00 Kristopher ELECTROLYTES 2018-05-28 17 [facility] 10:22:00 Ronda ELECTROLYTES 2018-05-28 9.0 [facility] 10:22:00 Kristopher ELECTROLYTES 2018-05-28 106 [facility] 10:22:00 Kristopher ELECTROLYTES 2018-05-28 28 [facility] 10:22:00 Ronda HEMATOLOGY 2018-05-28 11.2 [facility] 10:22:00 Ronda HEMATOLOGY 2018-05-28 33.3 Memorial 10:22:00 Ronda URINE AND STOOL 2018-05-21 Negative [facility] 15:45:00 *NA*(05/21/18 Ronda 9:45 AM) URINE AND STOOL 2018-05-21 Negative [facility] 15:45:00 (05/21/18 9:45 Kristopher AM) URINE AND STOOL 2018-05-21 Negative [facility] 15:45:00 (05/21/18 9:45 Ronda AM) URINE AND STOOL 2018-05-21 Negative [facility] 15:45:00 (05/21/18 9:45 Ronda AM) URINE AND STOOL 2018-05-21 Negative [facility] 15:45:00 (05/21/18 9:45 Ronda AM) URINE AND STOOL 2018-05-21 0.2 [facility] 15:45:00 Kristopher URINE AND STOOL 2018-05-21 15:45:00 Test Item Value Reference Range Interpretation Comme nts UA pH (test code = UA pH) 5.5 1 5.0-8.0 [facility] [id number] 15:45:00 Test Item Value Reference Range Interpretation Comments UA Spec Grav (test code = UA Spec 1.025 1 Grav) [facility] [id number] 15:45:00Negative *NA*(05/21/18 9:45 AM) [facility] [id number] 15:45:00Clear (05/21/18 9:45 AM)[facility] [id number] 15:45:00Yellow *NA*(05/21/18 9:45 AM)[facility] [id number] 15:45:00Positive *ABN*(05/21/18 9:45 AM)[facility] HermannBLOOD BANK [id number] 15:04:00Negative (05/21/18 9:04 AM)[facility]annCHEM [id number] 15:04:0076[facility] HermannCHEM [id number] 15:04:003.6[facility]annCHEM [id number] 15:04:66686Bbnjszov HermannCHEM [id number] 15:04:0017[facility]annCHEM [id number] 15:04:000.81 [facility]annCHE[facility] [id number] 15:04:003.4[facility]annCHEM PANEL 2018-05-21 15:04:0015[facility]annCHEM [id number] 15:04:0016[facility]annCHEM [id number] 15:04:97662Pbhcawev HermannCHEM [id number] 15:04:003.7[facility]annCHEM [id number] 15:04:15423Avtmyjdr HermannCHEM [id number] 15:04:0027[facility] HermannCHEM [id number] 15:04:00 Test Item Value Reference Range Interpretation Comments A/G Ratio (test code = A/G Ratio) 0.9 1 0.7-1.6 [facility] [id number] 15:04:0065[facility]annCHEM PANEL 2018-05-21 15:04:000.4[facility]annCHEM [id number] 15:04:00 Test Item Value Reference Range Interpretation Comments B/C Ratio (test code = B/C Ratio) 21 1 6-25 [facility]annCHE[facility] [id number] 15:04:0014.7[facility]annCHEM PANEL 2018-05-21 15:04:008.8[facility] HermannCHEM [id number] 15:04:007.0[facility] [id number] 15:04:000.6[facility] [id number] 15:04:000.1[facility] [id number] 15:04:001.8[facility] Kristopher [id number] 15:04:005.4[facility] LpnlsqnSDOLOYNMBQ2965-25-08 15:04:00 69.6[facility]orial [id number] 15:04:0023.9[facility] HermannHEMATOLOGY 2018-05-21 15:04:001.4[facility] TcvmpihFTVPJIRFSU2998-77-21 15:04:000.3[facility] QsatltwJAEHTSAHMK3410-17-52 15:04:004.5[facility] [id number] 15:04:0014.6[facility] QpfplhhCBPSXZKRFP8149-02-23 15:04:0043.4[facility] Kristopher [id number] 15:04:0089.0[facility] GmsreoqGISHPRJGMX1963-05-85 15:04:00 7.7Memorial FxfbzeiPFMXEPTVIH0921-26-93 15:04:004.87[facility] HermannHEMATOLOGY 2018-05-21 15:04:76678Xamkgwdh GjvdcynFSFMGFUYFW7757-50-30 15:04:009.4[facility] NhlqejxZGXZYLELYG3784-48-13 15:04:00 Test Item Value Reference Range Interpretation Comments MCH (test code = MCH) 30.0 pg 27.0-31.0 [facility] [id number] 15:04:0033.7[facility] HermannHEMATOLOGY 2018-05-21 15:04:0013.3[facility] [id number] 15:04:00 Test Item Value Reference Range Interpretation Comments aPTT (test code = aPTT) 37.2 s 22.9-35.8 [facility] [id number] 15:04:00 Test Item Value Reference Range Interpretation Comments PROTIME (test code = PROTIME) 11.6 s 12.0-14.7 [facility] [id number] 15:04:00 Test Item Value Reference Range Interpretation Comments INR (test code = INR) 0.86 1 0.85-1.17 [facility] NyfvnmqMGWRQHDTSU0071-42-74 15:04:0020[facility]IMMUNOLOGY 2018-05-21 15:04:008.9[facility]annSPECIAL [id number] 15:04:005.5 [facility]
--- OUTSIDE RECORDS SUMMARY | 2020-03-02 22:08 | XMS REPORT ---
:1950 Author Organization eClinicalWorks Care Team Providers Name Role Phone Trell Strattno Provider Role Unavailable Allergies No Known Allergies [...] Date Status Dosage System Date Ondansetron HCl [facility] [id number] 4 MG Orally Active TAKE 1 TABLET BY MOUTH EVERY 8 HOURS NEEDED FOR NAUSEA FOR 30 DAYS Results No Known Results Summary Purpose eClinicalWorks Submission
--- OUTSIDE RECORDS SUMMARY | 2020-03-02 22:09 | XMS REPORT ---
:1950 Author Organization [facility] Address [address] [place], [address] [place] [address] Care Team Providers Name Role Phone Trell Stratton Unavailable [phone] PROBLEMS Type Condition ICD9-CM STQ97-PD Onset Condition SNOMED Code Notes Code Code Dates Status Problem Abnormal R92.8 Active 548499752 mammogram of left breast Problem GERD without K21.9 Active 029536664 esophagitis Problem Tremor of both R25.1 Active 023769269 hands Problem Chronic J44.9 Active 90113230 obstructive pulmonary disease, unspecified COPD type Problem Former heavy Z87.891 Active 695939459546242 tobacco smoker Problem Osteoporosis, M81.0 Active 24729679 unspecified osteoporosis type, unspecified pathological fracture presence Problem Type 2 diabetes E11.22 Active 32879104 mellitus with diabetic chronic kidney disease Problem Migraine without G43.009 Active 980422560 aura and without status migrainosus, not intractable Problem Current moderate F32.1 Active 64739679 episode of major depressive disorder without prior episode Problem Depression with F41.8 Active 317463520 anxiety Problem Pulmonary nodule R91.1 Active 112191390 Problem Mixed E78.2 Active 391462700 hyperlipidemia Problem Gastro-esophageal K21.9 Active 015372423 reflux disease without esophagitis Problem Chronic kidney N18.3 Active 486318259 disease, stage 3 (moderate) ALLERGIES Allergen (clinical drug Drug/Non Drug Allergy Reaction Allergy Type Onset Date Status ingredient) documented on EMR codeine codeine Unknown Drug Allergy Active ENCOUNTERS from 1950 to 2020-02-26 Encounter Location Date Provider Diagnosis [facility] [address] [place] Feb, [facility] annual Family Medicine [address], [place] [address] subsequent Z00 .00 and Asymptomatic menopausal stat [...] ANNUAL WELLNESS VISIT 1 YEAR Reason: Provider Name:[facility], 2020-05-27 1 0:10:00 AM, [address], [place], [address], Insurance Providers Payer Name Payer Address Payer Insured Patient Coverage Cover age Phone Name Relationship to Start Date End Date Insured [place] [address] [phone] Topher Love 2017 [facility] [address] [place] [phone] MEDICARE Attn Part B [id number] Topher Love 2017 [employer] Claims [phone] [facility] [address]
--- OUTSIDE RECORDS SUMMARY | 2020-03-02 22:09 | XMS REPORT ---
:1950 Author Organization [facility] Address [address] [place], [place] [place] [address] Care Team Providers Name Role Phone Trell Stratton Unavailable [phone] PROBLEMS Type Condition ICD9-CM [id number] Onset Condition SNOMED Code Notes Code Code Dates Status Problem Abnormal R92.8 Active 873894803 mammogram of left breast Problem GERD without K21.9 Active 810557079 esophagitis Problem Tremor of both R25.1 Active 320778587 hands Problem Chronic J44.9 Active 27137336 obstructive pulmonary disease, unspecified COPD type Problem Former heavy Z87.891 Active 498975800971514 tobacco smoker Problem Osteoporosis, M81.0 Active 95398278 unspecified osteoporosis type, unspecified pathological fracture presence Problem Type 2 diabetes E11.22 Active 34260229 mellitus with diabetic chronic kidney disease Problem Migraine without G43.009 Active 166875074 aura and without status migrainosus, not intractable Problem Current moderate F32.1 Active 54320184 episode of major depressive disorder without prior episode Problem Depression with F41.8 Active 135845027 anxiety Problem Pulmonary nodule R91.1 Active 847843898 Problem Mixed E78.2 Active 984656996 hyperlipidemia Problem Gastro-esophageal K21.9 Active 130605788 reflux disease without esophagitis Problem Chronic kidney N18.3 Active 167792293 disease, stage 3 (moderate) ALLERGIES Allergen (clinical drug Drug/Non Drug Allergy Reaction Allergy Type Onset Date Status ingredient) documented on EMR codeine codeine Unknown Drug Allergy Active ENCOUNTERS from 1950 to 2020-02-26 Encounter Location Date Provider Diagnosis [facility] [place] [address] [place] [facility] Feb, Trell Stratton Type [address], mellitus w [facility] [place] [address] chronic kidney disease E11.22 ; Chroni c [...] Chronic obstr 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 Ordered. [facility] ed patient to schedule mammogram Chronic kidney [...] (such as a psychiatrist, psychologist, nurse or elementary school social worker) may be necessary to treat [...] refer to Surgery for futher evaluation at [facility] Proteinuria, unspecified type Discussed differential diagnos is. Complication of diabetes. Will start low-dose lisinopril 2.5 mg for renal protection. Side effect panel discussed. Education given. Will monitor. Osteoporosis, unspecified Continue Fosamax once weekly. Side osteoporosis type, unspecified effect and instructiosn given . pathological fracture presence Education given. Start taking Calcium + Vit D supplements. GERD without esophagitis Patient is aware of group home impact. Education given. Migraine without aura [...] Name:Trell Stratton, 2020-05-27 1 0:10:00 AM, [address] [place], [address], [place], [address], Insurance Providers Payer Name Payer Address Payer Insured Patient Coverage Cover age Phone Name Relationship to Start Date End Date Insured MEDICARE Attn Part B [id number] Topher Love self 2017 [facility] Claims [phone] [facility] [address] [place] [address] [phone] Topher Love self [address] [facility] [address] [place] [phone]
[2020-03-02] MEDS ORDERED: NA CHLORIDE 0.9% 500 ML ONE (22:38)
[2020-03-02] MEDS ORDERED: ONDANSETRON 4 MG/2 ML VIAL ONE (22:38)
--- NOTE | 2020-03-02 22:51 | EDPHYS ---
Physician Documentation [facility] Name: Yehuda Love Age: 69 yrs Sex: Female : 1950 Arrival Date: 03/02/2020 Time: 22:00 Bed 18 Private MD: ED Physician Russell Madrigal HPI: 03/02 22:20 This 69 yrs old Female presents to ER via EMS with complaints of Abdominal rn Pain, Nausea/Vomiting. 22:20 The patient presents to the emergency department with nausea, vomiting, diarrhea. rn Onset: The symptoms/episode began/occurred 3 day(s) ago. Possible causes: unknown. The symptoms are aggravated by food , The symptoms are alleviated by nothing. Severity of symptoms: At their worst the symptoms were moderate in the emergency department the symptoms are unchanged. The patient has not experienced similar symptoms in the past. Reports seen here earlier, sent home with medication, unable to fill suppositories and pills not helping, now vomiting for 3 days with non-bloody diarrhea, no blood in emesis, no trauma, no fever. + chills. Swabbed for COVID earlier today. No sick contacts. Reports nausea for weeks, given zofran by Dr. Victor. 4 pound weight loss since vomiting started, unable to keep anything down. . Historical: - Allergies: 22:06 Codeine; - PMHx: 22:06 COPD; Diabetes - NIDDM; High Cholesterol; Migraines; splenomegaly; wh - PSHx: 22:06 Appendectomy; Cholecystectomy; Hysterectomy; Hernia repair; - Immunization history:: Adult Immunizations up to date. - Social history:: Smoking status: Patient/guardian denies using. - Family history:: not pertinent. - Hospitalizations: : No recent hospitalization is reported. 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 Exam: 22:20 Constitutional: Thin female, shaking, throwing up in emesis bag Head/Face: rn Normocephalic, atraumatic. ENT: dry MM, no stridor Cardiovascular: Regular rate and rhythm. No pulse deficits. Respiratory: No increased work of breathing, no retractions or nasal flaring. Abdomen/GI: soft, mild mid abdominal tenderness, no rebound Skin: Warm, dry MS/ Extremity: Pulses equal, no cyanosis. Neurovascular intact. Full, normal range of motion. Equal circumference. Neuro: Awake and alert, GCS 15, oriented to person, place, time, and situation. Motor strength 4/5 in all extremities. Sensory grossly intact. Vital Signs: 22:11 BP 120 / 60; Pulse 94; Resp 18; Temp 97.9; Pulse Ox 96% ; Weight 53.52 kg; Height 5 ft. wh 2 in. (157.48 cm); 23:00 BP 123 / 76; Pulse 93; Resp 18; Pulse Ox 96% ; wh 22:11 Body Mass Index 21.58 (53.52 kg, 157.48 cm) MDM: 22:03 Patient medically screened. rn 22:49 Differential diagnosis: Nonspecific abd pain, gastritis, viral gastroenteritis, rn gastroenteritis. Data reviewed: vital signs, nurses notes, old medical records, lab test result(s), radiologic studies, CT scan, and as a result, I will admit patient. Counseling: I had a detailed discussion with the patient and/or guardian regarding: the historical points, exam findings, and any diagnostic results supporting the discharge/admit diagnosis, lab results, radiology results, the need for further work-up and treatment in the hospital. Response to treatment: There is no appreciated change of the patient's symptoms at this time, and as a result, I will admit patient. Admission orders: after a detailed discussion of the patient's condition and case, the admit orders are written by me. ED course: Pt failed outpt therapy of vomiting, is intractable, neg ct abdomen and cxr earlier. Sees Dr. Victor for GI. . 03/02 22:10 Order name: Basic Metabolic Panel; Complete Time: 23:16 rn 03/02 22:10 Order name: CBC with Diff; Complete Time: 23:16 rn 03/02 22:10 Order name: Hepatic Function; Complete Time: 23:16 rn 03/02 22:10 Order name: Lipase; Complete Time: 23:16 rn 03/03 01:49 Order name: Glucose, Ancillary Testing; Complete Time: 02:33 EDMS 03/03 05:10 Order name: CBC with Automated Diff EDMS 03/02 22:10 Order name: IV Saline Lock; Complete Time: 22:29 rn 03/03 05:22 Order name: Basic Metabolic Panel EDMS 03/03 05:33 Order name: Glucose, Ancillary Testing EDMS 03/02 22:10 Order name: Labs collected and sent; Complete Time: 22:29 rn Administered Medications: 22:29 Drug: Zofran (Ondansetron) 4 mg Route: IVP; Site: left antecubital; 23:13 Follow up: Response: No adverse reaction; Nausea unchanged :29 Drug: NS 0.9% 500 ml Route: IV; Rate: bolus; Site: left antecubital; 23:13 Follow up: Response: No adverse reaction; IV Status: Completed infusion 23:10 Drug: Phenergan 12.5 mg Route: IVP; Site: left antecubital; 23:13 Follow up: Response: No adverse reaction; Nausea is decreased 03/03 01:08 Drug: Phenergan 12.5 mg Route: IVP; Site: left antecubital; 01:21 Follow up: Response: No adverse reaction; Nausea is decreased :21 Drug: fentaNYL (PF) 50 mcg {Note: RASS 0.} Route: IVP; Site: left antecubital; 01:22 Follow up: Response: No adverse reaction; Pain is decreased; RASS: Alert and Calm (0) Disposition: 03/02/20 22:51 Hospitalization ordered by Liz Boykin for Observation. Preliminary diagnosis are Intractable vomiting, Failure of outpatient therapy, Dehydration. - Bed requested for Telemetry/MedSurg (observation). - Status is Observation. bp - Condition is Stable. - Problem is new. - Symptoms are unchanged. Signatures: Dispatcher [employer] EDMS Abril Mondragon, Russell Hartmann RN, MD MD rn Garcia, Cindy, RN RN cg Antunez, Elena, RN RN ea Habalo, Winsy Alverto English RN FER bp Corrections: (The following items were deleted from the chart) 03/02 22:54 22:51 Hospitalization Ordered by Liz Boykin MD for Observation. Preliminary cg diagnosis is Intractable vomiting; Failure of outpatient therapy; Dehydration. Bed requested for Telemetry/MedSurg (observation). Status is Observation. Condition is Stable. Problem is new. Symptoms are unchanged. rn 22:54 22:54 03/02/2020 22:51 Hospitalization Ordered by Liz Boykin MD for Observation. cg Preliminary diagnosis is Intractable vomiting; Failure of outpatient therapy; Dehydration. Bed requested for [facility] ER HOLD. Status is Observation. Condition is Stable. Problem is new. Symptoms are unchanged. cg 03/03 06:03 03/02 22:54 03/02/2020 22:51 Hospitalization Ordered by Liz Boykin MD for cg Observation. Preliminary diagnosis is Intractable vomiting; Failure of outpatient therapy; Dehydration. Bed requested for [facility] ER HOLD. Status is Observation. Condition is Stable. Problem is new. Symptoms are unchanged. cg 03/03 08:11 06:03 03/02/2020 22:51 Hospitalization Ordered by Liz Boykin MD for Observation. bp Preliminary diagnosis is Intractable vomiting; Failure of outpatient therapy; Dehydration. Bed requested for Telemetry/MedSurg (observation). Status is Observation. Condition is Stable. Problem is new. Symptoms are unchanged. cg
--- NOTE | 2020-03-02 22:51 | ER ---
Nurse's Notes [facility] Name: Yehuda Love Age: 69 yrs Sex: Female : 1950 Arrival Date: 03/02/2020 Time: 22:00 Bed 18 Private MD: Diagnosis: Intractable vomiting;Failure of outpatient therapy;Dehydration Presentation: 03/02 22:04 Chief complaint: EMS states: Pt was just here this morning for same complaint, was wh prescribed medicine for nausea. Pt states medicine was not working she wasn't able to keep the pills down, still C/O nausea and vomiting and abdominal cramping. Coronavirus screen: Client denies travel out of the [place] in the last 14 days. nausea, vomiting. Client presents with at least one sign or symptom that may indicate coronavirus-19. Standard/surgical mask placed on the client. Ebola Screen: Patient negative for fever greater than or equal to 101.5 degrees Fahrenheit, and additional compatible Ebola Virus Disease symptoms Patient denies exposure to infectious person. Risk Assessment: Do you want to hurt yourself or someone else? Patient reports no desire to harm self or others. Onset of symptoms was March 02, 2020. 22:04 Method Of Arrival: EMS: [facility] 22:04 Acuity: SWETA 3 22:11 Initial Sepsis Screen: Does the patient meet any 2 criteria? HR > 90 bpm. Does the patient have a suspected source of infection? Yes: Acute abdominal pain. Historical: - Allergies: 22:06 Codeine; - PMHx: 22:06 COPD; Diabetes - NIDDM; High Cholesterol; Migraines; splenomegaly; - PSHx: 22:06 Appendectomy; Cholecystectomy; Hysterectomy; Hernia repair; - Immunization history:: Adult Immunizations up to date. - Social history:: Smoking status: Patient/guardian denies using. - Family history:: not pertinent. - Hospitalizations: : No recent hospitalization is reported. Screenin:13 Abuse screen: Denies threats or abuse. Denies injuries from another. Nutritional screening: No deficits noted. Tuberculosis screening: No symptoms or risk factors identified. Fall Risk None identified. Assessment: 22:13 General: Appears in no apparent distress. uncomfortable, Behavior is cooperative, wh appropriate for age. Pain: Complains of pain in abdomen diffusely. Pain: Quality of pain is described as crampy. Neuro: Level of Consciousness is awake, alert, obeys commands. Neuro: Oriented to person, place, time, situation, Appropriate for age. Cardiovascular: Heart tones S1 S2. Respiratory: Airway is patent Respiratory effort is even, unlabored, Respiratory pattern is regular, symmetrical, Breath sounds are clear bilaterally. GI: Abdomen is flat, non-distended, Bowel sounds present X 4 quads. Abd is soft and non tender Reports lower abdominal pain, upper abdominal pain, nausea, vomiting. : No signs and/or symptoms were reported regarding the genitourinary system. EENT: No signs and/or symptoms were reported regarding the EENT system. Derm: Skin is intact, is healthy with good turgor, Skin is pink, warm \T\ dry. normal. Musculoskeletal: Circulation, motion, and sensation intact. 23:12 Reassessment: Patient appears in no apparent distress at this time. No changes from previously documented assessment. Patient and/or family updated on plan of care and expected duration. Pain level reassessed. Patient is alert, oriented x 3, equal unlabored respirations, skin warm/dry/pink. 03/03 01:09 Reassessment: pt vomiting requesting pain medication for abdominal pain of 12/21 Ben LAY notified new orders received see JUL. Vital Signs: 03/02 22:11 BP 120 / 60; Pulse 94; Resp 18; Temp 97.9; Pulse Ox 96% ; Weight 53.52 kg; Height 5 ft. 2 in. (157.48 cm); 23:00 BP 123 / 76; Pulse 93; Resp 18; Pulse Ox 96% ; wh 22:11 Body Mass Index 21.58 (53.52 kg, 157.48 cm) ED Course: 22:00 Patient arrived in ED. cf2 22:03 Russell Madrigal MD is Attending Physician. rn 22:03 Fay Landa is Primary Nurse. 22:06 Triage completed. 22:14 Arm band placed on right wrist. 22:14 Patient has correct armband on for positive identification. Bed in low position. Call light in reach. Side rails up X 1. Pulse ox on. NIBP on. 22:28 Inserted saline lock: 20 gauge in left antecubital area, using aseptic technique. Blood mw2 collected. 22:50 Liz Boykin MD is Hospitalizing Provider. rn 23:12 No provider procedures requiring assistance completed. Patient admitted, IV remains in place. 03/03 01:14 Report given to Ronny Sierra RN. Administered Medications: 03/02 22:29 Drug: Zofran (Ondansetron) 4 mg Route: IVP; Site: left antecubital; 23:13 Follow up: Response: No adverse reaction; Nausea unchanged :29 Drug: NS 0.9% 500 ml Route: IV; Rate: bolus; Site: left antecubital; 23:13 Follow up: Response: No adverse reaction; IV Status: Completed infusion 23:10 Drug: Phenergan 12.5 mg Route: IVP; Site: left antecubital; 23:13 Follow up: Response: No adverse reaction; Nausea is decreased 03/03 01:08 Drug: Phenergan 12.5 mg Route: IVP; Site: left antecubital; :21 Follow up: Response: No adverse reaction; Nausea is decreased 01:21 Drug: fentaNYL (PF) 50 mcg {Note: RASS 0.} Route: IVP; Site: left antecubital; :22 Follow up: Response: No adverse reaction; Pain is decreased; RASS: Alert and Calm (0) Outcome: 03/02 22:51 Decision to Hospitalize by Provider. rn 23:12 Admitted to ER Hold. Please see [facility] for further documentation. 23:12 Condition: stable 23:12 Instructed on the need for admit. 03/03 08:11 Patient left the ED. bp Signatures: Abril Mondragon RN RN bb Nieto, Roman, MD MD rn Antunez, Elena, RN RN ea Habalo, Winsy Alverto English RN RN bp May Reaves mw2 Alana Guerrero cf2 Corrections: (The following items were deleted from the chart) 01:13 fentaNYL (PF) 50 mcg IVP in left antecubital [facility]
[2020-03-02 23:08] LABS: Bilirubin Direct 0.2 mg/dL (0-0.2); Bilirubin Total 0.5 mg/dL (0.2-1.0); Potassium 3.6 mmol/L (3.5-5.1); Protein, Total 7.8 g/dL (6.4-8.2)
[2020-03-02 23:13] LABS: Absolute Lymphocytes (CBC) 1.7 K/uL (0.7-4.9); Basophils % 0.4 % (0-1.3); Lymphocytes % 16.3 % (15.3-44.8); MPV 9.2 fL (7.6-11.3); RBC Red Blood Cell Count 4.93 M/uL (3.86-4.86)
[2020-03-02] MEDS ORDERED: PROMETHAZINE INJ 25 MG/ML AMP ONE (23:21)
[2020-03-03] MEDS ORDERED: ACETAMINOPHEN 500 MG TAB PO PRN (00:48)
[2020-03-03] MEDS ORDERED: SODIUM CHLORIDE 0.9% 10ML INJ IV PRN (00:48)
[2020-03-03] MEDS: D5 0.45 NS 1,000 ML IV SCH ×3 (00:48→20:11)
[2020-03-03] MEDS ORDERED: GLUCAGON 1 MG/VIAL IM PRN (00:48)
[2020-03-03] MEDS ORDERED: D50W 25 GM/50 ML SYRINGE/VIAL IV PRN (00:48)
[2020-03-03 00:53] VITALS: BMI 21.5
[2020-03-03] MEDS ORDERED: PROMETHAZINE INJ 25 MG/ML AMP ONE ×2 (01:17→06:12)
[2020-03-03] MEDS ORDERED: FENTANYL CITR 100 MCG/2 ML ONE (01:32)
[2020-03-03] MEDS ORDERED: D5 0.45 NS 1,000 ML IV ONE (01:34)
--- NOTE | 2020-03-03 01:52 | P.HP ---
Certification for Inpatient Patient admitted to: Observation With expected LOS: <2 Midnights Patient will require the following post-hospital care: None Practitioner: I am a practitioner with admitting privileges, knowledge of patient current condition, hospital course, and medical plan of care. Services: Services provided to patient in accordance with Admission requirements found in Title 42 Section 412.3 of the Code of Federal Regulations <Kayce Houstonshua - Last Filed: 03/03/20 01:47> Patient History Date of Service: 03/03/20 Primary Care Provider: Loulou Stratton Reason for admission: Acute Gastroenteritis, Intractable Vomiting and Pain History of Present Illness: This is a 69-year-old female that was admitted from the emergency department after being seen for a 4 day history of nausea vomiting and diarrhea that acutely started. Patient denies any recent travel or sick contacts. Patient denies any recent infections or antibiotic use. Patient stated that she has had uncontrolled nausea vomiting diarrhea and abdominal pain for the past 4 days without any relief. Patient was seen in the emergency department earlier today where she had blood work, chest x-ray and CT scan completed without any abnormal findings. Was medicated and sent home at that time. Patient came back later this evening for continuation of symptoms that was unrelieved by the medications that she was sent home on. Repeat blood work was completed in the emergency room without acute finding once again. Home medications list reviewed: Yes - Past Medical/Surgical History Has patient received pneumonia vaccine in the past: Yes Diabetic: Yes -: COPD -: Essential tremors -: DM 2 -: MIgraines -: PArtial hysterectomy -: Nyla -: Appy -: Hip replacement -: Tonsillectomy -: Lung Sx-Top lobe of Left lung - Family History Family History: Reviewed- Non-Contributory - Social History Smoking Status: Current some day smoker Counseled patient to stop smoking for: less than 10 minutes Smoking therapy provided: Yes Alcohol use: No CD- Drugs: No Caffeine use: Yes Place of Residence: Home <Tacos Houston - Last Filed: 03/03/20 01:47> Date of Service: 03/03/20 <Liz Boykin - Last Filed: 03/05/20 12:59> Allergies codeine Allergy (Verified 03/03/20 01:48) Itching Home Medications: Albuterol Sulfate [Proventil Hfa] 2 puff IH BID 03/03/20 Alendronate Sodium 70 mg PO SEECOM 03/03/20 Buspirone HCl 15 mg PO BID 03/03/20 Glycopyrrolate/Formoterol Fum [Bevespi Aerosphere Inhaler] 2 puff IH BID 03/03/20 Lisinopril [Zestril] 2.5 mg PO DAILY 03/03/20 Metformin HCl [Glucophage*] 500 mg PO BID 03/03/20 Mirtazapine 30 mg PO BEDTIME 03/03/20 Omeprazole [Prilosec] 40 mg PO DAILY 03/03/20 Ondansetron HCl 4 mg PO Q6H PRN 03/03/20 Primidone [Mysoline *] 50 mg PO BID 03/03/20 Simvastatin 20 mg PO DAILY 03/03/20 Atorvastatin Calcium [Lipitor*] 10 mg PO BEDTIME #30 tab 03/04/20 Ondansetron HCl [Zofran] 4 mg PO Q6HP PRN #20 tablet 03/04/20 Review of Systems General: Chills, Weakness, Malaise Eyes: Unremarkable ENT: Unremarkable Respiratory: Unremarkable Cardiovascular: Unremarkable Gastrointestinal: Nausea, Vomiting, Abdominal Pain, Diarrhea, No Distention Genitourinary: Unremarkable Musculoskeletal: Unremarkable Integumentary: Unremarkable Neurological: Unremarkable Lymphatics: Unremarkable <Kayce Houstonshua - Last Filed: 03/03/20 01:47> Physical Examination - Vital Signs Temperature: 97.9 F Blood Pressure: 120/60 Pulse: 94 Respirations: 18 Pulse Ox (%): 96 - Physical Exam General: Alert, In no apparent distress, Oriented x3 HEENT: PERRLA, EOMI (mucous membranes dry) Neck: Supple, 2+ carotid pulse no bruit, JVD not distended Respiratory: Clear to auscultation bilaterally, Normal air movement Cardiovascular: No edema, Normal pulses, Regular rate/rhythm, Normal S1 S2, No gallops, No rubs, No murmurs Capillary refill: <2 Seconds Gastrointestinal: Normal bowel sounds, No ascites, Tenderness (mild tenderness diffusely ) Musculoskeletal: No clubbing, No swelling, No contractures, No erythema, No tenderness, No warmth Integumentary: No rashes, No breakdown, No significant lesion, No tenderness/swelling, No erythema, No warmth, No cyanosis Neurological: Normal speech, Normal strength at 5/5 x4 extr, Normal tone, Sensation intact, Cranial nerves 3-12 intact, Normal affect, Other (Resting tremor present) Lymphatics: No axilla or inguinal lymphadenopathy - Studies Laboratory Data (last 24 hrs) 03/02/20 22:29: WBC 10.2 D, Hgb 14.9, Hct 44.0, Plt Count 237 03/02/20 22:29: Sodium 139, Potassium 3.6, BUN 10, Creatinine 0.88, Glucose 102, Total Bilirubin 0.5, AST 15, ALT 22, Alkaline Phosphatase 79, Lipase 87 <Tacos Houston - Last Filed: 03/03/20 01:47> Assessment and Plan - Problems (Diagnosis) (1) Acute gastroenteritis Current Visit: Yes Status: Acute (2) Dehydration Current Visit: Yes Status: Acute (3) Intractable vomiting with nausea Current Visit: Yes Status: Acute (4) Intractable abdominal pain Current Visit: Yes Status: Acute (5) Type 2 diabetes mellitus without complication Current Visit: Yes Status: Chronic Plan: Patient's glucose seems to be well-maintained with a glucose currently 92 in the emergency room. Sugars will be Esteves sliding scale has been placed if needed. Patient has been put on D5 half NS and clear liquid diet as for the nausea vomiting and diarrhea to maintain sugar. (6) GERD (gastroesophageal reflux disease) Current Visit: Yes Status: Acute Plan: Will continue Protonix for the nausea vomiting and GERD that patient has a history of. - Plan Patient will be observed overnight where she will have continuous fluids given along with nausea medication and pain medication. Stool cultures will be obtained when she can give a specimen to rule out any parasitic or infectious origins of diarrhea. Labs will be drawn in the morning to ensure no electrolyte disturbance or renal failure present secondary to dehydration. At this time antibiotics are not necessitated. Glucose another blood levels will be monitored throughout the next 24 hr. Expectation is for patient to be able to go home within 24 hr once vomiting and pain subsides with medication. Discharge Plan: Home Plan to discharge in: 24 Hours - Advance Directives Does patient have a Living Will: No Does patient have a Durable POA for Healthcare: No - Code Status/Comfort Care Code Status Assessed: Yes Code Status: Do Not Attempt Resuscitat Critical Care: No Time Spent Managing Pts Care (In Minutes): 45 <Tacos [place] - Last Filed: 03/03/20 01:47> - Problems (Diagnosis) (1) Essential tremor Current Visit: Yes Status: Acute (2) Acute gastroenteritis Current Visit: Yes Status: Acute (3) Dehydration Current Visit: Yes Status: Acute (4) Intractable vomiting with nausea Current Visit: Yes Status: Acute (5) Type 2 diabetes mellitus without complication Current Visit: Yes Status: Chronic <Liz Boykin - Last Filed: 03/05/20 12:59> Date of Service: 03/03/20 Chart is been reviewed. Events the last 24 hr noted. Patient with persistent nausea and vomiting. Patient continues to have essential tremors. Patient is very upset about her living situation. She opened up to me about she does not feel like she has a place of her own. She lives with her son in her [id number]'s home. This makes it very hard for her day to day. She will be admitted to the hospital for evaluation. <Liz Boykin - Last Filed: 03/05/20 12:59>
[2020-03-03 05:09] LABS: Basophils % 0.4 % (0-1.3); Lymphocytes % 28.8 % (15.3-44.8); MPV 8.5 fL (7.6-11.3); RBC Red Blood Cell Count 4.32 M/uL (3.86-4.86)
[2020-03-03 05:21] LABS: Potassium 3.6 mmol/L (3.5-5.1)
[2020-03-03] MEDS: ONDANSETRON 4 MG/2 ML VIAL IV PRN ×2 (05:43→08:58)
[2020-03-03] MEDS ORDERED: ONDANSETRON 4 MG/2 ML VIAL ONE (05:53)
[2020-03-03] MEDS: PROMETHAZINE INJ 25 MG/ML AMP IV PRN ×4 (06:43→20:20)
[2020-03-03] MEDS: INSULIN -REGULAR HUMAN 50 UNIT/0.5 ML ML SQ SCH ×4 (07:30→21:00)
[2020-03-03] MEDS ORDERED: INFLUENZA VACCINE (for 3y+) 0.5 ML DOSE IMVAC ONE (08:00)
[2020-03-03] MEDS: DICYCLOMINE HCL 10 MG CAP PO SCH ×4 (08:58→20:11)
[2020-03-03] MEDS ORDERED: PANTOPRAZOLE 40 MG INJ IVP SCH (09:00)
[2020-03-03] MEDS ORDERED: LORazepam 2 MG/ML VIAL IV ONE (11:44)
[2020-03-03] MEDS ORDERED: METHYLPREDNISOLONE 125 MG INJ IV ONE (11:44)
[2020-03-03] MEDS ORDERED: ONDANSETRON 4 MG (ODT) TAB PO PRN (11:45)
[2020-03-03] MEDS: PANTOPRAZOLE 40 MG INJ IVP SCH (17:16)
[2020-03-03] MEDS: BUSPIRONE HCL 15 MG TABLET PO SCH (20:10)
[2020-03-03] MEDS: PRIMIDONE 50 MG TAB PO SCH (20:11)
[2020-03-03] MEDS: MIRTAZAPINE 15 MG TAB PO SCH (20:11)
[2020-03-03] MEDS: ATORVASTATIN 10 MG TAB PO SCH (20:11)
[2020-03-04] MEDS: PROMETHAZINE INJ 25 MG/ML AMP IV PRN ×6 (03:16→22:00)
[2020-03-04] MEDS: PANTOPRAZOLE 40 MG INJ IVP SCH ×2 (05:04→17:03)
[2020-03-04] MEDS: D5 0.45 NS 1,000 ML IV SCH ×2 (06:08→08:09)
[2020-03-04] MEDS: INSULIN -REGULAR HUMAN 50 UNIT/0.5 ML ML SQ SCH ×4 (07:30→21:00)
--- NOTE | 2020-03-04 07:33 | P.PN ---
Subjective Date of Service: 03/03/20 Patient still having nausea and vomiting. Still not eating anything. Patient has essential tremors and is having persistent tremors as well. She does not really have a desire to eat anything because she is so sick to her stomach. This has never happened to her before. Continue with current plan of care at this time. Review of Systems 10-point ROS is otherwise unremarkable Physical Examination - Vital Signs Temperature: 98.4 F Blood Pressure: 166/67 Pulse: 88 Respirations: 18 Pulse Ox (%): 97 - Physical Exam General: Alert, In no apparent distress, Oriented x3 Respiratory: Clear to auscultation bilaterally, Normal air movement Cardiovascular: Regular rate/rhythm, Normal S1 S2, No murmurs Gastrointestinal: Normal bowel sounds, Soft and benign, Non-distended, No tenderness Musculoskeletal: No clubbing, No swelling, No tenderness Neurological: Sensation intact, Cranial nerves 3-12 intact - Studies Medications List Reviewed: Yes Assessment & Plan - Problems (Diagnosis) (1) Essential tremor Current Visit: Yes Status: Acute (2) Acute gastroenteritis Current Visit: Yes Status: Acute (3) Dehydration Current Visit: Yes Status: Acute (4) Intractable vomiting with nausea Current Visit: Yes Status: Acute (5) Type 2 diabetes mellitus without complication Current Visit: Yes Status: Chronic - Plan Plan: 1. IV fluids 2. Antiemetics 3. Pain control 4. Medication for tremors 5. GI and DVT prophylaxis Discharge Plan: Home Plan to discharge in: 24 Hours - Advance Directives Does patient have a Living Will: No Does patient have a Durable POA for Healthcare: No - Code Status/Comfort Care Code Status: Do Not Attempt Resuscitat Critical Care: No Time Spent Managing PTS Care (In Minutes): 35
[2020-03-04] MEDS: DICYCLOMINE HCL 10 MG CAP PO SCH ×3 (08:05→21:13)
[2020-03-04] MEDS: PRIMIDONE 50 MG TAB PO SCH ×2 (08:05→21:13)
[2020-03-04] MEDS: BUSPIRONE HCL 15 MG TABLET PO SCH ×2 (08:06→21:13)
[2020-03-04] MEDS ORDERED: HOME MED 1 EA UNK (Simvastatin [Simvastatin] 20 MG) PO SCH (09:00)
[2020-03-04] MEDS ORDERED: HOME MED 1 EA UNK (Omeprazole [Prilosec] 40 MG) PO SCH (09:00)
[2020-03-04 10:22] LABS: Absolute Lymphocytes (CBC) 1.9 K/uL (0.7-4.9); Basophils % 0.7 % (0-1.3); Hematocrit 39.2 % (36.0-45.0); Lymphocytes % 25.7 % (15.3-44.8); MPV 8.8 fL (7.6-11.3); RBC Red Blood Cell Count 4.45 M/uL (3.86-4.86)
[2020-03-04 10:38] LABS: Potassium 3.3 mmol/L (3.5-5.1)
[2020-03-04] MEDS ORDERED: ALPRAZOLAM 0.5 MG TABLET PO ONE (14:06)
--- NOTE | 2020-03-04 15:06 | P.PN ---
Subjective Date of Service: 03/04/20 Patient is doing well with no new complaints. Symptoms continued to improve. At this time, patient will need outpatient follow-up with physical therapy. Patient is depressed and will need outpatient follow with Psychiatry as well. Review of Systems 10-point ROS is otherwise unremarkable Physical Examination - Vital Signs Temperature: 97.6 F Blood Pressure: 143/73 Pulse: 89 Respirations: 18 Pulse Ox (%): 93 - Physical Exam General: Alert, In no apparent distress, Oriented x3 Respiratory: Clear to auscultation bilaterally, Normal air movement Cardiovascular: Regular rate/rhythm, Normal S1 S2, No murmurs Gastrointestinal: Normal bowel sounds, Soft and benign, Non-distended, No tenderness Musculoskeletal: No clubbing, No swelling, No tenderness - Studies Medications List Reviewed: Yes Assessment & Plan - Problems (Diagnosis) (1) Essential tremor Status: Acute (2) Acute gastroenteritis Status: Acute (3) Dehydration Status: Acute (4) Intractable vomiting with nausea Status: Acute (5) Type 2 diabetes mellitus without complication Status: Chronic - Plan Plan: 1. Continue with aggressive IV hydration 2. Continue with anxiolytics 3. Continue with Pain control 4. Medication for tremors 5. Arrange for outpatient physical therapy. May need half-way facility placement 6. GI and DVT prophylaxis - Advance Directives Does patient have a Living Will: No Does patient have a Durable POA for Healthcare: No - Code Status/Comfort Care Code Status: Do Not Attempt Resuscitat Critical Care: No Time Spent Managing PTS Care (In Minutes): 35
[2020-03-04] MEDS: MIRTAZAPINE 15 MG TAB PO SCH (21:13)
[2020-03-04] MEDS: ATORVASTATIN 10 MG TAB PO SCH (21:13)
[2020-03-04] MEDS: clonazePAM 0.5 MG TAB PO SCH (21:13)
[2020-03-04 22:50] VITALS: O2SAT 94
[2020-03-05] MEDS: PROMETHAZINE INJ 25 MG/ML AMP IV PRN ×4 (04:47→17:09)
[2020-03-05] MEDS: PANTOPRAZOLE 40 MG INJ IVP SCH ×2 (05:07→17:10)
[2020-03-05] MEDS: INSULIN -REGULAR HUMAN 50 UNIT/0.5 ML ML SQ SCH ×3 (07:30→15:49)
[2020-03-05] MEDS: PRIMIDONE 50 MG TAB PO SCH (08:40)
[2020-03-05] MEDS: DICYCLOMINE HCL 10 MG CAP PO SCH ×2 (08:40→13:42)
[2020-03-05] MEDS: clonazePAM 0.5 MG TAB PO SCH ×2 (08:40→13:42)
[2020-03-05] MEDS: BUSPIRONE HCL 15 MG TABLET PO SCH (08:41)
[2020-03-06 15:28] VITALS: BP 143/73; TEMP 97.6
--- NOTE | 2020-03-06 15:32 | P.DS ---
Discharge Date: 03/05/20 Primary Care Provider: Loulou Stratton Disposition: TRANSFER TO HALF-WAY Discharge Condition: GOOD Reason for Admission: Acute Gastroenteritis, Intractable Vomiting and Pain - Problems (1) Essential tremor Status: Acute (2) Acute gastroenteritis Status: Acute (3) Dehydration Status: Acute (4) Intractable vomiting with nausea Status: Acute (5) Type 2 diabetes mellitus without complication Status: Chronic Brief History of Present Illness: Patient is a 69-year-old female who came to the hospital with intractable nausea and vomiting. I spoke with the patient at length and she was having some difficulties at home. She had an feel like she belongs with anyone as she lives with her son and [id number]. She feels like she the Soriano to many people. She is not suicidal but she is feeling really depressed and questions her worth in life. Patient was admitted for intractable nausea and vomiting most likely related to irritable bowel syndrome or cyclical vomiting. She may also have gastroparesis. She will be admitted for further evaluation. Hospital Course: At this time, patient is doing well with no new complaints. Patient's symptoms have improved. She was started on anxiolytics and she was feeling much better. At [facility] time [facility] She will be transfer for outpatient follow-up with GI and her PCP. She may need antidepressants and anxiolytics. At this time, patient is stable for discharge home. Vital Signs/Physical Exam: Temp Pulse Resp BP Pulse Ox 97.6 F 89 18 143/73 H 93 03/06/20 15:28 03/06/20 15:28 03/06/20 15:28 03/06/20 15:28 03/06/20 15:28 General: Alert, In no apparent distress, Oriented x3 Laboratory Data at Discharge: WBC 7.5 K/uL (4.3-10.9) 03/04/20 10:09 Hgb 13.4 g/dL (12.0-15.0) 03/04/20 10:09 Hct 39.2 % (36.0-45.0) 03/04/20 10:09 Plt Count 175 K/uL (152-406) 03/04/20 10:09 Sodium 142 mmol/L (136-145) 03/04/20 10:09 Potassium 3.3 mmol/L (3.5-5.1) L 03/04/20 10:09 BUN 4 mg/dL (7-18) L 03/04/20 10:09 Creatinine 0.82 mg/dL (0.55-1.3) 03/04/20 10:09 Glucose 120 mg/dL (74-106) H 03/04/20 10:09 Total Bilirubin 0.5 mg/dL (0.2-1.0) 03/02/20 22:29 AST 15 U/L (15-37) 03/02/20 22:29 ALT 22 U/L (12-78) 03/02/20 22:29 Alkaline Phosphatase 79 U/L (45-117) 03/02/20 22:29 Lipase 87 U/L (73-393) 03/02/20 22:29 Home Medications: Albuterol Sulfate [Proventil Hfa] 2 puff IH BID 03/03/20 Alendronate Sodium 70 mg PO SEECOM 03/03/20 Buspirone HCl 15 mg PO BID 03/03/20 Glycopyrrolate/Formoterol Fum [Bevespi Aerosphere Inhaler] 2 puff IH BID 03/03/20 Metformin HCl [Glucophage*] 500 mg PO BID 03/03/20 Mirtazapine 30 mg PO BEDTIME 03/03/20 Omeprazole [Prilosec] 40 mg PO DAILY 03/03/20 Ondansetron HCl 4 mg PO Q6H PRN 03/03/20 Primidone [Mysoline *] 50 mg PO BID 03/03/20 Simvastatin 20 mg PO DAILY 03/03/20 Atorvastatin Calcium [Lipitor*] 10 mg PO BEDTIME #30 tab 03/04/20 Ondansetron HCl [Zofran] 4 mg PO Q6HP PRN #20 tablet 03/04/20 Pantoprazole [Protonix Tab] 40 mg PO DAILY #30 tab 03/05/20 clonazePAM [Klonopin*] 0.5 mg PO TID #30 tab 03/05/20 New Medications: clonazePAM [Klonopin*] 0.5 mg PO TID #30 tab Atorvastatin Calcium [Lipitor*] 10 mg PO BEDTIME #30 tab Pantoprazole [Protonix Tab] 40 mg PO DAILY #30 tab Ondansetron HCl [Zofran] 4 mg PO Q6HP PRN #20 tablet PRN Reason: NAUSEA AND VOMITING Patient Discharge Instructions: OK TO DC IV AND DC TO HALF-WAY. FOLLOW-UP WITH PRIMARY CARE PROVIDER IN 1-2 WEEKS. FOLLOW-UP WITH METAL FENCE ERECTOR IN 1-2 WEEKS. RETURN TO THE ER IF SYMPTOMS WORSEN. CALL or TEXT DR. JEROME AT [phone] IF ANY QUESTIONS REGARDING HOSPITAL STAY. PLEASE CALL THE FLOOR AT [phone] IF ANY MEDICATION OR NURSING QUESTIONS. Diet: AHA Activity: Fall precautions Followup: NONE,NONE [Primary Care Provider] - Time spent managing pt's care (in minutes): 35
== END 2020-03-05 18:45 | DRG 392 ==
LOC: ER 21:59 → ERHOLD 03-03 00:47 → 2ND 03-03 08:00 → OBSVTOIN 03-04 22:39
PROVIDERS: ADMIT Hospitalist; ATTEND Hospitalist
DX: K52.9 Noninfective gastroenteritis and colitis, unspecified (principal); E86.0 Dehydration; K21.9 Gastro-esophageal reflux disease without esophagitis; G25.0 Essential tremor; F32.9 Major depressive disorder, single episode, unspecified; E11.43 Type 2 diabetes mellitus with diabetic autonomic (poly)neuropathy; K31.84 Gastroparesis; J44.9 Chronic obstructive pulmonary disease, unspecified; F17.200 Nicotine dependence, unspecified, uncomplicated; Z79.84 Long term (current) use of oral hypoglycemic drugs; Z90.710 Acquired absence of both cervix and uterus; Z66 Do not resuscitate; Z79.899 Other long term (current) drug therapy; Z90.711 Acquired absence of uterus with remaining cervical stump; Z88.5 Allergy status to narcotic agent; Z96.649 Presence of unspecified artificial hip joint; Z90.49 Acquired absence of other specified parts of digestive tract; Z20.828 Contact with and (suspected) exposure to other viral communicable diseases
CPT/HCPCS: 36415; 71045; 74177; 80048; 80076; 82947; 83605; 83690; 83735; 83880; 84145; 84484; 85025; 85379; 85610; 89055; 93005; 96361; 96374; 96375; 97116; 97161; 99285; C9113; G0378; J2405; J2550; J2930; J3010; J7030; J7040; J7799; Q9967; U0002